=== PATIENT | female | born 1995 | race Caucasian/White ===

== ENCOUNTER 2022-02-01 08:12 | Outpatient (CLI) | payer BC, SELFPAY ==
--- NOTE | 2022-02-01 08:15 | CRLHL7_ITS ---
For Patients: As a result of the Cures Act, medical imaging exams and procedure reports are released immediately into your electronic medical record. You may view this report before your referring provider. If you have questions, please contact your health care provider. 3rd TRIMESTER TWIN GROWTH INDICATION: Third trimester scan, evaluate growth in a twin gestation. COMPARISON: 12/18/2021 TECHNIQUE: Real-time grayscale imaging of the twins was performed. FINDINGS: Sonographic imaging demonstrates a living twin intrauterine gestation. Twin A demonstrates a regular cardiac rate of 144 beats per minute. Twin A has a right breech position. The placenta lies anterior. Amniotic fluid volume appears normal and the largest fluid pocket measures 4.1 cm. The estimated weight is 1400 gm which lies at the 72nd percentile. BPD 78th percentile. HC 79th percentile. AC 85th percentile. FL 21st percentile. The HC/AC ratio measures 1.08 range (0.98-1.20). Twin B demonstrates a regular cardiac rate of 144 beats per minute. Twin B has a left vertex position. The placenta lies anterior. Amniotic fluid volume appears normal and the largest fluid pocket measures 3.5 cm. The estimated weight is 1228 gm which lies at the 32nd percentile. BPD 16th percentile. HC 33rd percentile. AC 46th percentile. FL 21st percentile. The HC/AC ratio measures 1.09 range (1.01-1.21). IMPRESSION: TWIN A: Sonographic gestational age 29 weeks 5 days and sonographic due date 04/14/2022. Sonographic age is 8 days ahead of the clinical age. Estimated weight 72nd percentile. Abdominal circumference 85th percentile. TWIN B: Sonographic gestational age 28 weeks 3 days and sonographic due date of 04/23/2022. Sonographic age is 1 day behind the clinical age. Estimated weight 32nd percentile. Abdominal circumference 46th percentile. Dictated by Jason Segura MD @ 02/01/2022 9:26:12 AM (Electronically Signed)
== END 2022-02-01 08:13 | disposition home or self-care (01) ==
LOC: US 08:13
PROVIDERS: Visit Provider Obstetrics & Gynecology
DX: O30.043 Twin pregnancy, dichorionic/diamniotic, third trimester (principal); Z3A.28 28 weeks gestation of pregnancy
CPT/HCPCS: 76816

== ENCOUNTER 2022-02-01 13:02 | Outpatient (CLI) | payer BC, SELFPAY ==
--- OUTSIDE RECORDS SUMMARY | 2022-02-01 08:04 | XMS_ITS | Encounter Summary ---
:1995 Author Organization [facility] Address [address] [address] Care Team Providers Name Role Phone Randy Zoie Rabia OSUNA, MACEY Primary Care Provider [phone] Reason for Visit Reason Comments LAB RESULTS Encounter Details Date Type Department Care Team Description 09/01/2015 Telephone [facility] Jp Lorenz MD LAB RESULTS Endocrinology Clinic [address] [place] [address], [address] [place] [address] [place] [address] [phone] (Wo rk) Social History Tobacco Use Types Packs/Day Years Used Date Smoking Tobacco: Former Smokeless Tobacco: Former Qu it: 05/27/2011 Alcohol Use Standard Drinks/Week Comments No 0 (1 standard drink = 0.6 oz pure alcoho l) Sex Assigned at Date Recorded Not on file documented as of this encounter Nursing Notes Lakshmi Mckeon, WILD - 09/01/2015 11:39 AM CDT Return call to pt with lab results (pt had not viewed online results yet). Lakshmi Mckeon RN 09/01/2015, 11:39 AM Brianna Saavedra - 09/01/2015 11:09 AM CDT What test are you calling about: Lab tests Who ordered it: Dr. Burgess Where was the test done: [facility] When did you have it done: 08/25/15 If a prescription is needed, would you like it filled at our clinic pharmacy? [Derrick Barge Operator/Appt Center: Was the pharmacy entered into the Preferred Pharmacy field? No] Is it okay to leave detailed message on your voicemail? yes [Derrick Barge Operator/Appt Center: If this call is after 3 p.m., communicate to patient: If we are not able to get back to you by the end of the day and your symptoms worsen please contact the Careline at [phone] OR at .] [Derrick Barge Operator: Inform patient that if they are active with online patient services they can receive their results online (only available for 12 years and younger and 18 years and older)] Is there anything else I can help you with today? Brianna Mckay 09/01/2015, 11:11 AM documented in this encounter Plan of Treatment Not on filedocumented as of this encounter Visit Diagnoses Not on filedocumented in this encounter Care Teams Bicycle Fitter Relationship Specialty Start Date End Date Zoie Padilla, AND TAXI INSTRUCTOR BUS TROLLEY, CONSTRUCTION AND MAINTENANCE INSPECTOR PCP - General Nurse Practitioner 01/04/15 01/23/[address] [place] [address] documented as of this encounter
--- OUTSIDE RECORDS SUMMARY | 2022-02-01 08:04 | XMS_ITS | Encounter Summary ---
:1995 Author Organization [facility] Address [address] [facility] [address] Care Team Providers Name Role Phone Kike Xavier MD Unavailable Reason for Visit Reason Comments Ultrasound L2-Di/Di Twins Encounter Details Date Type Department Care Team Description 11/22/2021 Office Visit [facility] Januszsanamelany Gilma anthony [facility] [address] [place], [place] [id number] Dichorionic diamniotic Maternal Ector Sherman MD [address] [place] [address] twin in Medicine Center [facility] (Primary Dx) [address] [facility] [address] [place] [address] Social History Tobacco Use Types Packs/Day Years Used Date Never Assessed Sex Assigned at Date Recorded Not on file COVID-19 Exposure Response Date Recorded In the last 10 days, have you been in contact with No / Unsu re 11/22/2021 9:29 AM CDT someone who was confirmed or suspected to have Coronavirus/COVID-19? documented as of this encounter Progress Notes Ector Sherman MD - 11/22/2021 10:45 AM CDT Please see full imaging report from ViewPoint program under imaging tab. Ector Sherman MD Maternal Medicine documented in this encounter Plan of Treatment Not on filedocumented as of this encounter Visit Diagnoses Diagnosis Dichorionic diamniotic twin in second trimester - Primary Twin , antepartum documented in this encounter Care Teams Pharmacy Technician Trainee Relationship Specialty Start Date End Date Kike Xavier MD Assigned OBGYN Provider 10/28/21 12/22/[address] [place] [address] [address] [place] [address] documented as of this encounter
--- OUTSIDE RECORDS SUMMARY | 2022-02-01 08:04 | XMS_ITS | Encounter Summary ---
:1995 [facility] Address [address] [place] [address] Care Team Providers Name Role Phone Zoie Padilla APRN, CNP Primary Care Provider Reason for Visit Reason Comments Dental Conversion [facility] to [place] convers ion Encounter Details Date Type Department Care Team Description 11/01/2016 Dental Conversion [facility] [address] [facility] [address] [place], [place] [address] [place], [place] [phone] [address] Social History Tobacco Use Types Packs/Day Years Used Date Smoking Tobacco: Former Smokeless Tobacco: Former Qu it: 05/27/2011 Alcohol Use Standard Drinks/Week Comments No 0 (1 standard drink = 0.6 oz pure alcoho l) Sex Assigned at Date Recorded Not on file documented as of this encounter Miscellaneous Notes Miscellaneous - Interface, In Edr Dental Conversion - 06/03/2014 12:00 AM OPTICAL GLASS INSPECTOR 06/03/2014: Specialty Referral Letter Sent (HRFF): letter mailed ljr 06/03/14 CAL GLASS INSPECTOR documented in this encounter Plan of Treatment Not on filedocumented as of this encounter Visit Diagnoses Not on filedocumented in this encounter Care Teams Sr. Merchandise Planner Relationship Specialty Start Date End Date Zoie Padilla APRN, CNP PCP - General Nurse Practitioner 01/04/15 01/23/[address] [place] [address] documented as of this encounter
--- OUTSIDE RECORDS SUMMARY | 2022-02-01 08:04 | XMS_ITS | Encounter Summary ---
:1995 Author Organization [facility] Address [address] [place] [address] Care Team Providers Name Role Phone Zoie Padilla APRN, HOSPICE HOME HEALTH AIDE Primary Care Provider [phone] Reason for Visit Reason Comments LAB RESULTS Encounter Details Date Type Department Care Team Description 01/07/2015 Telephone [facility] Zoie Padilla APRN, LAB RESULTS [address] [place], [place] [address] [address] [facility] [phone] [place] [address] Social History Tobacco Use Types Packs/Day Years Used Date Smoking Tobacco: Former Smokeless Tobacco: Former Qu it: 05/27/2011 Alcohol Use Standard Drinks/Week Comments No 0 (1 standard drink = 0.6 oz pure alcoho l) Sex Assigned at Date Recorded Not on file documented as of this encounter Nursing Notes Estella Singh CMA - 01/10/2015 10:13 AM CDT Called pt and she states that she called us back before the weekend and someone already told her theinformation and she stated what pharmacy she wanted it sent to. No message or TE was created in regards to this. I apologized to the pt for the mix-up and having to call her back again to relay the same information. The pt would like to start this medication today since she waited over the weekend. She would like to use [facility] pharmacy. Estella Singh CMA Estella Singh CMA - 01/07/2015 1:46 PM CDT LMTCB. Message also released to online pt services. Estella Singh CMA Estella Singh CMA - 01/07/2015 1:44 PM CDT ----- Message from Zoie Padilla APRN, CNP sent at 01/06/2015 11:15 AM CDT ----- Darlin Your labs are back and all are normal except your thyroid stimulating hormone, which shows you do have hypothyroidism. I would like to start you on oral levothyroxine 75 mcg. You will take this daily, in the morning on an empty stomach 1 hour before eating and by itself - do not take with any other medications or vitamins. Recheck your level in 6 weeks. What pharmacy can I send this to for you? Zoie Padilla APRN, CNP 01/06/2015 11:15 AM documented in this encounter Plan of Treatment Not on filedocumented as of this encounter Visit Diagnoses Diagnosis Hypothyroidism, unspecified hypothyroidi sm type (HRC) - Primary documented in this encounter Care Teams Price Analyst Relationship Specialty Start Date End Date Zoie Padilla APRN, CNP PCP - General Nurse Practitioner 01/04/15 01/23/18 [address], [place] [address] documented as of this encounter
--- OUTSIDE RECORDS SUMMARY | 2022-02-01 08:04 | XMS_ITS | Clinical Summary ---
:1995 Author Organization [facility] [place] [address] Care Team Providers Name Role Phone Pcp, No Unavailable Unavailable Listed, Not Primary Care Provider Unavailable Allergies No known active allergies Medications Medication Sig Dispensed Refills Start Date End Date Status vit Take by mouth 0 Act tiny no.124/iron/folic once daily. ( VITAMIN ORAL) Active Problems Problem Noted Date Nexplanon in place 04/07/2021 Myopia 12/10/2005 Goiter, unspecified 10/08/2005 Overview: Ultrasound in 1 year (08/02), and then TS H in [address] Caballero= Goiter, unspecified Overview: endo 2006. rec. testing every 6 months u ntil summer 2007. If still normal, then yearly. abs negative. Resolved Problems Problem Noted Date Resolved Date Scoliosis (and kyphoscoliosis), idiopathic 10/08/2005 11/22/2005 Unspecified constipation 10/08/2005 11/22/2005 Immunizations Name Administration Dates Next Due DTP 09/06/1997 DTP-HIB 08/16/1994, 1993, 1993, 02/24 Hepatitis A (Adult) 10/19/2011 Hepatitis B (Peds) 1993, 1993, 1993 Inactivated Polio Vaccine 09/06/1997 MMR 09/06/1997, 06/04/1994 Oral Polio Vaccine 08/16/1994, 1993, 1993 Td (Age >=7 Years) 08/08/2004 Family History Medical History Relation Name Comments Genetic Other mother asthma~fa ther healthy~brother healthy~PGF DM, CAD (OR in his 5 0's)~PGM MS Relation Name Status Comments Other Social History Tobacco Use Types Packs/Day Years Used Date Never Smoker Smokeless Tobacco: Never Used Alcohol Use Standard Drinks/Week Comments No 0 (1 standard drink = 0.6 oz pure alcoho l) Alcoholic Drinks/day: 0 Sex Assigned at Date Recorded Female 02/23/2021 8:34 AM CDT Obstetrics History Last Filed Vital Signs Vital Sign Reading Time Taken Comments Blood Pressure 122/60 04/07/2021 11:45 AM SOCIAL PROBLEMS SPECIALIST Pulse 56 04/07/2021 11:45 AM SOCIAL PROBLEMS SPECIALIST Temperature 36 ??C (96.8 ??F) 04/07/2021 10:56 AM SOCIAL PROBLEMS SPECIALIST Respiratory Rate 16 04/07/2021 11:45 AM SOCIAL PROBLEMS SPECIALIST Oxygen Saturation 100% 04/07/2021 11:45 AM SOCIAL PROBLEMS SPECIALIST Inhaled Oxygen Concentration - - Weight 92.3 kg (203 lb 6.4 oz) 04/07/2021 9:30 AM SOCIAL PROBLEMS SPECIALIST Height 154.9 cm (5' 1) 04/07/2021 9:30 AM SOCIAL PROBLEMS SPECIALIST Body Mass Index 38.43 04/07/2021 9:30 AM SOCIAL PROBLEMS SPECIALIST Plan of Treatment Health Maintenance Due Date Last Done Comments Tdap 01/17/2004 Hepatitis C screening for age 18-79 2011 Tetanus booster 08/08/2014 08/08/2004 COVID-19 vaccine series (3 - Booster for 02/14/2021 021, 08/09/2020 Moderna series) Influenza for age 9-49 01/25/2022 Depression screening for age 12+ 03/07/2022 03/07/2021 BMI (ht and wt on same day) for age 18+ 03/13/2022 03/13/20 21, 06/01/2020 Pap test for age 21-65 09/12/2024 09/12/2021 Results Not on filefrom Last 3 Months Insurance Payer Benefit Plan / Subscriber ID Effective Dates Phone Addre ss Type Group BLUE CROSS BLUE CROSS OF [id number] 2020-Present [address] [facility] [place] [address] e (Home) [place], [place] [phone] (Work) Advance Directives Latest Code Status on File Code Status Date Activated Date Inactivated Comments Full Code 04/07/2021 9:07 AM 04/07/2021 3:50 PM Code Status Discussion: Not Discussed Care Teams Electric Accounting Machine Operator Relationship Specialty Start Date End Date Listed, Not PCP - General 03/27/[address] [place] [address] Pcp, No 04/02/20 .
--- OUTSIDE RECORDS SUMMARY | 2022-02-01 08:04 | XMS_ITS | Encounter Summary ---
:1995 Author Organization [facility] Address [address] [place] [address] Care Team Providers Name Role Phone Zoie Padilla APRN, CNP Primary Care Provider [phone] Reason for Visit Reason Comments GOITER ref by Dr. Padilla. Recs in E [facility] Consult/Transfer Care (Routine) - Closed Specialty Diagnoses / Procedures Referred By Contact Refer red To Contact Diagnoses Goiter (HRC) Zoie Padilla APRN, CNP [address] [place], [place] [address] Referral ID Status Reason Start Date Expiration Date Visits Requ ested Visits Authorized [id number] Closed 01/04/2015 04/04/2016 1 1 Encounter Details Date Type Department Care Team Description 08/25/2015 [facility], unspecified type (Primary Dx); Endocrinology [facility] [place] [address] [facility], [address] [facility] [address] [place] [address] [place] [address] [phone] Social History Tobacco Use Types Packs/Day Years Used Date Smoking Tobacco: Former Smokeless Tobacco: Former Qu it: 05/27/2011 Alcohol Use Standard Drinks/Week Comments No 0 (1 standard drink = 0.6 oz pure alcoho l) Sex Assigned at Date Recorded Not on file documented as of this encounter Last Filed Vital Signs Vital Sign Reading Time Taken Comments Blood Pressure 110/60 08/25/2015 2:42 PM CDT Pulse 70 08/25/2015 2:42 PM CDT Temperature - - Respiratory Rate 16 08/25/2015 2:42 PM CDT Oxygen Saturation 98% 08/25/2015 2:42 PM CDT Inhaled Oxygen Concentration - - Weight 78.7 kg (173 lb 9.6 oz) 08/25/2015 2:42 PM CDT Height - - Body Mass Index 30.75 01/04/2015 9:47 AM CDT documented in this encounter Patient Instructions Patient InstructionsStLashonda rosado MD - 08/25/2015 3:01 PM CDT Labs ordered today: Orders Placed This Encounter Procedures ??? TSH, SENSITIVE ??? FREE T4 ??? ANTITHYROID PEROXIDASE Imaging/Consults: None Follow-up: To Be Determined based on lab work. Lashonda Burgess MD Department of Endocrinology [facility] documented in this encounter Progress Notes Lashonda Burgess MD - 08/25/2015 2:54 PM CDT [facility] Endocrinology Visit Note Name: Darlin Worthington Seen at the request of Zoie Padilla APRN, CLINICAL SPECIALIST MEDICAL DEVICE for Chief Complaint Patient presents with ??? GOITER ref by Dr. Padilla. Recs in [facility] . HPI: Darlin Worthington is a 20 y.o. female who presents for the evaluation of : #1 Hypothyroidism. Diagnosed in 12/2014. Started on Levo 75mcg. Didn't notice much of a difference. + slept less. Stopped in 02/2015 + weight gain (20lbs over last year). Changes to hair or skin: No Diarrhea/Constipation:No Changes in menses: No changes Changes in vision:No Diplopia/Blurryness:No Dysphagia or Shortness of breath:No Muscle aches or pain:No Tremors:No Difficulty sleeping:No Changes in weight:Yes: 20 lbs weight gain Heat or cold intolerance: + hot all the times History of [place] or Amiodarone use:No Head or neck surgery/radiation:No IV Contrast:No PMH/PSH: Past Medical History Diagnosis Date ??? Thyroid condition ??? Scoliosis mild ??? 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 Surgical hx - neg Family/Social Hx: Family History Problem Relation Age of Onset ??? Hypertension Mother ??? Eczema Brother ??? Asthma Mother ??? Diabetes, Type II Paternal Grandfather ??? Coronary Artery Disease Paternal Grandfather [place] in his 50's ??? Other Paternal Grandmother MS ??? Thyroid Disorder Other paternal aunt History Alcohol Use No Thyroid disease: Yes: mother and father DM2:Yes: mother Autoimmune: DM1, SLE, RA, Vitiligo: No Student - RF --> [employer] and Art History (moving to [place]) MEDICATIONS: Outpatient Prescriptions Prior to Visit Medication Sig Dispense Refill ??? levothyroxine (AKA SYNTHROID) 75 MCG tablet Take 1 Tab by mouth daily. 90 Tab 0 No facility-administered medications prior to visit. ROS ROS: 10 point ROS neg other than the symptoms noted above in the HPI. Physical Exam VS:BP 110/60 mmHg Pulse 70 Resp 16 Wt 173 lb 9.6 oz (78.744 kg) SpO2 98% GENERAL: AXOX3, NAD, well dressed, answering questions appropriately, appears stated age. HEENT: OP clear, anicteric sclerae THYROID: TM X 2, firm, smooth CV: No peripheral edema, warm hands LUNGS: Normal respiratory effort, no audible wheezes EXTREMITIES: no rashes, no lesions NEUROLOGY: CN grossly intact, no tremors SKIN: no rashes, no lesions MUSCULOSKELETAL No digital cyanosis. Normal gait and station. LABS: TFTs: Component Latest Ref Rng 01/04/2015 TSH, SENSITIVE 0.300 - 5.000 uIU/ml 11.255 (H) T4, FREE 0.8 - 2.2 ng/dl 0.8 T3, FREE 2.8 - 5.2 pg/ml 4.4 TG/TPO: All pertinent notes, labs, and images personally reviewed by me. A/P Ms.Gabrielle Leonel Worthington is a 20 y.o. here for the evaluation of : #1 Hypothyroidism. - Differential includes: autoimmune disease (Denny's thyroiditis), treatment for hyperthyroidism, radiation therapy, thyroid surgery, pituitary disorder, , and iodine deficiency. - Persons with Denny's thyroiditis have serum antibodies reacting with TG, TPO. - Standard treatment for hypothyroidism involves daily use of the synthetic thyroid hormone levothyroxine (Levothroid, Synthroid, others). - The dosage of thyroxine should normally be that required to bring the serum TSH level to the low normal range, such as 1-2 uU/ml. - Doseage may need to be adjusted based on body weight, medications, or . To determine the right dosage of levothyroxine initially we will repeat TSH and free T4 after three months. #2 Goiter. - slight goiter on physical exam - will fully replace thyroid and then consider thyroid US. Labs ordered today: Orders Placed This Encounter Procedures ??? TSH, SENSITIVE ??? FREE T4 ??? ANTITHYROID PEROXIDASE Imaging/Consults: None Follow-up: To Be Determined based on lab work. Lashonda Burgess MD Department of Endocrinology [facility] All questions were answered. The patient indicates understanding of the above issues and agrees withthe plan set forth. documented in this encounter Plan of Treatment Not on filedocumented as of this encounter Results ANTITHYROID PEROXIDASE (08/25/2015 3:19 PM CDT) Patholo gist Method Time Signature Thyroperoxidase Ab 2 0 - 8 [facility] IU/ml [facility] Specimen Anatomical Collection Method Collection Time Receive d Time (Source) Location / / Volume Laterality 08/25/2015 3:19 PM 6 3:30 CDT PM CDT Narrative [facility] - 08/29/2015 12:39 PM CDT Performed at [facility], [address] [place] [address] ??[id number] Lashonda Burgess MD LAB_1 Performing Organization Address City/State/ZIP Code Phon e Number [facility] [phone] FREE T4 (08/25/2015 3:19 PM CDT) athologist Signature T4, Free 0.90 0.8 - 2.2 [facility] ng/dl Specimen Anatomical Collection Method Collection Time Receive d Time (Source) Location / / Volume Laterality 08/25/2015 3:19 PM 6 3:30 CDT PM CDT Narrative [facility] - 08/25/2015 4:43 PM C DT Performed at [facility], [address] [place] [address], Director Dr Cesar Fraser Lashonda Burgess MD LAB_1 Performing Organization Address City/[facility] Phon e Number [facility] [phone] TSH, SENSITIVE (08/25/2015 3:19 PM CDT) athologist Signature TSH, Sensitive 3.360 0.300 - [facility] 5.000 LAB[facility]ATOR[facility] uIU/ml Specimen Anatomical Collection Method Collection Time Receive d Time (Source) Location / / Volume Laterality 08/25/2015 3:19 PM 6 3:30 CDT PM CDT Narrative [facility] - 08/25/2015 4:43 PM C DT Performed at [facility], [address] [place] [address], Director Dr Cesar Fraser Lashonda Burgess MD LAB_1 Performing Organization Address [facility] Phon e Number [facility] [phone] documented in this encounter Visit Diagnoses Diagnosis Hypothyroidism, unspecified type (HRC) - Primary Goiter (HRC) Goiter, unspecified documented in this encounter Care Teams Health Policy Nurse Relationship Specialty Start Date End Date Zoie Padilla, TRANSIT MIXER OPERATOR, CLINICAL SPECIALIST MEDICAL DEVICE PCP - General Nurse Practitioner 01/04/15 01/23/18 [address], [place] [address] documented as of this encounter
--- OUTSIDE RECORDS SUMMARY | 2022-02-01 08:04 | XMS_ITS | Encounter Summary ---
:1995 Author Organization [place] Address [address] [place] [address] Care Team Providers Name Role Phone Unavailable Primary Care Provider Unavailable Reason for Referral Diagnostic Imaging Ultrasound (Routine) - Pending Review Specialty Diagnoses / Procedures Referred By Contact Refer red To Contact Diagnoses related condition Jailene Karena Procedures MFM Twins [id number] [place] [address] Referral ID Status Reason Start Date Expiration Date Visits V isits Requested Authorized [id number] Pending 10/09/2021 10/09/2022 1 1 Review onsultation (Routine: Next available opening) - Pending Review Specialty Diagnoses / Procedures Referred By Contact Refer red To Contact Diagnoses related condition Jailene Karena [address] [address] [place] [address] Referral ID Status Reason Start Date Expiration Date Visits V isits Requested Authorized [id number] Pending 10/09/2021 10/09/2022 1 1 Review Encounter Details Date Type Department Care Team Description 10/09/2021 [facility]cribe Orders [facility] condition (Pr [facility] MEDICAL Dx) [place] [address] [address] [place], [place] [address] [address] [place], [place] [phone] (Work) [phone] Social History Tobacco Use Types Packs/Day Years Used Date Never Assessed Sex Assigned at Date Recorded Not on file documented as of this encounter Plan of Treatment Scheduled Referrals Name Type Priority Associated Diagnoses Order [facility] Referral Routine: Next related Expe cted: Referral - available opening condition 10/09/2021 (Approximate), Expires: 04/07/2022 documented as of this encounter Results MFM Twins US Comprehensive (11/22/2021 11:08 AM CDT) Anatomical Region Laterality Modality Ultrasound Specimen (Source) Anatomical Collection Method Collection Time Re ceived Time Location / / Volume Laterality 11/22/2021 9:24 AM CDT Impressions 11/22/2021 1:04 PM CDT IMPRESSION 1. Dichorionic diamniotic twins at 18 we eks 3 days by LMP and 8 week US here for assessment of anatomy. 2. There are separate placentas with a t hick inter-twin membrane consistent with a dichorionic diamniotic twin intrauterine . 3. No anomalies commonly detected by ultrasound or soft markers of aneuploidy were identified in the detailed anatomic survey for either twin within the limits of ultrasound. No soft markers of aneuploidy are identified. 4. Growth parameters and estimated weight were consistent with established dates for both twins, with no significant inter-twin discordance. 5. The amniotic fluid volume appeared no rmal around both twins. 6. On transabdominal imaging the cervix appears long and closed. Narrative 11/22/2021 1:04 PM CDT Comprehensive Pat. Name: DARLIN PURDY Study Santiago e: 11/22/2021 9:24am Pat. NO: [id number] Referring ??MD: JENNY HAMILTON Site: [facility] [employer] Waste Technician: Rica Tobar RD MS : 1995 Age: 26 INDICATION Dichorionic, Diamniotic Twin gestation. Low risk NIPT. Obesity, BMI-37. METHOD Transabdominal ultrasound examination. V iew: Sufficient Twin . Dichorionic-diamniotic. Number of fetuses: 2 DATING ? Date ?Details ?Gest. age ?RAVINDER LMP ?07/16/2021 ? 18 w + 3 d ? 04/22/2022 Prior assessment ? / ? GA: 8 w + 3 d ?18 w + 4 d ? 04/21/2022 U/S Fetus 1 ? 11/22/2021 ? based upon AC, BPD, Femur, HC ?19 w + 0 d ? 04/18/2022 U/S Fetus 2 ?based upon AC, BPD, Femur, HC ?18 w + 6 d ? 04/19/2022 Assigned dating ?Dating performed on 11/22/2021, based on the LMP ?18 w + 3 d ? 04/22/2022 Fetus 1: GENERAL EVALUATION Cardiac activity present. FHR 144 bpm. movements present. Presentation breech, maternal right. Placenta No Previa, > 2 cm from internal os. Anterior, thick dividing membrane. Umbilical cord 3 vessel cord. Amniotic fluid Amount of AF: normal. MVP 6.1 cm. Fetus 2: GENERAL EVALUATION Cardiac activity present. FHR 149 bpm. movements present. Presentation cephalic, maternal left. Placenta Anterior, thick dividing membra ne. Umbilical cord 3 vessel cord. Amniotic fluid Amount of AF: normal. MVP 4.8 cm. Fetus 1: BIOMETRY Main Biometry: BPD ?42.5 ?mm ? 18w 6d ?Hadlock OFD ?54.0 ?mm ? 18w 0d ?Nicolaides HC ?154.0 ?mm ?18w 3d ?Hadlock Cerebellum tr ?19.1 ? mm ?18w 4d ?Nicolaides AC ?137.8 ?mm ?19w 1d ?72% ?Hadlock Femur ?29.9 ? mm ?19w 2d ?Hadlock Humerus ?29.4 ?mm ? 19w 4d ?Rodríguez Weight Calculation: EFW ? 275 ? g ? 83% ?Hadlock EFW (lb,oz) ? 0 lb 10 ? oz EFW by ? Hadlock ([id number]-FL) EFW discordance ? 2.1 ? % Head / Face / Neck Biometry: Crane Oiler ? 7.1 ? mm CM ?5.8 ? mm Nasal bone ? 5.8 ? mm Nuchal fold ? 4.1 ? mm Fetus 2: BIOMETRY Main Biometry: BPD ?41.4 ?mm ? 18w 4d ?Hadlock OFD ?54.2 ?mm ? 18w 0d ?Nicolaides HC ?153.7 ?mm ?18w 2d ?Hadlock Cerebellum tr ?19.9 ? mm ?19w 0d ?Nicolaides AC ?133.5 ?mm ?18w 6d ?61% ?Hadlock Femur ?31.9 ? mm ?19w 6d ?Hadlock Humerus ?28.5 ?mm ? 19w 2d ?Rodríguez Weight Calculation: EFW ? 281 ? g ? 87% ?Hadlock EFW (lb,oz) ? 0 lb 10 ? oz EFW by ? Hadlock ([id number]-RE-FH-FL) EFW discordance ? 2.1 ? % Head / Face / Neck Biometry: Crane Oiler ? 8.0 ? mm CM ?4.4 ? mm Nasal bone ? 5.4 ? mm Nuchal fold ? 3.4 ? mm Fetus 1: ANATOMY The following structures appear normal: Head / Neck ? Cranium. Head size. Head shape. Lateral ventricles. Choroid plexus. Midline falx. Cavum septi pellucidi. Cerebellum. Cisterna magna. ? Parenchyma. Thalami. Vermis. ? Neck. Nuchal fold. Face ? Lips. Profile. Nose. Maxilla. Mandible. Orbits. Lens. Heart / Thorax ?4-chamber view. RVOT view. LVOT view. Situs. Aortic arch view. Bicaval view. Ductal arch view. Superior vena cava. Inferior vena cava. 3-vessel ? view. 6-mfacks-xmxseea view. Cardiac position. Cardiac size. Cardiac rhythm. ? Right lung. Left lung. Diaphragm. Abdomen ? Abdominal wall. Cord insertion. Stomach. Kidneys. Bladder. Liver. Bowel. Genitals. Spine ?Cervical spine. Thoracic spine. Lumbar spine. Sacral spine. Extremities / Skeleton ?Rig ht hand. Left hand. Right foot. Left foot. Gender: male. Fetus 2: ANATOMY The following structures appear normal: Head / Neck ? Cranium. Head size. Head shape. Lateral ventricles. Choroid plexus. Midline falx. Cavum septi pellucidi. Cerebellum. Cisterna magna. ? Parenchyma. Thalami. Vermis. ? Neck. Nuchal fold. Face ? Lips. Profile. Nose. Maxilla. Mandible. Orbits. Lens. Heart / Thorax ?4-chamber view. RVOT view. LVOT view. Situs. Aortic arch view. Bicaval view. Ductal arch view. Superior vena cava. Inferior vena cava. 3-vessel ? view. 2-yiizhc-wlanlub view. Cardiac position. Cardiac size. Cardiac rhythm. ? Right lung. Left lung. Diaphragm. Abdomen ? Abdominal wall. Cord insertion. Stomach. Kidneys. Bladder. Liver. Bowel. Genitals. Spine ?Cervical spine. Thoracic spine. Lumbar spine. Sacral spine. Extremities / Skeleton ?Rig ht hand. Left hand. Right foot. Left foot. Gender: male. MATERNAL STRUCTURES Cervix ?Visualized ? Appearance: Appears Closed ? Approach - Transabdominal: Cervical length 48.2 mm Right Ovary ?Visualized Left Ovary ?Visualized ? Cyst(s) Size 28 mm x 24 mm x 22 mm. Mean 24.7 mm. Vol 7.741 cm?. Simple cyst RECOMMENDATION Thank-you for referring your patient for a comprehensive ultrasound due to dichorionic diamniotic twin . We briefly reviewed the complications of twin pregnancies. We would recommend she take a low dose aspirin to reduce the risk of preeclampsia which she is currently taking. I discussed the findings on today's ultr asound with the patient. I reviewed the limitations of ultrasound both in detecting aneuploidy and structural abnormalities. Ultrasound can routinely detect 80-90% of structura l abnormalities. She had cell free DNA for genetic screening this which was low risk. She is also up to date on Covid-19 vaccinations. Serial ultrasounds for growth ever y 4 weeks are recommended, as well as weekly BPPs at 36 weeks - she plans to have this follow up in [place]. Return to primary provider for continued care. If you have questions regarding today's evaluation or if we can be of further service, please contact the [facility]. Procedure Note Ector Sherman MD - 11/22/2021Form atting of this note might be different from the original. Comprehensive Pat. Name:Nisha PURDY Date: 11/22/2021 9:24am Pat. NO: [id number] MD:AUGUST ANSHUL OROZCO [facility]Rica Tobar RDMS :1995Age:26 INDICATION Dichorionic, Diamniotic Twin gestation. Low risk NIPT. Obesity, BMI-37. METHOD Transabdominal ultrasound examination. V iew: Sufficient Twin . Dichorionic-diamniotic. Number of fetuses: 2 DATING Date Details Gest. age RAVINDER LMP 07/16/2021 18 w + 3 d 04/22/2022 Prior assessment 09/12/2021 GA: 8 w + 3 d 18 w + 4 d 04/21/2022 U/S Fetus 1 11/22/2021 based upon AC, BPD , Femur, HC 19 w + 0 d 04/18/2022 U/S Fetus 2 based upon AC, BPD, Femur, H C 18 w + 6 d 04/19/2022 Assigned dating Dating performed on 10/26, based on the LMP 18 w + 3 d 04/22/2022 Fetus 1: GENERAL EVALUATION Cardiac activity present. FHR 144 bpm. movements present. Presentation breech, maternal right. Placenta No Previa, > 2 cm from internal os. Anterior, thick dividing membrane. Umbilical cord 3 vessel cord. Amniotic fluid Amount of AF: normal. MVP 6.1 cm. Fetus 2: GENERAL EVALUATION Cardiac activity present. FHR 149 bpm. movements present. Presentation cephalic, maternal left. Placenta Anterior, thick dividing membra ne. Umbilical cord 3 vessel cord. Amniotic fluid Amount of AF: normal. MVP 4.8 cm. Fetus 1: BIOMETRY Main Biometry: BPD 42.5 mm 18w 6d Hadlock OFD 54.0 mm 18w 0d Nicolaides HC 154.0 mm 18w 3d Hadlock Cerebellum tr 19.1 mm 18w 4d Nicolaides AC 137.8 mm 19w 1d 72% Hadlock Femur 29.9 mm 19w 2d Hadlock Humerus 29.4 mm 19w 4d Rodríguez Weight Calculation: EFW 275 g 83% Hadlock EFW (lb,oz) 0 lb 10 oz EFW by Hadlock (RDA-[id number]-FL) EFW discordance 2.1 % Head / Face / Neck Biometry: Crane Oiler 7.1 mm CM 5.8 mm Nasal bone 5.8 mm Nuchal fold 4.1 mm Fetus 2: BIOMETRY Main Biometry: BPD 41.4 mm 18w 4d Hadlock OFD 54.2 mm 18w 0d Nicolaides HC 153.7 mm 18w 2d Hadlock Cerebellum tr 19.9 mm 19w 0d Nicolaides AC 133.5 mm 18w 6d 61% Hadlock Femur 31.9 mm 19w 6d Hadlock Humerus 28.5 mm 19w 2d Rodríguez Weight Calculation: EFW 281 g 87% Hadlock EFW (lb,oz) 0 lb 10 oz EFW by Hadlock ([id number]-ZZ-HE-FL) EFW discordance 2.1 % Head / Face / Neck Biometry: Crane Oiler 8.0 mm CM 4.4 mm Nasal bone 5.4 mm Nuchal fold 3.4 mm Fetus 1: ANATOMY The following structures appear normal: Head / Neck Cranium. Head size. Head sha pe. Lateral ventricles. Choroid plexus. Midline falx. Cavum septi pellucidi. Cerebellum. Cisterna magna. Parenchyma. Thalami. Vermis. Neck. Nuchal fold. Face Lips. Profile. Nose. Maxilla. Selin ble. Orbits. Lens. Heart / Thorax 4-chamber view. RVOT view . LVOT view. Situs. Aortic arch view. Bicaval view. Ductal arch view. Superior vena cava. Inferior vena cava. 3-vessel view. 5-biuhoy-eptxrji view. Cardiac po sition. Cardiac size. Cardiac rhythm. Right lung. Left lung. Diaphragm. Abdomen Abdominal wall. Cord insertion. Stomach. Kidneys. Bladder. Liver. Bowel. Genitals. Spine Cervical spine. Thoracic spine. Nicolasa mbar spine. Sacral spine. Extremities / Skeleton Right hand. Left hand. Right foot. Left foot. Gender: male. Fetus 2: ANATOMY The following structures appear normal: Head / Neck Cranium. Head size. Head sha pe. Lateral ventricles. Choroid plexus. Midline falx. Cavum septi pellucidi. Cerebellum. Cisterna magna. Parenchyma. Thalami. Vermis. Neck. Nuchal fold. Face Lips. Profile. Nose. Maxilla. Selin ble. Orbits. Lens. Heart / Thorax 4-chamber view. RVOT view . LVOT view. Situs. Aortic arch view. Bicaval view. Ductal arch view. Superior vena cava. Inferior vena cava. 3-vessel view. 1-qvzxbu-lxqesrd view. Cardiac po sition. Cardiac size. Cardiac rhythm. Right lung. Left lung. Diaphragm. Abdomen Abdominal wall. Cord insertion. Stomach. Kidneys. Bladder. Liver. Bowel. Genitals. Spine Cervical spine. Thoracic spine. Nicolasa mbar spine. Sacral spine. Extremities / Skeleton Right hand. Left hand. Right foot. Left foot. Gender: male. MATERNAL STRUCTURES Cervix Visualized Appearance: Appears Closed Approach - Transabdominal: Cervical chin gt 48.2 mm Right Ovary Visualized Left Ovary Visualized Cyst(s) Size 28 mm x 24 mm x 22 mm. Kaela n 24.7 mm. Vol 7.741 cm?. Simple cyst RECOMMENDATION Thank-you for referring your patient for a comprehensive ultrasound due to dichorionic diamniotic twin . We briefly reviewed the complications of twin pregnancies. We would recommend she take a low dose aspirin to reduce the risk of preeclampsia which she is currently taking. I discussed the findings on today's ultr asound with the patient. I reviewed the limitations of ultrasound both in detecting aneuploidy and structural abnormalities. Ultrasound can routinely detect 80-90% of structura l abnormalities. She had cell free DNA for genetic screening this which was low risk. She is also up to date on Covid-19 vaccinations. Serial ultrasounds for growth ever y 4 weeks are recommended, as well as weekly BPPs at 36 weeks - she plans to have this follow up in [place]. Return to primary provider for continued care. If you have questions regarding today's evaluation or if we can be of further service, please contact the [facility]. IMPRESSION 1. Dichorionic diamniotic twins at 18 we eks 3 days by LMP and 8 week US here for assessment of anatomy. 2. There are separate placentas with a t hick inter-twin membrane consistent with a dichorionic diamniotic twin intrauterine . 3. No anomalies commonly detected by ultrasound or soft markers of aneuploidy were identified in the detailed anatomic survey for either twin within the limits of ultrasound. No soft markers of aneuploidy are identified. 4. Growth parameters and estimated weight were consistent with established dates for both twins, with no significant inter-twin discordance. 5. The amniotic fluid volume appeared no rmal around both twins. 6. On transabdominal imaging the cervix appears long and closed. August Jailene [facility] US ORDERABLES documented in this encounter Visit Diagnoses Diagnosis related condition - Primary Unspecified complication of , u nspecified as to episode of care related condition Unspecified complication of , u nspecified as to episode of care documented in this encounter
--- OUTSIDE RECORDS SUMMARY | 2022-02-01 08:04 | XMS_ITS | Encounter Summary ---
:1995 Author Organization [facility] Address [address] [place] [address] Care Team Providers Name Role Phone Zoie Padilla APRN, CNP Primary Care Provider [phone] Encounter Details Date Type Department Care Team Description 08/29/2015 Orders Only [facility] [address], Hypothyroidism, Endocrinology Clinic MD unspecified type [address] (Primary Dx) [place] [address] [address] [address] [place] [address] (Wo rk) Social History Tobacco Use Types Packs/Day Years Used Date Smoking Tobacco: Former Smokeless Tobacco: Former Qu it: 05/27/2011 Alcohol Use Standard Drinks/Week Comments No 0 (1 standard drink = 0.6 oz pure alcoho l) Sex Assigned at Date Recorded Not on file documented as of this encounter Plan of Treatment Not on filedocumented as of this encounter Visit Diagnoses Diagnosis Hypothyroidism, unspecified type (HRC) - Primary documented in this encounter Care Teams Breaker Off Relationship Specialty Start Date End Date Zoie Padilla APRN, CNP PCP - General Nurse Practitioner 01/04/15 01/23/[address] [place] [address] documented as of this encounter
--- OUTSIDE RECORDS SUMMARY | 2022-02-01 08:04 | XMS_ITS | Clinical Summary ---
:1995 Author Organization [facility] Address [address] [place] [address] Care Team Providers Name Role Phone Unavailable Primary Care Provider Unavailable Encounters Date Type Specialty Care Team Description 11/22/2021 Office Visit Maternal and [facility] Dichorionic Medicine Ector Sherman diamniotic twdevonte Hernandez MD in se cond trimester (Prim holden Dx) 11/22/2021 Hospital Encounter Radiology. Esteban Hamilton related Ector Sherman condition MD David 11/22/2021 Travel from Last 3 Months Social History Tobacco Use Types Packs/Day Years Used Date Never Assessed Estimated Date of Delivery Comments Yes 04/22/2022 Based on last menstr ual period of 07/16/2021 Sex Assigned at Date Recorded Not on file Plan of Treatment Health Maintenance Due Date Last Done Comments ADVANCE CARE PLANNING 1995 ANNUAL REVIEW OF HM ORDERS 1995 PREVENTIVE CARE VISIT 1993 DTAP/TDAP/TD IMMUNIZATION 08/09/2004 08/08/2004, 09/06/1997 , (6 - Tdap) 08/16/1994, Additional history exists HIV SCREENING 01/17/2008 HEPATITIS C SCREENING 2011 PHQ-2 (once per calendar 05/27/2021 year) MATERNAL SCREENING 10/29/2021 OBGCT (OB) 12/31/2021 INFLUENZA VACCINE (#1) 2022 PAP 09/12/2024 09/12/2021 HEPATITIS B IMMUNIZATION Completed 1995, 1995, 1995, Additional history exists IPV IMMUNIZATION Completed 09/06/1997, 09/06/1997, 08/16/1994, Additional history exists COVID-19 Vaccine Completed 08/21/2021, 06/01/2021, 09/14/2020, Additional history exists MENINGITIS IMMUNIZATION Aged Out No longe r eligible based on patient 's age to complete this topic Pneumococcal Vaccine: Aged Out No longer eligible Pediatrics (0 to 5 Years) based on patient's age and At-Risk Patients (6 to to co mplete this topic 64 Years) Procedures Procedure Name Priority Date/Time Associated Comments Diagnosis MFM TWINS US Routine 11/22/2021 11:08 related Result s for this COMPREHENSIVE AM CDT condition procedure are in the results section. from Last 3 Months Results MFM Twins US Comprehensive (11/22/2021 11:08 [...] Study Santiago e: 11/22/2021 9:24am Pat. NO: [id number] Referring ??MD: JENNY HAMILTON Site: [facility] Employer Relations Representative: Rica Tobar RD MS : 1995 Age: 26 INDICATION Dichorionic, Diamniotic Twin gestation. Low risk NIPT. Obesity, BMI-37. METHOD Transabdominal ultrasound examination. V iew: Sufficient Twin . Dichorionic-diamniotic. Number of fetuses: 2 DATING ? Date ?Details ?Gest. age ?RAVINDER LMP ?07/16/2021 ? 18 w + 3 d ? 04/22/2022 Prior assessment ? 4/ ? GA: 8 w + 3 d [...] 10 ? oz EFW by ? Hadlock ([id number]-DX-TB-FL) EFW discordance ? 2.1 ? % Head / Face / Neck Biometry: Hardening Machine Operator ? 7.1 ? mm CM ?5.8 ? [...] 10 ? oz EFW by ? Hadlock (DTQ-IZ-QB-FL) EFW discordance ? 2.1 ? % Head / Face / Neck Biometry: Hardening Machine Operator ? 8.0 ? mm CM ?4.4 ? [...] cava. Inferior vena cava. 3-vessel ? view. 3-dappbd-lfwghwf view. Cardiac position. Cardiac size. Cardiac rhythm. [...] cava. Inferior vena cava. 3-vessel ? view. 2-rkavtl-oyxfcmc view. Cardiac position. Cardiac size. Cardiac rhythm. [...] x 22 mm. Mean 24.7 mm. Vol 7.411 cm?. Simple cyst RECOMMENDATION Thank-you for referring [...] plans to have this follow up in [place]. Return to primary provider for continued care. If you have questions regarding today's evaluation or if we can be of further service, please contact the [facility]. Procedure Note Ector Sherman MD - 11/22/2021Form atting of this note might be different from the original. Comprehensive Pat. Name:Nisha PURDY Date: 11/22/2021 9:24am Pat. NO: [id number] MD:AUGUST ANSHUL OROZCO [facility]Rica Tobar RDMS :1995Age:26 INDICATION Dichorionic, Diamniotic [...] 0 lb 10 oz EFW by Hadlock (IMM-ID-RV-FL) EFW discordance 2.1 % Head / Face / Neck Biometry: Hardening Machine Operator 7.1 mm CM 5.8 mm Nasal bone [...] 0 lb 10 oz EFW by Hadlock (YJO-FE-RW-FL) EFW discordance 2.1 % Head / Face / Neck Biometry: Hardening Machine Operator 8.0 mm CM 4.4 mm Nasal bone [...] vena cava. Inferior vena cava. 3-vessel view. 8-jwwybm-stjoxrz view. Cardiac po sition. Cardiac size. Cardiac [...] vena cava. Inferior vena cava. 3-vessel view. 6-ytcsox-kthuqtq view. Cardiac po sition. Cardiac size. Cardiac rhythm. Right lung. Left lung. Diaphragm. Abdomen Abdominal wall. Cord insertion. Stomach. Kidneys. Bladder. Liver. Bowel. Genitals. Spine Cervical spine. Thoracic spine. Nicolasa mbar spine. Sacral spine. Extremities / Skeleton Right hand. Left hand. Right foot. Left foot. Gender: male. MATERNAL STRUCTURES Cervix Visualized Appearance: Appears Closed Approach - Transabdominal: Cervical chin gth 48.2 mm Right Ovary Visualized Left Ovary [...] plans to have this follow up in [place]. Return to primary provider for continued care. [...] cervix appears long and closed. August Jailene [facility] US ORDERABLES from Last 3 Months Insurance Payer Benefit Plan / Subscriber ID Effective Dates Phone Addre ss Type Group BC[place] [id number] 2020-Present [phone] [address] [address] [place] [address]
--- OUTSIDE RECORDS SUMMARY | 2022-02-01 08:04 | XMS_ITS | Encounter Summary ---
:1995 Author Organization [facility] Address [address] [place] [address] Care Team Providers Name Role Phone Unavailable Primary Care Provider Unavailable Encounter Details Date Type Department Care Team Description 10/17/2021 Travel Social History Tobacco Use Types Packs/Day Years Used Date Never Assessed Sex Assigned at Date Recorded Not on file COVID-19 Exposure Response Date Recorded In the last 10 days, have you been in contact with No / Unsu re 10/17/2021 10:54 AM CDT someone who was confirmed or suspected to have Coronavirus/COVID-19? documented as of this encounter Plan of Treatment Not on filedocumented as of this encounter Visit Diagnoses Not on filedocumented in this encounter
--- OUTSIDE RECORDS SUMMARY | 2022-02-01 08:04 | XMS_ITS | Encounter Summary ---
:1995 Author Organization [facility] Address [address] [place] [address] Care Team Providers Name Role Phone Zoie Padilla APRN, CNP Primary Care Provider [phone] Reason for Referral Consult/Transfer Care (Routine) - Closed Specialty Diagnoses / Procedures Referred By Contact Refer red To Contact Diagnoses Goiter (HRC) Zoie Padilla APRN, CNP [address] [place], [place] [address] Referral ID Status Reason Start Date Expiration Date Visits Requ ested Visits Authorized [id number] Closed 01/04/2015 04/04/2016 1 1 Scheduling Instructions Your provider has recommended an appoint ment with [facility]. You may call [phone] to schedule your a ppointment. If you prefer, a tray line worker will contact you within the next 3 business d ays to assist you in setting up this appointment. Reason for Visit Reason Comments THYROID pt saw specialist at [facility] and was found to have enlarged thyroid FATIGUE sxs started last fall WEIGHT GAIN , POSSIBLE Encounter Details Date Type Department Care Team Description 01/04/2015 Office Visit [facility] Zoie Padilla Fa tigue (Primary Dx); Practice [facility] Goiter; [address] [facility] [address] [place] [id number] Social History Tobacco Use Types Packs/Day Years Used Date Smoking Tobacco: Former Smokeless Tobacco: Former Qu it: 05/27/2011 Alcohol Use Standard Drinks/Week Comments No 0 (1 standard drink = 0.6 oz pure alcoho l) Sex Assigned at Date Recorded Not on file documented as of this encounter Last Filed Vital Signs Vital Sign Reading Time Taken Comments Blood Pressure 101/64 01/04/2015 9:47 AM CDT Pulse 64 01/04/2015 9:47 AM CDT Temperature - - Respiratory Rate 16 01/04/2015 9:47 AM CDT Oxygen Saturation - - Inhaled Oxygen Concentration - - Weight 74.4 kg (164 lb) 01/04/2015 9:47 AM CDT Height 160 cm (5' 3) 01/04/2015 9:47 AM CDT Body Mass Index 29.05 01/04/2015 9:47 AM CDT documented in this encounter Patient Instructions Patient InstructionsZoie Padilla APRN, [employer] - 01/04/2015 9:55 AM CDT Images from the original note were not included. Labs today, most will be back later this afternoon otherwise tomorrow. If results are very abnormal I will have you consult with endocrinology to start treatment. Hypothyroidism: After Your Visit Your Care Instructions You have hypothyroidism, which means that your body is not making enough thyroid hormone. This hormone helps your body use energy. If your thyroid level is low, you may feel tired, be constipated, havean increase in your blood pressure, or have dry skin or memory problems. You may also get cold easily, even when it is warm. Women with low thyroid levels may have heavy menstrual periods. A blood test to find your thyroid-stimulating hormone (TSH) level is used to check for hypothyroidism. A high TSH level may mean that you have low thyroid. When your body is not making enough thyroid hormone, TSH levels rise in an effort to make the body produce more. The treatment for hypothyroidism is to take thyroid hormone pills. You should start to feel better in 1 to 2 weeks. But it can take several months to see changes in the TSH level. You will need regularvisits with your doctor to make sure you have the right dose of medicine. Most people need treatment for the rest of their lives. You will need to see your doctor regularly to have blood tests and to make sure you are doing well. Follow-up care is a carreon part of your treatment and safety. Be sure to make and go to all appointments, and call your doctor if you are having problems. It???s also a good idea to know your test resultsand keep a list of the medicines you take. How can you care for yourself at home? ?? Take your thyroid hormone medicine exactly as prescribed. Call your doctor if you think you are having a problem with your medicine. Most people do not have side effects if they take the right amount of medicine regularly. ?? Take the medicine 30 minutes before breakfast, and do not take it with calcium, vitamins, or iron. ?? Do not take extra doses of your thyroid medicine. It will not help you get better any faster, andit may cause side effects. ?? If you forget to take a dose, do NOT take a double dose of medicine. Take your usual dose the next day. ?? Tell your doctor about all prescription, herbal, or eqig-[id number]-[id number] products you take. ?? Take care of yourself. Eat a healthy diet, get enough sleep, and get regular exercise. When should you call for help? Call 911 anytime you think you may need emergency care. For example, call if: ?? You passed out (lost consciousness). ?? You have severe trouble breathing. ?? You have a very slow heartbeat (less than 60 beats a minute). ?? You have a low body temperature (95??F or below). Call your doctor now or seek immediate medical care if: ?? You feel tired, sluggish, or weak. ?? You have trouble remembering things or concentrating. ?? You do not begin to feel better 2 weeks after starting your medicine. Watch closely for changes in your health, and be sure to contact your doctor if you have any problems. Where can you learn more? Go to [employer] system and enter N862 in the search box. Current as of: April 09, 2014 Content Version: 10.4 ?? 6080-4581 [employer]. Goiter: After Your Visit Your Care Instructions A goiter is an enlarged thyroid gland. It can cause swelling in your neck. Your thyroid is found in the front of your neck. It makes a hormone that controls how your body usesenergy. Goiters are caused by different things. Some are caused by high or low levels of thyroid hormone. Others are caused by too little iodine in the diet, or a growth or disease in the thyroid. In the [place], most goiters are caused by long-term autoimmune thyroiditis. This is also called Denny's thyroiditis. It happens when the body's immune system damages the thyroid. You may take thyroid hormone to reduce the size of your goiter. Or you may need surgery or radioactive iodine treatment. Some people don't need any treatment. They only need to watch for changes in thegoiter. Follow-up care is a carreon part of your treatment and safety. Be sure to make and go to all appointments, and call your doctor if you are having problems. It's also a good idea to know your test results and keep a list of the medicines you take. How can you care for yourself at home? ?? Be safe with medicines. Take your medicines exactly as prescribed. Call your doctor if you think you are having a problem with your medicine. You will get more details on the specific medicines yourdoctor prescribes. When should you call for help? Call 911 anytime you think you may need emergency care. For example, call if: ?? You have trouble breathing. Watch closely for changes in your health, and be sure to contact your doctor if: ?? Your eyes turn red and bulge. ?? You have trouble swallowing. ?? You feel very tired or weak. ?? You lose weight but are eating the same or more than usual. Where can you learn more? Go to [employer] and enter G387 in the search box. Current as of: April 09, 2014 Content Version: 10.4 ?? 4952-5132 [employer], [email or web address]. documented in this encounter Progress Notes Zoie Padilla APRN, CNP - 01/04/2015 9:49 AM CDT SUBJECTIVE: Darlin Worthington is a 19 y.o. old female who presents to clinic requesting thyroid testing. Pt has history of goiter and enlarged thyroid diagnosed at age 7, she has not been following up on this; last time it was checked was about 4 years ago. She has fatigue that started last fall, almost 1 year ago, dry skin and weight gain. Pt reports she had gained about 25# in a 2 month periods. She exercises and watches what she eats including eliminating almost all extra sugar from her diet. LMP was 2 weeks ago, pt reports she does not have unprotected intercourse and has the implanon in her arm. Complete Review of Systems is negative, unless noted in HPI OBJECTIVE: General: BP 101/64 mmHg Pulse 64 Resp 16 Ht 5' 3 (1.6 m) Wt 164 lb (74.39 kg) BMI 29.06 kg/m2 LMP 12/21/2014 She is well developed, well nourished, well groomed, without obvious deformities. Neck: visible enlargement of thyroid, no nodules or cysts palpated. ASSESSMENT: ICD-9-CM 1. Fatigue 780.79 TSH, SENSITIVE FREE T4 T3, FREE, SERUM ANTITHYROID PEROXIDASE VITAMIN D 25-HYDROXY, TOTAL (V77.99) HEMOGRAM/PLTS IRON PROFILE (IRON,TIBC,%SAT.(CALC)) FERRITIN 2. Goiter 240.9 TSH, SENSITIVE FREE T4 T3, FREE, SERUM ANTITHYROID PEROXIDASE ENDOCRINOLOGY CONSULT-ADULTS 3. Possible V72.40 TEST (URINE) PLAN: Lab evaluation Endocrinology consult if thyroid is abnormal for initiation of treatment and treatment options. F/U PRN. Pt verbalized understanding of and agreement with this plan. Zoie Padilla APRN, MACEY 01/04/2015 9:58 AM documented in this encounter Plan of Treatment Scheduled Referrals Name Type Priority Associated Diagnoses [facility] Referral Routine Goiter Ordered: 01/04 CONSULT-ADULTS documented as of this encounter Results FERRITIN (01/04/2015 9:59 AM CDT) P athologist Signature Ferritin 39 10 - 120 [facility] ng/ml Specimen Anatomical Collection Method Collection Time Receive d Time (Source) Location / / Volume Laterality 01/04/2015 9:59 AM 5 CDT 10:01 AM CDT Narrative [facility] - 01/04/2015 4:29 PM C DT Performed at [facility], [address] [place] [phone] Zoie Padilla APRN, CNP LAB_1 Performing Organization Address [facility]/ZIP Code Phon e Number [facility] [phone] IRON PROFILE (IRON,TIBC,%SAT.(CALC)) (01/04/2015 9:59 AM CDT) athologist Signature Iron 60 37 - 170 [facility] mcg/dl [facility] TIBC 318 240 - 430 [facility] mcg/dl [facility] % Saturation, 19 15 - 50 % [facility] calc. [facility] Specimen Anatomical Collection Method Collection Time Receive d Time (Source) Location / / Volume Laterality 01/04/2015 9:59 AM 5 CDT 10:01 AM CDT Narrative [facility] - 01/04/2015 4:29 PM C DT Performed at [facility], [address] [place] [address] ??[phone] Zoie Padilla APRN, MACEY LAB_1 Performing Organization Address [facility] Phon e Number [facility] [phone] HEMOGRAM/PLTS (01/04/2015 9:59 AM CDT) athologist Signature WBC 8.2 4.0 - 11.0 [facility] k/ul RBC 4.16 4.0 - 5.2 [facility] M/ul Hemoglobin 13.0 12.0 - 16.0 [facility] g/dl HCT 37.2 36.0 - 46.0 [facility] % MCV 89.4 80 - 100 fl [facility] MCH 31.3 26 - 34 pg [facility] MCHC 34.9 32 - 36 [facility] g/dl RDW 12.2 11.5 - 14.5 [facility] % Platelets 187 150 - 450 [facility] k/ul Specimen Anatomical Collection Method Collection Time Receive d Time (Source) Location / / Volume Laterality 01/04/2015 9:59 AM 5 CDT 10:01 AM CDT Narrative [facility] - 01/04/2015 3:12 PM C DT Performed at [facility], [address] [place] [address] ??[phone] Zoie Padilla APRN, CNP LAB_1 Performing Organization Address City/[facility] Phon e Number [facility] [phone] VITAMIN D 25-HYDROXY, TOTAL (V77.99) (01/04/2015 9:59 AM CDT) athologist Signature Vitamin 40.5 30.0 - [facility] D,25-OH, Tot 80.0 ng/mL [facility]IES Comment: Deficiency: ??< 20 ng/mL Insufficiency: ??20-29 ng/mL Optimum Level: ??30-80 ng/mL Possible Toxicity: > 80 ng/mL Specimen Anatomical Collection Method Collection Time Receive d Time (Source) Location / / Volume Laterality 01/04/2015 9:59 AM 5 CDT 10:01 AM CDT Narrative [facility] - 01/04/2015 7:40 PM C DT Performed at [facility] , [address] [place] [phone] Zoie Padilla APRN, [employer] LAB_1 Performing Organization Address City/State/ZIP Code Phon e Number [facility] [phone] TEST (URINE) (01/04/2015 9:59 AM CDT) [email or web address] [email or web address] Method Time Signature HCG, Urine Negative [facility] Negative = <25 mIU/ml LABORATO RADHA If is suspected, suggest repeat in 48-72 hours or confirm results with a quantitative hCG test. Specimen Anatomical Collection Method Collection Time Receive d Time (Source) Location / / Volume Laterality Urine specimen 01/04/2015 9:59 AM 015 (specimen) CDT 10:01 AM CDT Narrative [facility] - 01/04/2015 10:32 AM CDT Performed at [facility], [address] [place] [id number] Zoie Padilla APRN, [employer] LAB_1 Performing Organization Address City/State/ZIP Code Phon e Number [facility] [phone] Antithyroid Peroxidase (01/04/2015 9:59 AM CDT) [email or web address] [email or web address] Method Time Signature Thyroperoxidase Ab 2 0 - 8 [facility] IU/ml [facility] Specimen Anatomical Collection Method Collection Time Receive d Time (Source) Location / / Volume Laterality 01/04/2015 9:59 AM 5 CDT 10:01 AM CDT Narrative [facility] - 01/06/2015 10:47 AM CDT Performed at [facility], [address] [place] [address] ??[phone] Zoie Padilla APRN, CNP LAB_1 Performing Organization Address City/[facility]/ZIP Code Phon e Number [facility] [phone] T3, FREE, SERUM (01/04/2015 9:59 AM CDT) P athologist Signature T3,Free 4.4 2.8 - 5.2 [facility] pg/ml Specimen Anatomical Collection Method Collection Time Receive d Time (Source) Location / / Volume Laterality 01/04/2015 9:59 AM 5 CDT 10:01 AM CDT Narrative [facility] - 01/04/2015 4:29 PM C DT Performed at [facility], [address] [place] [address] ??[phone] Zoie Padilla APRN, CNP LAB_1 Performing Organization Address [facility] Code Phon e Number [facility] [phone] FREE T4 (01/04/2015 9:59 AM CDT) P athologist Signature T4, Free 0.8 0.8 - 2.2 [facility] ng/dl Specimen Anatomical Collection Method Collection Time Receive d Time (Source) Location / / Volume Laterality 01/04/2015 9:59 AM 5 CDT 10:01 AM CDT Narrative [facility] - 01/04/2015 4:29 PM C DT Performed at [facility], [address] [place] [address] ??[phone] Zoie Padilla APRN, CNP LAB_1 Performing Organization Address City/[facility]/ZIP Code Phon e Number [facility] [phone] (ABNORMAL) TSH, SENSITIVE (01/04/2015 9:59 AM CDT) Patholo gist Method Time Signature TSH, Sensitive 11.255 0.300 - [facility] (H) 5.000 [facility] uIU/ml Specimen Anatomical Collection Method Collection Time Receive d Time (Source) Location / / Volume Laterality 01/04/2015 9:59 AM 5 CDT 10:01 AM CDT Narrative [facility] - 01/04/2015 4:29 PM C DT Performed at [facility], [address] [place] [address] ??[phone] Zoie Padilla APRN, CNP LAB_1 Performing Organization Address City/State/ZIP Code Phon e Number [facility] [phone] documented in this encounter Visit Diagnoses Diagnosis Fatigue - Primary Other malaise and fatigue Goiter (HRC) Goiter, unspecified Possible examination or test, unconfirmed Fatigue Other malaise and fatigue Goiter (HRC) Goiter, unspecified Possible examination or test, unconfirmed documented in this encounter Care Teams Carpet Renovator Relationship Specialty Start Date End Date Zoie Padilla APRN, CNP PCP - General Nurse Practitioner 01/04/15 01/23/[address] [place] [address] documented as of this encounter
--- OUTSIDE RECORDS SUMMARY | 2022-02-01 08:04 | XMS_ITS | Clinical Summary ---
:1995 Author Organization [facility] Address [address] [place] [address] Care Team Providers Name Role Phone Maliha Delacruz PA-C Primary Care Provider Source Comments You are receiving this document as you are listed as the primary care provider,follow-up provider, or the patient has been referred to you for consultation.This is in compliance with the Medicare and Medicaid EHR Incentive Program,which states Providers who transition their patient to another setting of careor provider of care or refers their patient to another provider of care shouldprovide summarycare record for each transition of care or referral. [facility] Allergies No known active allergies Medications No known medications Active Problems Problem Noted Date Hypothyroidism 08/25/2015 Goiter 03/16/2013 Overview: Endocrine 2006. Normal follow-up US for 2 years, normal TSH, negative antibodies. Repeat US and TSH yearly? Immunizations Name Administration Dates Next Due DTP 09/06/1997 DTP-Hib (Tetramune) 08/16/1994, 1993, 1993, 1993 HepA Ped/Adol (1-18 yrs) 10/19/2011 HepB, Unspecified Formulation 1993, 1993, 1992 MMR 09/06/1997, 06/04/1994 Polio, Unspecified Formulation 09/06/1997, 08/16/1994, 05/22, 1993 Td 08/08/2004 Family History Medical History Relation Name Comments Asthma Mother Hypertension Mother Eczema Brother Thyroid Disorder Other paternal aunt Coronary Artery Disease Paternal Grandfather [place] in his 50's Diabetes, Type II Paternal Grandfather Other Paternal Grandmother MS Relation Name Status Comments Mother Brother Other Paternal Grandfather Paternal Grandmother Social History Tobacco Use Types Packs/Day Years Used Date Smoking Tobacco: Former Smokeless Tobacco: Former Qu it: 05/27/2011 Alcohol Use Standard Drinks/Week Comments No 0 (1 standard drink = 0.6 oz pure alcoho l) Sex Assigned at Date Recorded Not on file Last Filed Vital Signs Vital Sign Reading Time Taken Comments Blood Pressure 126/82 01/24/2018 9:43 AM CDT Pulse 78 01/24/2018 9:43 AM CDT Temperature 36.6 ??C (97.9 ??F) 02/25/2013 10:56 AM CDT Respiratory Rate 18 01/24/2018 9:43 AM CDT Oxygen Saturation 98% 08/25/2015 2:42 PM CDT Inhaled Oxygen Concentration - - Weight 68.9 kg (152 lb) 01/24/2018 9:43 AM CDT Height 157.5 cm (5' 2) 01/24/2018 9:43 AM CDT Body Mass Index 27.8 01/24/2018 9:43 AM CDT Plan of Treatment Health Maintenance Due Date Last Done Comments Hep C Screening (Preventive 1993 Services) COVID-19 Vaccine (#1) 1993 DTaP/Tdap/Td (6 - Tdap) 08/09/2004 08/08/2004, 09/06/1997, 08/16/1994, Additional history exists HIV Screening (Preventive 2009 Services) Adult Preventive Visit 2011 HepA (2 of 2 - Risk 2-dose 04/20/2012 10/19/2011, 2 series) Cervical Cancer Screening 02/26/2013 02/25/2013, 02/25/2013 Due Influenza (#1) 2022 Zoster/Shingles (1 of 2) 2043 HepB Completed 1993, 1993, 1993 Hib Completed 08/16/1994, 1993, 1993, Additional history exists IPV (Polio) Completed 09/06/1997, 08/16/1994, 1993, Additional history exists HPV Vaccine Aged Out No longer eligib le based on patient 's age to complete this topic MCV4 Aged Out No longer eligib le based on patient 's age to complete this topic Pneumococcal Aged Out No longer eligib le based on patient 's age to complete this topic Insurance Payer Benefit Plan / Subscriber ID Effective Phone Address T ype Group Dates [employer] [id number] Effective P reventive DENTAL PLAN [place] DENTAL for all dates [place] [id number] 2017-Pre [address] [id number] [place] [address] Ander Personal/Family Self 1995 [id number] (Home) [facility] [phone] [place], [place] (Work) [id number] Ander Personal/Family Self 1995 [id number] (Home) [place] [address] Care Teams Compliance Program Manager Relationship Specialty Start Date End Date Maliha Delacruz PA-C PCP - General Physician German Tutor 01/24/18 [address] [place] [address]
--- OUTSIDE RECORDS SUMMARY | 2022-02-01 08:04 | XMS_ITS | Encounter Summary ---
:1995 Author Organization [facility] Address [address] [place] [address]. [place] [address] Care Team Providers Name Role Phone Unavailable Primary Care Provider Unavailable Encounter Details Date Type Department Care Team Description 09/14/2021 Medical Correspondence [facility] Scan, MATERNAL Health Info Mgmt Non-Provider MEDICINE [facility] Srvcs PROVIDER SERVICE [address] [place] [address] [place] [address] [facility] [phone] [facility] Social History Tobacco Use Types Packs/Day Years Used Date Never Assessed Sex Assigned at Date Recorded Not on file documented as of this encounter Plan of Treatment Not on filedocumented as of this encounter Visit Diagnoses Not on filedocumented in this encounter
--- OUTSIDE RECORDS SUMMARY | 2022-02-01 08:04 | XMS_ITS | Encounter Summary ---
:1995 Author Organization [facility] Address [address] [place] [address] Care Team Providers Name Role Phone Unavailable Primary Care Provider Unavailable Reason for Visit Reason Comments Ultrasound 1st tri complete-twins, conf irm chorionicity Encounter Details Date Type Department Care Team Description 10/11/2021 PRE VISIT [facility] Shayy Barajas, RN Ultra sound (1st tri Maternal Medicine comp lete-twins, confirm [facility] [place] chorionicity) [address] [facility] [address] [place] [address] Social History Tobacco Use Types Packs/Day Years Used Date Never Assessed Sex Assigned at Date Recorded Not on file documented as of this encounter Plan of Treatment Not on filedocumented as of this encounter Visit Diagnoses Not on filedocumented in this encounter
--- OUTSIDE RECORDS SUMMARY | 2022-02-01 08:04 | XMS_ITS | Encounter Summary ---
:1995 Author Organization [place] Address [address] [facility] [place] [address] Care Team Providers Name Role Phone Kike Xavier MD Unavailable Reason for Referral Diagnostic Imaging Ultrasound (Routine) - Pending Review Specialty Diagnoses / Procedures Referred By Contact Refer red To Contact Diagnoses related condition JaileneAugust Procedures [place] [address] [place] [address] Referral ID Status Reason Start Date Expiration Date Visits V isits Requested Authorized [id number] Pending 10/09/2021 10/09/2022 1 1 Review Reason for Visit Diagnostic Imaging Ultrasound (Routine) - Pending Review Specialty Diagnoses / Procedures Referred By Contact Refer red To Contact Diagnoses related condition Joseaugust Procedures [place] [address] [place] [address] Referral ID Status Reason Start Date Expiration Date Visits V isits Requested Authorized [id number] Pending 10/09/2021 10/09/2022 1 1 Review Encounter Details Date Type Department Care Team Description 11/22/2021 Hospital Encounter [facility] Rabia Flower [place] [address] [place] [id number] related Maternal Ector Sherman MD [address] [place], [place] [address] condition Medicine Center [place] [address] [facility] [address] [place] [address] Social History Tobacco Use Types [...] Not on filedocumented as of this encounter Procedures Procedure Name Priority Date/Time Associated Comments Diagnosis MFM TWINS US Routine 11/22/2021 11:08 related Result s for this COMPREHENSIVE AM CDT condition procedure are in the results section. documented in this encounter Results MFM Twins US Comprehensive [...] Study Santiago e: 11/22/2021 9:24am Pat. NO: [id number] Referring ??: JENNY HAMILTON Site: [facility] Associate Quality Engineer: Rica Tobar RD MS : 1995 Age: [...] 10 ? oz EFW by ? Hadlock ([id number]) EFW discordance ? 2.1 ? % Head / Face / Neck Biometry: Top Dyeing Machine Loader ? 7.1 ? mm CM ?5.8 ? [...] 10 ? oz EFW by ? Hadlock ([id number]) EFW discordance ? 2.1 ? % Head / Face / Neck Biometry: Top Dyeing Machine Loader ? 8.0 ? mm CM ?4.4 ? [...] cava. Inferior vena cava. 3-vessel ? view. 1-ehosod-boheybx view. Cardiac position. Cardiac size. Cardiac rhythm. [...] cava. Inferior vena cava. 3-vessel ? view. 1-hwvqrx-cirvesd view. Cardiac position. Cardiac size. Cardiac rhythm. [...] to have this follow up in [place]. Return to primary provider for continued care. If you have questions regarding today's evaluation or if we can be of further service, please contact the Maternal- Medicine Center. Procedure Note Ector Sherman MD - 11/22/2021Form atting of this note might be different from the original. Comprehensive Pat. Name:Nisha PURDY Date: 11/22/2021 9:24am Pat. NO: [id number] MD:KARENA OROZCO [facility]Rica Tobar RDMS :1995Age:26 INDICATION Dichorionic, Diamniotic Twin [...] 0 lb 10 oz EFW by Hadlock ([id number]) EFW discordance 2.1 % Head / Face / Neck Biometry: Top Dyeing Machine Loader 7.1 mm CM 5.8 mm Nasal bone [...] 0 lb 10 oz EFW by Hadlock ([id number]) EFW discordance 2.1 % Head / Face / Neck Biometry: Top Dyeing Machine Loader 8.0 mm CM 4.4 mm Nasal bone [...] vena cava. Inferior vena cava. 3-vessel view. 0-okvucw-jxoisbe view. Cardiac po sition. Cardiac size. Cardiac [...] vena cava. Inferior vena cava. 3-vessel view. 8-encyra-xihuqis view. Cardiac po sition. Cardiac size. Cardiac [...] to have this follow up in [place]. Return to primary provider for continued care. [...] cervix appears long and closed. August Jailene [facility] US ORDERABLES documented in this encounter Visit Diagnoses Diagnosis related condition Unspecified complication of , u nspecified as to episode of care documented in this encounter Care Teams Acoustic Sensor Operator Relationship Specialty Start Date End Date Kike Xavier MD Assigned OBGYN Provider 10/28/21 12/22/21 [address] [facility] [address] [place] [address] documented as of this encounter
--- OUTSIDE RECORDS SUMMARY | 2022-02-01 08:04 | XMS_ITS | Encounter Summary ---
:1995 Author Organization [place] Address [facility] [place] [address] Care Team Providers Name Role Phone Unavailable Primary Care Provider Unavailable Reason for Referral Diagnostic Imaging Ultrasound (Routine) - Pending Review Specialty Diagnoses / Procedures Referred By Contact Refer red To Contact Diagnoses related condition, antepartum Fitzloff, August Procedures MFM Twins US OB Complete [address] [place] [address] [place] [address] Referral ID Status Reason Start Date Expiration Date Visits V isits Requested Authorized [id number] Pending 09/19/2021 09/19/2022 1 1 Review Reason for Visit Diagnostic Imaging Ultrasound (Routine) - Pending Review Specialty Diagnoses / Procedures Referred By Contact Refer red To Contact Diagnoses related condition, antepartum Fitzl, August Procedures [facility] OB Complete [address] [place] [address] [place] [address] Referral ID Status Reason Start Date Expiration Date Visits V isits Requested Authorized [id number] Pending 09/19/2021 09/19/2022 1 1 Review Encounter Details Date Type Department Care Team Description 10/17/2021 Hospital Encounter [facility] Rabia Flower [address] [address] [place] [id number] related Maternal Kike Xavier MD [address] [facility] [address] [place], [place] [address] condition, Medicine Center antepartum [place] [address] [facility] [address] [place] [address] Social History Tobacco Use Types [...] encounter Procedures Procedure Name Priority Date/Time Associated Diagnosis Comme nts MFM TWINS US OB Routine 10/17/2021 11:38 AM related Results for this COMPLETE 1ST TRI CDT condition, procedure a re in antepartum the results section. documented in this encounter Results MFM Twins US OB Complete 1st Tri (10/17/2021 11:38 AM CDT) Anatomical Region Laterality Modality Ultrasound Specimen (Source) Anatomical Collection Method Collection Time Re ceived Time Location / / Volume Laterality 10/17/2021 11:14 AM CDT Impressions 10/17/2021 11:48 AM CDT IMPRESSION Dichorionic, diamniotic twin gestation c onsistent with LMP dating. Normal first trimester anatomy for both twins. Narrative 10/17/2021 11:48 AM CDT 1st Trim Pat. Name: DARLIN PURDY Study Santiago e: 10/17/2021 11:14am Pat. NO: [id number] Referring ??MD: JENNY HAMILTON Site: [facility] Assembly Leader: Katelyn tidwell : 1995 Age: 26 INDICATION Twin gestation. Confirm chorionicity. METHOD Transabdominal ultrasound examination. V iew: Sufficient Twin . Number of fetuses: 2 DATING ? Date ?Details ?Gest. age ?RAVINDER LMP ?07/16/2021 ? 13 w + 2 d ? 04/22/2022 Prior assessment ? 4/ ? GA: 8 w + 3 d ?13 w + 3 d ? 04/21/2022 U/S Fetus 1 ? 10/17/2021 ? based upon CRL ?13 w + 3 d ? 04/21/2022 U/S Fetus 2 ?based upon CRL ? 14 w + 1 d ? 04/16/2022 Assigned dating ?Dating performed on 10/17/2021, based on the LMP ?13 w + 2 d ? 04/22/2022 Fetus 1: GENERAL EVALUATION Cardiac activity present. Placenta anterior, thick dividing membra ne. Cord vessels normal insertion. Amniotic fluid normal amount. Fetus 2: GENERAL EVALUATION Cardiac activity present. Placenta anterior, thick dividing membra ne. Cord vessels normal insertion. Amniotic fluid normal amount. Fetus 1: BIOMETRY FHR ?148 ? bpm CRL ? 73.7 ? mm ? 13w 3d ? Hadlock Fetus 2: BIOMETRY FHR ?154 ? bpm CRL ? 80.9 ? mm ? 14w 1d ? Hadlock Fetus 1: ANATOMY The following structures appear normal: Cranium. Face. Neck. Abdominal wall. Sto mach. Bladder. Arms. Legs. Fetus 2: ANATOMY The following structures appear normal: Cranium. Face. Neck. Abdominal wall. Sto mach. Bladder. Arms. Legs. MATERNAL STRUCTURES Cervix ?Visualized ? Appearance: Appears Closed Right Ovary ?Visualized Left Ovary ?Visualized ? Cyst(s) Size 24 mm x 28 mm x 28 mm. Mean 26.7 mm. Vol 9.852 cm?. Simple cyst RECOMMENDATION We discussed the findings on today's [facility] with the patient. The patient is scheduled to return to [facility] at 18-20 weeks for a comprehensive ultrasound. After that ultrasound we recommend john y ou assess growth every 4 weeks, begin weekly testing (NST/MVP or BPP) at 36 weeks and plan delivery at 38 weeks. Return to primary provider for co ntinued care. Thank-you for the opportunity to partici alejandra in the care of this patient. If you have questions regarding today's evaluation or if we can be of further service, please contact the Maternal- Medicine Center. anomalies may be present but not detected Procedure Note Kkie Xavier MD - 10/17/2021Forma tting of this note might be different from the original. 1st Trim Pat. Name:MAURILIO PURDYtudmalcolm Date: 10/17/2021 11:14am Pat. NO: [id number] MD:KARENA ANSHUL OROZCO [facility]Katelyn Shelby RDMS :1995Age:26 INDICATION Twin gestation. Confirm chorionicity. METHOD Transabdominal ultrasound examination. V iew: Sufficient Twin . Number of fetuses: 2 DATING Date Details Gest. age RAVINDER LMP 07/16/2021 13 w + 2 d 04/22/2022 Prior assessment 09/12/2021 GA: 8 w + 3 d 13 w + 3 d 04/21/2022 U/S Fetus 1 10/17/2021 based upon CRL 13 w + 3 d 04/21/2022 U/S Fetus 2 based upon CRL 14 w + 1 d 1 06/16/2021 Assigned dating Dating performed on 09/25, based on the LMP 13 w + 2 d 04/22/2022 Fetus 1: GENERAL EVALUATION Cardiac activity present. Placenta anterior, thick dividing membra ne. Cord vessels normal insertion. Amniotic fluid normal amount. Fetus 2: GENERAL EVALUATION Cardiac activity present. Placenta anterior, thick dividing membra ne. Cord vessels normal insertion. Amniotic fluid normal amount. Fetus 1: BIOMETRY FHR 148 bpm CRL 73.7 mm 13w 3d Hadlock Fetus 2: BIOMETRY FHR 154 bpm CRL 80.9 mm 14w 1d Hadlock Fetus 1: ANATOMY The following structures appear normal: Cranium. Face. Neck. Abdominal wall. Sto mach. Bladder. Arms. Legs. Fetus 2: ANATOMY The following structures appear normal: Cranium. Face. Neck. Abdominal wall. Sto mach. Bladder. Arms. Legs. MATERNAL STRUCTURES Cervix Visualized Appearance: Appears Closed Right Ovary Visualized Left Ovary Visualized Cyst(s) Size 24 mm x 28 mm x 28 mm. Kaela n 26.7 mm. Vol 9.852 cm?. Simple cyst RECOMMENDATION We discussed the findings on today's vinnie rasound with the patient. The patient is scheduled to return to [facility] at 18-20 weeks for a comprehensive ultrasound. After that ultrasound we recommend john y ou assess growth every 4 weeks, begin weekly testing (NST/MVP or BPP) at 36 weeks and plan delivery at 38 weeks. Return to primary provider for co ntinued care. Thank-you for the opportunity to partici alejandra in the care of this patient. If you have questions regarding today's evaluation or if we can be of further service, please contact the Maternal- Medicine Center. anomalies may be present but not detected IMPRESSION Dichorionic, diamniotic twin gestation c onsistent with LMP dating. Normal first trimester anatomy for both twins. August Jailene [facility] US ORDERABLES documented in this encounter Visit Diagnoses Diagnosis related condition, antepartum documented in this encounter
--- OUTSIDE RECORDS SUMMARY | 2022-02-01 08:04 | XMS_ITS | Encounter Summary ---
:1995 Author Organization [place] Address [address] [place] [address] Care Team Providers Name Role Phone Zoie Padilla APRN, CNP Primary Care Provider [phone] Encounter Details Date Type Department Care Team Description 01/04/2015 Orders Only [facility] Fatigue; [address] [facility] [place]; [place], [place] [address] Possible [phone] Social History Tobacco Use Types Packs/Day Years Used Date Smoking Tobacco: Former Smokeless Tobacco: Former Qu it: 05/27/2011 Alcohol Use Standard Drinks/Week Comments No 0 (1 standard drink = 0.6 oz pure alcoho l) Sex Assigned at Date Recorded Not on file documented as of this encounter Progress Notes Zoie Padilla APRN, CNP - 01/06/2015 11:15 AM CDT Quick Note: Darlin Your labs are back and all are normal except your thyroid stimulating hormone, which shows you do have hypothyroidism. I would like to start you on oral levothyroxine 75 mcg. You will take this daily, in the morning bibi empty stomach 1 hour before eating and by itself - do not take with any other medications or vitamins. Recheck your level in 6 weeks. What pharmacy can I send this to for you? Zioe Padilla APRN, CNP 01/06/2015 11:15 AM documented in this encounter Plan of Treatment Not on filedocumented as of this encounter Procedures Procedure Name Priority Date/Time Associated Comments Diagnosis VITAMIN D 25-HYDROXY, Routine 01/04/2015 9:59 AM Fatigue Results for this TOTAL CDT procedure are i n the results section. T3, FREE Routine 01/04/2015 9:59 AM Fatigue Results for this CDT Goiter procedure are i n the results section. TSH, SENSITIVE Routine 01/04/2015 9:59 AM Fatigue Results for this CDT Goiter procedure are i n the results section. COMPLETE BLOOD Routine 01/04/2015 9:59 AM Fatigue Results for this COUNT-NO DIFF CDT procedure are in the results section. FREE T4 Routine 01/04/2015 9:59 AM Fatigue Results for this CDT Goiter procedure are i n the results section. ANTITHYROID Routine 01/04/2015 9:59 AM Fatigue Results for this PEROXIDASE CDT Goiter procedure are i n the results section. FERRITIN Routine 01/04/2015 9:59 AM Fatigue Results f or this CDT procedure are i n the results section. TEST Routine 01/04/2015 9:59 AM Possible R esults for this (URINE) CDT procedure are i n the results section. IRON PROFILE Routine 01/04/2015 9:59 AM Fatigue Results f or this (IRON,TIBC,%SAT.(CALC CDT proced ure are in )) the results section. documented in this encounter Results FERRITIN (01/04/2015 9:59 AM CDT) athologist Signature Ferritin 39 10 - 120 [facility] ng/ml Specimen Anatomical Collection Method Collection Time Receive d Time (Source) Location / / Volume Laterality 01/04/2015 9:59 AM 5 CDT 10:01 AM CDT Narrative [facility] - 01/04/2015 4:29 PM C DT Performed at [facility], [address] [place] [id number] Zoie Padilla APRN, SEMI DRIVER LAB_1 Performing Organization Address City/State/ZIP Code Phon e Number [facility] [phone] IRON PROFILE (IRON,TIBC,%SAT.(CALC)) (01/04/2015 9:59 AM CDT) [...] 01/04/2015 4:29 PM C DT Performed at [facility], [address] [place] [address] ??[phone] Zoie Padilla APRN, MACEY LAB_1 Performing Organization Address [facility] Phon e Number [facility] [phone] HEMOGRAM/PLTS (01/04/2015 9:59 AM CDT) athologist Signature [...] 01/04/2015 3:12 PM C DT Performed at [facility], [address] [place] [address] ??[phone] Zoie Padilla APRN, MACEY LAB_1 Performing Organization Address City/[facility] Phon e Number [facility] [phone] VITAMIN D 25-HYDROXY, TOTAL (V77.99) (01/04/2015 9:59 AM CDT) athologist Signature Vitamin 40.5 30.0 - [facility] D,25-OH, Tot 80.0 ng/mL LABORATORIES Comment: Deficiency: ??< 20 ng/mL Insufficiency: ??20-29 ng/mL Optimum Level: ??30-80 ng/mL Possible Toxicity: > 80 ng/mL Specimen Anatomical Collection Method Collection Time Receive d Time (Source) Location / / Volume Laterality 01/04/2015 9:59 AM 5 CDT 10:01 AM CDT Narrative [facility] - 01/04/2015 7:40 PM C DT Performed at [facility] , [address] [place] [address] Zoie Padilla APRN, CNP LAB_1 Performing Organization Address City/[facility]/ZIP Code Phon e Number [facility] [phone] TEST (URINE) (01/04/2015 9:59 AM CDT) [facility] Method Time Signature HCG, Urine Negative [facility] Negative = <25 mIU/ml LABORATO RADHA If is suspected, suggest repeat in 48-72 hours or confirm results with a quantitative hCG test. Specimen Anatomical Collection Method Collection Time Receive d Time (Source) Location / / Volume Laterality Urine specimen 01/04/2015 9:59 AM 015 (specimen) CDT 10:01 AM CDT Narrative [facility] - 01/04/2015 10:32 AM CDT Performed at [facility], [address] [place] [address] Zoie Padilla APRN, CNP LAB_1 Performing Organization Address City/[facility] Code Phon e Number [facility] [phone] Antithyroid Peroxidase (01/04/2015 9:59 AM CDT) [facility] Method Time Signature Thyroperoxidase Ab 2 0 - 8 [facility] IU/ml [facility] Specimen Anatomical Collection Method Collection Time Receive d Time (Source) Location / / Volume Laterality 01/04/2015 9:59 AM 5 CDT 10:01 AM CDT Narrative [facility] - 01/06/2015 10:47 AM CDT Performed at [facility], [address] [place] [address] ??[phone] Zoie Padilla APRN, CNP LAB_1 Performing Organization Address City/[facility]/ZIP Code Phon e Number [facility] [phone] T3, FREE, SERUM (01/04/2015 9:59 AM CDT) P athologist Signature T3,Free 4.4 2.8 - 5.2 [facility] pg/ml Specimen Anatomical Collection Method Collection Time Receive d Time (Source) Location / / Volume Laterality 01/04/2015 9:59 AM 5 CDT 10:01 AM CDT Narrative [facility] - 01/04/2015 4:29 PM C DT Performed at [facility], [address] [place] [address] ??[phone] Zoie Padilla APRN, CNP LAB_1 Performing Organization Address City/[facility] Code Phon e Number [facility] [phone] FREE T4 (01/04/2015 9:59 AM CDT) P athologist Signature T4, Free 0.8 0.8 - 2.2 [facility] ng/dl Specimen Anatomical Collection Method Collection Time Receive d Time (Source) Location / / Volume Laterality 01/04/2015 9:59 AM 5 CDT 10:01 AM CDT Narrative [facility] - 01/04/2015 4:29 PM C DT Performed at [facility], [address] [place] [address] ??[phone] Zoie Padilla APRN, CNP LAB_1 Performing Organization Address [facility]/ZIP Code Phon e Number [facility] [phone] (ABNORMAL) TSH, SENSITIVE (01/04/2015 9:59 AM CDT) [facility] gist Method Time Signature TSH, Sensitive 11.255 0.300 - [facility] (H) 5.000 [facility] uIU/ml Specimen Anatomical Collection Method Collection Time Receive d Time (Source) Location / / Volume Laterality 01/04/2015 9:59 AM 5 CDT 10:01 AM CDT Narrative [facility] - 01/04/2015 4:29 PM C DT Performed at [facility], [address] [place] [address] ??[phone] Zioe Padilla APRN, CNP LAB_1 Performing Organization Address City/[facility]/ZIP Code Phon e Number [facility] [phone] documented in this encounter Visit Diagnoses Diagnosis Fatigue Other malaise and fatigue Goiter (HRC) Goiter, unspecified Possible examination or test, unconfirmed documented in this encounter Care Teams Systems Requirements Planner Relationship Specialty Start Date End Date Zoie Padilla, RESEARCH PROGRAM MANAGER, SEMI DRIVER PCP - General Nurse Practitioner 01/04/15 01/23/18 [address] [place] [address] documented as of this encounter
--- OUTSIDE RECORDS SUMMARY | 2022-02-01 08:04 | XMS_ITS | Encounter Summary ---
:1995 [facility] Address [address] [place] [address] Care Team Providers Name Role Phone Maliha Delacruz PA-C Primary Care Provider Encounter Details Date Type Department Care Team Description 01/24/2018 Consent for [facility] Maliha Delacruz NEX BANNER CONSENT Procedure/Treatmen Practice [facility] [address] [facility] [address] [place] [address] [phone] Social History Tobacco Use Types Packs/Day Years [...] on filedocumented in this encounter Care Teams Bow Maker Relationship Specialty Start Date End Date Maliha Delacruz PA-C PCP - General Physician Director Of Sales And Marketing 01/24/18 [address] [place] [address] documented as of this encounter
--- OUTSIDE RECORDS SUMMARY | 2022-02-01 08:04 | XMS_ITS | Encounter Summary ---
:1995 Author Organization [place] Address [facility] [place] [address] Care Team Providers Name Role Phone Kike Xavier MD Unavailable Encounter Details Date Type Department Care Team Description 11/22/2021 Travel Social History Tobacco Use Types Packs/Day [...] on filedocumented in this encounter Care Teams Piler Relationship Specialty Start Date End Date Kike Xavier MD Assigned OBGYN Provider 10/28/21 12/22/[address] [facility] [address] [place], [place] [address] documented as of this encounter
--- OUTSIDE RECORDS SUMMARY | 2022-02-01 08:04 | XMS_ITS | Encounter Summary ---
:1995 Author Organization [place] Address [address] [facility] [place] [address] Care Team Providers Name Role Phone Unavailable Primary Care Provider Unavailable Reason for Visit Reason Comments Ultrasound 1st tri complete-twins, conf irm chorionicity Encounter Details Date Type Department Care Team Description 10/17/2021 Office Visit [facility] Gilma Dent [facility] [address] [place], [place] [id number] Dichorionic diamniotic Maternal Kike Xavier MD [address] [place], [place] [address] twin in Medicine Center [facility] (Primary Dx) [address] [facility] [address] [place] [address] Social History Tobacco Use Types Packs/Day Years Used Date Never Assessed Sex Assigned at Date Recorded Not on file COVID-19 Exposure Response Date Recorded In the last 10 days, have you been in contact with No / Unsu re 10/17/2021 10:54 AM CDT someone who was confirmed or suspected to have Coronavirus/COVID-19? documented as of this encounter Progress Notes Kike Xavier MD - 10/17/2021 11:30 AM CDT Please see Imaging tab under Chart Review for details of today's US at the [facility]. 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
--- OUTSIDE RECORDS SUMMARY | 2022-02-01 08:04 | XMS_ITS | Encounter Summary ---
:1995 [facility] Address [address] [place] [address] Care Team Providers Name Role Phone Unassigned, Provider Primary Care Provider Unavailable Reason for Visit Reason Onset Date Comments FOLLOW-UP,LAB 03/11/2013 Encounter Details Date Type Department Care Team Description 03/11/2013 Telephone Internal Medicine Christa Matute MD FOLLOW-UP,LAB [address] [phone] (Wo rk) Social History Tobacco Use Types Packs/Day Years Used Date Smoking Tobacco: Former Smokeless Tobacco: Former Qu it: 05/27/2011 Alcohol Use Standard Drinks/Week Comments No 0 (1 standard drink = 0.6 oz pure alcoho l) Sex Assigned at Date Recorded Not on file documented as of this encounter Nursing Notes Devin Abreu RN - 03/11/2013 11:42 AM CDT Pt called/message left with normal pap smear result. Devin Abreu RN 03/11/2013, 11:42 AM Devin Abreu RN - 03/11/2013 11:40 AM CDT Message copied by DEVIN ABREU on SatMar 11, 2013 11:40 AM ------ Message from: CHRISTA MATUTE Created: SatMar 06, 2013 5:13 PM Please call the patient and let her know that her pap result is normal. It looks like she isn't checking online services. Thank you, Christa Matute MD 03/06/2013, 5:12 PM ------ documented in this encounter Plan of Treatment Not on filedocumented as of this encounter Visit Diagnoses Not on filedocumented in this encounter Care Teams Interior Surface Insulation Worker Relationship Specialty Start Date End Date Unassigned, Provider PCP - General Unknown Physician 02/25/13 01/03/[address] [place] [id number] documented as of this encounter
--- OUTSIDE RECORDS SUMMARY | 2022-02-01 08:04 | XMS_ITS | Encounter Summary ---
:1995 Author [facility] Address [address], [place] [address] Care Team Providers Name Role Phone Maliha Delacruz PA-C Primary Care Provider Reason for Visit Reason Comments Nexplanon Insertion Encounter Details Date Type Department Care Team Description 01/24/2018 Office Visit [facility] Maliha Delacruz, [facility] [place] planning, Practice JONH subdermal contraceptive [address] [facility] [address] [facility] checking/reinsertion/re [place], [place] moval ( Primary Dx) [id number] [phone] Social History Tobacco Use Types Packs/Day Years [...] Pulse 78 01/24/2018 9:43 AM CDT Temperature - - Respiratory Rate 18 01/24/2018 9:43 AM CDT Oxygen Saturation - - Inhaled Oxygen Concentration - - Weight 68.9 kg (152 lb) 01/24/2018 9:43 AM CDT Height 157.5 cm (5' 2) 01/24/2018 9:43 AM CDT Body Mass Index 27.8 01/24/2018 9:43 AM CDT documented in this encounter Progress Notes Maliha Delacruz PA-C - 01/24/2018 12:22 PM CDT Darlin Worthington is a 23 y.o. female who presents for removal and reinsertion of the Nexplanon contraceptive olegario. She has been counseled regarding the risks, benefits and alternatives to Nexplanon.She has no contradictions to Nexplanon. Her questions have been answered. She wishes to proceed withthe removal/reinsertion today. Pt has an active Nexplanon. The inner side of the left upper arm was painted with betadine and infiltrated with 4 ml of lidocaine 1% with epi. A skin incision was made at the distal end parallel to the olegraio. The olegario was then grasped with a forcep and easily removed. The Nexplanon olegario was inserted according to the manufacturers instructions without complications. The olegario was palpable under the skin after the insertion. Steri strip and pressure dressing applied. Pt tolerated procedure with minimal discomfort. Darlin Worthington given post-insertion instructions. She understands that her menstrual periods are expected to become irregular and unpredictable throughout the time she is using the Nexplanon. Sheunderstands that the device must be removed at the end of three years and may be removed sooner if she wishes. She was instructed to call the clinic if signs of infection or with any other concerns. Maliha Delacruz PA-C 01/24/2018, 12:22 PM documented in this encounter Plan of Treatment Not on filedocumented as of this encounter Visit Diagnoses Diagnosis Family planning, subdermal contraceptive checking/reinsertion/removal - Primary Surveillance of previously prescribed im plantable subdermal contraceptive documented in this encounter Administered Medications Inactive Administered Medications - up to 3 most recent administrations Medication Order MAR Action Action Date Dose Rate Site etonogestrel (NEXPLANON) Given 01/24/2018 10:15 AM CDT 68 mg Left Arm implant 68 mg 68 mg, Subcutaneous, ONCE, On Sat01/24/18 at 1245, For 1 dose documented in this encounter Care Teams Shredder Tender Relationship Specialty Start Date End Date Maliha Delacruz PA-C PCP - General Physician Molder 01/24/18 [address] [place] [address] documented as of this encounter
--- OUTSIDE RECORDS SUMMARY | 2022-02-01 08:04 | XMS_ITS | Encounter Summary ---
:1995 Author Organization [facility] Address [address] [place] [address] Care Team Providers Name Role Phone Unavailable Primary Care Provider Unavailable Reason for Referral Diagnostic Imaging Ultrasound (Routine) - Pending Review Specialty Diagnoses / Procedures Referred By Contact Refer red To Contact Diagnoses related condition, antepartum JaileneAugust Procedures MFM Twins US OB Complete [address] [address] [place] [address] Referral ID Status Reason Start Date Expiration Date Visits V isits Requested Authorized [id number] Pending 09/19/2021 09/19/2022 1 1 Review onsultation (Routine: Next available opening) - Pending Review Specialty Diagnoses / Procedures Referred By Contact Refer red To Contact Diagnoses related condition, antepartum Jailene, August [address] [address] [place] [address] Referral ID Status Reason Start Date Expiration Date Visits V isits Requested Authorized [id number] Pending 09/19/2021 09/19/2022 1 1 Review Encounter Details Date Type Department Care Team Description 09/19/2021 [facility] condition, Medicine Center MEDICAL antepartum (Primary [address] [address] [address]) [address] [place], [place] [address] [address] [place], [place] [phone] (Work) [phone] Social History Tobacco Use Types Packs/Day Years Used Date Never Assessed Sex Assigned at Date Recorded Not on file documented as of this encounter Plan of Treatment Scheduled Referrals Name Type Priority Associated Diagnoses Order [facility] Referral Routine: Next related Expe cted: Referral - available opening condition, 09/19/2021 antepartum (Approximate), Expires: 03/18/2022 documented as of this encounter Results MFM Twins US OB [...] 11:48 AM CDT 1st Trim Pat. Name: JOSE RAFAEL PURDYELLE Study Santiago e: 10/17/2021 11:14am Pat. NO: [id number] Referring ??MD: JENNY HAMILTON Site: [facility] Salesperson: Katelyn tidwell RDMS : 1995 Age: 26 INDICATION Twin gestation. Confirm chorionicity. METHOD Transabdominal ultrasound examination. V iew: Sufficient Twin . Number of fetuses: 2 DATING ? Date ?Details ?Gest. age ?RAVINDER LMP ?07/16/2021 ? 13 w + 2 d ? 04/22/2022 Prior assessment ? / [...] RECOMMENDATION We [facility] the [facility]. The patient is scheduled to return to [facility] at 18-20 weeks for a comprehensive ultrasound. [...] be present but not detected Procedure Note Kike Xavier MD - 10/17/2021Forma tting of this note might be different from the original. 1st Trim Pat. Name:Nisha PURDY Date: 10/17/2021 11:14am Pat. NO: [id number] MD:AUGUST ANSHUL OROZCO [place]Katelyn Shelby RDMS :1995Age:26 INDICATION Twin gestation. Confirm [...] RECOMMENDATION We [facility]. The patient is scheduled to return to [facility] at 18-20 weeks for a comprehensive ultrasound. [...] trimester anatomy for both twins. August Jailene [facility] US ORDERABLES documented in this encounter Visit Diagnoses Diagnosis related condition, antepartum - Primary related condition, antepartum documented in this encounter
--- OUTSIDE RECORDS SUMMARY | 2022-02-01 08:05 | XMS_ITS | Encounter Summary ---
:1995 Author Organization [employer] Address [address] [place] [address] Care Team Providers Name Role Phone Unassigned, Provider Primary Care Provider Unavailable Reason for Visit Reason Onset Date Comments FOLLOW-UP,LAB 03/02/2013 Encounter Details Date Type Department Care Team Description 03/02/2013 Telephone Internal Medicine Christa Matute MD FOLLOW-UP,LAB [address] [phone] (Wo rk) Social History Tobacco Use Types Packs/Day Years Used Date Smoking Tobacco: Former Smokeless Tobacco: Former Qu it: 05/27/2011 Alcohol Use Standard Drinks/Week Comments No 0 (1 standard drink = 0.6 oz pure alcoho l) Sex Assigned at Date Recorded Not on file documented as of this encounter Nursing Notes Devin Abreu RN - 03/02/2013 12:34 PM CDT Call to Pt to inform her about her negative lab results and to inquire about her symptoms, which aregone. Pt verbalized understanding. Devin Abreu RN 03/02/2013, 12:49 PM Devin Abreu RN - 03/02/2013 9:40 AM CDT Message copied by DEVIN ABREU on SatMar 02, 2013 9:40 AM ------ Message from: CHRISTA MATUTE Created: Mon Mar 02, 2013 8:50 AM I checked online patient services, and the patient hasn't viewed any of her results. Please call her and let her know that the urine bacteria is susceptible to the Bactrim, so her symptoms should be gone by now. Also please let her know about the negative chlamydia and gonorrhea tests and negative test. The pap smear is not resulted yet. Thank you. 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
--- OUTSIDE RECORDS SUMMARY | 2022-02-01 08:05 | XMS_ITS | Encounter Summary ---
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
--- OUTSIDE RECORDS SUMMARY | 2022-02-01 08:05 | XMS_ITS | Encounter Summary ---
:1995 [address] [facility] Address [address], [place] [address] Care Team Providers Name Role Phone Unassigned, Provider Primary Care Provider Unavailable Reason for Visit Reason Comments URINARY PROBLEM urgency, hematuria and burni ng with urination since yesterday(took Azo last night) Establish Care Encounter Details Date Type Department Care Team Description 02/25/2013 Office Visit Internal Medicine Christa Matute, Preventative health care (Pr imary Dx); [address] Dysuria; [place] [address] [address] UTI (lower urinary tract inf ection) [phone] [place] [address] Social History Tobacco Use Types Packs/Day Years Used Date Smoking Tobacco: Former Smokeless Tobacco: Former Qu it: 05/27/2011 Alcohol Use Standard Drinks/Week Comments No 0 (1 standard drink = 0.6 oz pure alcoho l) Sex Assigned at Date Recorded Not on file documented as of this encounter Last Filed Vital Signs Vital Sign Reading Time Taken Comments Blood Pressure 98/53 02/25/2013 10:56 AM CDT Pulse 64 02/25/2013 10:56 AM CDT Temperature 36.6 ??C (97.9 ??F) 02/25/2013 10:56 AM CDT Respiratory Rate 14 02/25/2013 10:56 AM CDT Oxygen Saturation 99% 02/25/2013 10:56 AM CDT Inhaled Oxygen Concentration - - Weight 59.9 kg (132 lb) 02/25/2013 10:56 AM CDT Height - - Body Mass Index 23.76 10/14/2012 9:02 AM CDT documented in this encounter Patient Instructions Patient InstructionsChrista Matute MD - 02/25/2013 11:42 AM CDT Follow up in 1-2 months for thyroid testing and vaccines; sooner if you have any new concerns It was a pleasure meeting you today. Please let me know if I can be of further assistance in your healthcare. GENERAL EXERCISE RECOMMENDATIONS ?? 150 minutes per week of moderate-intensity exercise (generally 30 minutes 5 times/week) OR 60 minutes per week of vigorous-intensity exercise (generally 15 minutes 4 times/week) ?? Muscle strengthening exercises that target all large muscle groups on at least 2 days per week ?? Individual exercise session can be as brief as 10 minutes and still count BENEFITS ?? Helps lose weight and maintain a healthy weight ?? Improves mood - specifically helpful in treating depression/anxiety/stress - increases energy level ?? Improves sleep - specifically helps sleep onset (fall asleep) and maintenance (stay asleep) ?? Exercise prevents problems like coronary artery disease (changes leading to heart attacks) and diabetes, improves cholesterol (raises good and lowers bad cholesterol) and high blood pressure and prevents osteoporosis (thin bones that increase risk of fractures) Tips for healthy eating 1. Eat more plants ?? Include vegetables and fruit with every meal 2. Eat fewer animal products ?? Reduce meat (especially red meat) and dairy 3. Choose healthy fats ?? Add olive oil, nuts, avocado, seafood, canola and other liquid vegetable oils ?? Reduce butter/margarine 4. Choose whole grains and smaller portions of them ?? Change from simple grains to whole grains 5. Choose healthy proteins ?? Have beans and fish as a protein source 6. Cook at home ?? Don???t eat out as much ?? Avoid fast foods, packaged foods 7. Avoid liquid calories ?? No pop ?? No juice ?? No sports drinks 8. Eat foods in their natural state ?? The less processing the better 9. Enjoy your meals ?? Eat a variety of foods that are healthy, pretty on the plate, and leave you feeling full longer Calcium in Food Dairy products (milk, yogurt, cheese, etc) are very high in calcium and are the best choice to meet your daily needs. For most people it is best to choose no- fat or low-fat dairy products to get the calcium without the saturated fat. Daily recommendations vary with age. See below for recommendations. Calcium may also be found in qcxk-pwi-hmbflsu medications (e.g., antacids) and in calcium-fortified foods. The Nutrition Facts label indicates the amount of calcium per serving as a percent of 1,000 mg. If you add zero to the percentage on the label, you will know the amount of calcium per serving in mg. For example, one cup of skim milk has Calcium 30%, and that is 300 mg. Recommended calcium intake for all ages ?? 500 mg for ages 1 to 3 ?? 800 mg for ages 4 to 8 ?? 1,300 mg for ages 9 to 18 ?? 1,000 mg for ages 19 to 50 (including and lactating women) ?? 1,200 mg for ages 51 and older ?? Do not consume more than 2500 mg total (food and supplements) Nutrition content information is from [employer] and reprinted with permission of [employer] [facility], [place], [place]. documented in this encounter Progress Notes Jazmyn Oneil RN - 03/11/2013 11:51 AM CDT Quick Note: Phone message left with normal pap result. Christa Matute MD - 03/06/2013 5:13 PM CDT Quick Note: Please call the patient and let her know that her pap result is normal. It looks like she isn't checking online services. Thank you, Christa Matute MD 03/06/2013, 5:12 PM Jazmyn Oneil RN - 03/02/2013 1:27 PM CDT Quick Note: Pt called with results Christa Matute MD - 03/02/2013 8:50 AM CDT Quick Note: I checked online patient services, and the [...] you. Christa Matute MD 03/02/2013, 8:49 AM Christa Matute MD - 02/25/2013 1:54 PM CDT [facility] [address] [place] [address] Main: RE: Darlin Purdy : 1995 Date of Service: 02/25/2013 History : Darlin Purdy is a 18 yr old female is in for routine health maintenance, to establish care, and to be evaluated for a UTI. Current concerns: Yesterday she noticed burning pain with urination, bloody urine, and urgency. She last had these symptoms at the age of 11, when she was diagnosed with a bladder infection. She has recently become sexually active with a man, she wouldn't really call him her boyfriend. They have not used barrier contraception. She has never had a pap smear. She is due for thyroid testing, but she has a fear of needles, so she would prefer to wait until hernext visit for lab testing and vaccines. Menses were regular until 4 months ago, when they stopped. She attributes this to her Implanon. Sexual activity: currently with one person. Contraception: Implanon. Safety: She wears a seatbelt, does not drink and drive. Calculated 10 year Cardiac risk: n/a Present dietary habits: does not pay much attention to dietary recommendations; she says she eats what she can afford, which is Ramen noodles and macaroni Present exercise habits: exercises vigorously 3-5 times a week; her boxer roommate recommends workouts I have asked the patient and reviewed the following histories: Family, Medical, Social and Surgical See EPIC history section for details. Past Medical History Diagnosis Date ??? Thyroid condition ??? Scoliosis mild ??? Skin rash thought to be allergic but allergen not identified; saw a uat tester Past Surgical History Procedure Laterality Date ??? Surgical hx - neg Family History Problem Relation Age of Onset ??? Hypertension Mother ??? Eczema Brother History Social History ??? Marital Status: Single Spouse Name: N/A Number of Children: N/A ??? Years of Education: N/A Social History Main Topics ??? Smoking status: Former Smoker ??? Smokeless tobacco: Former User Quit date: 05/27/2011 ??? Alcohol Use: No ??? Drug Use: No ??? Sexually Active: Yes -- Male partner(s) Control/ Protection: Implant Other Topics Concern ??? 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 Lives with roommates. Current Outpatient Prescriptions Medication Sig ??? etonogestrel (IMPLANON) 68 MG injection Inject 68 mg subcutaneously once. ??? sulfamethoxazole-trimethoprim (BACTRIM DS) 800-160 MG tablet Take 1 Tab by mouth two times a dayfor 3 days. Review of systems includes: A comprehensive 12-point ROS was negative except for items noted in HPI. Objective: BP 98/53 Pulse 64 Temp(Src) 97.9 ??F (36.6 ??C) (Oral) Resp 14 Wt 132 lb (59.875 kg) SpO2 99% Estimated body mass index is 23.74 kg/(m^2) as calculated from the following: Height as of 10/14/12: 5' 2.5 (1.588 m). Weight as of this encounter: 132 lb (59.875 kg). General: HEENT: Eyes: no lesions of lids, mattering or redness Head: normocephalic Mouth and throat: without erythema or lesions of the mucosa Nose: without septal or mucosal abnormalities Ears: normal Neck: without adenopathy or masses. Slight thyromegaly without asymmetry or nodules. Lungs: clear to auscultation, no wheezes or rales Breasts: Exam deferred until next visit. CV: regular rate and rhythm, normal S1 and S2 without murmur or click Abd: soft, non-tender, no masses, no hepatomegaly or splenomegaly. Bowel sounds present. : Female normal vagina and external genitalia, moderate amount of creamy white discharge in the vault, normal cervical appearance without lesions, uterus of normal size, non tender, no palpable masses, no adnexal tenderness and GC/Chlamydia and wet prep swabs obtained; pap smear obtained MS: normal muscle tone & symmetry good pedal pulses. No pedal edema Skin: tattoos on chest and right arm; no rash Data: Last UA w/microscopic results: Lab Results Component Value Date/Time UCOL Yellow 02/25/2013 11:00 AM URAP Sl Cloudy 02/25/2013 11:00 AM URBCS 0-3 02/25/2013 11:00 AM UWBC 6-10 02/25/2013 11:00 AM UBACT Many 02/25/2013 11:00 AM UEPI 5-10 02/25/2013 11:00 AM UPT negative Assessment: 1. Preventative health care Patient counseled about STD avoidance, nutrition, safety; PAP TEST, ROUTINE, CHLAMYDIA & GC, WET PREP, VAGINAL; review vaccines (including HPV) and obtain thyroid panel at next visit per patient request; can offer HIV testing, too; breast exam due at next appointment 2. UTI Bactrim DS BID x 3 days Follow-up in 1 month. Christa Matute MD 02/25/2013, 2:09 PM documented in this encounter Plan of Treatment Not on filedocumented as of this encounter Procedures Procedure Name Priority Date/Time Associated Diagnosis Comme nts TEST Routine 02/25/2013 12:26 Dysuria Results f or this (URINE) PM CDT procedure are i n the results section. PAP TEST, ROUTINE Routine 02/25/2013 11:46 Preventative health Results for this AM CDT care procedure are i n the results section. CHLAMYDIA & GC (14 Routine 02/25/2013 11:30 Preventative healt h Results for this YEARS AND OLDER) AM CDT care procedure a re in the results section. VAGINAL WET PREP Waiting 02/25/2013 11:30 Dysuria Results for this AM CDT Preventative health procedur e are in care the results section. URINE CULTURE Routine 02/25/2013 11:00 Results fo r this AM CDT procedure are i n the results section. UA CONDITIONAL UC STAT 02/25/2013 11:00 Dysuria Result s for this AM CDT procedure are i n the results section. UA MICRO STAT 02/25/2013 11:00 Results for this AM CDT procedure are i n the results section. documented in this encounter Results TEST (URINE) (02/25/2013 12:26 PM CDT) Analysis Performed At Patho logist Time Signature HCG, Urine Negative [place] Negative = <20 mIU/ml [facility] Specimen Anatomical Collection Method Collection Time Receive d Time (Source) Location / / Volume Laterality Urine specimen 02/25/2013 12:26 3 1:13 (specimen) PM CDT PM CDT Narrative [facility] - 02/25/2013 1:14 PM CDT Performed at [facility], [address], [place] [address], Director Dr Joselyn Barkley Christa Matute MD LAB_1 Performing Organization Address City/State/ZIP Code Phon e Number [facility] [address] [place] [address] [facility] [phone] PAP TEST, ROUTINE (02/25/2013 11:46 AM CDT) Patholo gist Method Time Signature Cytology (NOTE) [place] Credit Relationship Manager Cytology Report [facility] Patient Name: DARLIN PURDY [facility] Taken: 02/25/2013 Received: 02/27/2013 Reported: 03/06/2013 Physician(s): Christa Matute ?Source of Specimen Pap Test, Routine Cervical/Endocervical: ?Specimen Adequacy ?Satisfactory for evaluation. ??Endocervical component present. Specimen vial contained no brush or broom. ? Final Cytologic Interpretation/Result NEGATIVE FOR INTRAEPITHELIAL LESION OR MALIGNANCY (NILM) ?? Electronically Signed Out By JAH De Leon (ASCP) JAH De Leon (ASCP) ? Pap Smear History Date of Last Menstrual Period: No LMP recorded ?? Microscopic Description Microscopic examination is performed. [facility] Department of Pathology [address] [place] [address] ??[id number] Specimen Anatomical Collection Method Collection Time Receive d Time (Source) Location / / Volume Laterality 02/25/2013 11:46 02/27/2013 9:05 AM CDT AM CDT Christa Matute MD LAB_1 Performing Organization Address City/State/ZIP Code Phon e Number [facility] [address] [place] [address] [facility] [place] [phone] WET PREP, VAGINAL (02/25/2013 11:30 AM CDT) Patholo gist Method Time Signature Clue Cells No Clue Cells NCLUE [facility] Trichomonas No Trichomonas NTRIC [facility] Yeast No Yeast Found YN [facility] Specimen Anatomical Collection Method Collection Time Receive d Time (Source) Location / / Volume Laterality 02/25/2013 11:30 02/25/2013 AM CDT 12:16 PM CDT Narrative [facility] - 02/25/2013 12:24 PM CDT Performed at [facility], [address] [place] [id number], Director Dr Joselyn Barkley Christa Matute MD LAB_1 Performing Organization Address City/[facility]/ZIP Code Phon e Number [facility] [address] [address] [place] [phone] CHLAMYDIA & GC (02/25/2013 11:30 AM CDT) P athologist Signature Source Cervix [facility] Chlamydia Negative NEG [facility] Comment: Test Performed by Mechanical Systems Engineer Mediated Amplification GC (N. gonorrhoeae) Negative NEG [facility] Comment: Test Performed by Mechanical Systems Engineer Mediated Amplification Specimen Anatomical Collection Method Collection Time Receive d Time (Source) Location / / Volume Laterality 02/25/2013 11:30 02/25/2013 AM CDT 12:[address] [facility] - 02/26/2013 5:05 PM CDT Performed at [facility], [address] [place] [address] ??[phone] Christa Matute MD LAB_1 Performing Organization Address City/State/ZIP Code Phon e Number [facility] [address] [place] [address] [facility] [phone] URINE CULTURE (02/25/2013 11:00 AM CDT) Component Value Ref Test Analysis Performed At [facility] gist Range Method Time Signature Specimen Urine Clean Catch [place] Description [facility] Special Inoculated Media [place] Requests Received [facility] Culture > 100,000 col/ml [place] Escherichia coli [facility] Culture > 100,000 col/ml Staphylococcus species, Coagulase Negative Sensitivity [place] NOT performed [facility] Report Status Final 02/27/2013 [facility] Organism > 100,000 col/ml [place] Escherichia coli [facility] Specimen Anatomical Collection Method Collection Time Receive d Time (Source) Location / / Volume Laterality 02/25/2013 11:00 02/25/2013 AM CDT 11:58 AM CDT Narrative [facility] - 02/27/2013 7:34 AM CDT Performed at [facility] , [address] [place] [id number] Organism Antibiotic Method Susceptibility > 100,000 col/ml Ampicillin RH MIKE <=2 escherichia coli Susceptible Predicts Activit y of Amoxicillin SUSCEPTIBLE > 100,000 col/ml Ampicillin/Sulbactam RH MIKE <=2 escherichia coli Susceptible SUSCEPTIBLE > 100,000 col/ml Cefazolin RH MIKE <=4 escherichia coli Susceptible SUSCEPTIBLE > 100,000 col/ml Cefoxitin RH MIKE <=4 escherichia coli Susceptible SUSCEPTIBLE > 100,000 col/ml Ciprofloxacin RH MIKE <=0.25 escherichia coli Susceptible SUSCEPTIBLE > 100,000 col/ml ESBL RH MIKE Negative: SUSCE PTIBLE escherichia coli > 100,000 col/ml Gentamicin RH MIKE <=1 escherichia coli Susceptible SUSCEPTIBLE > 100,000 col/ml Levofloxacin RH MIKE <=0.12 escherichia coli Susceptible SUSCEPTIBLE > 100,000 col/ml Meropenem RH MIKE <=0.25 escherichia coli Susceptible SUSCEPTIBLE > 100,000 col/ml Nitrofurantoin RH MIKE <=16 escherichia coli Susceptible Limited to use i n lower urinary tract in fections. Do not use in patie nts with Creatinine Clearance less than 60 ml/ min. SUSCEPTIBLE > 100,000 col/ml Piper/tazobactam RH MIKE <=4 escherichia coli Susceptible SUSCEPTIBLE > 100,000 col/ml Trimeth/Sulfa RH MIKE <=20 escherichia coli Susceptible SUSCEPTIBLE Christa Matute MD LAB_1 Performing Organization Address [facility]/ZIP [facility] Phon e Number [facility] [address] [place] [address] [facility] UA MICRO (02/25/2013 11:00 AM CDT) P athologist Signature RBC'S 0-3 0 - 3 /hpf [facility] WBC'S 6-10 0 - 5 /hpf [facility] Epith, Squamous 5-10 /hpf [facility] Bact Many [facility] Casts 0 /lpf [facility] Specimen Anatomical Collection Method Collection Time Receive d Time (Source) Location / / Volume Laterality 02/25/2013 11:00 02/25/2013 AM CDT 11:23 AM CDT Narrative [facility] - 02/25/2013 12:00 PM CDT Performed at [facility], [address] [place] [id number], Director Dr Joselyn Barkley Christa Matute MD LAB_1 Performing Organization Address [facility] Phon e Number [address] [address] [place] [phone] (ABNORMAL) UA CONDITIONAL UC (02/25/2013 11:00 AM CDT) Patholo gist Method Time Signature Urine Color Yellow [facility] Urine Clarity Sl Cloudy [facility] Sp Gr 1.025 1.005 - [place] 1.030 [facility] Leuk Negative NEG [facility] Nitr Pos (A) NEG [facility] pH 7.0 4.5 - 8.0 [facility] Prot Negative NEG mg/dl [facility] Gluc Negative NEG [facility] Ket Negative NEG [facility] Urob 0.2 0.2 - 1.0 [place] EU/dl [facility] Bili Negative NEG [facility] Blood Tr (A) NEG [facility] Urine Cult If Urine [place] Cultured [facility] Urine Source Urine Clean [place] Catch [facility] Specimen Anatomical Collection Method Collection Time Receive d Time (Source) Location / / Volume Laterality 02/25/2013 11:00 02/25/2013 AM CDT 11:23 AM CDT Narrative [facility] - 02/25/2013 11:59 AM CDT Performed at [facility], [address] [place] [address], [place] [address], Director Dr Joselyn Barkley Christa Matute MD LAB_1 Performing Organization Address City/State/ZIP Code Phon e Number [facility] [address] [place] [address] [facility] [phone] documented in this encounter Visit Diagnoses Diagnosis Preventative health care - Primary Routine general medical examination at a health care facility Dysuria UTI (lower urinary tract infection) Urinary tract infection, site not specif ied documented in this encounter Care Teams Power Shear Operator Relationship Specialty Start Date End Date Unassigned, Provider PCP - General Unknown Physician 02/25/13 01/03/[address] [place] [address] documented as of this encounter
--- OUTSIDE RECORDS SUMMARY | 2022-02-01 08:05 | XMS_ITS | Encounter Summary ---
:1995 Author Organization [email or web address] Address [address], [place] [address] Care Team Providers Name Role Phone Unavailable Primary Care Provider Unavailable Reason for Visit Reason Comments ITCHING, SKIN Encounter Details Date Type Department Care Team Description 10/14/2012 Office Visit [facility] Gena Myers Prur itic rash (Primary Practice MD Leonel Dx) [address] [place], [place] [address] Social History Tobacco Use Types Packs/Day Years Used Date Smoking Tobacco: Never Assessed Sex Assigned at Date Recorded Not on file documented as of this encounter Last Filed Vital Signs Vital Sign Reading Time Taken Comments Blood Pressure 82/47 10/14/2012 9:05 AM CDT Pulse 61 10/14/2012 9:05 AM CDT Temperature - - Respiratory Rate - - Oxygen Saturation - - Inhaled Oxygen Concentration - - Weight 58.5 kg (129 lb) 10/14/2012 9:02 AM CDT Height 158.8 cm (5' 2.5) 10/14/2012 9:02 AM CDT Body Mass Index 23.22 10/14/2012 9:02 AM CDT documented in this encounter Progress Notes Gena Myers MD - 10/14/2012 9:23 AM CDT Subjective: 17-year-old female comes in with her mother with complaints of very pruritic rash. Thereis been present since mid June. Started on her right knee. Now it has spread throughout her legs. It is very pruritic. She finds herself scratching during the night. Has noted bruising on her legs because of all of the scratching. Does not seem to involve her torso. Her face is not involved. A little bit on her right hand, but not her left. Arms are not involved. Denies any exposure to anything. No known allergies. Initially, we talked about scabies. However, she lives with roommates. They sharetheir clothing as well as their blankets and bedding. No one else has any symptoms similar to hers. No new medications. No travel. Objective:BP 82/47 Pulse 61 Ht 5' 2.5 (1.588 m) Wt 129 lb (58.514 kg) BMI 23.2 kg/m2 She appears well. Evaluation of her leg shows multiple tiny bumps throughout her legs. The bumps are not reddened or scabbed over. Mostly they are just normal skin color. They are quite small, perhaps 5 mm. No secondary infection. She does have bruising throughout her thighs secondary to scratching. Her torso is uninvolved. She has a little bit of scabbing at the base of her thumb on the right hand but her left hand is clear. Her face is also not involved. Assessment: Very pruritic rash. Initially I thought it might be scabies but this story does not really fit. Also, the bumps themselves do not appear inflamed at all. Perhaps just some type of dermatitis. Plan: For now, and going to try a burst of prednisone to see the calm things down. Moisturizer to her legs. Avoid hot baths or showers. Cool compresses if needed. Antihistamines. If symptoms are not improving, she will get back to me. documented in this encounter Plan of Treatment Not on filedocumented as of this encounter Visit Diagnoses Diagnosis Pruritic rash - Primary Prurigo documented in this encounter
--- OUTSIDE RECORDS SUMMARY | 2022-02-01 08:05 | XMS_ITS | Encounter Summary ---
:1995 Author Organization [facility] Address [address] [place] [address] Care Team Providers Name Role Phone Maliha Delacruz PA-C Primary Care Provider Encounter Details Date Type Department Care Team Description 10/18/2012 Outside Hospital External to External, [facility] [place] [address] Social History Tobacco Use Types Packs/Day Years Used Date Smoking Tobacco: Never Assessed Sex Assigned at Date Recorded Not on file documented as of this encounter Progress Notes External, Provider - 10/18/2012 12:00 AM CDT documented in this encounter Plan of Treatment Not on filedocumented as of this encounter Visit Diagnoses Not on filedocumented in this encounter Care Teams Commodity Director Relationship Specialty Start Date End Date Maliha Delacruz PA-C PCP - General Physician Medical Lab Technician 01/24/18 [address] [place] [address] documented as of this encounter
--- OUTSIDE RECORDS SUMMARY | 2022-02-01 08:05 | XMS_ITS | Encounter Summary ---
:1995 Author Organization [facility] Address [address] [place] [address] Care Team Providers Name Role Phone Maliha Delacruz PA-C Primary Care Provider Encounter Details Date Type Department Care Team Description 10/19/2011 Outside Hospital External to External, [facility] [place] [address] Social History Tobacco Use Types Packs/Day Years Used Date Smoking Tobacco: Never Assessed Sex Assigned at Date Recorded Not on file documented as of this encounter Progress Notes External, Provider - 10/19/2011 12:00 AM CDT documented in this encounter Plan of Treatment Not on filedocumented as of this encounter Visit Diagnoses Not on filedocumented in this encounter Care Teams Demand Manager Relationship Specialty Start Date End Date Maliha Delacruz PA-C PCP - General Physician Form Grader 01/24/18 [address] [place] [address] documented as of this encounter
--- OUTSIDE RECORDS SUMMARY | 2022-02-01 08:05 | XMS_ITS | Encounter Summary ---
:1995 [facility] Address [address], [place] [address] Care Team Providers Name Role Phone Unassigned, Provider Primary Care Provider Unavailable Encounter Details Date Type Department Care Team Description 02/25/2013 Orders Only Internal Medicine [facility], [address] [place] [id number] [phone] Social History Tobacco Use Types Packs/Day Years Used Date Smoking Tobacco: Former Smokeless Tobacco: Former Qu it: 05/27/2011 Alcohol Use Standard Drinks/Week Comments No 0 (1 standard drink = 0.6 oz pure alcoho l) Sex Assigned at Date Recorded Not on file documented as of this encounter Procedure Notes [facility], Provider - 02/25/2013 12:00 AM CDTAssociated Order(s): SCANNED ORDER documented in this encounter Plan of Treatment Not on filedocumented as of this encounter Procedures Procedure Name Priority Date/Time Associated Diagnosis Comme nts SCANNED ORDER 02/25/2013 12:00 AM Results for this CDT procedure are i n the results section . documented in this encounter Results SCANNED ORDER (02/25/2013 12:00 AM CDT) Specimen (Source) Anatomical Location Collection Method / Collectio n Time Received Time / Laterality Volume 02/25/2013 Narrative This result has an attachment that is no t available. Transcriptions [facility], Provider - 02/25/2013 1 2:00 AM CDT Provider [facility] DUMMY/OTHER/AR documented in this encounter Visit Diagnoses Not on filedocumented in this encounter Care Teams Gathering Machine Setter Relationship Specialty Start Date End Date Unassigned, Provider PCP - General Unknown Physician 02/25/13 01/03/[address] [place] [address] documented as of this encounter
--- OUTSIDE RECORDS SUMMARY | 2022-02-01 08:05 | XMS_ITS | Encounter Summary ---
:1995 Author Organization [facility] Address [address] [place] [address] Care Team Providers Name Role Phone Unassigned, Provider Primary Care Provider Unavailable Reason for Visit Reason Onset Date Comments FOLLOW-UP,LAB 02/25/2013 Encounter Details Date Type Department Care Team Description 02/25/2013 Telephone Internal Medicine Christa Matute MD FOLLOW-UP,LAB [address] [id number] (Wo rk) Social History Tobacco Use Types Packs/Day Years Used Date Smoking Tobacco: Former Smokeless Tobacco: Former Qu it: 05/27/2011 Alcohol Use Standard Drinks/Week Comments No 0 (1 standard drink = 0.6 oz pure alcoho l) Sex Assigned at Date Recorded Not on file documented as of this encounter Nursing Notes Jazmyn Oneil RN - 02/25/2013 3:05 PM CDT Patient returned call. Informed her that she has an UTI. Advised pt that she has a Rx for Bactrim BID for 3 days. Advised pt if symptoms persist to call our office. Informed pt that the Urine Culture is in process to let us know if the bacteria causing her infection is resistant to Bactrim. Pt verbalized understanding. Jazmyn Oneil RN 02/25/2013, 3:08 PM Jazmyn Oneil RN - 02/25/2013 2:14 PM CDT Message left for pt to return call to the clinic. Jazmyn Oneil RN 02/25/2013, 2:16 PM Christa Matute MD - 02/25/2013 1:34 PM CDT Please call the patient and let her know that she does have a UTI. She should take Bactrim twice daily for 3 days. Call if symptoms persist. Urine culture (to make sure the bacteria causing the infection is not resistant to Bactrim), is in process. Thank you, Christa Matute MD 02/25/2013, 1:35 PM documented in this encounter Plan of Treatment Not on filedocumented as of this encounter Visit Diagnoses Diagnosis UTI (lower urinary tract infection) - Pr imary Urinary tract infection, site not specif ied documented in this encounter Care Teams Plastic Process Technician Relationship Specialty Start Date End Date Unassigned, Provider PCP - General Unknown Physician 02/25/13 01/03/[address] [place] [address] documented as of this encounter
--- OUTSIDE RECORDS SUMMARY | 2022-02-01 08:05 | XMS_ITS | Encounter Summary ---
:1995 Author Organization [facility] Address [address] [place] [address] Care Team Providers Name Role Phone Unassigned, Provider Primary Care Provider Unavailable Encounter Details Date Type Department Care Team Description 02/25/2013 Orders Only [facility] [address] [place] [address] Social History Tobacco Use Types Packs/Day Years [...] on filedocumented in this encounter Care Teams Senior Technical Program Manager Relationship Specialty Start Date End Date Unassigned, Provider PCP - General Unknown Physician 02/25/13 01/03/15 [address] [place] [address] documented as of this encounter
[2022-02-02 17:33] LABS: Rapid Plasma Reagin (RPR) Non Reactive (Non Reactive)
== END 2022-02-01 13:03 | disposition home or self-care (01) ==
PROVIDERS: Visit Provider Obstetrics & Gynecology
DX: O30.043 Twin pregnancy, dichorionic/diamniotic, third trimester (principal); Z3A.28 28 weeks gestation of pregnancy
CPT/HCPCS: 76816; 86592; 86850

== ENCOUNTER 2022-03-01 09:58 | Outpatient (CLI) | payer BC, SELFPAY ==
--- NOTE | 2022-03-01 09:45 | CRLHL7_ITS ---
For Patients: As a result of the Century Cures Act, medical imaging exams and procedure reports are released immediately into your electronic medical record. You may view this report before your referring provider. If you have questions, please contact your health care provider. OB ULTRASOUND ??? TWINS RAVINDER by LMP: 04/22/2022. GA: 32 w, 4 d. TWIN A INDICATION: Di/Di, twins, GDM. CERVIX: Visualized. Measurement: 3.8 cm POSITIONING: Vertex left. AMNIOTIC FLUID: 5.2 cm. BIOPHYSICAL PROFILE: Total score: 8/8. Gross body movements: 2. tone: 2. Respiratory activity: 2. Amniotic fluid: 2. (SDP N: Increase 2 x 1 cm) PLACENTA: Technique: Transabdominal. PLACENTA POSITION: Anterior DOPPLER: heart rate: 142 bpm. Biometry: BPD: 7.8 cm. 31 w, 3 d, 12 percent. HC: 29.6 cm. 32 w, 5 d, 19 percent. AC: 28.2 cm. 32 w, 1 d, 38 percent. FL: 6.1 cm. 31 w, 4 d, 16 percent. FL/AC ratio: 21.6 percent. HC/AC ratio: 1.05. EFW: 1883 g. Weight: 4 lbs, 2 oz. age by this US: 32 w, 0 d. RAVINDER by this US: 04/26/2022. Percentile by RAVINDER: 24 percent. TWIN B RAVINDER by LMP: 04/22/2022. GA: 32 w, 4 d. CERVIX: Visualized. Measurement: 3.8 cm. POSITIONING: Vertex right. AMNIOTIC FLUID: 4.6 cm. BIOPHYSICAL PROFILE: Total score: 8/8. Gross body movements: 2. tone: 2. Respiratory activity: 2. Amniotic fluid: 2. (SDP N: Increase 2 x 1 cm) PLACENTA: Technique: Transabdominal. PLACENTA POSITION: Anterior. DOPPLER: heart rate: 166 bpm. Biometry: BPD: 8.4 cm. 34 w, 0 d, 82 percent. HC: 31.2 cm. 35 w, 0 d, 76 percent. AC: 29.9 cm. 33 w, 6 d, 85 percent. FL: 6.0 cm. 31 w, 3 d, 12 percent. FL/AC ratio: 20.2 percent. HC/AC ratio: 1.04. EFW: 2164 g. Weight: 4 lbs, 12 oz. age by this US: 33 w, 4 d. RAVINDER by this US: 04/15/2022. Percentile by RAVINDER: 64 percent. IMPRESSION: 1. Viable twin dichorionic gestations. 2. BPP: 01/01 for both twins. Chen Bernabe M.D. Diagnostic/Breast Radiologist [email or web address] GURPREET/Dictated by: Chen Bernabe MD @ 03/01/2022 2:32:00 PM (Electronically Signed)
--- OUTSIDE RECORDS SUMMARY | 2022-03-01 10:17 | XMS_ITS | Encounter Summary ---
:1995 Author Organization [facility] Address [address] [place] [address] Care Team Providers Name Role Phone Unavailable Primary Care Provider Unavailable Reason for Referral Diagnostic Imaging Ultrasound (Routine) - Pending Review Specialty Diagnoses / Procedures Referred By Contact Refer red To Contact Diagnoses related condition Jailene Karena Procedures MFM Twins [phone] [place] [address] Referral ID Status Reason Start Date Expiration Date Visits V isits Requested Authorized [id number] Pending 10/09/2021 10/09/2022 1 1 Review onsultation (Routine: Next available opening) - Pending Review Specialty Diagnoses / Procedures Referred By Contact Refer red To Contact Diagnoses related condition Jailene Karena [address] [place] [address] Referral ID Status Reason Start Date Expiration Date Visits V isits Requested Authorized [id number] Pending 10/09/2021 10/09/2022 1 1 Review Encounter Details Date Type Department Care Team Description 10/09/2021 [facility]cribe [facility] condition ([facility] MEDICAL Dx) [address] [place], [place] [address] [address] [place], [place] [phone] (Work) [phone] Social History Tobacco Use Types Packs/Day Years [...] Study Santiago e: 11/22/2021 9:24am Pat. NO: [id number] Referring ??MD: JENNY HAMILTON Site: [facility] Telehealth Director: Rica Tobar RD MS : 1995 Age: [...] 10 ? oz EFW by ? Hadlock ([id number]) EFW discordance ? 2.1 ? % Head / Face / Neck Biometry: Business Records Manager ? 7.1 ? mm CM ?5.8 ? [...] 10 ? oz EFW by ? Hadlock ([id number]) EFW discordance ? 2.1 ? % Head / Face / Neck Biometry: Business Records Manager ? 8.0 ? mm CM ?4.4 ? [...] cava. Inferior vena cava. 3-vessel ? view. 6-bunbdg-bggnsnf view. Cardiac position. Cardiac size. Cardiac rhythm. [...] cava. Inferior vena cava. 3-vessel ? view. 8-qxucly-bkyynud view. Cardiac position. Cardiac size. Cardiac rhythm. [...] plans to have this follow up in [place]. Return to primary provider for continued care. If you have questions regarding today's evaluation or if we can be of further service, please contact the Maternal- Medicine Center. Procedure Note Ector Sherman MD - 11/22/2021Form atting of this note might be different from the original. Comprehensive Pat. Name:Nisha PURDY Date: 11/22/2021 9:24am Pat. NO: [id number] MD:AUGUST ANSHUL OROZCO [facility]Rica Tobar RDMS :1995Age:26 INDICATION Dichorionic, Diamniotic [...] 0 lb 10 oz EFW by Hadlock ([id number]-FL) EFW discordance 2.1 % Head / Face / Neck Biometry: Business Records Manager 7.1 mm CM 5.8 mm Nasal bone [...] 0 lb 10 oz EFW by Hadlock ([id number]) EFW discordance 2.1 % Head / Face / Neck Biometry: Business Records Manager 8.0 mm CM 4.4 mm Nasal bone [...] vena cava. Inferior vena cava. 3-vessel view. 4-fppjgk-qxccctw view. Cardiac po sition. Cardiac size. Cardiac [...] vena cava. Inferior vena cava. 3-vessel view. 1-sknrno-bthlzrk view. Cardiac po sition. Cardiac size. Cardiac [...] plans to have this follow up in [place]. Return to primary provider for continued care. [...] cervix appears long and closed. August Jailene [facility] US ORDERABLES documented in this encounter Visit Diagnoses Diagnosis related condition - Primary Unspecified complication of , u nspecified as to episode of care related condition Unspecified complication of , u nspecified as to episode of care documented in this encounter
--- OUTSIDE RECORDS SUMMARY | 2022-03-01 10:17 | XMS_ITS | Encounter Summary ---
:1995 Author Organization [place] Address [facility] [place] [address] Care Team Providers Name Role Phone Unavailable Primary Care Provider Unavailable Reason for Referral Diagnostic Imaging Ultrasound (Routine) - Pending Review Specialty Diagnoses / Procedures Referred By Contact Refer red To Contact Diagnoses related condition, antepartum Fitzloff, August Procedures MFM Twins US OB Complete [address] [place] [address] [place] [address] Referral ID Status Reason Start Date Expiration Date Visits V isits Requested Authorized [id number] Pending 09/19/2021 09/19/2022 1 1 Review Reason for Visit Diagnostic Imaging Ultrasound (Routine) - Pending Review Specialty Diagnoses / Procedures Referred By Contact Refer red To Contact Diagnoses related condition, antepartum Fitzl, August Procedures [facility] OB Complete [address] [place] [address] [place] [id number] Referral ID Status Reason Start Date Expiration Date Visits V isits Requested Authorized [id number] Pending 09/19/2021 09/19/2022 1 1 Review Encounter Details Date Type Department Care Team Description 10/17/2021 Hospital Encounter [facility] Rabia Flower [address] [address] [place] [id number] related Maternal Kike Xavier MD [address] [facility] [address] [place], [place] [address] condition, Medicine Center antepartum [place] [address] [facility] [address] [place] [address] Social History Tobacco Use Types [...] Study Santiago e: 10/17/2021 11:14am Pat. NO: [id number] Referring ??MD: JENNY HAMILTON Site: [facility] Drum Drier: Katelyn tidwell : 1995 Age: 26 INDICATION [...] RECOMMENDATION We discussed the findings on today's [facility] with the patient. The patient is scheduled to return to [facility] at 18-20 weeks for a comprehensive ultrasound. [...] Name:MAURILIO PURDYtudmalcolm Date: 10/17/2021 11:14am Pat. NO: [id number] MD:KARENA ANSHUL OROZCO [facility]Katelyn Shelby RDMS :1995Age:26 INDICATION Twin gestation. [...] The patient is scheduled to return to [facility] at 18-20 weeks for a comprehensive ultrasound. [...] trimester anatomy for both twins. August Jailene [facility] US ORDERABLES documented in this encounter Visit Diagnoses Diagnosis related condition, antepartum documented in this encounter
--- OUTSIDE RECORDS SUMMARY | 2022-03-01 10:17 | XMS_ITS | Clinical Summary ---
:1995 Author Organization [facility] Address [address] [place] [address] Care Team Providers Name Role Phone Unavailable Primary Care Provider Unavailable Social History Tobacco Use Types Packs/Day Years [...] 2011 PHQ-2 (once per calendar 05/27/2021 year) COVID-19 Vaccine (5 - 10/16/2021 08/21/2021, 06/01/2021, Booster for Moderna series) 09/14/2020, Addition al history exists MATERNAL SCREENING 10/29/2021 OBGCT (OB) 12/31/2021 INFLUENZA VACCINE (#1) 2022 REPEAT ANTIBODY SCREEN (OB) 01/28/2022 PAP 09/12/2024 09/12/2021 HEPATITIS B IMMUNIZATION Completed 1995, 1995, 1995, Additional history exists IPV IMMUNIZATION Completed 09/06/1997, 09/06/1997, 08/16/1994, Additional history exists MENINGITIS IMMUNIZATION Aged Out No longe r eligible based on patient 's age to complete this topic Pneumococcal Vaccine: Aged Out No longer eligible Pediatrics (0 to 5 Years) based on patient's age and At-Risk Patients (6 to to co mplete this topic 64 Years) Insurance Payer Benefit Plan / Subscriber ID Effective Dates Phone Addre ss Type Group BC[place] [id number] 2020-Present [phone] [address] [address] [place] [address] (Home) [place] [address]
--- OUTSIDE RECORDS SUMMARY | 2022-03-01 10:17 | XMS_ITS | Encounter Summary ---
:1995 Author Organization [place] Address [address] [place] [address] Care Team Providers Name Role Phone Unavailable Primary Care Provider Unavailable Reason for Referral Diagnostic Imaging Ultrasound (Routine) - Pending Review Specialty Diagnoses / Procedures Referred By Contact Refer red To Contact Diagnoses related condition, antepartum JaileneAugust Procedures MFM Twins US OB Complete [address] [place] [address] Referral ID Status Reason Start Date Expiration Date Visits V isits Requested Authorized [id number] Pending 09/19/2021 09/19/2022 1 1 Review onsultation (Routine: Next available opening) - Pending Review Specialty Diagnoses / Procedures Referred By Contact Refer red To Contact Diagnoses related condition, antepartum Jailene, August [address] [address] [place] [address] Referral ID Status Reason Start Date Expiration Date Visits V isits Requested Authorized [id number] Pending 09/19/2021 09/19/2022 1 1 Review Encounter Details Date Type Department Care Team Description 09/19/[address] condition, Medicine Center MEDICAL antepartum (Primary [address] [address]) [address] [place], [place] [address] [address] [place], [place] [phone] (Work) [phone] Social History Tobacco Use Types Packs/Day Years [...] Study Santiago e: 10/17/2021 11:14am Pat. NO: [id number] Referring ??MD: JENNY HAMILTON Site: [facility] Coil Assembler: Katelyn tidwell RDMS : 1995 Age: 26 [...] on [facility] with the patient. The patient is scheduled to return to [facility] at 18-20 weeks for a comprehensive ultrasound. [...] Name:Nisha PURDY Date: 10/17/2021 11:14am Pat. NO: [id number] MD:AUGUST ANSHUL OROZCO [facility]Katelyn Shelby RDMS :1995Age:26 INDICATION Twin gestation. Confirm [...] The patient is scheduled to return to [facility] at 18-20 weeks for a comprehensive ultrasound. [...] trimester anatomy for both twins. August Jailene [facility] US ORDERABLES documented in this encounter Visit Diagnoses Diagnosis related condition, antepartum - Primary related condition, antepartum documented in this encounter
--- OUTSIDE RECORDS SUMMARY | 2022-03-01 10:17 | XMS_ITS | Encounter Summary ---
:1995 Author Organization [facility] Address [address] [place] [address]. [place] [address] Care Team Providers Name Role Phone Unavailable Primary Care Provider Unavailable Encounter Details Date Type Department Care Team Description 09/14/2021 Medical Correspondence [facility] Scan, MATERNAL Health Info Mgmt Non-Provider MEDICINE [facility] Srvcs PROVIDER SERVICE [address] [place] [address] [place] [address] [facility] [phone] [facility] Social History Tobacco Use Types Packs/Day Years Used Date Never Assessed Sex Assigned at Date Recorded Not on file documented as of this encounter Plan of Treatment Not on filedocumented as of this encounter Visit Diagnoses Not on filedocumented in this encounter
--- OUTSIDE RECORDS SUMMARY | 2022-03-01 10:17 | XMS_ITS | Encounter Summary ---
:1995 Author Organization [facility] Address [address] [facility] [place] [address] Care Team Providers Name Role Phone Unavailable Primary Care Provider Unavailable Reason for Visit Reason Comments Ultrasound 1st tri complete-twins, conf irm chorionicity Encounter Details Date Type Department Care Team Description 10/17/2021 Office Visit [facility] Gilma Dent [facility] MEDICAL [address] [place], [place] [id number] Dichorionic diamniotic Maternal Kike Xavier MD [address] [place], [place] [address] twin in Medicine Center [facility] (Primary Dx) [address] [facility] [address] [place] [address] Social History Tobacco Use Types [...] for details of today's US at [facility]. 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
--- OUTSIDE RECORDS SUMMARY | 2022-03-01 10:17 | XMS_ITS | Encounter Summary ---
:1995 Author Organization [facility] Address [address], [place] [address] Care Team Providers Name Role Phone Maliha Delacruz PA-C Primary Care Provider Reason for Visit Reason Comments DIABETES,GESTATIONAL Encounter Details Date Type Department Care Team Description 02/16/2022 Telemedicine [facility] [address] Norma Mcleod Gestat ional diabetes mellitus (GDM), antepartum, gestational diabetes method of control unspecified (Primary Dx); Endocrinology DISTRIBUTION LINEMAN, CAN CLOSING MACHINE OPERATOR Obesity, unspecified obesity severity, u nspecified obesity type [address] [facility] [address] [facility]. [place], [place] [address] (Wo rk) Social History Tobacco Use Types Packs/Day Years Used Date Smoking Tobacco: Former Smokeless Tobacco: Former Qu it: 05/27/2011 Alcohol Use Standard Drinks/Week Comments No 0 (1 standard drink = 0.6 oz pure alcoho l) Sex Assigned at Date Recorded Not on file documented as of this encounter Progress Notes Miladys Patiño RN - 02/16/2022 3:00 PM CDT Pre-Visit Planning for Phone/Video Visit: Diabetes Pre-visit planning completed. Reviewed the following: Medications Pharmacy Allergies Last foot & eye exam Tobacco/alcohol use Current Diabetes Medications None Reported Glucose Results: Date Fasting 1-2 hr post Pre-lunch 1-2 hr post Pre-dinner 1-2 hr post HS 02/13 98 123 X 02/12 101 X 140 122 02/11 98 120 114 136 02/10 103 102 129 134 16 96 127 131 X 02/08 92 118 137 142 02/07 96 124 150 X 02/06 92 132 159 128 Norma Mcleod, DISTRIBUTION LINEMAN, CAN CLOSING MACHINE OPERATOR - 02/16/2022 3:00 PM CDT [facility] Adult Endocrinology [facility], [address] [facility], [address] [place] [address], Ph.[phone] February 16, 2022 Darlin Worthington a 27 y.o. female is here for newly diagnosed GDM. She is referred by: Dr. Lawrence at [facility] for possible insulin start. Pt met with IDC educator yesterday and learned insulin technique. Chief Complaint: GDM, started with self care at [facility], referred here when BGs were elevated. Twin . Obesity. History of Present Illness: Gestational Age: Unknown Estimated Date of Delivery: None noted. Pre- weight: BMI 37 G1. Had 1 hour GTT at 195, so started GDM education and care at [place] at 20 weeks. Past medical, surgical, and OB history reviewed in [facility].Pt struggles with Obesity. Past family history reviewed in [facility]. Sister had GDM X2. Mom DM2. 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 Records from [facility] in [place] are reviewed carefully. She is having careful OBGYN follow-up. It appears that she had ultrasound 02/01/2022. Twin a 32% EFW. twin B 72% EFW. Plan for delivery at 38 weeks. Patient is on daily aspirin. Current Diabetes Treatment Regimen: Meal plan. Glucose Monitoring: Patient tests 1 or 2 hours post meal. At work it tends to be 2 hours. Date Fasting 1-2 hr post Pre-lunch 1-2 hr post Pre-dinner 1-2 hr post HS 02/13 98 123 X 9/ 101 X 140 122 /18 98 120 114 136 02/10 103 102 129 134 16 96 127 131 X 02/08 92 118 137 142 02/07 96 124 150 X 02/06 92 132 159 128 She notes that yesterday morning was 88 and this morning was 92. Yesterday after dinner 144 at 1 h and today after lunch 147 at 1 h Vitals: There were no vitals taken for this visit. Estimated body mass index is 27.8 kg/m?? as calculated from the following: Height as of 01/24/18: 5' 2 (1.575 m). Weight as of 01/24/18: 152 lb (68.9 kg). Assessment: Darlin is a 27 y.o. female who was seen today for GDM. Diagnoses and Orders Placed: 1. Gestational diabetes mellitus (GDM), antepartum, gestational diabetes method of control unspecified 2. Obesity, unspecified obesity severity, unspecified obesity type ([facility]) Plan: 1. Reviewed pathophysiology, risks of uncontrolled, and treatment of GDM. Discussed placental changes and increased insulin requirements because of increased hormonal production later in the .Explained that healthy pregnancies cause increased insulin resistance. 2. Patient met with IDC educator to learn about insulin. Was taught to drop 1 type of insulin with avial and a syringe. Was going to watch blood glucose levels for the next week, but patient is willing to start insulin today. 3. Follow up in 1,3 and 5 weeks 4. Begin 15 units of NPH at bedtime each night. We will titrate this upward according to blood glucose patterns over the next few weeks. Patient understands target fastings of 65-94. 5. Continue blood glucose testing carefully fasting and 1-2 hours post meals. If post meals are continuing to spike in the next week, she agrees to start regular insulin prior to the appropriate meal. This was a video visit. 28 minutes spent on phone/video with the patient. Total time for the visit was 32 minutes including qdf-lule-at-face time spent reviewing records, counseling, and coordination of care. Medical History: No Known Allergies Past Medical History: Diagnosis Date Scoliosis mild Skin rash thought to be allergic but allergen not identified; saw a object oriented developer Thyroid condition ([facility]) documented in this encounter Plan of Treatment Not on filedocumented as of this encounter Visit Diagnoses Diagnosis Gestational diabetes mellitus (GDM), ant epartum, gestational diabetes method of control unspecified - Primary Obesity, unspecified obesity severity, u nspecified obesity type ([facility]) documented in this encounter Care Teams Sampling Theory Teacher Relationship Specialty Start Date End Date Maliha Delacruz PA-C PCP - General Physician Wool Hanker 01/24/18 [address] [place] [address] documented as of this encounter
--- OUTSIDE RECORDS SUMMARY | 2022-03-01 10:17 | XMS_ITS | Encounter Summary ---
:1995 Author Organization [facility] Address [facility] [place] [address] Care Team Providers Name Role Phone Kike [...] on filedocumented in this encounter Care Teams Certified Medical Assistant Relationship Specialty Start Date End Date Kike Xavier MD Assigned OBGYN Provider 10/28/21 12/22/[address] [facility] [address] [place], [place] [address] documented as of this encounter
--- OUTSIDE RECORDS SUMMARY | 2022-03-01 10:17 | XMS_ITS | Clinical Summary ---
:1995 Author Organization [facility] [place] [address] Care Team Providers Name Role Phone Pcp, [...] mother asthma~fa ther healthy~brother healthy~PGF DM, CAD ([place] in his 5 0's)~PGM MS Relation Name [...] Comments Blood Pressure 122/60 04/07/2021 11:45 AM OCCUPATIONAL THERAPY DEPARTMENT CHAIR Pulse 56 04/07/2021 11:45 AM OCCUPATIONAL THERAPY DEPARTMENT CHAIR Temperature 36 ??C (96.8 ??F) 04/07/2021 10:56 AM OCCUPATIONAL THERAPY DEPARTMENT CHAIR Respiratory Rate 16 04/07/2021 11:45 AM OCCUPATIONAL THERAPY DEPARTMENT CHAIR Oxygen Saturation 100% 04/07/2021 11:45 AM OCCUPATIONAL THERAPY DEPARTMENT CHAIR Inhaled Oxygen Concentration - - Weight 92.3 kg (203 lb 6.4 oz) 04/07/2021 9:30 AM OCCUPATIONAL THERAPY DEPARTMENT CHAIR Height 154.9 cm (5' 1) 04/07/2021 9:30 AM OCCUPATIONAL THERAPY DEPARTMENT CHAIR Body Mass Index 38.43 04/07/2021 9:30 AM OCCUPATIONAL THERAPY DEPARTMENT CHAIR Plan of Treatment Health Maintenance Due Date [...] Type Group BLUE [employer]OSS BL[employer] OF [id number] 2020-Present [address] [place] [address] e (Home) [place], [place] [phone] (Work) Advance Directives Latest Code Status on File Code Status Date Activated Date Inactivated Comments Full Code 04/07/2021 9:07 AM 04/07/2021 3:50 PM Code Status Discussion: Not Discussed Care Teams Fourth Grade Teacher Relationship Specialty Start Date End Date Listed, Not PCP - General 03/27/21 [place] [address] Pcp, No 04/02/20 .
--- OUTSIDE RECORDS SUMMARY | 2022-03-01 10:17 | XMS_ITS | Clinical Summary ---
:1995 Author Organization [facility] Address [address] [place] [address] Care Team Providers Name Role Phone Maliha [...] for each transition of care or referral. [facility] Allergies No known active allergies Medications Medication Sig Dispensed Refills Start Date End Date Status MV-Min-Fe Take by mouth. 0 Active Fum-FA-DHA ( 1 OR) Blood Glucose 0 12/17/2021 Activ e Monitoring Suppl (ACCU-CHEK GUIDE AR) w/Device KIT ACCU-CHEK GUIDE 4 times a day. 0 12/17/2021 Active test strip ACCU-CHEK SOFTCLIX 4 times a day. 0 12/17/2021 Active lancets aspirin 81 MG Chew and swallow 81 0 Active chewable tablet mg by mouth daily. insulin isophane Inject 15 Units 10 mL 3 02/16/20222022 Active (NOVOLIN N) 100 subcutaneously every UNIT/ML evening. At bedtime injectionIndicatio each night. Will ns: Diabetes titrate upwards PRN Mellitus thru . Indications: Diabetes Mellitus insulin Once daily at bedtime 100 Each 3 02/16/2022 Active syringe-needle 30G to inject insulin as X 5/16 inch 0.5 mL instructed. 30G X 5/16 0.5 ML Insulin Inject 1 Each 100 Each 3 02/19/2022 Activ e Syringe-Needle subcutaneously daily. U-100 (INSULIN SYRINGE 31G X 5/16 INCH O.5 ML) 31G X 5/16 0.5 MLIndications: Gestational diabetes mellitus (GDM), antepartum, gestational diabetes method of control unspecified Active Problems Problem Noted Date Hypothyroidism 08/25/2015 Goiter 03/16/2013 Overview: Endocrine 2006. Normal follow-up US for 2 years, normal TSH, negative antibodies. Repeat US and TSH yearly? Encounters Date Type Specialty Care Team Description 02/19/2022 Telephone Endocrinology Norma Mcleod APRN, Medic ation Refill DIRECTOR OF IT OPERATIONS Question 02/17/2022 Nurse Triage Careline Unknown, Physician Medicatio n Questions; Pharmacy 02/16/2022 Telemedicine Endocrinology Norma Mcleod APRN, Gesta tional diabetes mellitus (GDM), antepartum, gestational diabetes method of control unspecified (Primary Dx); DIRECTOR OF IT OPERATIONS Obesity, unspec ified obesity severity, unspecified obesity type 02/13/2022 Notes/Orders Endocrinology Norma Mcleod APRN, Gesta tional diabetes DIRECTOR OF IT OPERATIONS mellitus (GDM), antepartum, ges tational diabetes method of control unspeci fied (Primary Dx) 02/12/2022 Telephone Endocrinology Nurse, [id number] End APPOINTMEN T REQUEST (Referral GDM) from Last 3 Months Immunizations Name Administration Dates Next Due DTP 09/06/1997 DTP-Hib (Tetramune) 08/16/1994, 1993, 1993, 1993 HepA Ped/Adol (1-18 yrs) 10/19/2011 HepB, Unspecified Formulation 1993, 1993, 1992 MMR 09/06/1997, 06/04/1994 Polio, Unspecified Formulation 09/06/1997, 08/16/1994, 05/22, 1993 Td 08/08/2004 Family History Medical History Relation Name Comments Asthma Mother Hypertension Mother Eczema Brother Thyroid Disorder Other paternal aunt Coronary Artery Disease Paternal Grandfather [place] in his 50's Diabetes, Type II Paternal [...] (Preventive 1993 Services) COVID-19 Vaccine (#1) 1993 HIV Screening (Preventive 2009 Services) Adult Preventive Visit 2011 HepA (2 of 2 - Risk 2-dose 04/20/2012 10/19/2011, 2 series) Cervical Cancer Screening 02/26/2013 02/25/2013, 02/25/2013 Due Influenza (#1) 2022 DTaP/Tdap/Td (7 - Tdap) 02/16/2032 02/15/2022, 08/08/2004, 09/06/1997, Additional history exists Zoster/Shingles (1 of 2) 2043 HepB Completed [...] T ype Group Dates [facility] PREVENT[facility] [id number] Effective for Preventive DENTAL PLAN SI DENTAL all dates Ander Personal/Family Self 1995 [id number] (Home) [facility] [phone] [place], [place] (Work) [id number] Ander Personal/Family Self 1995 [id number] (Home) [place] [address] Ander Personal/Family Self 1995 [id number] (Home) [place] [address] Care Teams Handbag Designer Relationship Specialty Start Date End Date Maliha Delacruz PA-C PCP - General Physician Distance Education Teacher 01/24/18 [address] [place] [address]
--- OUTSIDE RECORDS SUMMARY | 2022-03-01 10:17 | XMS_ITS | Encounter Summary ---
:1995 Author Organization [facility] Address [address] [facility] [place] [address] Care Team Providers Name Role Phone Kike Xavier MD Unavailable Reason for Visit Reason Comments Ultrasound L2-Di/Di Twins Encounter Details Date Type Department Care Team Description 11/22/2021 Office Visit [facility] Januszsanamelany Gilma anthony [facility] EM[facility] [address] [place], [place] [phone] Dichorionic diamniotic Maternal Ector Sherman MD [address] [place] [address] twin in Medicine Center [facility] (Primary Dx) [address] [place] [address] Social History Tobacco Use Types [...] antepartum documented in this encounter Care Teams Beef Skinner Relationship Specialty Start Date End Date Kike Xavier MD Assigned OBGYN Provider 10/28/21 12/22/[address] [place] [address] [address] [place] [address] documented as of this encounter
--- OUTSIDE RECORDS SUMMARY | 2022-03-01 10:17 | XMS_ITS | Encounter Summary ---
:1995 Author Organization [facility] Address [address] [facility] [place] [address] Care Team Providers Name Role Phone Kike Xavier MD Unavailable Reason for Referral Diagnostic Imaging Ultrasound (Routine) - Pending Review Specialty Diagnoses / Procedures Referred By Contact Refer red To Contact Diagnoses related condition JaileneAugust Procedures [address] [place] [id number] Referral ID Status Reason Start Date Expiration Date Visits V isits Requested Authorized [id number] Pending 10/09/2021 10/09/2022 1 1 Review Reason for Visit Diagnostic Imaging Ultrasound (Routine) - Pending Review Specialty Diagnoses / Procedures Referred By Contact Refer red To Contact Diagnoses related condition Joseaugust Procedures [address] [address] [place] [id number] Referral ID Status Reason Start Date Expiration Date Visits V isits Requested Authorized [id number] Pending 10/09/2021 10/09/2022 1 1 Review Encounter Details Date Type Department Care Team Description 11/22/2021 Hospital Encounter [facility] Rabia Flower [address] [place] [id number] related Maternal Ector Sherman MD [address] [place], [place] [address] condition Medicine Center [facility] [address] [facility] [address] [place] [address] Social History Tobacco Use Types [...] Study Santiago e: 11/22/2021 9:24am Pat. NO: [id number] Referring ??: JENNY HAMILTON Site: [facility] Land Appraiser: Rica Tobar RD MS : 1995 Age: [...] 10 ? oz EFW by ? Hadlock ([id number]) EFW discordance ? 2.1 ? % Head / Face / Neck Biometry: Binder Caser ? 7.1 ? mm CM ?5.8 ? [...] 10 ? oz EFW by ? Hadlock ([id number]) EFW discordance ? 2.1 ? % Head / Face / Neck Biometry: Binder Caser ? 8.0 ? mm CM ?4.4 ? [...] cava. Inferior vena cava. 3-vessel ? view. 3-jsfwop-ypsimpt view. Cardiac position. Cardiac size. Cardiac rhythm. [...] cava. Inferior vena cava. 3-vessel ? view. 2-cjlgtr-mepghlt view. Cardiac position. Cardiac size. Cardiac rhythm. [...] plans to have this follow up in [place]. Return to primary provider for continued care. If you have questions regarding today's evaluation or if we can be of further service, please contact the [facility]. Procedure Note Ector Sherman MD - 11/22/2021Form atting of this note might be different from the original. Comprehensive Pat. Name:Nisha PURDY Date: 11/22/2021 9:24am Pat. NO: [id number] MD:KARENA OROZCO [facility] [employer] [facility] [employer]:Rica Tobar RDMS :1995Age:26 INDICATION Dichorionic, Diamniotic Twin [...] 0 lb 10 oz EFW by Hadlock ([id number]) EFW discordance 2.1 % Head / Face / Neck Biometry: Binder Caser 7.1 mm CM 5.8 mm Nasal bone [...] 0 lb 10 oz EFW by Hadlock ([id number]) EFW discordance 2.1 % Head / Face / Neck Biometry: Binder Caser 8.0 mm CM 4.4 mm Nasal bone [...] vena cava. Inferior vena cava. 3-vessel view. 4-oocdvh-mzixden view. Cardiac po sition. Cardiac size. Cardiac [...] vena cava. Inferior vena cava. 3-vessel view. 4-irtytu-okyubnj view. Cardiac po sition. Cardiac size. Cardiac [...] plans to have this follow up in [place]. Return to primary provider for continued care. [...] cervix appears long and closed. August Jailene [facility] US ORDERABLES documented in this encounter Visit Diagnoses Diagnosis related condition Unspecified complication of , u nspecified as to episode of care documented in this encounter Care Teams Exhibition Designer Relationship Specialty Start Date End Date Kike Xavier MD Assigned OBGYN Provider 10/28/21 12/22/21 [address] [address] [place] [address] documented as of this encounter
--- OUTSIDE RECORDS SUMMARY | 2022-03-01 10:17 | XMS_ITS | Encounter Summary ---
:1995 [facility] Address [address], [place] [address] Care Team Providers Name Role Phone Maliha Delacruz PA-C Primary Care Provider Reason for Visit Reason Comments Medication Refill Question Encounter Details Date Type Department Care Team Description 02/19/2022 Telephone [facility] [address] Brittny Mcleod, Medica tion Refill Endocrinology ORNAMENT STITCHER, NAIL TECH Question 3800 [facility] [address] [facility] [place] [phone] (Wo rk) Social History Tobacco Use Types Packs/Day Years Used Date Smoking Tobacco: Former Smokeless Tobacco: Former Qu it: 05/27/2011 Alcohol Use Standard Drinks/Week Comments No 0 (1 standard drink = 0.6 oz pure alcoho l) Sex Assigned at Date Recorded Not on file documented as of this encounter Nursing Notes Tru King RN - 02/19/2022 2:32 PM CDT Renewed medication per medication refill standing order. Requested Prescriptions Signed Prescriptions Disp Refills Insulin Syringe-Needle U-100 (INSULIN SYRINGE 31G X 5/16 INCH O.5 ML) 31G X 5/16 0.5 ML 100 Each 3 Sig: Inject 1 Each subcutaneously daily. Authorizing Provider: BRITTNY MCLEOD Ordering User: TRU OZUNA Bárbara Man F - 02/19/2022 2:11 PM CDT MEDICATION CHANGE REQUEST: Pharmacy stating that insulin syringe-needle 30G X 5/16 inch 0.5 mL 30G X 5/16 0.5 ML is not available. Pharmacy states they have 31g needles. Please send new Rx if appropriate. Thank you. documented in this encounter Plan of Treatment Not on filedocumented as of this encounter Visit Diagnoses Diagnosis Gestational diabetes mellitus (GDM), ant epartum, gestational diabetes method of control unspecified - Primary documented in this encounter Care Teams Wigs Salesperson Relationship Specialty Start Date End Date Maliha Delacruz PA-C PCP - General Physician Welding Pantograph Machine Operator 01/24/18 [address] [place] [address] documented as of this encounter
--- OUTSIDE RECORDS SUMMARY | 2022-03-01 10:17 | XMS_ITS | Encounter Summary ---
:1995 Author Organization [facility] Address [address] [place] [address] Care Team Providers Name Role Phone Maliha Delacruz PA-C Primary Care Provider Reason for Visit Reason Comments Medication Questions Pharmacy Encounter Details Date Type Department Care Team Description 02/17/2022 Nurse Triage Careline Unknown, Medication Questions; [address] [place] [address] [phone] [place], [place] [phone] Social History Tobacco Use Types Packs/Day Years Used Date Smoking Tobacco: Former Smokeless Tobacco: Former Qu it: 05/27/2011 Alcohol Use Standard Drinks/Week Comments No 0 (1 standard drink = 0.6 oz pure alcoho l) Sex Assigned at Date Recorded Not on file documented as of this encounter Nursing Notes Hayder Gomez RN - 02/17/2022 11:53 AM CDT Verified patient identity using three identifiers: Yes Situation/Background (brief explanation of current symptoms/situation): 30 gu was pescribed and now 31 gu is what is avaialble. Pt would like to have a doctor ok this change. Review 911 symptoms: N/A Reviewed with patient pertinent medical history(as it related to the call): Yes gestational diabetes Reviewed with patient pertinent medications (as they relate to call): Yes Reviewed with patient pertinent allergies (as they relate to call): N/A Reason for Disposition [1] Caller has URGENT medicine question about med that PCP or specialist prescribed AND [2] triagerunable to answer question Answer Assessment - Initial Assessment Questions 1. NAME of MEDICATION: What medicine are you calling about? [place] for insulin 2. QUESTION: What is your question? (e.g., medication refill, side effect) 31 gauge is available, prescription is for 30 guage 3. PRESCRIBING HCP: Who prescribed it? Reason: if prescribed by specialist, call should be referred to that group. Endocrine 4. SYMPTOMS: Do you have any symptoms? no 5. SEVERITY: If symptoms are present, ask Are they mild, moderate or severe? na 6. : Is there any chance that you are ? When was your last menstrual period? na Protocols used: Medication Question [id number] Dr. Ariadne Gonzales Paged at 11:59 AM Consulted at 12:02 PM Instructions OK to use 31 gauge needles. Call back to [facility] pharmacist Giovanni with the above information. Pt/caller verbalized understanding of recommendations, denies further questions and is agreeable to plan. Bubba Wilde RN [facility] 12:15 PM 02/17/2022 Jazmyn Manjarrez - 02/17/2022 11:41 AM CDT Verified patient identity using three identifiers: Yes Caller's relationship to patient: Other Pharmacy Do you get your primary care at a [facility] or [facility] clinic: [facility] Do you see a PN specialist for the reason you are calling? No [facility] Select Member: No Are you calling about a positive COVID result: No Pharmacy Pharmacist Calling: Pharmacist needs clarification on prescription. Name of medication: Insulin syringe, 31 gauge needle available at pharmacy, 30 gauge prescribed. Who prescribed the medication (name of provider or location where patient was seen): Norma Mcleod,BURRING MACHINE OPERATOR, BIOLOGY MANAGER Nurse Practitioner Plan: Pharmacist directly transferred to [facility] Nurse. documented in this encounter Plan of Treatment Not on filedocumented as of this encounter Visit Diagnoses Not on filedocumented in this encounter Care Teams Gold Nib Grinder Relationship Specialty Start Date End Date Maliha Delacruz PA-C PCP - General Physician Nuclear Medicine Specialist 01/24/18 [address] [place] [address] documented as of this encounter
--- OUTSIDE RECORDS SUMMARY | 2022-03-01 10:17 | XMS_ITS | Encounter Summary ---
:1995 Author Organization [facility] Address [address] [place] [address] Care Team Providers Name Role Phone Unavailable Primary Care Provider Unavailable Reason for Visit Reason Comments Ultrasound 1st tri complete-twins, conf irm chorionicity Encounter Details Date Type Department Care Team Description 10/11/2021 PRE VISIT [facility] Shayy Barajas, RN Ultra sound (1st tri Maternal Medicine comp lete-twins, confirm Center Ora chorionicity) [address] [facility] [address] [place] [address] Social History Tobacco Use Types Packs/Day Years Used Date Never Assessed Sex Assigned at Date Recorded Not on file documented as of this encounter Plan of Treatment Not on filedocumented as of this encounter Visit Diagnoses Not on filedocumented in this encounter
--- OUTSIDE RECORDS SUMMARY | 2022-03-01 10:17 | XMS_ITS | Encounter Summary ---
:1995 Author Organization [facility] Address [address] [place] [address] Care Team Providers Name Role Phone Unavailable [...]
--- OUTSIDE RECORDS SUMMARY | 2022-03-01 10:17 | XMS_ITS | Encounter Summary ---
:1995 Author Organization [facility] Address [address] [place] [address] Care Team Providers Name Role Phone Maliha Delacruz PA-C Primary Care Provider Reason for Referral Consult/Transfer Care (Routine) - New Request Specialty Diagnoses / Procedures Referred By Contact Refer red To Contact Diagnoses Gestational diabetes mellitus (GDM), antepartum, gestational diabetes method of control unspecified Norma Mcleod APRN, CNP [address] [place], [place] [address] Referral ID Status Reason Start Date Expiration Date Visits V isits Requested Authorized [id number] New Request 02/13/2022 05/15/2023 1 1 Scheduling Instructions Your provider has recommended an appoint ment with [facility]. You may call [phone] to schedule yo ur appointment. We suggest you call your health insurance company about your cove rage and benefits for this appointment. Encounter Details Date Type Department Care Team Description 02/13/2022 Notes/Orders [facility] [address] Mcle[address] Gestat ionnirmal diabetes Endocrinology MACEY OSUNA mellitus (GDM), [address] e[address], [address] gestational diabetes [place], [place] me thod of control [id number] unspecified (Primary [phone] (Wo rk) Dx) Social History Tobacco Use Types Packs/Day Years Used Date Smoking Tobacco: Former Smokeless Tobacco: Former Qu it: 05/27/2011 Alcohol Use Standard Drinks/Week Comments No 0 (1 standard drink = 0.6 oz pure alcoho l) Sex Assigned at Date Recorded Not on file documented as of this encounter Progress Notes Gaye Lucero - 02/13/2022 11:35 AM CDT Norma, Please complete pended IDC referral for Gestational Diabetes education. Thank you, Gaye Lucero 02/13/2022, 11:36 AM documented in this encounter Plan of Treatment Scheduled Referrals Name Type Priority Associated Diagnoses Order S chedule Diabetes Education Referral Routine Gestational diabetes O rdered: 02/13/2022 Visit mellitus (GDM), antepartum, gestational diabetes method of control unspecified documented as of this encounter Visit Diagnoses Diagnosis Gestational diabetes mellitus (GDM), ant epartum, gestational diabetes method of control unspecified - Primary documented in this encounter Care Teams Business Analyst Ecommerce Relationship Specialty Start Date End Date Maliha Delacruz PA-C PCP - General Physician Wrapper Sorter 01/24/18 [address] [place] [address] documented as of this encounter
--- OUTSIDE RECORDS SUMMARY | 2022-03-01 10:18 | XMS_ITS | Encounter Summary ---
:1995 Author Organization [facility] Address [address], [place] [address] Care Team Providers Name Role Phone Unassigned, Provider Primary Care Provider Unavailable Reason for Visit Reason Comments URINARY PROBLEM urgency, hematuria and burni ng with urination since yesterday(took Azo last night) Establish Care Encounter Details Date Type Department Care Team Description 02/25/2013 Office Visit Internal Medicine Christa Matute, Preventative health care (Pr imary Dx); [address] Dysuria; [place] [address] [address] UTI (lower urinary tract inf ection) [phone] [place] [address] Social History Tobacco Use Types Packs/Day Years [...] recommendations. Calcium may also be found in vtwi-smb-niyowit medications (e.g., antacids) and in calcium-fortified foods. [...] supplements) Nutrition content information is from [employer] and reprinted with permission of [employer] [facility], [place], [place]. documented in this encounter Progress Notes [...] Matute MD - 02/25/2013 1:54 PM CDT [facility] [address] [place] [address] Main: RE: Darlin Purdy : 1995 Date [...] allergic but allergen not identified; saw a pot maker Past Surgical History Procedure Laterality Date ??? 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 Lives with roommates. Current Outpatient Prescriptions Medication [...] Patho logist Time Signature HCG, Urine Negative [place] Negative = <20 mIU/ml [facility] Specimen Anatomical Collection Method Collection Time Receive d Time (Source) Location / / Volume Laterality Urine specimen 02/25/2013 12:26 3 1:13 (specimen) PM CDT PM CDT Narrative [facility] - 02/25/2013 1:14 PM CDT Performed at [facility], [address], [place] [address], Director Dr Joselyn Barkley Christa Matute MD LAB_1 Performing Organization Address City/State/ZIP Code Phon e Number [facility] [address] [place] [address] [phone] [facility] PAP TEST, ROUTINE (02/25/2013 11:46 AM CDT) Patholo gist Method Time Signature Cytology (NOTE) [place] Business Process Specialist Cytology Report [facility] Patient Name: [facility] Taken: 02/25/2013 Received: 02/27/2013 Reported: 03/06/2013 Physician(s): [...] ?? Microscopic Description Microscopic examination is performed. [facility] Department of Pathology [address] [place] [address] ??[phone] Specimen Anatomical Collection Method Collection Time Receive d Time (Source) Location / / Volume Laterality 02/25/2013 11:46 02/27/2013 9:05 AM CDT AM CDT Christa Matute MD LAB_1 Performing Organization Address City/State/ZIP Code Phon e Number [facility] [address] [place] [address] [phone] [facility] [place] [phone] WET PREP, VAGINAL (02/25/2013 11:30 AM CDT) Patholo gist Method Time Signature Clue Cells No Clue Cells NCLUE [facility] Trichomonas No Trichomonas NTRIC [facility] Yeast No Yeast Found YN [facility] Specimen Anatomical Collection Method Collection Time Receive d Time (Source) Location / / Volume Laterality 02/25/2013 11:30 02/25/2013 AM CDT 12:16 PM CDT [facility] - 02/25/2013 12:24 PM CDT Performed at [facility], [address] [place] [address], Director Dr Joselyn Barkley Christa Matute MD LAB_1 Performing Organization Address City/[facility]/ZIP Code Phon e Number [facility] [address] [address] [place] [phone] CHLAMYDIA & GC (02/25/2013 11:30 AM CDT) P athologist Signature Source Cervix [facility] Chlamydia Negative NEG [facility] Comment: Test Performed by Nail Sticker Mediated Amplification GC (N. gonorrhoeae) Negative NEG [facility] Comment: Test Performed by Nail Sticker Mediated Amplification Specimen Anatomical Collection Method Collection Time Receive d Time (Source) Location / / Volume Laterality 02/25/2013 11:30 02/25/2013 AM CDT 12:15 PM CDT [facility] - 02/26/2013 5:05 PM CDT Performed at [facility], [address] [place] [address] ??[phone] Christa Matute MD LAB_1 Performing Organization Address City/State/ZIP Code Phon e Number [facility] [address] [place] [address] [phone] [facility] [phone] URINE CULTURE (02/25/2013 11:00 AM CDT) Component Value Ref Test Analysis Performed At [facility] gist Range Method Time Signature Specimen Urine Clean Catch [place] Description [facility] Special Inoculated Media [place] Requests Received [facility] Culture > 100,000 col/ml [place] Escherichia coli [facility] Culture > 100,000 col/ml Staphylococcus species, Coagulase Negative Sensitivity [place] NOT performed [facility] Report Status Final 02/27/2013 [facility] Organism > 100,000 col/ml [place] Escherichia coli [facility] Specimen Anatomical Collection Method Collection Time Receive d Time (Source) Location / / Volume Laterality 02/25/2013 11:00 02/25/2013 AM CDT 11:58 AM CDT Narrative [facility] - 02/27/2013 7:34 AM CDT Performed at [facility] , [address] [place] [address] Organism Antibiotic Method Susceptibility > 100,000 col/ml [...] Christa Matute MD LAB_1 Performing Organization Address [facility]/ZIP Code Phon e Number [facility] [address] [place] [address] [phone] [facility] UA MICRO (02/25/2013 11:00 AM CDT) P athologist Signature RBC'S 0-3 0 - 3 /hpf [facility] WBC'S 6-10 0 - 5 /hpf [facility] Epith, Squamous 5-10 /hpf [facility] Bact Many [facility] Casts 0 /lpf [facility] Specimen Anatomical Collection Method Collection Time Receive d Time (Source) Location / / Volume Laterality 02/25/2013 11:00 02/25/2013 AM CDT 11:23 AM CDT Narrative [facility] - 02/25/2013 12:00 PM CDT Performed at [facility], [address] [place] [address], Director Dr Joselyn Barkley Christa Matute MD LAB_1 Performing Organization Address City/[facility] Phon e Number [address] [address] [place] [phone] (ABNORMAL) UA CONDITIONAL UC (02/25/2013 11:00 AM CDT) Patholo gist Method Time Signature Urine Color Yellow [facility] Urine Clarity Sl Cloudy [facility] Sp Gr 1.025 1.005 - [place] 1.030 [facility] Leuk Negative NEG [facility] Nitr Pos (A) NEG [facility] pH 7.0 4.5 - 8.0 [facility] Prot Negative NEG mg/dl [facility] Gluc Negative NEG [facility] Ket Negative NEG [facility] Urob 0.2 0.2 - 1.0 [place] EU/dl [facility] Bili Negative NEG [facility] Blood Tr (A) NEG [facility] Urine Cult If Urine [place] Cultured [facility] Urine Source Urine Clean [place] Catch [facility] Specimen Anatomical Collection Method Collection Time Receive d Time (Source) Location / / Volume Laterality 02/25/2013 11:00 02/25/2013 AM CDT 11:23 AM CDT Narrative [facility] - 02/25/2013 11:59 AM CDT Performed at [facility], [address] [place] [address], [place] [address], Director Dr Joselyn Barkley Christa Matute MD LAB_1 Performing Organization Address City/State/ZIP Code Phon e Number [facility] [address] [place] [address] [facility] documented in this encounter Visit Diagnoses Diagnosis Preventative health care - Primary Routine general medical examination at a health care facility Dysuria UTI (lower urinary tract infection) Urinary tract infection, site not specif ied documented in this encounter Care Teams Dry Cell Battery Assembler Relationship Specialty Start Date End Date Unassigned, Provider PCP - General Unknown Physician 02/25/13 01/03/[address] [place] [address] documented as of this encounter
--- OUTSIDE RECORDS SUMMARY | 2022-03-01 10:18 | XMS_ITS | Encounter Summary ---
:1995 Author Organization [facility] Address [address] [place] [address] Care Team Providers Name Role Phone Unassigned, Provider Primary Care Provider Unavailable Reason for Visit Reason Onset Date Comments FOLLOW-UP,LAB 02/25/2013 Encounter Details Date Type Department Care Team Description 02/25/2013 Telephone Internal Medicine Christa Matute MD FOLLOW-UP,LAB [address] [phone] (Wo rk) Social History Tobacco Use Types [...] ied documented in this encounter Care Teams Release And Technical Records Clerk Relationship Specialty Start Date End Date Unassigned, Provider PCP - General Unknown Physician 02/25/13 01/03/[address] [place] [address] documented as of this encounter
--- OUTSIDE RECORDS SUMMARY | 2022-03-01 10:18 | XMS_ITS | Encounter Summary ---
:1995 Author Organization [facility] Address [address], [place] [address] Care Team Providers Name Role Phone Maliha Delacruz PA-C Primary Care Provider Reason for Visit Reason Comments Nexplanon Insertion Encounter Details Date Type Department Care Team Description 01/24/2018 Office Visit [facility] Maliha Delacruz, [facility] [place]elton planning, Practice JONH subdermal contraceptive [address] [facility] [address] [facility] checking/reinsertion/re [place], [place] moval ( Primary Dx) [address] [phone] Social History Tobacco Use Types Packs/Day Years [...] at the distal end parallel to the olegario. The olegario was then grasped with a [...] dose documented in this encounter Care Teams Box Spring Maker Relationship Specialty Start Date End Date Maliha Delacruz PA-C PCP - General Physician Webbing Weaver 01/24/18 [address] [place] [address] documented as of this encounter
--- OUTSIDE RECORDS SUMMARY | 2022-03-01 10:18 | XMS_ITS | Encounter Summary ---
:1995 Author Organization [facility] Address [address] [place] [address] Care Team Providers Name Role Phone Maliha Delacruz PA-C Primary Care Provider Encounter Details Date Type Department Care Team Description 10/18/2012 Outside Hospital External to External, [facility] [place] [address] Social History Tobacco Use Types Packs/Day Years Used Date Smoking Tobacco: Never Assessed Sex Assigned at Date Recorded Not on file documented as of this encounter Progress Notes External, Provider - 10/18/2012 12:00 AM CDT documented in this encounter Plan of Treatment Not on filedocumented as of this encounter Visit Diagnoses Not on filedocumented in this encounter Care Teams Child Care Aide Relationship Specialty Start Date End Date Maliha Delacruz PA-C PCP - General Physician Client Relations Representative 01/24/18 [address] [place] [address] documented as of this encounter
--- OUTSIDE RECORDS SUMMARY | 2022-03-01 10:18 | XMS_ITS | Encounter Summary ---
:1995 Author Organization [facility] Address [address] [place] [address] Care Team Providers Name Role Phone Maliha Delacruz PA-C Primary Care Provider Encounter Details Date Type Department Care Team Description 10/19/2011 Outside Hospital External to External, [facility] [place] [address] Social History Tobacco Use Types Packs/Day Years Used Date Smoking Tobacco: Never Assessed Sex Assigned at Date Recorded Not on file documented as of this encounter Progress Notes External, Provider - 10/19/2011 12:00 AM CDT documented in this encounter Plan of Treatment Not on filedocumented as of this encounter Visit Diagnoses Not on filedocumented in this encounter Care Teams Superintendent Ammunition Storage Relationship Specialty Start Date End Date Maliha Delacruz PA-C PCP - General Physician Electron Beam Photo Mask Technician 01/24/18 [address] [place] [address] documented as of this encounter
--- OUTSIDE RECORDS SUMMARY | 2022-03-01 10:18 | XMS_ITS | Encounter Summary ---
:1995 Author Organization [facility] Address [address] [place] [address] Care Team Providers Name Role Phone Zoie Padilla APRN, LINE CREW SUPERVISOR Primary Care Provider [phone] Reason for Visit Reason Comments LAB RESULTS Encounter Details Date Type Department Care Team Description 01/07/2015 Telephone [facility] Zoie Padilla APRN, LAB RESULTS [address] [place], [place] [address] [address] [facility] [phone] [place] [address] Social History Tobacco Use Types [...] the weekend. She would like to use [facility] pharmacy. Estella Singh CMA Estella Singh [...] Primary documented in this encounter Care Teams Airplane Flight Attendant Relationship Specialty Start Date End Date Zoie Padilla APRN, CNP PCP - General Nurse Practitioner 01/04/15 01/23/18 [address] [address] documented as of this encounter
--- OUTSIDE RECORDS SUMMARY | 2022-03-01 10:18 | XMS_ITS | Encounter Summary ---
:1995 Author Organization [facility] Address [address], [place] [address] Care Team Providers Name Role Phone Randy Zoie Rabia OSUNA, MACEY Primary Care Provider [phone] Reason for Visit Reason Comments LAB RESULTS Encounter Details Date Type Department Care Team Description 09/01/2015 Telephone [facility] Jp Lorenz MD LAB RESULTS Endocrinology Clinic [address] [place] [address], [address] [place] [address] [place] [address] [phone] (Wo rk) Social History Tobacco Use Types [...] like it filled at our clinic pharmacy? [Video Game Tester/Appt Center: Was the pharmacy entered into the Preferred Pharmacy field? No] Is it okay to leave detailed message on your voicemail? yes [Video Game Tester/Appt Center: If this call is after 3 p.m., communicate to patient: If we are not able to get back to you by the end of the day and your symptoms worsen please contact the Careline at [phone] OR at .] [Video Game Tester: Inform patient that if they are active [...] on filedocumented in this encounter Care Teams Aircraft Engine Dismantler Relationship Specialty Start Date End Date Zoie Padilla, INFORMATION TECHNOLOGY SECURITY MANAGER, PROVIDER RELATIONS ADVOCATE PCP - General Nurse Practitioner 01/04/15 01/23/[address] [place] [address] documented as of this encounter
--- OUTSIDE RECORDS SUMMARY | 2022-03-01 10:18 | XMS_ITS | Encounter Summary ---
:1995 Author Organization [employer] Address [address] [place] [address] Care Team Providers Name Role Phone Zoie Padilla APRN, CNP Primary Care Provider [phone] Encounter Details Date Type Department Care Team Description 01/04/2015 Orders Only [facility] Fatigue; [address] [facility] Go[address]; [place], [place] [address] Possible [phone] Social History Tobacco Use Types Packs/Day Years [...] 01/04/2015 4:29 PM C DT Performed at [facility], [address] [place] [address] ??[phone] Zoie Padilla APRN, MANAGER OF PHOTOGRAPHY LAB_1 Performing Organization Address City/State/ZIP Code Phon e Number [facility] [phone] IRON PROFILE (IRON,TIBC,%SAT.(CALC)) (01/04/2015 9:59 AM CDT) [...] 01/04/2015 4:29 PM C DT Performed at [facility], [address] [place] [address] ??[phone] Zoie Padilla APRN, MACEY LAB_1 Performing Organization Address [facility] Phon e Number [facility] [phone] HEMOGRAM/PLTS (01/04/2015 9:59 AM CDT) athologist Signature [...] 01/04/2015 3:12 PM C DT Performed at [facility], [address] [place] [address] ??[phone] Zoie Padilla APRN, MACEY LAB_1 Performing Organization Address City/[facility] Phon e Number [facility] [phone] VITAMIN D 25-HYDROXY, TOTAL (V77.99) (01/04/2015 9:59 AM CDT) athologist Signature Vitamin 40.5 30.0 - [facility] D,25-OH, Tot 80.0 ng/mL [facility]ATORIES Comment: Deficiency: ??< 20 ng/mL Insufficiency: ??20-29 ng/mL Optimum Level: ??30-80 ng/mL Possible Toxicity: > 80 ng/mL Specimen Anatomical Collection Method Collection Time Receive d Time (Source) Location / / Volume Laterality 01/04/2015 9:59 AM 5 CDT 10:01 AM CDT Narrative [facility] - 01/04/2015 7:40 PM C DT Performed at [facility] , [address] [place] [address] Zoie Padilla APRN, CNP LAB_1 Performing Organization Address City/[facility]/ZIP Code Phon e Number [facility] [phone] TEST (URINE) (01/04/2015 9:59 AM CDT) [facility] Method Time Signature HCG, Urine Negative [facility] Negative = <25 mIU/ml [facility] If is suspected, suggest repeat in 48-72 hours or confirm results with a quantitative hCG test. Specimen Anatomical Collection Method Collection Time Receive d Time (Source) Location / / Volume Laterality Urine specimen 01/04/2015 9:59 AM 015 (specimen) CDT 10:01 AM CDT Narrative [facility] - 01/04/2015 10:32 AM CDT Performed at [facility], [address] [place] [address] Zoie Padilla APRN, CNP LAB_1 Performing Organization Address City/[facility] Code Phon e Number [facility] [phone] Antithyroid Peroxidase (01/04/2015 9:59 AM CDT) [facility] Method Time Signature Thyroperoxidase Ab 2 0 - 8 [facility] IU/ml [facility] Specimen Anatomical Collection Method Collection Time Receive d Time (Source) Location / / Volume Laterality 01/04/2015 9:59 AM 5 CDT 10:01 AM CDT Narrative [facility] - 01/06/2015 10:47 AM CDT Performed at [facility], [address] [place] [id number] Zoie Padilla APRN, CNP LAB_1 Performing Organization Address City/[facility]/ZIP Code Phon e Number [facility] [phone] T3, FREE, SERUM (01/04/2015 9:59 AM CDT) P athologist Signature T3,Free 4.4 2.8 - 5.2 [facility] pg/ml Specimen Anatomical Collection Method Collection Time Receive d Time (Source) Location / / Volume Laterality 01/04/2015 9:59 AM 5 CDT 10:01 AM CDT Narrative [facility] - 01/04/2015 4:29 PM C DT Performed at [facility], [address] [place] [phone] Zoie Padilla APRN, CNP LAB_1 Performing Organization Address City/[facility] Code Phon e Number [facility] [phone] FREE T4 (01/04/2015 9:59 AM CDT) P athologist Signature T4, Free 0.8 0.8 - 2.2 [facility] ng/dl Specimen Anatomical Collection Method Collection Time Receive d Time (Source) Location / / Volume Laterality 01/04/2015 9:59 AM 5 CDT 10:01 AM CDT Narrative [facility] - 01/04/2015 4:29 PM C DT Performed at [facility], [address] [place] [phone] Zoie Padilla APRN, CNP LAB_1 Performing Organization Address [facility]/ZIP Code Phon e Number [facility] [phone] (ABNORMAL) TSH, SENSITIVE (01/04/2015 9:59 AM CDT) [facility] gist Method Time Signature TSH, Sensitive 11.255 0.300 - [facility] (H) 5.000 [facility] uIU/ml Specimen Anatomical Collection Method Collection Time Receive d Time (Source) Location / / Volume Laterality 01/04/2015 9:59 AM 5 CDT 10:01 AM CDT Narrative [facility] - 01/04/2015 4:29 PM C DT Performed at [facility], [address] [place] [address] ??[phone] Zoie Padilla APRN, CNP LAB_1 Performing Organization Address City/[facility]/ZIP Code Phon e Number [facility] [phone] documented in this encounter Visit Diagnoses Diagnosis Fatigue Other malaise and fatigue Goiter (HR[facility]) Goiter, unspecified Possible examination or test, unconfirmed documented in this encounter Care Teams Clay Caster Relationship Specialty Start Date End Date Zoie Padilla, MORTGAGE CLOSING CLERK, MANAGER OF PHOTOGRAPHY PCP - General Nurse Practitioner 01/04/15 01/23/18 [address] [place] [address] documented as of this encounter
--- OUTSIDE RECORDS SUMMARY | 2022-03-01 10:18 | XMS_ITS | Encounter Summary ---
:1995 Author Organization [facility] Address [address] [place] [address] Care Team Providers Name Role Phone Unassigned, Provider Primary Care Provider Unavailable Encounter Details Date Type Department Care Team Description 02/25/2013 Orders Only [facility] [address] [place] [address] Social History Tobacco Use Types Packs/Day Years [...] on filedocumented in this encounter Care Teams Registered Nurse Obstetrics Relationship Specialty Start Date End Date Unassigned, Provider PCP - General Unknown Physician 02/25/13 01/03/15 [address] [place] [address] documented as of this encounter
--- OUTSIDE RECORDS SUMMARY | 2022-03-01 10:18 | XMS_ITS | Encounter Summary ---
:1995 Author [facility] Address [address], [place] [address] Care Team Providers Name Role Phone Maliha Delacruz PA-C Primary Care Provider Reason for Visit Reason Comments APPOINTMENT REQUEST Referral GDM Encounter Details Date Type Department Care Team Description 02/12/[address] [facility] 3800 Nurse, P3800 End APPOINTMENT REQUEST Endocrinology [address] (Referral GDM) [address] [place] [phone] Social History Tobacco Use Types Packs/Day Years Used Date Smoking Tobacco: Former Smokeless Tobacco: Former Qu it: 05/27/2011 Alcohol Use Standard Drinks/Week Comments No 0 (1 standard drink = 0.6 oz pure alcoho l) Sex Assigned at Date Recorded Not on file documented as of this encounter Nursing Notes Silke Monge - 02/12/2022 4:24 PM CDT Faxed referral rec'd from [facility] for GDM, records sent to scan doc documented in this encounter Plan of Treatment Not on filedocumented as of this encounter Visit Diagnoses Not on filedocumented in this encounter Care Teams Arcade Game Technician Relationship Specialty Start Date End Date Maliha Delacruz PA-C PCP - General Physician Pop Singer 01/24/18 [address] [place], [place] [id number] documented as of this encounter
--- OUTSIDE RECORDS SUMMARY | 2022-03-01 10:18 | XMS_ITS | Encounter Summary ---
:1995 Author Organization [facility] Address [address] [place] [address] Care Team Providers Name Role Phone Zoie Padilla APRN, CNP Primary Care Provider [phone] Reason for Visit Reason Comments GOITER ref by Dr. Padilla. Recs in E PIC Consult/Transfer Care (Routine) - Closed Specialty Diagnoses / Procedures Referred By Contact Refer red To Contact Diagnoses Goiter (HRC) Zoie Padilla APRN, CNP [address] [place], [place] [address] Referral ID Status Reason Start Date Expiration Date Visits Requ ested Visits Authorized [id number] Closed 01/04/2015 04/04/2016 1 1 Encounter Details Date Type Department Care Team Description [facility], unspecified type (Primary Dx); Endocrinology Clinic MD [place] [address] [facility], [address] [facility]3] [address] [place] [address] [place] [address] [phone] Social History Tobacco Use Types Packs/Day Years [...] work. Lashonda Burgess MD Department of Endocrinology [facility] documented in this encounter Progress Notes Lashonda Burgess MD - 08/25/2015 2:54 PM CDT [facility] Endocrinology Visit Note Name: Darlin Worthington Seen at the request of Zoie Padilla APRN, SHOT BLASTER for Chief Complaint Patient presents with ??? GOITER ref by Dr. Padilla. Recs in [facility] . HPI: Darlin Worthington is a 20 [...] + hot all the times History of [place] or Amiodarone use:No Head or neck surgery/radiation:No IV Contrast:No PMH/PSH: Past Medical History Diagnosis Date ??? Thyroid condition ??? Scoliosis mild ??? Skin rash thought to be allergic but allergen not identified; saw a market intelligence consultant Past Surgical History Procedure Laterality Date ??? Surgical hx - neg Family/Social Hx: Family History Problem Relation Age of Onset ??? Hypertension Mother ??? Eczema Brother ??? Asthma Mother ??? Diabetes, Type II Paternal Grandfather ??? Coronary Artery Disease Paternal Grandfather [place] in his 50's ??? Other Paternal Grandmother MS ??? Thyroid Disorder Other paternal aunt History Alcohol Use No Thyroid disease: Yes: mother and father DM2:Yes: mother Autoimmune: DM1, SLE, RA, Vitiligo: No Student - RF --> Hungarian and Art History (moving to [place]) MEDICATIONS: Outpatient Prescriptions Prior to Visit Medication [...] Lashonda Burgess MD Department of Endocrinology [facility] All questions were answered. The patient indicates [...] PM 6 3:30 CDT PM CDT Narrative [facility] - 08/29/2015 12:39 PM CDT Performed at [facility], [address] [place] [address] ??[phone] Lashonda Burgess MD LAB_1 Performing Organization Address City/State/ZIP Code Phon e Number [facility] [phone] FREE T4 (08/25/2015 3:19 PM CDT) athologist Signature T4, Free 0.90 0.8 - 2.2 [facility] ng/dl Specimen Anatomical Collection Method Collection Time Receive d Time (Source) Location / / Volume Laterality 08/25/2015 3:19 PM 6 3:30 CDT PM CDT Narrative [facility] - 08/25/2015 4:43 PM C DT Performed at [facility], [address] [place] [address], Director Dr Cesar Fraser Lashonda Burgess MD LAB_1 Performing Organization Address City/[facility] Phon e Number [facility] [phone] TSH, SENSITIVE (08/25/2015 3:19 PM CDT) athologist Signature TSH, Sensitive 3.360 0.300 - [facility]000 [facility] uIU/ml Specimen Anatomical Collection Method Collection Time Receive d Time (Source) Location / / Volume Laterality 08/25/2015 3:19 PM 6 3:30 CDT PM CDT Narrative [facility] - 08/25/2015 4:43 PM C DT Performed at [facility], [address] [place] [address], Director Dr Cesar Fraser Lashonda Burgess MD LAB_1 Performing Organization Address [facility] Phon e Number [facility] [phone] documented in this encounter Visit Diagnoses Diagnosis Hypothyroidism, unspecified type (HRC) - Primary Goiter (HRC) Goiter, unspecified documented in this encounter Care Teams Correctional Counselor Relationship Specialty Start Date End Date Zoie Padilla, COLOR SPECIALIST, SHOT BLASTER PCP - General Nurse Practitioner 01/04/15 01/23/18 [address], [place] [address] documented as of this encounter
--- OUTSIDE RECORDS SUMMARY | 2022-03-01 10:18 | XMS_ITS | Encounter Summary ---
:1995 Author Organization [facility] Address [address], [place] [address] Care Team Providers Name Role Phone Unavailable Primary Care Provider Unavailable Reason for Visit Reason Comments ITCHING, SKIN Encounter Details Date Type Department Care Team Description 10/14/2012 Office Visit [facility] Gena Myers Prur itic rash (Primary Practice MD Leonel Dx) [address] [facility] [address] [place] [address] [phone] Social History Tobacco Use Types Packs/Day Years [...]
--- OUTSIDE RECORDS SUMMARY | 2022-03-01 10:18 | XMS_ITS | Encounter Summary ---
:1995 Author Organization [email or web address] Address [address] [place] [address] Care Team Providers Name Role Phone Unassigned, Provider Primary Care Provider Unavailable Reason for Visit Reason Onset Date Comments FOLLOW-UP,LAB 03/02/2013 Encounter Details Date Type Department Care Team Description 03/02/2013 Telephone Internal Medicine Christa Matute MD FOLLOW-UP,LAB [address] [phone] (Wo rk) Social History Tobacco Use Types [...] ------ Message from: CHRISTA MATUTE Created: SatMar 02, 2013 8:50 AM I checked online [...] on filedocumented in this encounter Care Teams Herb Digger Relationship Specialty Start Date End Date Unassigned, Provider PCP - General Unknown Physician 02/25/13 01/03/[address] [place] [address] documented as of this encounter
--- OUTSIDE RECORDS SUMMARY | 2022-03-01 10:18 | XMS_ITS | Encounter Summary ---
:1995 Author [facility] Address [address], [place] [address] Care Team Providers Name Role Phone Unassigned, Provider Primary Care Provider Unavailable Encounter Details Date Type Department Care Team Description 02/25/2013 Orders Only Internal Medicine [facility], [address] Provider [place] [id number] [phone] Social History Tobacco Use Types Packs/Day Years Used Date Smoking Tobacco: Former Smokeless Tobacco: Former Qu it: 05/27/2011 Alcohol Use Standard Drinks/Week Comments No 0 (1 standard drink = 0.6 oz pure alcoho l) Sex Assigned at Date Recorded Not on file documented as of this encounter Procedure Notes [facility], Provider - 02/25/2013 12:00 AM CDTAssociated [...] attachment that is no t available. Transcriptions [facility], Provider - 02/25/2013 1 2:00 AM CDT Provider [facility] DUMMY/OTHER/AR documented in this encounter Visit Diagnoses Not on filedocumented in this encounter Care Teams Switchboard Manager Relationship Specialty Start Date End Date Unassigned, Provider PCP - General Unknown Physician 02/25/13 01/03/[address] [place] [address] documented as of this encounter
--- OUTSIDE RECORDS SUMMARY | 2022-03-01 10:18 | XMS_ITS | Encounter Summary ---
:1995 Author [facility] Address [address] [place] [address] Care Team Providers Name Role Phone Maliha Delacruz PA-C Primary Care Provider Encounter Details Date Type Department Care Team Description 01/24/2018 Consent for [facility] Maliha Delacruz NEX [facility] CONSENT Procedure/Treatmen Practice JON[facility] [address] [facility] [address] [place] [address] [phone] Social History Tobacco Use Types Packs/Day Years [...] on filedocumented in this encounter Care Teams Environmental Research Scientist Relationship Specialty Start Date End Date Maliha Delacruz PA-C PCP - General Physician Bobbin Drier 01/24/18 [address] [place] [address] documented as of this encounter
--- OUTSIDE RECORDS SUMMARY | 2022-03-01 10:18 | XMS_ITS | Encounter Summary ---
:1995 Author Organization [facility] Address [address] [place] [address] Care Team Providers Name Role Phone Unassigned, Provider Primary Care Provider Unavailable Reason for Visit Reason Onset Date Comments FOLLOW-UP,LAB 03/11/2013 Encounter Details Date Type Department Care Team Description 03/11/2013 Telephone Internal Medicine Christa Matute MD FOLLOW-UP,LAB [address] [phone] (Wo rk) Social History Tobacco Use Types [...] on filedocumented in this encounter Care Teams Spiral Tube Winder Relationship Specialty Start Date End Date Unassigned, Provider PCP - General Unknown Physician 02/25/13 01/03/[address] [place] [address] documented as of this encounter
--- OUTSIDE RECORDS SUMMARY | 2022-03-01 10:18 | XMS_ITS | Encounter Summary ---
:1995 Author Organization [facility] Address [address] [place] [address] Care Team Providers Name Role Phone Zoie Padilla APRN, CNP Primary Care Provider [phone] Encounter Details Date Type Department Care Team Description 08/29/2015 Orders Only [facility] [address] Lashonda Burgess, Hypothyroidism, Endocrinology Clinic MD unspecified type [address] (Primary Dx) [place] [address] [place] [address] [place] [address] (Wo rk) Social History Tobacco Use Types [...] Primary documented in this encounter Care Teams Director Of Search Engine Optimization Relationship Specialty Start Date End Date Zoie Padilla APRN, CNP PCP - General Nurse Practitioner 01/04/15 01/23/[address] [place] [address] documented as of this encounter
--- OUTSIDE RECORDS SUMMARY | 2022-03-01 10:18 | XMS_ITS | Encounter Summary ---
:1995 Author Organization [facility] Address [address] [place] [address] Care Team Providers Name Role Phone Zoie Padilla APRN, CNP Primary Care Provider [phone] Reason for Referral Consult/Transfer Care (Routine) - Closed Specialty Diagnoses / Procedures Referred By Contact Refer red To Contact Diagnoses Goiter (HRC) Zoie Padilla APRN, CNP [address] [place], [place] [address] Referral ID Status Reason Start Date Expiration Date Visits Requ ested Visits Authorized [id number] Closed 01/04/2015 04/04/2016 1 1 Scheduling Instructions Your provider has recommended an appoint ment with [facility]. You may call [phone] to schedule your a ppointment. If you prefer, a promotion producer will contact you within the next 3 business d ays to assist you in setting up this appointment. Reason for Visit Reason Comments THYROID pt saw specialist at [facility] and was found to have enlarged thyroid FATIGUE sxs started last fall WEIGHT GAIN , POSSIBLE Encounter Details Date Type Department Care Team Description 01/04/2015 Office Visit [facility] Zoie Padilla Fa tigue (Primary Dx); Practice [facility] Goiter; [address] [facility] [address] [place] [phone] Social History Tobacco Use Types Packs/Day Years [...] encounter Patient Instructions Patient InstructionsZoie Padilla APRN, MANUFACTURING PROJECT MANAGER - 01/04/2015 9:55 AM CDT Images from [...] your doctor about all prescription, herbal, or mkzp-det-exfjbda products you take. ?? Take care of [...] Where can you learn more? Go to batterii/Neventum and enter N862 in the search box. Current as of: April 09, 2014 Content Version: 10.4 ?? [phone] [employer]. Goiter: After Your Visit Your Care [...] Where can you learn more? Go to batterii/Neventum and enter G387 in the search box. Current as of: April 09, 2014 Content Version: 10.4 ?? [phone] [employer]. documented in this encounter Progress Notes Zoie [...] Name Type Priority Associated Diagnoses [facility] Referral Routine Goiter Ordered: [...] 01/04/2015 4:29 PM C DT Performed at [facility], [address] [place] [address] ??[phone] Zoie Padilla APRN, CNP LAB_1 Performing Organization Address [facility]/ZIP Code Phon e Number [facility] [phone] IRON PROFILE (IRON,TIBC,%SAT.(CALC)) (01/04/2015 9:59 AM CDT) [...] 01/04/2015 4:29 PM C DT Performed at [facility], [address] [place] [address] ??[phone] Zoie Padilla APRN, MACEY LAB_1 Performing Organization Address [facility] Phon e Number [facility] [phone] HEMOGRAM/PLTS (01/04/2015 9:59 AM CDT) athologist Signature [...] 01/04/2015 3:12 PM C DT Performed at [facility], [address] [place] [address] ??[phone] Zoie Padilla APRN, CNP LAB_1 Performing Organization Address City/[facility] Phon e Number [facility] [phone] VITAMIN D 25-HYDROXY, TOTAL (V77.99) (01/04/2015 9:59 [...] 01/04/2015 7:40 PM C DT Performed at [facility] , [address] [place] [phone] Zoie Padilla APRN, MANUFACTURING PROJECT MANAGER LAB_1 Performing Organization Address City/State/ZIP Code Phon e Number [facility] [phone] TEST (URINE) (01/04/2015 9:59 AM CDT) [facility] Method Time Signature HCG, Urine Negative [facility] [...] - 01/04/2015 10:32 AM CDT Performed at [facility], [address] [place] [address] Zoie Padilla APRN, MANUFACTURING PROJECT MANAGER LAB_1 Performing Organization Address City/State/ZIP Code Phon e Number [facility] [phone] Antithyroid Peroxidase (01/04/2015 9:59 AM CDT) [facility] Method Time Signature Thyroperoxidase Ab 2 0 - 8 [facility] IU/ml [facility] Specimen Anatomical Collection Method Collection Time Receive d Time (Source) Location / / Volume Laterality 01/04/2015 9:59 AM 5 CDT 10:01 AM CDT Narrative [facility] - 01/06/2015 10:47 AM CDT Performed at [facility], [address] [place] [address] ??[phone] Zoie Padilla APRN, CNP LAB_1 Performing Organization Address City/[facility]/ZIP Code Phon e Number [facility] [phone] T3, FREE, SERUM (01/04/2015 9:59 AM CDT) P athologist Signature T3,Free 4.4 2.8 - 5.2 [facility] pg/ml Specimen Anatomical Collection Method Collection Time Receive d Time (Source) Location / / Volume Laterality 01/04/2015 9:59 AM 5 CDT 10:01 AM CDT Narrative [facility] - 01/04/2015 4:29 PM C DT Performed at [facility], [address] [place] [address] ??[phone] Zoie Padilla APRN, CNP LAB_1 Performing Organization Address [facility] Code Phon e Number [facility] [phone] FREE T4 (01/04/2015 9:59 AM CDT) P athologist Signature T4, Free 0.8 0.8 - 2.2 [facility] ng/dl Specimen Anatomical Collection Method Collection Time Receive d Time (Source) Location / / Volume Laterality 01/04/2015 9:59 AM 5 CDT 10:01 AM CDT Narrative [facility] - 01/04/2015 4:29 PM C DT Performed at [facility], [address] [place] [address] ??[phone] Zoie Padilla APRN, CNP LAB_1 Performing Organization Address City/[facility]/ZIP Code Phon e Number [facility] [phone] (ABNORMAL) TSH, SENSITIVE (01/04/2015 9:59 AM CDT) Patholo gist Method Time Signature TSH, Sensitive 11.255 0.300 - [facility] (H) 5.000 [facility] uIU/ml Specimen Anatomical Collection Method Collection Time Receive d Time (Source) Location / / Volume Laterality 01/04/2015 9:59 AM 5 CDT 10:01 AM CDT Narrative [facility] - 01/04/2015 4:29 PM C DT Performed at [facility], [address] [place] [address] ??[phone] Zoie Padilla APRN, CNP LAB_1 Performing Organization Address City/State/ZIP Code Phon e Number [facility] [phone] documented in this encounter Visit Diagnoses Diagnosis Fatigue - Primary Other malaise and fatigue Goiter (HRC) Goiter, unspecified Possible examination or test, unconfirmed Fatigue Other malaise and fatigue Goiter (HRC) Goiter, unspecified Possible examination or test, unconfirmed documented in this encounter Care Teams Web Page Developer Relationship Specialty Start Date End Date Zoie Padilla APRN, CNP PCP - General Nurse Practitioner 01/04/15 01/23/[address] [place] [address] documented as of this encounter
--- OUTSIDE RECORDS SUMMARY | 2022-03-01 10:18 | XMS_ITS | Encounter Summary ---
:1995 Author Organization [facility] Address [address] [address] Care Team Providers Name Role Phone Unassigned, Provider Primary Care Provider Unavailable Encounter Details Date Type Department Care Team Description 02/25/2013 Orders Only [facility] MD Mihir Security Contact Bill [address] [place] [address] Mailstop [id number] [phone] (Wo rk) Social History Tobacco Use Types [...] on filedocumented in this encounter Care Teams Drying Machine Operator Relationship Specialty Start Date End Date Unassigned, Provider PCP - General Unknown Physician 02/25/13 01/03/[address] [place] [address] documented as of this encounter
--- OUTSIDE RECORDS SUMMARY | 2022-03-01 10:18 | XMS_ITS | Encounter Summary ---
:[address] [facility] Address [address] [place] [address] Care Team Providers Name Role Phone Zoie Padilla APRN, CNP Primary Care Provider Reason for Visit Reason Comments Dental Conversion [facility] to [place] convers ion Encounter Details Date Type Department Care Team Description 11/01/2016 Dental Conversion [place] [facility] Trevor Burger [facility] [address] [facility] [address] [place], [place] [address] [place], [place] [phone] Social History Tobacco Use Types Packs/Day Years Used Date Smoking Tobacco: Former Smokeless Tobacco: Former Qu it: 05/27/2011 Alcohol Use Standard Drinks/Week Comments No 0 (1 standard drink = 0.6 oz pure alcoho l) Sex Assigned at Date Recorded Not on file documented as of this encounter Miscellaneous Notes Miscellaneous - Interface, In Edr Dental Conversion - 06/03/2014 12:00 AM APPAREL MANAGER 06/03/2014: Specialty Referral Letter Sent (HRFF): letter mailed ljr 06/03/14 REL MANAGER documented in this encounter Plan of Treatment Not on filedocumented as of this encounter Visit Diagnoses Not on filedocumented in this encounter Care Teams Internet Marketing Analyst Relationship Specialty Start Date End Date Zoie Padilla APRN, CNP PCP - General Nurse Practitioner 01/04/15 01/23/[address] [place] [address] documented as of this encounter
== END 2022-03-01 09:59 | disposition home or self-care (01) ==
LOC: US 09:59
PROVIDERS: Visit Provider Obstetrics & Gynecology
DX: O24.419 Gestational diabetes mellitus in pregnancy, unspecified control (principal); O30.043 Twin pregnancy, dichorionic/diamniotic, third trimester; Z3A.32 32 weeks gestation of pregnancy
CPT/HCPCS: 76816; 76819

== ENCOUNTER 2022-03-07 09:20 | Outpatient (CLI) | payer BC, SELFPAY ==
--- NOTE | 2022-03-07 09:15 | CRLHL7_ITS ---
For Patients: As a result of the Century Cures Act, medical imaging exams and procedure reports are released immediately into your electronic medical record. You may view this report before your referring provider. If you have questions, please contact your health care provider. INDICATION: DI-DI TWINS, GDM COMPARISON: 03/01/2022 TECHNIQUE: Real time zepeda scale imaging of the twin gestation was performed. Without non-stress testing. FINDINGS: Sonographic imaging demonstrates a twin living intrauterine gestation. TWIN A: Fetus demonstrates a regular cardiac rate of 146 beats per minute. Fetus has a maternal left vertex position. The amniotic fluid volume appears normal and there is a single deepest pocket measurement of 4.9 cm. The fetus was active and demonstrated normal breathing movements. There was normal flexion and extension of the trunk and extremities. TWIN B: Fetus demonstrates a regular cardiac rate of 161 beats per minute. Fetus has a maternal right vertex position. The amniotic fluid volume appears normal and there is a single deepest pocket measurement of 161 cm. The fetus was active and demonstrated normal breathing movements. There was normal flexion and extension of the trunk and extremities. IMPRESSION: TWIN A: Normal biophysical profile score of 8 out of 8. TWIN B: Normal biophysical profile score of 8 out of 8. Dictated by Jason Segura MD @ 03/07/2022 10:45:31 AM (Electronically Signed)
--- OUTSIDE RECORDS SUMMARY | 2022-03-07 09:22 | XMS_ITS | Clinical Summary ---
:1995 Author Organization [facility] [place] [address] Care Team Providers Name Role Phone Pcp, [...] mother asthma~fa ther healthy~brother healthy~PGF DM, CAD (RI in his 5 0's)~PGM MS Relation Name [...] Comments Blood Pressure 122/60 04/07/2021 11:45 AM NOZZLE CEMENT SPRAYER HELPER Pulse 56 04/07/2021 11:45 AM NOZZLE CEMENT SPRAYER HELPER Temperature 36 ??C (96.8 ??F) 04/07/2021 10:56 AM NOZZLE CEMENT SPRAYER HELPER Respiratory Rate 16 04/07/2021 11:45 AM NOZZLE CEMENT SPRAYER HELPER Oxygen Saturation 100% 04/07/2021 11:45 AM NOZZLE CEMENT SPRAYER HELPER Inhaled Oxygen Concentration - - Weight 92.3 kg (203 lb 6.4 oz) 04/07/2021 9:30 AM NOZZLE CEMENT SPRAYER HELPER Height 154.9 cm (5' 1) 04/07/2021 9:30 AM NOZZLE CEMENT SPRAYER HELPER Body Mass Index 38.43 04/07/2021 9:30 AM NOZZLE CEMENT SPRAYER HELPER Plan of Treatment Health Maintenance Due Date Last Done Comments Tdap 01/17/2004 Hepatitis C screening for age 18-79 2011 Tetanus booster 08/08/2014 08/08/2004 COVID-19 vaccine series (3 - Booster for 11/09/2020 021, 08/09/2020 Moderna series) Influenza for age 9-49 01/25/2022 Depression screening for age 12+ 03/07/2022 03/07/2021 BMI (ht and wt on same day) for age 18+ 03/13/2022 03/13/20 21, 06/01/2020 Pap test for age 21-65 09/12/2024 09/12/2021 Results Not on filefrom Last 3 Months Insurance Payer Benefit Plan / Subscriber ID Effective Dates Phone Addre ss Type Group BLUE CROSS BLUE CROSS OF [id number] 2020-Present [address] [facility] [phone] e (Home) [place], [place] [phone] (Work) Advance Directives Latest Code Status on File Code Status Date Activated Date Inactivated Comments Full Code 04/07/2021 9:07 AM 04/07/2021 3:50 PM Code Status Discussion: Not Discussed Care Teams Electrical Hardware Engineer Relationship Specialty Start Date End Date Listed, Not PCP - General 03/27/[address] [place] [address] Pcp, No 04/02/20 .
--- OUTSIDE RECORDS SUMMARY | 2022-03-07 09:23 | XMS_ITS | Encounter Summary ---
:1995 Author Organization [facility] Address [address] [place] [address] Care Team Providers Name Role Phone Zoie Padilla APRN, LEARNING DISABILITIES TEACHER Primary Care Provider [phone] Reason for Visit Reason Comments LAB RESULTS Encounter Details Date Type Department Care Team Description 01/07/2015 Telephone [facility] Zioe Padilla APRN, LAB RESULTS [address] [place], [place] [address] [address] [facility] [phone] [place] [address] Social History Tobacco Use Types [...] the weekend. She would like to use [facility] pharmacy. Estella Singh CMA Estella Singh CMA [...] Primary documented in this encounter Care Teams Event Marketing Intern Relationship Specialty Start Date End Date Zoie Padilla APRN, CNP PCP - General Nurse Practitioner 01/04/15 01/23/18 [address], [place] [address] documented as of this encounter
--- OUTSIDE RECORDS SUMMARY | 2022-03-07 09:23 | XMS_ITS | Encounter Summary ---
:1995 Author Organization [facility] Address [address], [place] [address] Care Team Providers Name Role Phone Maliha Delacruz PA-C Primary Care Provider Reason for Visit Reason Comments APPOINTMENT REQUEST Referral GDM Encounter Details Date Type Department Care Team Description 02/12/2022 Telephone [facility] 3800 Nurse, P3800 End APPOINTMENT REQUEST Endocrinology [address] (Referral GDM) [address] [place] [place] [id number] Social History Tobacco Use Types Packs/Day Years Used Date Smoking Tobacco: Former Smokeless Tobacco: Former Qu it: 05/27/2011 Alcohol Use Standard Drinks/Week Comments No 0 (1 standard drink = 0.6 oz pure alcoho l) Sex Assigned at Date Recorded Not on file documented as of this encounter Nursing Notes Silke Monge - 02/12/2022 4:24 PM CDT Faxed referral rec'd from [facility] for GDM, records sent to scan doc documented in this encounter Plan of Treatment Not on filedocumented as of this encounter Visit Diagnoses Not on filedocumented in this encounter Care Teams Materials Supervisor Relationship Specialty Start Date End Date Maliha Delacruz PA-C PCP - General Physician Marketing Manager 01/24/18 [address] [place], [place] [address] documented as of this encounter
--- OUTSIDE RECORDS SUMMARY | 2022-03-07 09:23 | XMS_ITS | Encounter Summary ---
:1995 Author [facility] Address [address] [place] [address] Care Team Providers Name Role Phone Zoie Padilla APRN, CNP Primary Care Provider [phone] Reason for Visit Reason Comments Dental Conversion Legacy EDR to [place] convers ion Encounter Details Date Type Department Care Team Description 11/01/2016 Dental Conversion [facility] Trevor Burger [facility] [address] [facility] [address] [place], [place] [address] [place], [place] [phone] [address] Social History Tobacco Use Types Packs/Day Years Used Date Smoking Tobacco: Former Smokeless Tobacco: Former Qu it: 05/27/2011 Alcohol Use Standard Drinks/Week Comments No 0 (1 standard drink = 0.6 oz pure alcoho l) Sex Assigned at Date Recorded Not on file documented as of this encounter Miscellaneous Notes Miscellaneous - Interface, In Edr Dental Conversion - 06/03/2014 12:00 AM GILL BOX FIXER 06/03/2014: Specialty Referral Letter Sent (HRFF): letter mailed ljr 06/03/14 BOX FIXER documented in this encounter Plan of Treatment Not on filedocumented as of this encounter Visit Diagnoses Not on filedocumented in this encounter Care Teams Professional Nurse Relationship Specialty Start Date End Date Zoie Padilla APRN, CNP PCP - General Nurse Practitioner 01/04/15 01/23/[address] [place] [address] documented as of this encounter
--- OUTSIDE RECORDS SUMMARY | 2022-03-07 09:23 | XMS_ITS | Encounter Summary ---
:1995 Author Organization [facility] Address [address] [facility] [place] [address] Care Team Providers Name Role Phone Kike Xavier MD Unavailable Reason for Visit Reason Comments Ultrasound L2-Di/Di Twins Encounter Details Date Type Department Care Team Description 11/22/2021 Office Visit [facility] Gilma Dent [facility] [address] [place] [address] Dichorionic diamniotic Maternal Ector Sherman MD [address] [place] [address] twin in Medicine Center [facility] (Primary Dx) [address] [facility] [address] [place] [address] Social History Tobacco Use Types [...] antepartum documented in this encounter Care Teams Access Service Representative Relationship Specialty Start Date End Date Kike Xavier MD Assigned OBGYN Provider 10/28/21 12/22/[address] [address] documented as of this encounter
--- OUTSIDE RECORDS SUMMARY | 2022-03-07 09:23 | XMS_ITS | Encounter Summary ---
:1995 Author Organization [facility] Address [address] [place] [address]. [place] [address] Care Team Providers Name Role Phone Unavailable Primary Care Provider Unavailable Encounter Details Date Type Department Care Team Description 09/14/[address] [facility] Scan, MATERNAL Health Info Mgmt Non-Provider MEDICINE BIPIN VICTOR [facility] Srvcs PROVIDER SERVICE [address] [place] [address] [place] [address] [facility] [phone] [facility] Social History Tobacco Use Types Packs/Day Years Used Date Smoking Tobacco: Never Assessed Sex Assigned at Date Recorded Not on file documented as of this encounter Plan of Treatment Not on filedocumented as of this encounter Visit Diagnoses Not on filedocumented in this encounter
--- OUTSIDE RECORDS SUMMARY | 2022-03-07 09:23 | XMS_ITS | Encounter Summary ---
:1995 Author Organization [facility] Address [address] [place] [address] Care Team Providers Name Role Phone Zoie Padilla APRN, CNP Primary Care Provider [phone] Encounter Details Date Type Department Care Team Description 08/29/2015 Orders Only [facility] [address] Lashonda Burgess, Hypothyroidism, Endocrinology Clinic MD unspecified type [address] (Primary Dx) [place] [address] [place] [address] [place] [address] (Wo rk) Social History Tobacco Use Types [...] Primary documented in this encounter Care Teams Building Rental Superintendent Relationship Specialty Start Date End Date Zoie Padilla APRN, CNP PCP - General Nurse Practitioner 01/04/15 01/23/[address] [place] [address] documented as of this encounter
--- OUTSIDE RECORDS SUMMARY | 2022-03-07 09:23 | XMS_ITS | Encounter Summary ---
:1995 Author Organization [facility] Address [address], [place] [address] Care Team Providers Name Role Phone Maliha Delacruz PA-C Primary Care Provider Reason for Visit Reason Comments Nexplanon Insertion Encounter Details Date Type Department Care Team Description 01/24/2018 Office Visit [facility] Maliha Delacruz, [facility] k[place]ton planning, Practice JONH subdermal contraceptive [address] [facility] [address] [facility] checking/reinsertion/re [place], [place] moval ( Primary Dx) [address] [phone] Social History Tobacco Use Types Packs/Day Years [...] dose documented in this encounter Care Teams Nursing Associate Relationship Specialty Start Date End Date Maliha Delacruz PA-C PCP - General Physician Ditcher 01/24/18 [address] [place] [address] documented as of this encounter
--- OUTSIDE RECORDS SUMMARY | 2022-03-07 09:23 | XMS_ITS | Encounter Summary ---
:1995 Author Organization [facility] Address [address] [place] [address] Care Team Providers Name Role Phone Unavailable Primary Care Provider Unavailable Reason for Visit Reason Comments Ultrasound 1st tri complete-twins, conf irm chorionicity Encounter Details Date Type Department Care Team Description 10/11/[address] [facility] Shayy Barajas, WILD Ultra sound (1st tri Maternal Medicine comp lete-twins, confirm Center [place] chorionicity) [address] [facility] [address] [place] [address] Social History Tobacco Use Types Packs/Day Years Used Date Smoking Tobacco: Never Assessed Sex Assigned at Date Recorded Not on file documented as of this encounter Plan of Treatment Not on filedocumented as of this encounter Visit Diagnoses Not on filedocumented in this encounter
--- OUTSIDE RECORDS SUMMARY | 2022-03-07 09:23 | XMS_ITS | Clinical Summary ---
:1995 Author Organization [facility] Address [address] [place] [address] Care Team Providers Name Role Phone Maliha [...] for each transition of care or referral. [facility] Allergies No known active allergies Medications Medication Sig Dispensed Refills Start Date End Date Status MV-Min-Fe Take by mouth. 0 Active Fum-FA-DHA ( 1 OR) Blood Glucose 0 12/17/2021 Activ e Monitoring Suppl (ACCU-CHEK GUIDE MD) w/Device KIT ACCU-CHEK GUIDE 4 times a [...] Endocrinology Norma Mcleod APRN, Medic ation Refill CROWN POUNCER Question 02/17/2022 Nurse Triage Careline Unknown, Physician Medicatio n Questions; Pharmacy 02/16/2022 Telemedicine Endocrinology Norma Mcleod APRN, Gesta tional diabetes mellitus (GDM), antepartum, gestational diabetes method of control unspecified (Primary Dx); CROWN POUNCER Obesity, unspec ified obesity severity, unspecified obesity type 02/13/2022 Notes/Orders Endocrinology Norma Mcleod APRN, Gesta tional diabetes CROWN POUNCER mellitus (GDM), antepartum, ges tational diabetes method [...] paternal aunt Coronary Artery Disease Paternal Grandfather [place] in his 50's Diabetes, Type II Paternal [...] T ype Group Dates [facility] PREVENTIVE [id number] Effective for Preventive DENTAL PLAN SI DENTAL all dates Ander Personal/Family Self 1995 [address] (Home) [facility] [phone] [place], [place] (Work) [address] Ander Personal/Family Self 1995 [address] (Home) [place] [address] Ander Personal/Family Self 1995 [address] (Home) [place] [address] Care Teams Guardian Ad Litem Relationship Specialty Start Date End Date Maliha Delacruz PA-C PCP - General Physician Oracle Obiee Developer 01/24/18 [address] [place] [address]
--- OUTSIDE RECORDS SUMMARY | 2022-03-07 09:23 | XMS_ITS | Clinical Summary ---
:1995 Author Organization [facility] Address [address] [place] [address] Care Team Providers Name Role Phone Unavailable Primary Care Provider Unavailable Social History Tobacco Use Types Packs/Day Years Used Date Smoking Tobacco: Never Assessed Estimated Date of Delivery Comments Yes 04/22/2022 Based on last menstr ual period of 07/16/2021 Sex Assigned at Date Recorded Not on file Plan of Treatment Health Maintenance Due Date Last Done Comments ADVANCE CARE PLANNING 1995 ANNUAL REVIEW OF HM ORDERS 1995 YEARLY PREVENTIVE VISIT 1995 DTAP/TDAP/TD IMMUNIZATION 08/09/2004 08/08/2004, 09/06/1997 [...] Addre ss Type Group BCBS [place] [id number] 2020-Present [phone] [place] [address] [place] [address] (Home) [place] [address]
--- OUTSIDE RECORDS SUMMARY | 2022-03-07 09:23 | XMS_ITS | Encounter Summary ---
:1995 Author [facility] Address [address] [address] Care Team Providers Name Role Phone Maliha Delacruz PA-C Primary Care Provider Reason for Visit Reason Comments Medication Refill Question Encounter Details Date Type Department Care Team Description 02/19/2022 Telephone [facility] 3800 Brittny Mcleod, Medica tion Refill Endocrinology LICENSING ENGINEER, PASTE MAKER Question 38[address] [facility] [address] [facility] [place] [phone] (Wo rk) Social History Tobacco Use Types [...] Primary documented in this encounter Care Teams Senior Water Resources Engineer Relationship Specialty Start Date End Date Maliha Delacruz PA-C PCP - General Physician Footwear Production Machine Operator 01/24/18 [address] [place] [address] documented as of this encounter
--- OUTSIDE RECORDS SUMMARY | 2022-03-07 09:23 | XMS_ITS | Encounter Summary ---
:1995 Author Organization [facility] Address [address] [place] [address] Care Team Providers Name Role Phone Kike [...] on filedocumented in this encounter Care Teams Reliability Technicians Relationship Specialty Start Date End Date Kike Xavier MD Assigned OBGYN Provider 10/28/21 12/22/[address] [address] documented as of this encounter
--- OUTSIDE RECORDS SUMMARY | 2022-03-07 09:23 | XMS_ITS | Encounter Summary ---
:1995 Author Organization [facility] Address [address] [place] [address] Care Team Providers Name Role Phone Zoie Padilla APRN, CNP Primary Care Provider [phone] Reason for Visit Reason Comments GOITER ref by Dr. Padilla. Recs in E [facility]IC Consult/Transfer Care (Routine) - Closed Specialty Diagnoses / Procedures Referred By Contact Refer red To Contact Diagnoses Goiter (HRC) Zoie Padilla APRN, CNP [address] [place], [place] [address] Referral ID Status Reason Start Date Expiration Date Visits Requ ested Visits Authorized [id number] Closed 01/04/2015 04/04/2016 1 1 Encounter Details Date Type Department Care Team Description 08/25/2015 [facility] ypothy[facility], unspecified type (Primary Dx); Endocrinology Clinic MD [place] [address] [facility], [address] [facility] [address] [place] [address] [place] [address] [phone] Social History Tobacco Use Types Packs/Day Years [...] work. Lashonda Burgess MD Department of Endocrinology [facility] documented in this encounter Progress Notes Lashonda Burgess MD - 08/25/2015 2:54 PM CDT Critical access hospital Endocrinology Visit Note Name: Darlin Worthington Seen at the request of Zoie Padilla APRN, DELIVERY RN for Chief Complaint Patient presents with ??? GOITER ref by Dr. Padilla. Recs in [facility] . HPI: Darlin Worthington is a [...] + hot all the times History of [place] or Amiodarone use:No Head or neck surgery/radiation:No IV Contrast:No PMH/PSH: Past Medical History Diagnosis Date ??? Thyroid condition ??? Scoliosis mild ??? Skin rash thought to be allergic but allergen not identified; saw a early childhood assistant Past Surgical History Procedure Laterality Date ??? Surgical hx - neg Family/Social Hx: Family History Problem Relation Age of Onset ??? Hypertension Mother ??? Eczema Brother ??? Asthma Mother ??? Diabetes, Type II Paternal Grandfather ??? Coronary Artery Disease Paternal Grandfather [place] in his 50's ??? Other Paternal Grandmother MS ??? Thyroid Disorder Other paternal aunt History Alcohol Use No Thyroid disease: Yes: mother and father DM2:Yes: mother Autoimmune: DM1, SLE, RA, Vitiligo: No Student - RF --> [employer] and Art History (moving to [place]) MEDICATIONS: Outpatient Prescriptions Prior to Visit Medication [...] Lashonda Burgess MD Department of Endocrinology [facility] All questions were answered. The patient indicates [...] PM 6 3:30 CDT PM CDT Narrative [facility] - 08/29/2015 12:39 PM CDT Performed at [facility], [address] [place] [address] ??[id number] Lashonda Burgess MD LAB_1 Performing Organization Address City/State/ZIP Code Phon e Number [facility] [phone] FREE T4 (08/25/2015 3:19 PM CDT) athologist Signature T4, Free 0.90 0.8 - 2.2 [facility] ng/dl Specimen Anatomical Collection Method Collection Time Receive d Time (Source) Location / / Volume Laterality 08/25/2015 3:19 PM 6 3:30 CDT PM CDT Narrative [facility] - 08/25/2015 4:43 PM C DT Performed at [facility], [address] [place] [address], Director Dr Cesar Fraser Lashonda Burgess MD LAB_1 Performing Organization Address City/[facility] Phon e Number [facility] [phone] TSH, SENSITIVE (08/25/2015 3:19 PM CDT) athologist Signature TSH, Sensitive 3.360 0.300 - [facility] 5.000 [facility] uIU/ml Specimen Anatomical Collection Method Collection Time Receive d Time (Source) Location / / Volume Laterality 08/25/2015 3:19 PM 6 3:30 CDT PM CDT Narrative [facility] - 08/25/2015 4:43 PM C DT Performed at [facility], [address] [place] [address], Director Dr Cesar Fraser Lashonda Burgess MD LAB_1 Performing Organization Address [facility] Phon e Number [facility] [phone] documented in this encounter Visit Diagnoses Diagnosis Hypothyroidism, unspecified type (HRC) - Primary Goiter (HRC) Goiter, unspecified documented in this encounter Care Teams Site Safety Representative Relationship Specialty Start Date End Date Zoie Padilla, PNEUMATIC SYSTEM CONVEYOR OPERATOR, DELIVERY RN PCP - General Nurse Practitioner 01/04/15 01/23/18 [address], [place] [address] documented as of this encounter
--- OUTSIDE RECORDS SUMMARY | 2022-03-07 09:23 | XMS_ITS | Encounter Summary ---
:1995 Author Organization [place] Address [facility] [place] [address] Care Team Providers Name Role Phone Kike Xavier MD Unavailable Reason for Referral Diagnostic Imaging Ultrasound (Routine) - Pending Review Specialty Diagnoses / Procedures Referred By Contact Refer red To Contact Diagnoses related condition Januszaugust Procedures [place] [address] [place] [address] Referral ID Status Reason Start Date Expiration Date Visits V isits Requested Authorized [id number] Pending 10/09/2021 10/09/2022 1 1 Review Reason for Visit Diagnostic Imaging Ultrasound (Routine) - Pending Review Specialty Diagnoses / Procedures Referred By Contact Refer red To Contact Diagnoses related condition Januszaugust Procedures [place] [address] [place] [address] Referral ID Status Reason Start Date Expiration Date Visits V isits Requested Authorized [id number] Pending 10/09/2021 10/09/2022 1 1 Review Encounter Details Date Type Department Care Team Description 11/22/2021 Hospital Encounter [facility] Rabia Hamilton [place] [address] [place] [id number] related Maternal Ector Sherman MD [address] [address] condition Medicine Center Triplett Cody Pastr[address] [facility] [address] [place] [address] Social History Tobacco Use Types [...] Study Santiago e: 11/22/2021 9:24am Pat. NO: [id number] Referring ??MD: JENNY HAMILTON Site: [facility] Consultant: Rica Tobar RD MS : 1995 Age: [...] 10 ? oz EFW by ? Hadlock ([id number]) EFW discordance ? 2.1 ? % Head / Face / Neck Biometry: Explosive Operator Fuse ? 7.1 ? mm CM ?5.8 ? [...] 10 ? oz EFW by ? Hadlock ([id number]) EFW discordance ? 2.1 ? % Head / Face / Neck Biometry: Explosive Operator Fuse ? 8.0 ? mm CM ?4.4 ? [...] cava. Inferior vena cava. 3-vessel ? view. 9-wlznxx-azhnanm view. Cardiac position. Cardiac size. Cardiac rhythm. [...] cava. Inferior vena cava. 3-vessel ? view. 3-puimth-luactne view. Cardiac position. Cardiac size. Cardiac rhythm. [...] plans to have this follow up in [place]. Return to primary provider for continued care. If you have questions regarding today's evaluation or if we can be of further service, please contact the [facility]. Procedure Note Ector Sherman MD - 11/22/2021Form atting of this note might be different from the original. Comprehensive Pat. Name:RAJWINDERBRENDAMary Lou Date: 11/22/2021 9:24am Pat. NO: [id number] MD:KARENA OROZCO [facility]:Rica Tobar RDMS :1995Age:26 INDICATION Dichorionic, Diamniotic Twin [...] 0 lb 10 oz EFW by Hadlock ([id number]-FL) EFW discordance 2.1 % Head / Face / Neck Biometry: Explosive Operator Fuse 7.1 mm CM 5.8 mm Nasal bone [...] 0 lb 10 oz EFW by Hadlock ([id number]) EFW discordance 2.1 % Head / Face / Neck Biometry: Explosive Operator Fuse 8.0 mm CM 4.4 mm Nasal bone [...] vena cava. Inferior vena cava. 3-vessel view. 2-kphakb-qjumlpm view. Cardiac po sition. Cardiac size. Cardiac [...] vena cava. Inferior vena cava. 3-vessel view. 7-jxuekj-tbimkko view. Cardiac po sition. Cardiac size. Cardiac [...] plans to have this follow up in [place]. Return to primary provider for continued care. [...] cervix appears long and closed. August Jailene [facility] ORDERABLES documented in this encounter Visit Diagnoses Diagnosis related condition Unspecified complication of , u nspecified as to episode of care documented in this encounter Care Teams Mold Checker Relationship Specialty Start Date End Date Kike Xavier MD Assigned OBGYN Provider 10/28/21 12/22/21 [address] [place] [address] documented as of this encounter
--- OUTSIDE RECORDS SUMMARY | 2022-03-07 09:23 | XMS_ITS | Encounter Summary ---
:1995 Author Organization [facility] Address [address] [place] [address] Care Team Providers Name Role Phone Maliha Delacruz PA-C Primary Care Provider Encounter Details Date Type Department Care Team Description 01/24/2018 Consent for [facility] Maliha Delacruz [facility] CONSENT Procedure/Treatmen Practice JONH [address] [facility] [address] [place] [address] [phone] Social History Tobacco Use Types Packs/Day Years [...] on filedocumented in this encounter Care Teams Soybean Grower Relationship Specialty Start Date End Date Maliha Delacruz PA-C PCP - General Physician Eligibility Services Representative 01/24/18 [address] [place] [address] documented as of this encounter
--- OUTSIDE RECORDS SUMMARY | 2022-03-07 09:23 | XMS_ITS | Encounter Summary ---
:1995 Author Organization [facility] Address [address] [place] [address] Care Team Providers Name Role Phone Maliha Delacruz PA-C Primary Care Provider Reason for Visit Reason Comments Medication Questions Pharmacy Encounter Details Date Type Department Care Team Description 02/17/2022 Nurse Triage Careline Unknown, Medication Questions; [address] Physician Pharmacy [place], [place] [address] [phone] [place], [place] [phone] Social History Tobacco Use Types Packs/Day Years [...] MEDICATION: What medicine are you calling about? [place] for insulin 2. QUESTION: What is your [...] menstrual period? na Protocols used: Medication Question Eymv-[id number]-MR Dr. Ariadne Gonzales Paged at 11:59 AM Consulted at 12:02 PM Instructions OK to use 31 gauge needles. Call back to [facility] pharmacist Giovanni with the above information. Pt/caller verbalized understanding of recommendations, denies further questions and is agreeable to plan. Bubba Wilde RN [facility] 12:15 PM 02/17/2022 Jazmyn Manjarrez - [...] or location where patient was seen): Norma Mcleod,NEGOTIATIONS DIRECTOR, HEEL SORTER Nurse Practitioner Plan: Pharmacist directly transferred to [facility] Nurse. documented in this encounter Plan of Treatment Not on filedocumented as of this encounter Visit Diagnoses Not on filedocumented in this encounter Care Teams Caramel Cutter Helper Relationship Specialty Start Date End Date Maliha Delacruz PA-C PCP - General Physician Cable Installer Repairer 01/24/18 [address] [place] [address] documented as of this encounter
--- OUTSIDE RECORDS SUMMARY | 2022-03-07 09:23 | XMS_ITS | Encounter Summary ---
:1995 Author Organization [place] Address Formerly [facility] [place] [address] Care Team Providers Name Role Phone Unavailable Primary Care Provider Unavailable Reason for Referral Diagnostic Imaging Ultrasound (Routine) - Pending Review Specialty Diagnoses / Procedures Referred By Contact Refer red To Contact Diagnoses related condition, antepartum Fitzloff, August Procedures MFM Twins US OB Complete [address] [address] [place] [address] Referral ID Status Reason Start Date Expiration Date Visits V isits Requested Authorized [id number] Pending 09/19/2021 09/19/2022 1 1 Review Reason for Visit Diagnostic Imaging Ultrasound (Routine) - Pending Review Specialty Diagnoses / Procedures Referred By Contact Refer red To Contact Diagnoses related condition, antepartum Fitzloff, August Procedures [facility] Twins OB Complete [address] [place] [address] [place] [address] Referral ID Status Reason Start Date Expiration Date Visits V isits Requested Authorized [id number] Pending 09/19/2021 09/19/2022 1 1 Review Encounter Details Date Type Department Care Team Description 10/17/2021 Hospital Encounter [facility] Rabia Flower [address] [address] [place] [id number] related Maternal Kike Xavier MD [address] [place], [place] [address] condition, Medicine Center antepartum [place] [address] [facility] [address] [place] [address] Social History Tobacco Use Types [...] Study Santiago e: 10/17/2021 11:14am Pat. NO: [id number] Referring ??MD: JENNY HAMILTON Site: [facility] Vision Teacher: Katelyn tidwell [facility] : 1995 Age: 26 INDICATION Twin gestation. [...] RECOMMENDATION We discussed the findings on today's [facility] rasound with the patient. The patient is scheduled to return to [facility] at 18-20 weeks for a comprehensive [...] different from the original. 1st Trim Pat. Name:JOSE RAFAEL PURDYKIMBERLEYtjenn Date: 10/17/2021 11:14am Pat. NO: [id number] MD:KARENA OROZCO Site:[facility]:Katelyn Shelby RDMS :1995Age:26 INDICATION Twin gestation. Confirm [...] The patient is scheduled to return to [facility] at 18-20 weeks for a comprehensive [...] first trimester anatomy for both twins. [facility] documented in this encounter Visit Diagnoses Diagnosis related condition, antepartum documented in this encounter
--- OUTSIDE RECORDS SUMMARY | 2022-03-07 09:23 | XMS_ITS | Encounter Summary ---
:1995 Author Organization [place] Address [address] [place] [address] Care Team Providers Name Role Phone Unavailable [...]
--- OUTSIDE RECORDS SUMMARY | 2022-03-07 09:23 | XMS_ITS | Encounter Summary ---
:1995 Author Organization [facility] Address [address] [address] Care Team Providers Name Role Phone Randy Zoie Rabia OSUNA, MACEY Primary Care Provider [phone] Reason for Visit Reason Comments LAB RESULTS Encounter Details Date Type Department Care Team Description 09/01/2015 Telephone [facility] Jp Lorenz MD LAB RESULTS Endocr[facility]ology Clinic [address] [place] [address], [address] [place] [address] [place] [address] [phone] (Wo rk) Social History Tobacco Use Types [...] like it filled at our clinic pharmacy? [Punching Machine Operator/Appt Center: Was the pharmacy entered into the Preferred Pharmacy field? No] Is it okay to leave detailed message on your voicemail? yes [Punching Machine Operator/Appt Center: If this call is after 3 p.m., communicate to patient: If we are not able to get back to you by the end of the day and your symptoms worsen please contact the Careline at [phone] OR at .] [Punching Machine Operator: Inform patient that if they are [...] on filedocumented in this encounter Care Teams Coat Padder Relationship Specialty Start Date End Date Zoie Padilla, SIGN OUT CLERK, ELEMENTARY ESL TEACHER PCP - General Nurse Practitioner 01/04/15 01/23/[address] [place] [address] documented as of this encounter
--- OUTSIDE RECORDS SUMMARY | 2022-03-07 09:23 | XMS_ITS | Encounter Summary ---
:1995 Author Organization [place] Address [address] [place] [address] Care Team Providers Name Role Phone Unavailable Primary Care Provider Unavailable Reason for Referral Diagnostic Imaging Ultrasound (Routine) - Pending Review Specialty Diagnoses / Procedures Referred By Contact Refer red To Contact Diagnoses related condition Jailene Karena Procedures MFM Twins [facility] [address] [place] [address] Referral ID Status Reason Start Date Expiration Date Visits V isits Requested Authorized [id number] Pending 10/09/2021 10/09/2022 1 1 Review onsultation (Routine: Next available opening) - Pending Review Specialty Diagnoses / Procedures Referred By Contact Refer red To Contact Diagnoses related condition Jailene Karena [address] [address] [place] [address] Referral ID Status Reason Start Date Expiration Date Visits V isits Requested Authorized [id number] Pending 10/09/2021 10/09/2022 1 1 Review Encounter Details Date Type Department Care Team Description 10/09/2021 [facility]) [address] [place], [place] [address] [address] [place], [place] [phone] (Work) [phone] Social History Tobacco Use Types Packs/Day Years Used Date Smoking Tobacco: Never Assessed Sex Assigned at Date Recorded Not on file documented as of this encounter Plan of Treatment Scheduled Referrals Name Type Priority Associated Diagnoses Order [facility] Referral Routine: Next related [...] Study Santiago e: 11/22/2021 9:24am Pat. NO: [id number] Referring ??MD: JENNY HAMILTON Site: [facility] Technology Engineer: Rica Tobar RD MS : 1995 [...] 10 ? oz EFW by ? Hadlock ([id number]) EFW discordance ? 2.1 ? % Head / Face / Neck Biometry: Tax Map Technician ? 7.1 ? mm CM ?5.8 ? [...] 10 ? oz EFW by ? Hadlock ([id number]) EFW discordance ? 2.1 ? % Head / Face / Neck Biometry: Tax Map Technician ? 8.0 ? mm CM ?4.4 ? [...] cava. Inferior vena cava. 3-vessel ? view. 2-ctjopl-xhpaepb view. Cardiac position. Cardiac size. Cardiac rhythm. [...] cava. Inferior vena cava. 3-vessel ? view. 8-qhpezv-krrljqz view. Cardiac position. Cardiac size. Cardiac rhythm. [...] plans to have this follow up in [place]. Return to primary provider for continued care. If you have questions regarding today's evaluation or if we can be of further service, please contact the Maternal- Medicine Center. Procedure Note Ector Sherman MD - 11/22/2021Form atting of this note might be different from the original. Comprehensive Pat. Name:Nisha PURDY Date: 11/22/2021 9:24am Pat. NO: [id number] MD:KARENA ANSHUL OROZCO [facility]Rica Tobar RDMS :1995Age:26 INDICATION Dichorionic, Diamniotic Twin [...] 0 lb 10 oz EFW by Hadlock (AHQ-QL-GZ-FL) EFW discordance 2.1 % Head / Face / Neck Biometry: Tax Map Technician 7.1 mm CM 5.8 mm Nasal bone [...] 0 lb 10 oz EFW by Hadlock (KPK-QS-FZ-FL) EFW discordance 2.1 % Head / Face / Neck Biometry: Tax Map Technician 8.0 mm CM 4.4 mm Nasal bone [...] vena cava. Inferior vena cava. 3-vessel view. 3-ngmgaa-vlvpkyq view. Cardiac po sition. Cardiac size. Cardiac [...] vena cava. Inferior vena cava. 3-vessel view. 7-udmlib-aanjxmg view. Cardiac po sition. Cardiac size. Cardiac [...] plans to have this follow up in [place]. Return to primary provider for continued care. [...] closed. August Jailene [facility] US ORDERABLES documented in this encounter Visit Diagnoses Diagnosis related condition - Primary Unspecified complication of , u nspecified as to episode of care related condition Unspecified complication of , u nspecified as to episode of care documented in this encounter
--- OUTSIDE RECORDS SUMMARY | 2022-03-07 09:23 | XMS_ITS | Encounter Summary ---
:1995 Author Organization [place] Address [address] [facility] [place] [address] Care Team Providers Name Role Phone Unavailable Primary Care Provider Unavailable Reason for Visit Reason Comments Ultrasound 1st tri complete-twins, conf irm chorionicity Encounter Details Date Type Department Care Team Description 10/17/2021 Office Visit [facility] Gilma Dent [facility] [address] [facility] [place], [place] [id number] Dichorionic diamniotic Maternal Kike Xavier MD [address] [place], [place] [address] twin in Medicine Center [facility] (Primary Dx) [address] [facility] [address] [place] [address] Social History Tobacco Use Types [...] for details of today's US at the [facility]. 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
--- OUTSIDE RECORDS SUMMARY | 2022-03-07 09:23 | XMS_ITS | Encounter Summary ---
:1995 Author Organization [place] Address [address] [place] [address] Care Team Providers Name Role Phone Unavailable Primary Care Provider Unavailable Reason for Referral Diagnostic Imaging Ultrasound (Routine) - Pending Review Specialty Diagnoses / Procedures Referred By Contact Refer red To Contact Diagnoses related condition, antepartum Jailene, August Procedures MFM Twins US OB Complete [id number] [place] [address] Referral ID Status Reason Start Date Expiration Date Visits V isits Requested Authorized [id number] Pending 09/19/2021 09/19/2022 1 1 Review onsultation (Routine: Next available opening) - Pending Review Specialty Diagnoses / Procedures Referred By Contact Refer red To Contact Diagnoses related condition, antepartum Jailene, August [id number] [place] [address] Referral ID Status Reason Start Date Expiration Date Visits V isits Requested Authorized [id number] Pending 09/19/2021 09/19/2022 1 1 Review Encounter Details Date Type Department Care Team Description 09/19/2021 Transcribe [facility]aternal [facility] condition, Medicine Center MEDICAL antepartum (Primary [address] [address] [address] [place]) [address] [place], [place] [address] [address] [place], [place] [phone] [address] (work) [phone] Social History Tobacco Use Types Packs/Day Years [...] Study Santiago e: 10/17/2021 11:14am Pat. NO: [id number] Referring ??MD: JENNY HAMILTON Site: [facility] Manager Of Creative Services: Katelyn tidwell RDMS : 1995 Age: 26 INDICATION Twin gestation. Confirm chorionicity. METHOD Transabdominal ultrasound examination. V iew: Sufficient Twin . Number of fetuses: 2 DATING ? Date ?Details ?Gest. age ?RAVINDER LMP ?07/16/2021 ? 13 w + 2 d ? 04/22/2022 Prior assessment ? GA: 8 w + 3 d [...] RECOMMENDATION We [facility] the [facility]. The patient is scheduled to return to [facility] at 18-20 weeks for a comprehensive [...] different from the original. 1st Trim Pat. Name:Nihsa PURDY Date: 10/17/2021 11:14am Pat. NO: [id number] MD:AUGUST ANSHUL OROZCO Site:[facility]her:Kaetlyn Shelby RDMS :1995Age:26 INDICATION Twin gestation. Confirm [...] RECOMMENDATION We discussed the findings on today's [facility] rasound with the patient. The patient is scheduled to return to [facility] at 18-20 weeks for a comprehensive [...] trimester anatomy for both twins. August Jailene [facility] US ORDERABLES documented in this encounter Visit Diagnoses Diagnosis related condition, antepartum - Primary related condition, antepartum documented in this encounter
--- OUTSIDE RECORDS SUMMARY | 2022-03-07 09:23 | XMS_ITS | Encounter Summary ---
:1995 Author Organization [facility] Address [address] [place] [address] Care Team Providers Name Role Phone Maliha Delacruz PA-C Primary Care Provider Reason for Referral Consult/Transfer Care (Routine) - New Request Specialty Diagnoses / Procedures Referred By Contact Refer red To Contact Diagnoses Gestational diabetes mellitus (GDM), antepartum, gestational diabetes method of control unspecified Norma Mcleod APRN, CNP [address] [place], [place] [address] Referral ID Status Reason Start Date Expiration Date Visits V isits Requested Authorized [id number] New Request 02/13/2022 05/15/2023 1 1 Scheduling Instructions Your provider has recommended an appoint ment with [facility]. You may call [phone] to schedule yo ur appointment. We suggest you call your health insurance company about your cove rage and benefits for this appointment. Encounter Details Date Type Department Care Team Description 02/13/2022 Notes/Orders [facility] [address] Norma Mcleod Gestat ionnirmal diabetes Endocrinology MACEY OSUNA mellitus (GDM), [address] [facility] [address] [address] e[address], [address] gestational diabetes [place], [place] me thod of control [phone] unspecified (Primary [phone] (Wo rk) Dx) Social History Tobacco Use [...] for Gestational Diabetes education. Thank you, Gaye uLcero 02/13/2022, 11:36 AM documented in this encounter [...] Primary documented in this encounter Care Teams Insurance Claims Analyst Relationship Specialty Start Date End Date Maliha Delacruz PA-C PCP - General Physician Direct Mail Clerk 01/24/18 [address] [place] [address] documented as of this encounter
--- OUTSIDE RECORDS SUMMARY | 2022-03-07 09:23 | XMS_ITS | Encounter Summary ---
:1995 Author Organization [employer] Address [address], [place] [address] Care Team Providers Name Role Phone Maliha Delacruz PA-C Primary Care Provider Reason for Visit Reason Comments DIABETES,GESTATIONAL Encounter Details Date Type Department Care Team Description 02/16/2022 Telemedicine [facility] [address] Norma Mcleod Gestat ional diabetes mellitus (GDM), antepartum, gestational diabetes method of control unspecified (Primary Dx); Endocrinology CORE MEASURES ABSTRACTOR, PURCHASING ASSISTANT Obesity, unspecified obesity severity, u nspecified obesity type [address] [facility] [address] [facility] [place], [place] [address] (Wo rk) Social History Tobacco Use [...] 02/06 92 [phone] Norma Mcleod, CORE MEASURES ABSTRACTOR, PURCHASING ASSISTANT - 02/16/2022 3:00 PM CDT [facility] Adult Endocrinology [facility], [address] [facility], [address] [place] [address], [phone] February 16, 2022 Darlin Worthington a 27 y.o. female is here for newly diagnosed GDM. She is referred by: Dr. Lawrence at [facility] for possible insulin start. Pt met with IDC educator yesterday and learned insulin technique. Chief Complaint: GDM, started with self care at [facility], referred here when BGs were elevated. Twin . Obesity. History of Present Illness: Gestational Age: Unknown Estimated Date of Delivery: None noted. Pre- weight: BMI 37 G1. Had 1 hour GTT at 195, so started GDM education and care at [facility] at 20 weeks. Past medical, surgical, and OB history reviewed in [facility].Pt struggles with Obesity. Past family history reviewed in [facility]. Sister had GDM X2. Mom DM2. 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 Records from [facility] [employer] in [place] are reviewed carefully. She is having careful [...] Obesity, unspecified obesity severity, unspecified obesity type ([facility]) Plan: 1. Reviewed pathophysiology, risks of uncontrolled, [...] for the visit was 32 minutes including cvw-xinw-zi-face time spent reviewing records, counseling, and coordination of care. Medical History: No Known Allergies Past Medical History: Diagnosis Date Scoliosis mild Skin rash thought to be allergic but allergen not identified; saw a gas meter checker Thyroid condition ([facility]) documented in this encounter Plan of Treatment Not on filedocumented as of this encounter Visit Diagnoses Diagnosis Gestational diabetes mellitus (GDM), ant epartum, gestational diabetes method of control unspecified - Primary Obesity, unspecified obesity severity, u nspecified obesity type ([facility]) documented in this encounter Care Teams Apricot Washer Relationship Specialty Start Date End Date Maliha Delacruz PA-C PCP - General Physician Lab Support Service Tech 01/24/18 [address] [place] [address] documented as of this encounter
--- OUTSIDE RECORDS SUMMARY | 2022-03-07 09:24 | XMS_ITS | Encounter Summary ---
:1995 Author [facility] Address [address] [place] [address] Care Team Providers Name Role Phone Unassigned, Provider Primary Care Provider Unavailable Reason for Visit Reason Onset Date Comments FOLLOW-UP,LAB 03/11/2013 Encounter Details Date Type Department Care Team Description 03/11/2013 Telephone Internal Medicine Christa Matute MD FOLLOW-UP,LAB [address] [id number] (Wo rk) Social History Tobacco Use Types [...] on filedocumented in this encounter Care Teams Shock Absorption Floor Layer Relationship Specialty Start Date End Date Unassigned, Provider PCP - General Unknown Physician 02/25/13 01/03/[address] [place] [address] documented as of this encounter
--- OUTSIDE RECORDS SUMMARY | 2022-03-07 09:24 | XMS_ITS | Encounter Summary ---
:1995 Author Organization [facility] Address [address] [place] [address] Care Team Providers Name Role Phone Unassigned, Provider Primary Care Provider Unavailable Encounter Details Date Type Department Care Team Description 02/25/2013 Orders Only [facility] [address] [place] [address] Social History Tobacco Use Types Packs/Day Years [...] on filedocumented in this encounter Care Teams Outdoor Pursuits Instructor Relationship Specialty Start Date End Date Unassigned, Provider PCP - General Unknown Physician 02/25/13 01/03/15 [address] [place] [address] documented as of this encounter
--- OUTSIDE RECORDS SUMMARY | 2022-03-07 09:24 | XMS_ITS | Encounter Summary ---
:1995 Author Organization [facility] Address [address] [address] Care Team Providers Name Role Phone Unavailable Primary Care Provider Unavailable Reason for Visit Reason Comments ITCHING, SKIN Encounter Details Date Type Department Care Team Description 10/14/2012 Office Visit [facility] Gena Myers Prur itic rash (Primary Practice MD [place] D[place]) [address] [facility] [address] [place] [address] [phone] Social History Tobacco Use Types Packs/Day Years [...]
--- OUTSIDE RECORDS SUMMARY | 2022-03-07 09:24 | XMS_ITS | Encounter Summary ---
:1995 Author Organization [facility] Address [address], [place] [address] Care Team Providers Name Role Phone Unassigned, Provider Primary Care Provider Unavailable Encounter Details Date Type Department Care Team Description 02/25/2013 Orders Only [employer] Claims MD Mihir Security Contact Bill [address] [place] [address] Mailstop [id number] [phone] (Wo rk) Social History Tobacco Use Types [...] on filedocumented in this encounter Care Teams Design Director Relationship Specialty Start Date End Date Unassigned, Provider PCP - General Unknown Physician 02/25/13 01/03/[address] [place] [address] documented as of this encounter
--- OUTSIDE RECORDS SUMMARY | 2022-03-07 09:24 | XMS_ITS | Encounter Summary ---
:1995 Author Organization [facility] Address [address] [place] [address] Care Team Providers Name Role Phone Maliha Delacruz PA-C Primary Care Provider Encounter Details Date Type Department Care Team Description 10/18/2012 Outside Hospital External to External, [facility] [place] [address] Social History Tobacco Use Types Packs/Day Years Used Date Smoking Tobacco: Never Assessed Sex Assigned at Date Recorded Not on file documented as of this encounter Progress Notes External, Provider - 10/18/2012 12:00 AM CDT documented in this encounter Plan of Treatment Not on filedocumented as of this encounter Visit Diagnoses Not on filedocumented in this encounter Care Teams Automatic Fabric Cutter Relationship Specialty Start Date End Date Maliha Delacruz PA-C PCP - General Physician Reverberatory Furnace Operator 01/24/18 [address] [place] [address] documented as of this encounter
--- OUTSIDE RECORDS SUMMARY | 2022-03-07 09:24 | XMS_ITS | Encounter Summary ---
:1995 Author [facility] Address [address] [place] [address] Care Team Providers Name Role Phone Unassigned, Provider Primary Care Provider Unavailable Reason for Visit Reason Onset Date Comments FOLLOW-UP,LAB 02/25/2013 Encounter Details Date Type Department Care Team Description 02/25/2013 Telephone Internal Medicine Christa Matute MD FOLLOW-UP,LAB [address] [id number] (Wo rk) Social History Tobacco Use Types [...] ied documented in this encounter Care Teams Account Development Associate Relationship Specialty Start Date End Date Unassigned, Provider PCP - General Unknown Physician 02/25/13 01/03/[address] [place] [address] documented as of this encounter
--- OUTSIDE RECORDS SUMMARY | 2022-03-07 09:24 | XMS_ITS | Encounter Summary ---
:1995 Author Organization [employer] Address [address] [place] [address] Care Team Providers Name Role Phone Zoie Padilla APRN, CNP Primary Care Provider [phone] Encounter Details Date Type Department Care Team Description 01/04/2015 Orders Only [place] [facility] Fatigue; [address] [facility] Goiter; [place], [place] [address] Possible [phone] Social History Tobacco Use Types Packs/Day Years [...] 01/04/2015 4:29 PM C DT Performed at [facility], [address] [place] [address] ??[phone] Zoie Padilla APRN, BRIDGE RIGGER LAB_1 Performing Organization Address City/State/ZIP Code Phon e Number [facility] [phone] IRON PROFILE (IRON,TIBC,%SAT.(CALC)) (01/04/2015 9:59 AM CDT) [...] 01/04/2015 4:29 PM C DT Performed at [facility], [address] [place] [address] ??[id number] Zoie Padilla APRN, MACEY LAB_1 Performing Organization Address [facility] Phon e Number [facility] [phone] HEMOGRAM/PLTS (01/04/2015 9:59 AM CDT) athologist Signature [...] 01/04/2015 3:12 PM C DT Performed at [facility], [address] [place] [address] ??[phone] Zoie Padilla APRN, MACEY LAB_1 Performing Organization Address City/[facility] Phon e Number [facility] [phone] VITAMIN D 25-HYDROXY, TOTAL (V77.99) (01/04/2015 9:59 AM CDT) athologist Signature Vitamin 40.5 30.0 - [facility] D,25-OH, Tot 80.0 ng/mL LABORATORIES Comment: Deficiency: ??< 20 ng/mL Insufficiency: ??20-29 ng/mL Optimum Level: ??30-80 ng/mL Possible Toxicity: > 80 ng/mL Specimen Anatomical Collection Method Collection Time Receive d Time (Source) Location / / Volume Laterality 01/04/2015 9:59 AM 5 CDT 10:01 AM CDT Narrative [facility] - 01/04/2015 7:40 PM C DT Performed at [facility] , [address] [place] [address] Zoie Padilla APRN, CNP LAB_1 Performing Organization Address City/[facility]/ZIP Code Phon e Number [facility] [phone] TEST (URINE) (01/04/2015 9:59 AM CDT) [facility] Method Time Signature HCG, Urine Negative [facility] Negative = <25 mIU/ml LABORATO RADHA If is suspected, suggest repeat in 48-72 hours or confirm results with a quantitative hCG test. Specimen Anatomical Collection Method Collection Time Receive d Time (Source) Location / / Volume Laterality Urine specimen 01/04/2015 9:59 AM 015 (specimen) CDT 10:01 AM CDT Narrative [facility] - 01/04/2015 10:32 AM CDT [facility] [address] [place] [address] Zoie Padilla APRN, CNP LAB_1 Performing Organization Address City/[facility] Code Phon e Number [facility] [phone] Antithyroid Peroxidase (01/04/2015 9:59 AM CDT) [facility] Method Time Signature Thyroperoxidase Ab 2 0 - 8 [facility] IU/ml [facility] Specimen Anatomical Collection Method Collection Time Receive d Time (Source) Location / / Volume Laterality 01/04/2015 9:59 AM 5 CDT 10:01 AM CDT Narrative [facility] - 01/06/2015 10:47 AM CDT Performed at [facility], [address] [place] [address] ??[phone] Zoie Padilla APRN, CNP LAB_1 Performing Organization Address City/[facility]/ZIP Code Phon e Number [facility] [phone] T3, FREE, SERUM (01/04/2015 9:59 AM CDT) P athologist Signature T3,Free 4.4 2.8 - 5.2 [facility] pg/ml Specimen Anatomical Collection Method Collection Time Receive d Time (Source) Location / / Volume Laterality 01/04/2015 9:59 AM 5 CDT 10:01 AM CDT Narrative [facility] - 01/04/2015 4:29 PM C DT Performed at [facility], [address] [place] [address] ??[phone] Zoie Padilla APRN, CNP LAB_1 Performing Organization Address City/[facility] Code Phon e Number [facility] [phone] FREE T4 (01/04/2015 9:59 AM CDT) P athologist Signature T4, Free 0.8 0.8 - 2.2 [facility] ng/dl Specimen Anatomical Collection Method Collection Time Receive d Time (Source) Location / / Volume Laterality 01/04/2015 9:59 AM 5 CDT 10:01 AM CDT Narrative [facility] - 01/04/2015 4:29 PM C DT Performed at [facility], [address] [place] [address] ??[phone] Zoie Padilla APRN, CNP LAB_1 Performing Organization Address [facility]/ZIP Code Phon e Number [facility] [phone] (ABNORMAL) TSH, SENSITIVE (01/04/2015 9:59 AM CDT) [facility] gist Method Time Signature TSH, Sensitive 11.255 0.300 - [facility] (H) 5.000 [facility] uIU/ml Specimen Anatomical Collection Method Collection Time Receive d Time (Source) Location / / Volume Laterality 01/04/2015 9:59 AM 5 CDT 10:01 AM CDT Narrative [facility] - 01/04/2015 4:29 PM C DT Performed at [facility], [address] [place] [address] ??[phone] Zoie Padilla APRN, CNP LAB_1 Performing Organization Address City/[facility]/ZIP Code Phon e Number [facility] [phone] documented in this encounter Visit Diagnoses Diagnosis Fatigue Other malaise and fatigue Goiter (HRC) Goiter, unspecified Possible examination or test, unconfirmed documented in this encounter Care Teams Transcribing Operators Supervisor Relationship Specialty Start Date End Date Zoie Padilla, MANUAL PLATE FILLER, BRIDGE RIGGER PCP - General Nurse Practitioner 01/04/15 01/23/18 [address] [place] [address] documented as of this encounter
--- OUTSIDE RECORDS SUMMARY | 2022-03-07 09:24 | XMS_ITS | Encounter Summary ---
:1995 Author Organization [facility] Address [address], [place] [address] Care Team Providers Name Role Phone Unassigned, Provider Primary Care Provider Unavailable Encounter Details Date Type Department Care Team Description 02/25/2013 Orders Only Internal Medicine [facility], [address] Provider [place] [id number] [phone] Social History Tobacco Use Types Packs/Day Years Used Date Smoking Tobacco: Former Smokeless Tobacco: Former Qu it: 05/27/2011 Alcohol Use Standard Drinks/Week Comments No 0 (1 standard drink = 0.6 oz pure alcoho l) Sex Assigned at Date Recorded Not on file documented as of this encounter Procedure Notes [facility], Provider - 02/25/2013 12:00 AM CDTAssociated Order(s): [...] attachment that is no t available. Transcriptions [facility], Provider - 02/25/2013 1 2:00 AM CDT Provider [facility] DUMMY/OTHER/AR documented in this encounter Visit Diagnoses Not on filedocumented in this encounter Care Teams Process Environmental Technician Relationship Specialty Start Date End Date Unassigned, Provider PCP - General Unknown Physician 02/25/13 01/03/[address] [place] [phone] documented as of this encounter
--- OUTSIDE RECORDS SUMMARY | 2022-03-07 09:24 | XMS_ITS | Encounter Summary ---
:1995 Author Organization [facility] Address [address] [place] [address] Care Team Providers Name Role Phone Maliha Delacruz PA-C Primary Care Provider Encounter Details Date Type Department Care Team Description 10/19/2011 Outside Hospital External to External, [facility] [place] [address] Social History Tobacco Use Types Packs/Day Years Used Date Smoking Tobacco: Never Assessed Sex Assigned at Date Recorded Not on file documented as of this encounter Progress Notes External, Provider - 10/19/2011 12:00 AM CDT documented in this encounter Plan of Treatment Not on filedocumented as of this encounter Visit Diagnoses Not on filedocumented in this encounter Care Teams Fence Builder Relationship Specialty Start Date End Date Maliha Delacruz PA-C PCP - General Physician Tab Cutting Machine Operator 01/24/18 [address] [place] [address] documented as of this encounter
--- OUTSIDE RECORDS SUMMARY | 2022-03-07 09:24 | XMS_ITS | Encounter Summary ---
:1995 Author Organization [facility] Address [address], [place] [address] Care Team Providers Name Role Phone Unassigned, Provider Primary Care Provider Unavailable Reason for Visit Reason Comments URINARY PROBLEM urgency, hematuria and burni ng with urination since yesterday(took Azo last night) Establish Care Encounter Details Date Type Department Care Team Description 02/25/2013 Office Visit Internal Medicine Christa Matute, Preventative health care (Pr imary Dx); [address] Dysuria; [place] [address] [address] UTI (lower urinary tract inf ection) [phone] [place] [address] Social History Tobacco Use Types Packs/Day Years [...] recommendations. Calcium may also be found in oxah-nbv-rzgpfyc medications (e.g., antacids) and in calcium-fortified foods. [...] supplements) Nutrition content information is from [employer] and reprinted with permission of [employer] [facility], [place], [place]. 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 Lives with roommates. Current Outpatient Prescriptions Medication [...] Patho logist Time Signature HCG, Urine Negative [place] Negative = <20 mIU/ml [facility] Specimen Anatomical Collection Method Collection Time Receive d Time (Source) Location / / Volume Laterality Urine specimen 02/25/2013 12:26 3 1:13 (specimen) PM CDT PM CDT Narrative [facility] - 02/25/2013 1:14 PM CDT Performed at [facility], [address], [place] [address], Director Dr Joselyn Barkley Christa Matute MD LAB_1 Performing Organization Address City/State/ZIP Code Phon e Number [facility] [address] [place] [address] [facility] PAP TEST, ROUTINE (02/25/2013 11:46 AM CDT) Patholo gist Method Time Signature Cytology (NOTE) [place] Ironworker Apprentice Cytology Report [facility] Patient Name: D[facility]LIN [facility] Taken: 02/25/2013 Received: 02/27/2013 Reported: 03/06/2013 Physician(s): [...] ?? Microscopic Description Microscopic examination is performed. [facility] Department of Pathology [address] [place] [address] ??[phone] Specimen Anatomical Collection Method Collection Time Receive d Time (Source) Location / / Volume Laterality 02/25/2013 11:46 02/27/2013 9:05 AM CDT AM CDT Christa Matute MD LAB_1 Performing Organization Address City/State/ZIP Code Phon e Number [facility] [address] [place] [address] [facility] [place] [phone] WET PREP, VAGINAL (02/25/2013 11:30 AM CDT) Patholo gist Method Time Signature Clue Cells No Clue Cells [facility] Trichomonas No Trichomonas [facility] Yeast No Yeast Found YN [facility] Specimen Anatomical Collection Method Collection Time Receive d Time (Source) Location / / Volume Laterality 02/25/2013 11:30 02/25/2013 AM CDT 12:16 PM CDT [facility] - 02/25/2013 12:24 PM CDT Performed at [facility], [address] [place] [address], Director Dr Joselyn Barkley Christa Matute MD LAB_1 Performing Organization Address City/[facility]/ZIP Code Phon e Number [facility] AND [address] [address] [place] [phone] CHLAMYDIA & GC (02/25/2013 11:30 AM CDT) P athologist Signature Source Cervix [facility] Chlamydia Negative NEG [facility] Comment: Test Performed by Foley Artist Mediated Amplification GC (N. gonorrhoeae) Negative NEG [facility] Comment: Test Performed by Foley Artist Mediated Amplification Specimen Anatomical Collection Method Collection Time Receive d Time (Source) Location / / Volume Laterality 02/25/2013 11:30 02/25/2013 AM CDT 12:15 PM CDT [facility] - 02/26/2013 5:05 PM CDT Performed at [facility], [address] [place] [address] ??[phone] Christa Matute MD LAB_1 Performing Organization Address City/State/ZIP Code Phon e Number [facility] [address] [place] [address] [facility] [phone] URINE CULTURE (02/25/2013 11:00 AM CDT) Component Value Ref Test Analysis Performed At [facility] gist Range Method Time Signature Specimen Urine Clean Catch [facility] Description [facility] Special Inoculated Media [facility] Requests Received [facility] Culture > 100,000 col/ml [place] Escherichia coli [facility] Culture > 100,000 col/ml Staphylococcus species, Coagulase Negative Sensitivity [place] NOT performed [facility] Report Status Final 02/27/2013 [facility] Organism > 100,000 col/ml [place] Escherichia coli [facility] Specimen Anatomical Collection Method Collection Time Receive d Time (Source) Location / / Volume Laterality 02/25/2013 11:00 02/25/2013 AM CDT 11:58 AM CDT Narrative [facility] - 02/27/2013 7:34 AM CDT Performed at [facility] , [address] [place] [address] Organism Antibiotic Method Susceptibility > 100,000 col/ml [...] Christa Matute MD LAB_1 Performing Organization Address [facility]/ZIP Code Phon e Number [facility] [address] [place] [address] [facility] UA MICRO (02/25/2013 11:00 AM CDT) P athologist Signature RBC'S 0-3 0 - 3 /hpf [facility] WBC'S 6-10 0 - 5 /hpf [facility] Epith, Squamous 5-10 /hpf [facility] Bact Many [facility] Casts 0 /lpf [facility] Specimen Anatomical Collection Method Collection Time Receive d Time (Source) Location / / Volume Laterality 02/25/2013 11:00 02/25/2013 AM CDT 11:23 AM CDT Narrative [facility] - 02/25/2013 12:00 PM CDT Performed at [facility], [address] [place] [address], Director Dr Joselyn Barkley Christa Matute MD LAB_1 Performing Organization Address City/[facility] Phon e Number [address] [address] [place] [phone] (ABNORMAL) UA CONDITIONAL UC (02/25/2013 11:00 AM CDT) Patholo gist Method Time Signature Urine Color Yellow [facility] Urine Clarity Sl Cloudy [facility] Sp Gr 1.025 1.005 - [place] 1.030 [facility] Leuk Negative NEG [facility] Nitr Pos (A) NEG [facility] pH 7.0 4.5 - 8.0 [facility] Prot Negative NEG mg/dl [facility] Gluc Negative NEG [facility] Ket Negative NEG [facility] Urob 0.2 0.2 - 1.0 [place] EU/dl [facility] Bili Negative NEG [facility] Blood Tr (A) NEG [facility] Urine Cult If Urine [place] Cultured [facility] Urine Source Urine Clean [place] Catch [facility] Specimen Anatomical Collection Method Collection Time Receive d Time (Source) Location / / Volume Laterality 02/25/2013 11:00 02/25/2013 AM CDT 11:23 AM CDT Narrative [facility] - 02/25/2013 11:59 AM CDT Performed at [facility], [address] [place] [address], [place] [address], Director Dr Joselyn Barkley Christa Matute MD LAB_1 Performing Organization Address City/State/ZIP Code Phon e Number [facility] [address] [place] [address] [phone] [facility] [phone] documented in this encounter Visit Diagnoses Diagnosis Preventative health care - Primary Routine general medical examination at a health care facility Dysuria UTI (lower urinary tract infection) Urinary tract infection, site not specif ied documented in this encounter Care Teams Warehouse Helper Relationship Specialty Start Date End Date Unassigned, Provider PCP - General Unknown Physician 02/25/13 01/03/[address] [place] [address] documented as of this encounter
--- OUTSIDE RECORDS SUMMARY | 2022-03-07 09:24 | XMS_ITS | Encounter Summary ---
:1995 Author Organization [facility] Address [address] [place] [address] Care Team Providers Name Role Phone Unassigned, Provider Primary Care Provider Unavailable Reason for Visit Reason Onset Date Comments FOLLOW-UP,LAB 03/02/2013 Encounter Details Date Type Department Care Team Description 03/02/2013 Telephone Internal Medicine Christa Matute MD FOLLOW-UP,LAB [address] [phone] (Wo rk) Social History Tobacco Use Types [...] on filedocumented in this encounter Care Teams Biostatistics Teacher Relationship Specialty Start Date End Date Unassigned, Provider PCP - General Unknown Physician 02/25/13 01/03/[address] [place] [address] documented as of this encounter
--- OUTSIDE RECORDS SUMMARY | 2022-03-07 09:24 | XMS_ITS | Encounter Summary ---
:1995 Author Organization Pending sale to [facility] Address [address] [place] [address] Care Team Providers Name Role Phone Zoie Padilla APRN, CNP Primary Care Provider [phone] Reason for Referral Consult/Transfer Care (Routine) - Closed Specialty Diagnoses / Procedures Referred By Contact Refer red To Contact Diagnoses Goiter (HRC) Zoie Padilla APRN, CNP [address] [place], [place] [address] Referral ID Status Reason Start Date Expiration Date Visits Requ ested Visits Authorized [id number] Closed 01/04/2015 04/04/2016 1 1 Scheduling Instructions Your provider has recommended an appoint ment with [facility]. You may call [phone] to schedule your a ppointment. If you prefer, a outpatient scheduler will contact you within the next 3 business d ays to assist you in setting up this appointment. Reason for Visit Reason Comments THYROID pt saw specialist at [facility] and was found to have enlarged thyroid FATIGUE sxs started last fall WEIGHT GAIN , POSSIBLE Encounter Details Date Type Department Care Team Description 01/04/2015 Office Visit [facility] Zoie Padilla Fa tigue (Primary Dx); Practice MACEY OSUNA Goiter; [address] [facility] [address] [place] [address] [phone] Social History Tobacco Use Types Packs/Day Years [...] encounter Patient Instructions Patient InstructionsZoie Padilla APRN, CHASSIS ENGINEER - 01/04/2015 9:55 AM CDT Images from [...] your doctor about all prescription, herbal, or ajdv-ive-jlwcqyj products you take. ?? Take care of [...] Where can you learn more? Go to [employer]/oohilove and enter N862 in the search box. Current as of: April 09, 2014 Content Version: 10.4 ?? [phone] [employer]. Goiter: After Your Visit Your Care [...] Where can you learn more? Go to [employer]/oohilove and enter G387 in the search box. Current as of: April 09, 2014 Content Version: 10.4 ?? [phone] [employer]. documented in this encounter Progress Notes Zoie [...] Name Type Priority Associated Diagnoses [facility] Referral Routine Goiter Ordered: [...] 4:29 PM C DT Performed at [facility], [address] [place] [address] ??[phone] Zoie Padilla APRN, CNP LAB_1 Performing Organization Address [facility]/ZIP Code Phon e Number [facility] [phone] IRON PROFILE (IRON,TIBC,%SAT.(CALC)) (01/04/2015 9:59 AM CDT) [...] 4:29 PM C DT Performed at [facility], [address] [place] [address] ??[phone] Zoie Padilla APRN, MACEY LAB_1 Performing Organization Address [facility] Phon e Number [facility] [phone] HEMOGRAM/PLTS (01/04/2015 9:59 AM CDT) athologist Signature [...] 01/04/2015 3:12 PM C DT Performed at [facility], [address] [place] [address] ??[phone] Zoie Padilla APRN, CNP LAB_1 Performing Organization Address City/[facility] Phon e Number [facility] [phone] VITAMIN D 25-HYDROXY, TOTAL (V77.99) (01/04/2015 9:59 [...] 01/04/2015 7:40 PM C DT Performed at [facility] , [address] [place] [address] Zoie Padilla APRN, CHASSIS ENGINEER LAB_1 Performing Organization Address City/State/ZIP Code Phon e Number [facility] [phone] TEST (URINE) (01/04/2015 9:59 AM CDT) [facility] [employer] Method Time Signature HCG, Urine Negative [facility] [...] - 01/04/2015 10:32 AM CDT Performed at [facility], [address] [place] [address] Zoie Padilla APRN, CHASSIS ENGINEER LAB_1 Performing Organization Address City/State/ZIP Code Phon e Number [facility] [phone] Antithyroid Peroxidase (01/04/2015 9:59 AM CDT) [facility] [employer] Method Time Signature Thyroperoxidase Ab 2 0 - 8 [facility] IU/ml [facility] Specimen Anatomical Collection Method Collection Time Receive d Time (Source) Location / / Volume Laterality 01/04/2015 9:59 AM 5 CDT 10:01 AM CDT Narrative [facility] - 01/06/2015 10:47 AM CDT Performed at [facility], [address] [place] [address] ??[phone] Zoie Padilla APRN, CNP LAB_1 Performing Organization Address City/[facility]/ZIP Code Phon e Number [facility] [phone] T3, FREE, SERUM (01/04/2015 9:59 AM CDT) P athologist Signature T3,Free 4.4 2.8 - 5.2 [facility] pg/ml Specimen Anatomical Collection Method Collection Time Receive d Time (Source) Location / / Volume Laterality 01/04/2015 9:59 AM 5 CDT 10:01 AM CDT Narrative [facility] - 01/04/2015 4:29 PM C DT Performed at [facility], [address] [place] [address] ??[phone] Zoie Padilla APRN, CNP LAB_1 Performing Organization Address [facility] Code Phon e Number [facility] [phone] FREE T4 (01/04/2015 9:59 AM CDT) P athologist Signature T4, Free 0.8 0.8 - 2.2 [facility] ng/dl Specimen Anatomical Collection Method Collection Time Receive d Time (Source) Location / / Volume Laterality 01/04/2015 9:59 AM 5 CDT 10:01 AM CDT Narrative [facility] - 01/04/2015 4:29 PM C DT Performed at [facility], [address] [place] [address] ??[address] Zoie Padilla APRN, CNP LAB_1 Performing Organization Address City/[facility]/ZIP Code Phon e Number [facility] [phone] (ABNORMAL) TSH, SENSITIVE (01/04/2015 9:59 AM CDT) Patholo gist Method Time Signature TSH, Sensitive 11.255 0.300 - [facility] (H) 5.000 [facility] uIU/ml Specimen Anatomical Collection Method Collection Time Receive d Time (Source) Location / / Volume Laterality 01/04/2015 9:59 AM 5 CDT 10:01 AM CDT Narrative [facility] - 01/04/2015 4:29 PM C DT Performed at [facility], [address] [place] [address] ??[phone] Zoie Padilla APRN, CNP LAB_1 Performing Organization Address City/State/ZIP Code Phon e Number [facility] [phone] documented in this encounter Visit Diagnoses Diagnosis Fatigue - Primary Other malaise and fatigue Goiter (HRC) Goiter, unspecified Possible examination or test, unconfirmed Fatigue Other malaise and fatigue Goiter (HRC) Goiter, unspecified Possible examination or test, unconfirmed documented in this encounter Care Teams Traffic Personnel Supervisor Relationship Specialty Start Date End Date Zoie Padilla APRN, CNP PCP - General Nurse Practitioner 01/04/15 01/23/[address] [place] [address] documented as of this encounter
== END 2022-03-07 09:21 | disposition home or self-care (01) ==
LOC: US 09:21
PROVIDERS: Visit Provider Obstetrics & Gynecology
DX: O24.419 Gestational diabetes mellitus in pregnancy, unspecified control (principal); O30.049 Twin pregnancy, dichorionic/diamniotic, unspecified trimester
CPT/HCPCS: 76819

== ENCOUNTER 2022-03-13 15:49 | Outpatient (CLI) | payer BC, SELFPAY ==
[2022-03-13] VITALS (13 sets, daily range): BP systolic 114; BP diastolic 73; PULSE 64–75; RESP 16; TEMP 36.8; O2SAT 99–100
--- OUTSIDE RECORDS SUMMARY | 2022-03-13 15:50 | XMS_ITS | Encounter Summary ---
:1995 Author Organization [facility] Address [address] [facility] [place] [address] Care Team Providers Name Role Phone Kike Xavier MD Unavailable Reason for Visit Reason Comments Ultrasound L2-Di/Di Twins Encounter Details Date Type Department Care Team Description 11/22/2021 Office Visit [facility] Gilma Dent [facility] [address] [place] [address] Dichorionic diamniotic Maternal Ector Sherman MD [address] [place] [address] twin in Medicine Center [facility] (Primary Dx) [address] [facility] [address] [place] [address] Social History Tobacco Use Types [...] antepartum documented in this encounter Care Teams Rn Psychiatric Relationship Specialty Start Date End Date Kike Xavier MD Assigned OBGYN Provider 10/28/21 12/22/[address] [address] documented as of this encounter
--- OUTSIDE RECORDS SUMMARY | 2022-03-13 15:50 | XMS_ITS | Encounter Summary ---
:1995 Author Organization [facility] Address [address] [place] [address] Care Team Providers Name Role Phone Kike [...] on filedocumented in this encounter Care Teams Hospital Medicine Director Relationship Specialty Start Date End Date Kike Xavier MD Assigned OBGYN Provider 10/28/21 12/22/[address] [id number] documented as of this encounter
--- OUTSIDE RECORDS SUMMARY | 2022-03-13 15:50 | XMS_ITS | Clinical Summary ---
:1995 Author Organization [facility] Address [address] [place] [address] Care Team Providers Name Role Phone Unavailable [...] (#1) 2022 REPEAT ANTIBODY SCREEN (OB) 01/28/2022 GROUP B STREP SCREENING 03/25/2022 PAP 09/12/2024 09/12/2021 HEPATITIS B IMMUNIZATION Completed [...] Addre ss Type Group BCBS BCBS OF [place] [id number] 2020-Present [phone] [place] [id number] [place] [address]
--- OUTSIDE RECORDS SUMMARY | 2022-03-13 15:50 | XMS_ITS | Clinical Summary ---
:1995 Author Organization [facility] [place] [address] Care Team Providers Name Role Phone Pcp, [...] mother asthma~fa ther healthy~brother healthy~PGF DM, CAD ([place] in his 5 0's)~PGM MS Relation Name [...] Comments Blood Pressure 122/60 04/07/2021 11:45 AM EPOXY SPECIALIST Pulse 56 04/07/2021 11:45 AM EPOXY SPECIALIST Temperature 36 ??C (96.8 ??F) 04/07/2021 10:56 AM EPOXY SPECIALIST Respiratory Rate 16 04/07/2021 11:45 AM EPOXY SPECIALIST Oxygen Saturation 100% 04/07/2021 11:45 AM EPOXY SPECIALIST Inhaled Oxygen Concentration - - Weight 92.3 kg (203 lb 6.4 oz) 04/07/2021 9:30 AM EPOXY SPECIALIST Height 154.9 cm (5' 1) 04/07/2021 9:30 AM EPOXY SPECIALIST Body Mass Index 38.43 04/07/2021 9:30 AM EPOXY SPECIALIST Plan of Treatment Health Maintenance Due [...] Type Group BLUE CROSS BLUE CROSS OF [id number] 2020-Present [address] [facility] [place] [phone] e (Home) [place], [place] [phone] (Work) Advance Directives Latest Code Status on File Code Status Date Activated Date Inactivated Comments Full Code 04/07/2021 9:07 AM 04/07/2021 3:50 PM Code Status Discussion: Not Discussed Care Teams Railroad Supervisor Of Engines Relationship Specialty Start Date End Date Listed, Not PCP - General 03/27/21 [place] [address] Pcp, No 04/02/20 .
--- OUTSIDE RECORDS SUMMARY | 2022-03-13 15:51 | XMS_ITS | Encounter Summary ---
:1995 Author [facility] Address [address] [place] [address] Care Team Providers Name Role Phone Unassigned, Provider Primary Care Provider Unavailable Reason for Visit Reason Onset Date Comments FOLLOW-UP,LAB 03/02/2013 Encounter Details Date Type Department Care Team Description 03/02/2013 Telephone Internal Medicine Christa Matute MD FOLLOW-UP,LAB [address] [phone] (Wo rk) Social History Tobacco Use Types [...] on filedocumented in this encounter Care Teams Mathematical Scientist Relationship Specialty Start Date End Date Unassigned, Provider PCP - General Unknown Physician 02/25/13 01/03/[address] [place] [address] documented as of this encounter
--- OUTSIDE RECORDS SUMMARY | 2022-03-13 15:51 | XMS_ITS | Encounter Summary ---
:1995 Author Organization [facility] [employer] [facility] Address [address] [place] [address] Care Team Providers Name Role Phone Maliha Delacruz PA-C Primary Care Provider Encounter Details Date Type Department Care Team Description 01/24/2018 Consent for [facility] Maliha Delacruz NEX [facility] CONSENT Procedure/Treatmen Practice JONH [address] [facility] [address] [place] [address] [phone] Social History Tobacco Use Types Packs/Day Years [...] on filedocumented in this encounter Care Teams Acid Leveler Relationship Specialty Start Date End Date Maliha Delacruz PA-C PCP - General Physician Regional Guide 01/24/18 [address] [place] [address] documented as of this encounter
--- OUTSIDE RECORDS SUMMARY | 2022-03-13 15:51 | XMS_ITS | Encounter Summary ---
:1995 Author Organization [facility] Address [address] [address] Care Team Providers Name Role Phone Unassigned, Provider Primary Care Provider Unavailable Encounter Details Date Type Department Care Team Description 02/25/2013 Orders Only [facility] MD Mihir Security Contact Bill [address] [place] [address] Mailstop [id number] [phone] (Wo rk) Social History Tobacco Use Types [...] on filedocumented in this encounter Care Teams Kiln Firer Relationship Specialty Start Date End Date Unassigned, Provider PCP - General Unknown Physician 02/25/13 01/03/[address] [place] [address] documented as of this encounter
--- OUTSIDE RECORDS SUMMARY | 2022-03-13 15:51 | XMS_ITS | Encounter Summary ---
:1995 Author Organization [employer] Address [address] [place] [address] Care Team Providers Name Role Phone Zoie Padilla APRN, CNP Primary Care Provider [phone] Encounter Details Date Type Department Care Team Description 01/04/2015 Orders Only [facility] Fatigue; [address] [facility] Goiter; [place], [place] [address] Possible [phone] Social History Tobacco Use Types Packs/Day Years [...] 01/04/2015 4:29 PM C DT Performed at [facility], [address] [place] [address] ??[phone] Zoie Padilla APRN, CHILD CARE ASSOCIATE TEACHER LAB_1 Performing Organization Address City/State/ZIP Code Phon e Number [facility] [phone] IRON PROFILE (IRON,TIBC,%SAT.(CALC)) (01/04/2015 9:59 AM CDT) [...] 01/04/2015 4:29 PM C DT Performed at [facility], [address] [place] [address] ??[phone] Zoie Padilla APRN, MACEY LAB_1 Performing Organization Address [facility] Phon e Number [facility] [phone] HEMOGRAM/PLTS (01/04/2015 9:59 AM CDT) athologist Signature [...] 01/04/2015 3:12 PM C DT Performed at [facility], [address] [place] [address] ??[address] Zoie Padilla APRN, MACEY LAB_1 Performing Organization Address City/[facility] Phon e Number [facility] [phone] VITAMIN D 25-HYDROXY, TOTAL (V77.99) (01/04/2015 9:59 AM CDT) athologist Signature Vitamin 40.5 30.0 - [facility] D,25-OH, Tot 80.0 ng/mL LABORATORIES Comment: Deficiency: ??< 20 ng/mL Insufficiency: ??20-29 ng/mL Optimum Level: ??30-80 ng/mL Possible Toxicity: > 80 ng/mL Specimen Anatomical Collection Method Collection Time Receive d Time (Source) Location / / Volume Laterality 01/04/2015 9:59 AM 5 CDT 10:01 AM CDT Narrative [facility] - 01/04/2015 7:40 PM C DT Performed at [facility] , [address] [place] [address] Zoie Padilla APRN, CNP LAB_1 Performing Organization Address City/[facility]/ZIP Code Phon e Number [facility] [phone] TEST (URINE) (01/04/2015 9:59 AM CDT) [facility] Method Time Signature HCG, Urine Negative [facility] Negative = <25 mIU/ml LABORATO RADHA If is suspected, suggest repeat in 48-72 hours or confirm results with a quantitative hCG test. Specimen Anatomical Collection Method Collection Time Receive d Time (Source) Location / / Volume Laterality Urine specimen 01/04/2015 9:59 AM 015 (specimen) CDT 10:01 AM CDT Narrative [facility] - 01/04/2015 10:32 AM CDT Performed at [facility], [address] [place] [address] Zoie Padilla APRN, CNP LAB_1 Performing Organization Address City/[email or web address] Code Phon e Number [facility] [phone] Antithyroid Peroxidase (01/04/2015 9:59 AM CDT) [facility] Method Time Signature Thyroperoxidase Ab 2 0 - 8 [facility] IU/ml [facility] Specimen Anatomical Collection Method Collection Time Receive d Time (Source) Location / / Volume Laterality 01/04/2015 9:59 AM 5 CDT 10:01 AM CDT Narrative [facility] - 01/06/2015 10:47 AM CDT Performed at [facility], [address] [place] [address] ??[address] Zoie Padilla APRN, CNP LAB_1 Performing Organization Address City/[facility]/ZIP Code Phon e Number [facility] [phone] T3, FREE, SERUM (01/04/2015 9:59 AM CDT) P athologist Signature T3,Free 4.4 2.8 - 5.2 [facility] pg/ml Specimen Anatomical Collection Method Collection Time Receive d Time (Source) Location / / Volume Laterality 01/04/2015 9:59 AM 5 CDT 10:01 AM CDT Narrative [facility] - 01/04/2015 4:29 PM C DT Performed at [facility], [address] [place] [address] ??[address] Zoie Padilla APRN, CNP LAB_1 Performing Organization Address City/[facility] [[email or web address]] Code Phon e Number [facility] [phone] FREE T4 (01/04/2015 9:59 AM CDT) P athologist Signature T4, Free 0.8 0.8 - 2.2 [facility] ng/dl Specimen Anatomical Collection Method Collection Time Receive d Time (Source) Location / / Volume Laterality 01/04/2015 9:59 AM 5 CDT 10:01 AM CDT Narrative [facility] - 01/04/2015 4:29 PM C DT Performed at [facility], [address] [place] [address] ??[address] Zoie Padilla APRN, CNP LAB_1 Performing Organization Address [facility]/ZIP Code Phon e Number [facility] [phone] (ABNORMAL) TSH, SENSITIVE (01/04/2015 9:59 AM CDT) [facility] gist Method Time Signature TSH, Sensitive 11.255 0.300 - [facility] (H) 5.000 LAB[facility]IES uIU/ml Specimen Anatomical Collection Method Collection Time Receive d Time (Source) Location / / Volume Laterality 01/04/2015 9:59 AM 5 CDT 10:01 AM CDT Narrative [facility] - 01/04/2015 4:29 PM C DT Performed at [facility], [address] [place] [address] ??[address] Zoie Padilla APRN, CNP LAB_1 Performing Organization Address City/[facility]/ZIP Code Phon e Number [facility] [phone] documented in this encounter Visit Diagnoses Diagnosis Fatigue Other malaise and fatigue Goiter (HRC) Goiter, unspecified Possible examination or test, unconfirmed documented in this encounter Care Teams System Integration Engineer Relationship Specialty Start Date End Date Zoie Padilla, COD CLERK, CHILD CARE ASSOCIATE TEACHER PCP - General Nurse Practitioner 01/04/15 01/23/18 [address] [place] [address] documented as of this encounter
--- OUTSIDE RECORDS SUMMARY | 2022-03-13 15:51 | XMS_ITS | Encounter Summary ---
:1995 Author Organization [facility] Address [address], [place] [address] Care Team Providers Name Role Phone Unassigned, Provider Primary Care Provider Unavailable Encounter Details Date Type Department Care Team Description 02/25/2013 Orders Only Internal Medicine [facility], [address] Provider [place] [id number] [phone] Social History Tobacco Use Types Packs/Day Years Used Date Smoking Tobacco: Former Smokeless Tobacco: Former Qu it: 05/27/2011 Alcohol Use Standard Drinks/Week Comments No 0 (1 standard drink = 0.6 oz pure alcoho l) Sex Assigned at Date Recorded Not on file documented as of this encounter Procedure Notes [facility], Provider - 02/25/2013 12:00 AM CDTAssociated [...] attachment that is no t available. Transcriptions [facility], Provider - 02/25/2013 1 2:00 AM CDT Provider [facility] DUMMY/OTHER/AR documented in this encounter Visit Diagnoses Not on filedocumented in this encounter Care Teams Supervisor Underwriting Clerks Relationship Specialty Start Date End Date Unassigned, Provider PCP - General Unknown Physician 02/25/13 01/03/[address] [place] [address] documented as of this encounter
--- OUTSIDE RECORDS SUMMARY | 2022-03-13 15:51 | XMS_ITS | Encounter Summary ---
:1995 Author Organization [facility] Address [address] [place] [address] Care Team Providers Name Role Phone Unassigned, Provider Primary Care Provider Unavailable Reason for Visit Reason Onset Date Comments FOLLOW-UP,LAB 03/11/2013 Encounter Details Date Type Department Care Team Description 03/11/2013 Telephone Internal Medicine Christa Matute MD FOLLOW-UP,LAB [address] [phone] (Wo rk) Social History Tobacco Use Types [...] on filedocumented in this encounter Care Teams Marine Fire Fighter Relationship Specialty Start Date End Date Unassigned, Provider PCP - General Unknown Physician 02/25/13 01/03/[address] [place] [address] documented as of this encounter
--- OUTSIDE RECORDS SUMMARY | 2022-03-13 15:51 | XMS_ITS | Clinical Summary ---
:1995 Author Organization [facility] Address [address] [place] [address] Care Team Providers Name Role Phone Maliha [...] for each transition of care or referral. [facility] Allergies No known active allergies Medications Medication Sig Dispensed Refills Start Date End Date Status MV-Min-Fe Take by mouth. 0 Active Fum-FA-DHA ( 1 OR) Blood Glucose 0 12/17/2021 Activ e Monitoring Suppl (ACCU-CHEK GUIDE MT) w/Device KIT ACCU-CHEK GUIDE 4 times a [...] Endocrinology Norma Mcleod APRN, Medic ation Refill LAUNDRY HOUSEKEEPER Question 02/17/2022 Nurse Triage Careline Unknown, Physician Medicatio n Questions; Pharmacy 02/16/2022 Telemedicine Endocrinology Norma Mcleod APRN, Gesta tional diabetes mellitus (GDM), antepartum, gestational diabetes method of control unspecified (Primary Dx); LAUNDRY HOUSEKEEPER Obesity, unspec ified obesity severity, unspecified obesity type 02/13/2022 Notes/Orders Endocrinology Norma Mcleod APRN, Gesta tional diabetes LAUNDRY HOUSEKEEPER mellitus (GDM), antepartum, ges tational diabetes method [...] paternal aunt Coronary Artery Disease Paternal Grandfather [place] in his 50's Diabetes, Type II Paternal [...] T ype Group Dates [facility] PREVENT[facility] [id number] Effective for Preventive DENTAL PLAN SI DENTAL all dates Ander Personal/Family Self 1995 [id number] (Home) [facility] [phone] [place], [place] (Work[place] [id number] Ander Personal/Family Self 1995 [address] (Home) [place] [address] Ander Personal/Family Self 1995 [address] (Home) [place] [address] Care Teams Wire Winder Relationship Specialty Start Date End Date Maliha Delacruz PA-C PCP - General Physician Surgical Scheduler 01/24/18 [address] [place] [address]
--- OUTSIDE RECORDS SUMMARY | 2022-03-13 15:51 | XMS_ITS | Encounter Summary ---
:1995 Author Organization [facility] Address [address] [place] [address] Care Team Providers Name Role Phone Zoie Padilla APRN, CNP Primary Care Provider [phone] Reason for Visit Reason Comments GOITER ref by Dr. Padilla. Recs in E PIC Consult/Transfer Care (Routine) - Closed Specialty Diagnoses / Procedures Referred By Contact Refer red To Contact Diagnoses Goiter (HRC) Zoie Padilla APRN, CNP [address] [place], [place] [address] Referral ID Status Reason Start Date Expiration Date Visits Requ ested Visits Authorized [id number] Closed 01/04/2015 04/04/2016 1 1 Encounter Details Date Type Department Care Team Description 08/[facility]2015 [facility] ypothy[facility], unspecified type (Primary Dx); Endocrinology Clinic MD [place] [address] [facility], [address] [facility] [address] [place] [address] [place] [address] [phone] Social History Tobacco Use Types Packs/Day Years [...] work. Lashonda Burgess MD Department of Endocrinology [facility] documented in this encounter Progress Notes Lashonda Burgess MD - 08/25/2015 2:54 PM CDT [facility] Endocrinology Visit Note Name: Darlin Worthington Seen at the request of Zoie Padilla APRN, BOOK RETAILER for Chief Complaint Patient presents with ??? GOITER ref by Dr. Padilla. Recs in [facility] . HPI: Darlin Worthington is a 20 [...] + hot all the times History of Driscoll or Amiodarone use:No Head or neck surgery/radiation:No IV Contrast:No PMH/PSH: Past Medical History Diagnosis Date ??? Thyroid condition ??? Scoliosis mild ??? Skin rash thought to be allergic but allergen not identified; saw a certified tower climber Past Surgical History Procedure Laterality Date ??? Surgical hx - neg Family/Social Hx: Family History Problem Relation Age of Onset ??? Hypertension Mother ??? Eczema Brother ??? Asthma Mother ??? Diabetes, Type II Paternal Grandfather ??? Coronary Artery Disease Paternal Grandfather MS in his 50's ??? Other Paternal Grandmother MS ??? Thyroid Disorder Other paternal aunt History Alcohol Use No Thyroid disease: Yes: mother and father DM2:Yes: mother Autoimmune: DM1, SLE, RA, Vitiligo: No Student - RF --> Setswana and Art History (moving to [place]) MEDICATIONS: Outpatient Prescriptions Prior to Visit Medication [...] Lashonda Burgess MD Department of Endocrinology [facility] All questions were answered. The patient indicates [...] PM 6 3:30 CDT PM CDT Narrative [facility] - 08/29/2015 12:39 PM CDT Performed at [facility], [address] [place] [address] ??[phone] Lashonda Burgess MD LAB_1 Performing Organization Address City/State/ZIP Code Phon e Number [facility] [phone] FREE T4 (08/25/2015 3:19 PM CDT) athologist Signature T4, Free 0.90 0.8 - 2.2 [facility] ng/dl Specimen Anatomical Collection Method Collection Time Receive d Time (Source) Location / / Volume Laterality 08/25/2015 3:19 PM 6 3:30 CDT PM CDT Narrative [facility] - 08/25/2015 4:43 PM C DT Performed at [facility], [address] [place] [address], Director Dr Cesar Fraser Lashonda Burgess MD LAB_1 Performing Organization Address City/[facility] Phon e Number [facility] [phone] TSH, SENSITIVE (08/25/2015 3:19 PM CDT) athologist Signature TSH, Sensitive 3.360 0.300 - [facility] uIU/ml Specimen Anatomical Collection Method Collection Time Receive d Time (Source) Location / / Volume Laterality 08/25/2015 3:19 PM 6 3:30 CDT PM CDT Narrative [facility] - 08/25/2015 4:43 PM C DT Performed at [facility], [address] [place] [address], Director Dr Cesar Fraser Lashonda Burgess MD LAB_1 Performing Organization Address [facility] Phon e Number [facility] [phone] documented in this encounter Visit Diagnoses Diagnosis Hypothyroidism, unspecified type (HRC) - Primary Goiter (HRC) Goiter, unspecified documented in this encounter Care Teams Sheep Farm Worker Relationship Specialty Start Date End Date Zoie Padilla, COAL OR ORE CONTROLLER, BOOK RETAILER PCP - General Nurse Practitioner 01/04/15 01/23/18 [address], [place] [address] documented as of this encounter
--- OUTSIDE RECORDS SUMMARY | 2022-03-13 15:51 | XMS_ITS | Encounter Summary ---
:1995 Author Organization [facility] Address [address] [place] [address] Care Team Providers Name Role Phone Zoie Padilla APRN, CNP Primary Care Provider Reason for Referral Consult/Transfer Care (Routine) - Closed Specialty Diagnoses / Procedures Referred By Contact Refer red To Contact Diagnoses Goiter (HRC) Zoie Padilla APRN, CNP [address] [place], [place] [address] Referral ID Status Reason Start Date Expiration Date Visits Requ ested Visits Authorized [id number] Closed 01/04/2015 04/04/2016 1 1 Scheduling Instructions Your provider has recommended an appoint ment with [facility]. You may call [phone] to schedule your a ppointment. If you prefer, a talent program manager will contact you within the next 3 business d ays to assist you in setting up this appointment. Reason for Visit Reason Comments THYROID pt saw specialist at [facility] and was found to have enlarged thyroid FATIGUE sxs started last fall WEIGHT GAIN , POSSIBLE Encounter Details Date Type Department Care Team Description 01/04/2015 Office Visit [facility] Zoie Padilla Fa tigue (Primary Dx); Practice MACEY OSUNA Goiter; [address] [facility] [address] [place] [phone] Social History Tobacco Use Types Packs/Day Years [...] encounter Patient Instructions Patient InstructionsZoie Padilla APRN, ARTS AND CRAFTS INSTRUCTOR - 01/04/2015 9:55 AM CDT Images from [...] your doctor about all prescription, herbal, or ardd-agr-iwaenjx products you take. ?? Take care of [...] Where can you learn more? Go to [employer] and enter N862 in the search box. Current as of: April 09, 2014 Content Version: 10.4 ?? [phone] [employer]. Goiter: After Your Visit Your Care [...] Where can you learn more? Go to [employer] and enter G387 in the search box. Current as of: April 09, 2014 Content Version: 10.4 ?? [phone] [employer]. documented in this encounter Progress Notes Zoie [...] Name Type Priority Associated Diagnoses [facility] Referral Routine Goiter Ordered: 01/04 CONSULT-ADULTS documented as of this encounter Results FERRITIN (01/04/2015 9:59 AM CDT) P athologist Signature Ferritin 39 10 - 120 [facility] ng/ml Specimen Anatomical Collection Method Collection Time Receive d Time (Source) Location / / Volume Laterality 01/04/2015 9:59 AM 5 CDT 10:01 AM CDT Narrative [facility] - 01/04/2015 4:29 PM C DT Performed at [facility], [address] [place] [address] ??[phone] Zoie Padilla APRN, CNP LAB_1 Performing Organization Address [facility]/ZIP Code Phon e Number [facility] [phone] IRON PROFILE (IRON,TIBC,%SAT.(CALC)) (01/04/2015 9:59 AM CDT) [...] 01/04/2015 4:29 PM C DT Performed at [facility], [address] [place] [address] ??[phone] Zoie Padilla APRN, MACEY LAB_1 Performing Organization Address [facility] Phon e Number [facility] [phone] HEMOGRAM/PLTS (01/04/2015 9:59 AM CDT) athologist Signature [...] 01/04/2015 3:12 PM C DT Performed at [facility], [address] [place] [address] ??[phone] Zoie Padilla APRN, CNP LAB_1 Performing Organization Address City/[facility] Phon e Number [facility] [phone] VITAMIN D 25-HYDROXY, TOTAL (V77.99) (01/04/2015 9:59 [...] C DT Performed at [facility] , [address] [place] [address] Zoie Padilla APRN, ARTS AND CRAFTS INSTRUCTOR LAB_1 Performing Organization Address City/State/ZIP Code Phon e Number [facility] [phone] TEST (URINE) (01/04/2015 9:59 AM CDT) [facility] Anagran Method Time Signature HCG, Urine Negative [facility] [...] - 01/04/2015 10:32 AM CDT Performed at [facility], [address] [place] [address] Zoie Padilla APRN, ARTS AND CRAFTS INSTRUCTOR LAB_1 Performing Organization Address City/State/ZIP Code Phon e Number [facility] [phone] Antithyroid Peroxidase (01/04/2015 9:59 AM CDT) [facility] Anagran Method Time Signature Thyroperoxidase Ab 2 0 - 8 [facility] IU/ml [facility] Specimen Anatomical Collection Method Collection Time Receive d Time (Source) Location / / Volume Laterality 01/04/2015 9:59 AM 5 CDT 10:01 AM CDT Narrative [facility] - 01/06/2015 10:47 AM CDT Performed at [facility], [address] [place] [address] ??[phone] Zoie Padilla APRN, CNP LAB_1 Performing Organization Address City/[facility]/ZIP Code Phon e Number [facility] [phone] T3, FREE, SERUM (01/04/2015 9:59 AM CDT) P athologist Signature T3,Free 4.4 2.8 - 5.2 [facility] pg/ml Specimen Anatomical Collection Method Collection Time Receive d Time (Source) Location / / Volume Laterality 01/04/2015 9:59 AM 5 CDT 10:01 AM CDT Narrative [facility] - 01/04/2015 4:29 PM C DT Performed at [facility], [address] [place] [address] ??[phone] Zoie Padilla APRN, CNP LAB_1 Performing Organization Address [facility] Code Phon e Number [facility] [phone] FREE T4 (01/04/2015 9:59 AM CDT) P athologist Signature T4, Free 0.8 0.8 - 2.2 [facility] ng/dl Specimen Anatomical Collection Method Collection Time Receive d Time (Source) Location / / Volume Laterality 01/04/2015 9:59 AM 5 CDT 10:01 AM CDT Narrative [facility] - 01/04/2015 4:29 PM C DT Performed at [facility], [address] [place] [address] ??[phone] Zoie Padilla APRN, CNP LAB_1 Performing Organization Address City/[facility]/ZIP Code Phon e Number [facility] [phone] (ABNORMAL) TSH, SENSITIVE (01/04/2015 9:59 AM CDT) Patholo gist Method Time Signature TSH, Sensitive 11.255 0.300 - [facility] (H) 5.000 [facility] uIU/ml Specimen Anatomical Collection Method Collection Time Receive d Time (Source) Location / / Volume Laterality 01/04/2015 9:59 AM 5 CDT 10:01 AM CDT Narrative [facility] - 01/04/2015 4:29 PM C DT Performed at [facility], [address] [place] [address] ??[phone] Zoie Padilla APRN, CNP LAB_1 Performing Organization Address City/State/ZIP Code Phon e Number [facility] [phone] documented in this encounter Visit Diagnoses Diagnosis Fatigue - Primary Other malaise and fatigue Goiter (HRC) Goiter, unspecified Possible examination or test, unconfirmed Fatigue Other malaise and fatigue Goiter (HRC) Goiter, unspecified Possible examination or test, unconfirmed documented in this encounter Care Teams Layer Out Relationship Specialty Start Date End Date Zoie Padilla APRN, CNP PCP - General Nurse Practitioner 01/04/15 01/23/[address] [place] [address] documented as of this encounter
--- OUTSIDE RECORDS SUMMARY | 2022-03-13 15:51 | XMS_ITS | Encounter Summary ---
:1995 Author [facility] Address [address] [place] [address] Care Team Providers Name Role Phone Maliha Delacruz PA-C Primary Care Provider Reason for Referral Consult/Transfer Care (Routine) - New Request Specialty Diagnoses / Procedures Referred By Contact Refer red To Contact Diagnoses Gestational diabetes mellitus (GDM), antepartum, gestational diabetes method of control unspecified Norma Mcleod APRN, CNP [address] [place], [place] [address] Referral ID Status Reason Start Date Expiration Date Visits V isits Requested Authorized [id number] New Request 02/13/2022 05/15/2023 1 1 Scheduling Instructions Your provider has recommended an appoint ment with [facility]. You may call [phone] to schedule yo ur appointment. We suggest you call your health insurance company about your cove rage and benefits for this appointment. Encounter Details Date Type Department Care Team Description 02/13/2022 Notes/Orders [facility] [address] Gestat ionnirmal diabetes Endocrinology MACEY [facility] mellitus (GDM), [address], [address] gestational diabetes [place], [place] me thod of control [phone] unspecified (Primary [phone] (Wo rk) Dx) Social History Tobacco Use [...] Primary documented in this encounter Care Teams Terrazzo Mechanic Relationship Specialty Start Date End Date Maliha Delacruz PA-C PCP - General Physician Vegetable Harvest Worker 01/24/18 [address] [place] [address] documented as of this encounter
--- OUTSIDE RECORDS SUMMARY | 2022-03-13 15:51 | XMS_ITS | Encounter Summary ---
:1995 [facility] Address [address], [place] [address] Care Team Providers Name Role Phone Maliha Delacruz PA-C Primary Care Provider Reason for Visit Reason Comments APPOINTMENT REQUEST Referral GDM Encounter Details Date Type Department Care Team Description 02/12/2022 Telephone [facility] 38[address] Nurse, P3800 End APPOINTMENT REQUEST Endocrinology [address] (Referral GDM) [address] [place] [place] [phone] Social History Tobacco Use Types Packs/Day Years Used Date Smoking Tobacco: Former Smokeless Tobacco: Former Qu it: 05/27/2011 Alcohol Use Standard Drinks/Week Comments No 0 (1 standard drink = 0.6 oz pure alcoho l) Sex Assigned at Date Recorded Not on file documented as of this encounter Nursing Notes Silke Monge - 02/12/2022 4:24 PM CDT Faxed referral rec'd from [facility] for GDM, records sent to scan doc documented in this encounter Plan of Treatment Not on filedocumented as of this encounter Visit Diagnoses Not on filedocumented in this encounter Care Teams Trailer Driver Relationship Specialty Start Date End Date Maliha Delacruz PA-C PCP - General Physician Ironworker Foreman 01/24/18 [address] [place], [place] [id number] documented as of this encounter
--- OUTSIDE RECORDS SUMMARY | 2022-03-13 15:51 | XMS_ITS | Encounter Summary ---
:1995 Author Organization [facility] Address [address] [place] [address] Care Team Providers Name Role Phone Unavailable Primary Care Provider Unavailable Reason for Visit Reason Comments Ultrasound 1st tri complete-twins, conf irm chorionicity Encounter Details Date Type Department Care Team Description 10/11/2021 PRE VISIT [facility] Shayy Barajas, WILD Ultra sound (1st tri Maternal Medicine comp lete-twins, confirm [facility] chorionicity) [address] [facility] [address] [place] [address] Social History Tobacco Use Types Packs/Day Years Used Date Smoking Tobacco: Never Assessed Sex Assigned at Date Recorded Not on file documented as of this encounter Plan of Treatment Not on filedocumented as of this encounter Visit Diagnoses Not on filedocumented in this encounter
--- OUTSIDE RECORDS SUMMARY | 2022-03-13 15:51 | XMS_ITS | Encounter Summary ---
:1995 Author Organization [facility] Address [address] [place] [address] Care Team Providers Name Role Phone Unavailable Primary Care Provider Unavailable Reason for Referral Diagnostic Imaging Ultrasound (Routine) - Pending Review Specialty Diagnoses / Procedures Referred By Contact Refer red To Contact Diagnoses related condition, antepartum Jailene, August Procedures MFM Twins US OB Complete [address]st [id number] [place] [address] Referral ID Status Reason Start Date Expiration Date Visits V isits Requested Authorized [id number] Pending 09/19/2021 09/19/2022 1 1 Review onsultation (Routine: Next available opening) - Pending Review Specialty Diagnoses / Procedures Referred By Contact Refer red To Contact Diagnoses related condition, antepartum Jailene, August [phone] [place] [address] Referral ID Status Reason Start Date Expiration Date Visits V isits Requested Authorized [id number] Pending 09/19/2021 09/19/2022 1 1 Review Encounter Details Date Type Department Care Team Description 09/19/2021 [facility] condition, Medicine Center MEDICAL antepartum (Primary [address] [address]) [address] [place], [place] [address] [address] [place], [place] [phone] (work) [phone] Social History Tobacco Use Types Packs/Day Years [...] Study Santiago e: 10/17/2021 11:14am Pat. NO: [id number] Referring ??MD: JENNY HAMILTON Site: [facility] Biometric Fingerprinting Technician: Katelyn tiwdell RDMS : 1995 Age: 26 INDICATION Twin [...] RECOMMENDATION We [facility]. The patient is scheduled to return to [facility] at 18-20 weeks for a comprehensive [...] Name:Nisha PURDY Date: 10/17/2021 11:14am Pat. NO: [id number] MD:AUGUST ANSHUL OROZCO [facility]:Katelyn Shelby RDMS :1995Age:26 INDICATION Twin gestation. Confirm [...] RECOMMENDATION We discussed the findings on today's [facility] with the patient. The patient is scheduled to return to [facility] at 18-20 weeks for a comprehensive [...] trimester anatomy for both twins. August Jailene [facility] US ORDERABLES documented in this encounter Visit Diagnoses Diagnosis related condition, antepartum - Primary related condition, antepartum documented in this encounter
--- OUTSIDE RECORDS SUMMARY | 2022-03-13 15:51 | XMS_ITS | Encounter Summary ---
:1995 [facility] Address [address], [place] [address] Care Team Providers Name Role Phone Maliha Delacruz PA-C Primary Care Provider Reason for Visit Reason Comments Medication Refill Question Encounter Details Date Type Department Care Team Description 02/19/2022 Telephone [facility] [address] Brittny Mcleod, Medica tion Refill Endocrinology PEWTER CASTER, BUNDLE TIER Question [address] [facility] [address] [place] [phone] (Wo rk) Social History Tobacco Use Types [...] Primary documented in this encounter Care Teams Drill Press Operator Helper Relationship Specialty Start Date End Date Maliha Delacruz PA-C PCP - General Physician Putty Remover 01/24/18 [address] [place] [address] documented as of this encounter
--- OUTSIDE RECORDS SUMMARY | 2022-03-13 15:51 | XMS_ITS | Encounter Summary ---
:1995 Author Organization [facility] Address Replaced by [facility] [place] [place] [address] Care Team Providers Name Role Phone Kike Xavier MD Unavailable Reason for Referral Diagnostic Imaging Ultrasound (Routine) - Pending Review Specialty Diagnoses / Procedures Referred By Contact Refer red To Contact Diagnoses related condition Januszaugust Procedures [address] [address] [place] [address] Referral ID Status Reason Start Date Expiration Date Visits V isits Requested Authorized [id number] Pending 10/09/2021 10/09/2022 1 1 Review Reason for Visit Diagnostic Imaging Ultrasound (Routine) - Pending Review Specialty Diagnoses / Procedures Referred By Contact Refer red To Contact Diagnoses related condition Januszaugust Procedures [address] [address] [place] [address] Referral ID Status Reason Start Date Expiration Date Visits V isits Requested Authorized [id number] Pending 10/09/2021 10/09/2022 1 1 Review Encounter Details Date Type Department Care Team Description 11/22/2021 Hospital Encounter [facility] Rabia Hamilton [address] [place] [id number] related Maternal Ector Sherman MD [address] [id number] condition Medicine Center [place] Cody Pastrana [facility] [address] [place] [address] Social History Tobacco Use Types [...] Study Santiago e: 11/22/2021 9:24am Pat. NO: [id number] Referring ??MD: JENNY HAMILTON Site: [facility] Eyewear Manufacturing Tech: Rica Tobar RD MS : 1995 Age: [...] 10 ? oz EFW by ? Hadlock ([id number]-KA-[id number]-FL) EFW discordance ? 2.1 ? % Head / Face / Neck Biometry: Angle Furnaceman ? 7.1 ? mm CM ?5.8 ? [...] 10 ? oz EFW by ? Hadlock (YKX-[id number]-FL) EFW discordance ? 2.1 ? % Head / Face / Neck Biometry: Angle Furnaceman ? 8.0 ? mm CM ?4.4 ? [...] cava. Inferior vena cava. 3-vessel ? view. 0-bcmmrl-filcfyi view. Cardiac position. Cardiac size. Cardiac rhythm. [...] cava. Inferior vena cava. 3-vessel ? view. 1-gwfbro-ysdjaoc view. Cardiac position. Cardiac size. Cardiac rhythm. [...] plans to have this follow up in [place]. Return to primary provider for continued care. If you have questions regarding today's evaluation or if we can be of further service, please contact the [facility]. Procedure Note Ector Sherman MD - 11/22/2021Form atting of this note might be different from the original. Comprehensive Pat. Name:RAJWINDERBRENDAMary Lou Date: 11/22/2021 9:24am Pat. NO: [id number] MD:KARENA OROZCO [facility]Rica Tobar RDMS :1995Age:26 INDICATION Dichorionic, Diamniotic Twin [...] 0 lb 10 oz EFW by Hadlock ([id number]-FL) EFW discordance 2.1 % Head / Face / Neck Biometry: Angle Furnaceman 7.1 mm CM 5.8 mm Nasal bone [...] 0 lb 10 oz EFW by Hadlock (NYT-OR-CD-FL) EFW discordance 2.1 % Head / Face / Neck Biometry: Angle Furnaceman 8.0 mm CM 4.4 mm Nasal bone [...] vena cava. Inferior vena cava. 3-vessel view. 8-vjobkh-mbnwqqu view. Cardiac po sition. Cardiac size. Cardiac [...] vena cava. Inferior vena cava. 3-vessel view. 6-vbqkwp-xgrypac view. Cardiac po sition. Cardiac size. Cardiac [...] plans to have this follow up in [place]. Return to primary provider for continued care. [...] care documented in this encounter Care Teams Radio Frequency Engineer Relationship Specialty Start Date End Date Kike Xavier MD Assigned OBGYN Provider 10/28/21 12/22/21 [address] [place] [address] documented as of this encounter
--- OUTSIDE RECORDS SUMMARY | 2022-03-13 15:51 | XMS_ITS | Encounter Summary ---
:1995 Author Organization [place] Address [address] [place] [address] Care Team Providers Name Role Phone Unavailable Primary Care Provider Unavailable Reason for Referral Diagnostic Imaging Ultrasound (Routine) - Pending Review Specialty Diagnoses / Procedures Referred By Contact Refer red To Contact Diagnoses related condition Jailene Karena Procedures MFM Twins [facility] [address] [place] [address] Referral ID Status Reason Start Date Expiration Date Visits V isits Requested Authorized [id number] Pending 10/09/2021 10/09/2022 1 1 Review onsultation (Routine: Next available opening) - Pending Review Specialty Diagnoses / Procedures Referred By Contact Refer red To Contact Diagnoses related condition Jailene Karena [place] [address] [place] [address] Referral ID Status Reason Start Date Expiration Date Visits V isits Requested Authorized [id number] Pending 10/09/2021 10/09/2022 1 1 Review Encounter Details Date Type Department Care Team Description 10/09/2021 Transcribe Orders [facility] condition ([facility] MEDICAL Dx) [place] [address] [place], [place] [address] [address] [place], [place] [phone] (Work) [phone] Social History Tobacco Use Types Packs/Day Years [...] Study Santiago e: 11/22/2021 9:24am Pat. NO: [id number] Referring ??MD: JENNY HAMILTON Site: [facility] Commercial Baking Teacher: Rica Tobar RD MS : 1995 Age: [...] 10 ? oz EFW by ? Hadlock ([id number]) EFW discordance ? 2.1 ? % Head / Face / Neck Biometry: Pc Installation Engineer ? 7.1 ? mm CM ?5.8 ? [...] 10 ? oz EFW by ? Hadlock ([id number]-RK-FL) EFW discordance ? 2.1 ? % Head / Face / Neck Biometry: Pc Installation Engineer ? 8.0 ? mm CM ?4.4 ? [...] cava. Inferior vena cava. 3-vessel ? view. 5-xseabd-etstsiw view. Cardiac position. Cardiac size. Cardiac rhythm. [...] cava. Inferior vena cava. 3-vessel ? view. 1-wukxhj-mefbnks view. Cardiac position. Cardiac size. Cardiac rhythm. [...] plans to have this follow up in [place]. Return to primary provider for continued care. If you have questions regarding today's evaluation or if we can be of further service, please contact the Maternal- Medicine Center. Procedure Note Ector Sherman MD - 11/22/2021Form atting of this note might be different from the original. Comprehensive Pat. Name:Nisha PURDY Date: 11/22/2021 9:24am Pat. NO: [id number] MD:KARENA ANSHUL OROZCO [facility]Rica Tobar RDMS :1995Age:26 INDICATION Dichorionic, Diamniotic [...] 0 lb 10 oz EFW by Hadlock (QHV-XX-XH-FL) EFW discordance 2.1 % Head / Face / Neck Biometry: Pc Installation Engineer 7.1 mm CM 5.8 mm Nasal bone [...] 0 lb 10 oz EFW by Hadlock (EBR-MC-QE-FL) EFW discordance 2.1 % Head / Face / Neck Biometry: Pc Installation Engineer 8.0 mm CM 4.4 mm Nasal bone [...] vena cava. Inferior vena cava. 3-vessel view. 4-bgietq-vrbtxhr view. Cardiac po sition. Cardiac size. Cardiac [...] vena cava. Inferior vena cava. 3-vessel view. 2-ivbqrk-oyidpgm view. Cardiac po sition. Cardiac size. Cardiac [...] plans to have this follow up in [place]. Return to primary provider for continued care. [...] appears long and closed. August Jailene [facility] US ORDERABLES documented in this encounter Visit Diagnoses Diagnosis related condition - Primary Unspecified complication of , u nspecified as to episode of care related condition Unspecified complication of , u nspecified as to episode of care documented in this encounter
--- OUTSIDE RECORDS SUMMARY | 2022-03-13 15:51 | XMS_ITS | Encounter Summary ---
:1995 Author Organization [facility] Address [address] [place] [address] Care Team Providers Name Role Phone Unassigned, Provider Primary Care Provider Unavailable Reason for Visit Reason Onset Date Comments FOLLOW-UP,LAB 02/25/2013 Encounter Details Date Type Department Care Team Description 02/25/2013 Telephone Internal Medicine Christa Matute MD FOLLOW-UP,LAB [address] [id number] (Wo rk) Social History Tobacco Use Types [...] ied documented in this encounter Care Teams Principal Technical Writer Relationship Specialty Start Date End Date Unassigned, Provider PCP - General Unknown Physician 02/25/13 01/03/[address] [place] [address] documented as of this encounter
--- OUTSIDE RECORDS SUMMARY | 2022-03-13 15:51 | XMS_ITS | Encounter Summary ---
:1995 Author Organization [facility] Address [address] [place] [address] Care Team Providers Name Role Phone Zoie Padilla APRN, CNP Primary Care Provider [phone] Encounter Details Date Type Department Care Team Description 08/29/2015 Orders Only [facility] [address], Hypothyroidism, Endocrinology Clinic MD unspecified type [address] (Primary Dx) [place] [address] [address] [address] [place] [address] (Wo rk) Social History Tobacco Use Types [...] Primary documented in this encounter Care Teams Jewelry Setter Relationship Specialty Start Date End Date Zoie Padilla APRN, CNP PCP - General Nurse Practitioner 01/04/15 01/23/[address] [place] [address] documented as of this encounter
--- OUTSIDE RECORDS SUMMARY | 2022-03-13 15:51 | XMS_ITS | Encounter Summary ---
:1995 Author Organization [facility] Address [address] [place] [address] Care Team Providers Name Role Phone Maliha Delacruz PA-C Primary Care Provider Reason for Visit Reason Comments Medication Questions Pharmacy Encounter Details Date Type Department Care Team Description 02/17/2022 Nurse Triage Careline Unknown, Medication Questions; [address] Physician [place], [place] [address] [phone] [facility], [place] [id number] Social History Tobacco Use Types Packs/Day Years [...] MEDICATION: What medicine are you calling about? [place] for insulin 2. QUESTION: What is your [...] menstrual period? na Protocols used: Medication Question [id number] Dr. Ariadne Gonzales Paged at 11:59 AM Consulted at 12:02 PM Instructions OK to use 31 gauge needles. Call back to [facility] pharmacist Giovanni with the above information. Pt/caller verbalized understanding of recommendations, denies further questions and is agreeable to plan. Bubba Wilde RN [facility] 12:15 PM 02/17/2022 Jazmyn Manjarrez - 02/17/2022 [...] or location where patient was seen): Norma Mcleod,WET INSPECTOR OPTICAL GLASS, CATCHER PLUG Nurse Practitioner Plan: Pharmacist directly transferred to [facility] Nurse. documented in this encounter Plan of Treatment Not on filedocumented as of this encounter Visit Diagnoses Not on filedocumented in this encounter Care Teams Soil Expert Relationship Specialty Start Date End Date Maliha Delacruz PA-C PCP - General Physician Veterinary Surgeon 01/24/18 [address] [place] [address] documented as of this encounter
--- OUTSIDE RECORDS SUMMARY | 2022-03-13 15:51 | XMS_ITS | Encounter Summary ---
:1995 Author Organization [facility] Address [address], [place] [address] Care Team Providers Name Role Phone Randy Zoie Rabia OSUNA, MACEY Primary Care Provider [phone] Reason for Visit Reason Comments LAB RESULTS Encounter Details Date Type Department Care Team Description 09/01/2015 Telephone [facility] Jp Lorenz MD LAB RESULTS Endocrinology Clinic [address] [place] [address], [address] [place] [address] [place] [address] [phone] (Wo rk) Social History Tobacco Use Types [...] like it filled at our clinic pharmacy? [Substation Electrician Supervisor/Appt Center: Was the pharmacy entered into the Preferred Pharmacy field? No] Is it okay to leave detailed message on your voicemail? yes [Substation Electrician Supervisor/Appt Center: If this call is after 3 p.m., communicate to patient: If we are not able to get back to you by the end of the day and your symptoms worsen please contact the Careline at [phone] OR at .] [Substation Electrician Supervisor: Inform patient that if they are active [...] on filedocumented in this encounter Care Teams Bleacher Lard Relationship Specialty Start Date End Date Zoie Padilla, HEALTH CARE SPECIALIST, SOUND PERSON PCP - General Nurse Practitioner 01/04/15 01/23/[address] [place] [address] documented as of this encounter
--- OUTSIDE RECORDS SUMMARY | 2022-03-13 15:51 | XMS_ITS | Encounter Summary ---
:1995 Author Organization [facility] Address [address], [place] [address] Care Team Providers Name Role Phone Maliha Delacruz PA-C Primary Care Provider Reason for Visit Reason Comments Nexplanon Insertion Encounter Details Date Type Department Care Team Description 01/24/2018 Office Visit [facility] Maliha Delacruz, [facility] [place] planning, Practice JONH subdermal contraceptive [address] [facility] [address] [facility] checking/reinsertion/re [place], [place] moval ( Primary Dx) [address] [phone] Social History Tobacco Use Types Packs/Day Years [...] dose documented in this encounter Care Teams Business Systems Technician Relationship Specialty Start Date End Date Maliha Delacruz PA-C PCP - General Physician Heavy Equipment Sales Associate 01/24/18 [address] [place] [address] documented as of this encounter
--- OUTSIDE RECORDS SUMMARY | 2022-03-13 15:51 | XMS_ITS | Encounter Summary ---
:1995 Author Organization [facility] Address [address] [place] [address] Care Team Providers Name Role Phone Unavailable [...]
--- OUTSIDE RECORDS SUMMARY | 2022-03-13 15:51 | XMS_ITS | Encounter Summary ---
:1995 Author Organization [facility] Address [address] [place] [address] Care Team Providers Name Role Phone Zoie Padilla APRN, CNP Primary Care Provider [phone] Reason for Visit Reason Comments Dental Conversion Legacy EDR to [place] convers ion Encounter Details Date Type Department Care Team Description 11/01/2016 Dental Conversion [facility] Trevor Burger [facility] DDS [address] [facility] [address] [place], [place] [address] [place], [place] [phone] [address] Social History Tobacco Use Types Packs/Day Years Used Date Smoking Tobacco: Former Smokeless Tobacco: Former Qu it: 05/27/2011 Alcohol Use Standard Drinks/Week Comments No 0 (1 standard drink = 0.6 oz pure alcoho l) Sex Assigned at Date Recorded Not on file documented as of this encounter Miscellaneous Notes Miscellaneous - Interface, In Edr Dental Conversion - 06/03/2014 12:00 AM EMERGENCY CREW SUPERVISOR 06/03/2014: Specialty Referral Letter Sent (HRFF): letter mailed ljr 06/03/14 GENCY CREW SUPERVISOR documented in this encounter Plan of Treatment Not on filedocumented as of this encounter Visit Diagnoses Not on filedocumented in this encounter Care Teams Switch Adjuster Relationship Specialty Start Date End Date Zoie Padilla APRN, CNP PCP - General Nurse Practitioner 01/04/15 01/23/[address] [place] [address] documented as of this encounter
--- OUTSIDE RECORDS SUMMARY | 2022-03-13 15:51 | XMS_ITS | Encounter Summary ---
:1995 Author Organization [place] Address [facility] [place] [address] Care Team Providers Name Role Phone Unavailable Primary Care Provider Unavailable Reason for Referral Diagnostic Imaging Ultrasound (Routine) - Pending Review Specialty Diagnoses / Procedures Referred By Contact Refer red To Contact Diagnoses related condition, antepartum Fitzloff, August Procedures MFM Twins US OB Complete [address] [address] [place] [address] Referral ID Status Reason Start Date Expiration Date Visits V isits Requested Authorized [id number] Pending 09/19/2021 09/19/2022 1 1 Review Reason for Visit Diagnostic Imaging Ultrasound (Routine) - Pending Review Specialty Diagnoses / Procedures Referred By Contact Refer red To Contact Diagnoses related condition, antepartum Fitzloff, August Procedures [facility] Twins OB Complete [address] [place] [address] [place] [address] Referral ID Status Reason Start Date Expiration Date Visits V isits Requested Authorized [id number] Pending 09/19/2021 09/19/2022 1 1 Review Encounter Details Date Type Department Care Team Description 10/17/2021 Hospital Encounter [facility] Rabia Flower [place] [address] [address] [place] [id number] related Maternal Kike Xavier MD [address] [place], [place] [address] condition, Medicine Center antepartum Reed [address] [facility] [address] [place] [address] Social History Tobacco Use Types [...] Study Santiago e: 10/17/2021 11:14am Pat. NO: [id number] Referring ??MD: JENNY HAMILTON Site: [facility] Lab Tech Instructor: Katelyn tidwell [facility] : 1995 Age: 26 INDICATION Twin gestation. [...] RECOMMENDATION We discussed the findings on today's [facility] rasound with the patient. The patient is scheduled to return to [facility] at 18-20 weeks for a [...] RAFAEL PURDYKIMBERLEYtjenn Date: 10/17/2021 11:14am Pat. NO: [id number] MD:KARENA OROZCO Site:[facility]:Katelyn Shelby RDMS :1995Age:26 INDICATION [...] The patient is scheduled to return to [facility] at 18-20 weeks for a [...] first trimester anatomy for both twins. [facility] documented in this encounter Visit Diagnoses Diagnosis related condition, antepartum documented in this encounter
--- OUTSIDE RECORDS SUMMARY | 2022-03-13 15:51 | XMS_ITS | Encounter Summary ---
:1995 Author Organization [facility] Address [address], [place] [address] Care Team Providers Name Role Phone Maliha Delacruz PA-C Primary Care Provider Reason for Visit Reason Comments DIABETES,GESTATIONAL Encounter Details Date Type Department Care Team Description 02/16/2022 Telemedicine [facility] [address] Norma Mcle[address] Gestat ional diabetes mellitus (GDM), antepartum, gestational diabetes method of control unspecified (Primary Dx); Endocrinology WASHING MACHINE LOADER AND PULLER, FUNDRAISING CONSULTANT Obesity, unspecified obesity severity, u nspecified obesity type 3800 [facility] [address] [facility] [place] [employer], [place] [address] (Wo rk) Social History Tobacco Use [...] 02/06 92 132 159 128 Norma Mcleod, WASHING MACHINE LOADER AND PULLER, FUNDRAISING CONSULTANT - 02/16/2022 3:00 PM CDT [facility] Adult Endocrinology [facility], [address] [facility], [address] [place] [address], [phone] February 16, 2022 Darlin Worthington a 27 y.o. female is here for newly diagnosed GDM. She is referred by: Dr. Lawrence at [facility] for possible insulin start. Pt met with IDC educator yesterday and learned insulin technique. Chief Complaint: GDM, started with self care at [facility], referred here when BGs were elevated. Twin . Obesity. History of Present Illness: Gestational Age: Unknown Estimated Date of Delivery: None noted. Pre- weight: BMI 37 G1. Had 1 hour GTT at 195, so started GDM education and care at [place] at 20 weeks. Past medical, surgical, and OB history reviewed in [facility].Pt struggles with Obesity. Past family history reviewed in [facility]. Sister had GDM X2. Mom DM2. 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 Records from [facility] in [place] are reviewed carefully. She is having careful [...] Obesity, unspecified obesity severity, unspecified obesity type ([facility]) Plan: 1. Reviewed pathophysiology, risks of [...] for the visit was 32 minutes including uwz-zzea-ui-face time spent reviewing records, counseling, and coordination of care. Medical History: No Known Allergies Past Medical History: Diagnosis Date Scoliosis mild Skin rash thought to be allergic but allergen not identified; saw a supervisor fleshing Thyroid condition ([facility]) documented in this encounter Plan of Treatment Not on filedocumented as of this encounter Visit Diagnoses Diagnosis Gestational diabetes mellitus (GDM), ant epartum, gestational diabetes method of control unspecified - Primary Obesity, unspecified obesity severity, u nspecified obesity type ([facility]) documented in this encounter Care Teams Furniture Shampooer Relationship Specialty Start Date End Date Maliha Delacruz PA-C PCP - General Physician Oil And Gas Lease Pumper 01/24/18 [address] [place] [address] documented as of this encounter
--- OUTSIDE RECORDS SUMMARY | 2022-03-13 15:51 | XMS_ITS | Encounter Summary ---
:1995 Author Organization [facility] Address [address] [place] [address]. [place] [address] Care Team Providers Name Role Phone Unavailable Primary Care Provider Unavailable Encounter Details Date Type Department Care Team Description 09/14/2021 Medical Correspondence [facility] Scan, MATERNAL Health Info Mgmt Non-Provider MEDICINE BIPIN VICTOR [facility] Srvcs PROVIDER SERVICE [address] [place] [address] [place] [address] [facility] [phone] [facility] Social History Tobacco Use Types Packs/Day Years Used Date Smoking Tobacco: Never Assessed Sex Assigned at Date Recorded Not on file documented as of this encounter Plan of Treatment Not on filedocumented as of this encounter Visit Diagnoses Not on filedocumented in this encounter
--- OUTSIDE RECORDS SUMMARY | 2022-03-13 15:51 | XMS_ITS | Encounter Summary ---
:1995 Author Organization [facility] Address [address] [place] [address] Care Team Providers Name Role Phone Unassigned, Provider Primary Care Provider Unavailable Encounter Details Date Type Department Care Team Description 02/25/2013 [facility] [address] [place] [address] Social History Tobacco Use Types Packs/Day Years [...] on filedocumented in this encounter Care Teams Outside Sales Executive Relationship Specialty Start Date End Date Unassigned, Provider PCP - General Unknown Physician 02/25/13 01/03/15 [address] [place] [address] documented as of this encounter
--- OUTSIDE RECORDS SUMMARY | 2022-03-13 15:51 | XMS_ITS | Encounter Summary ---
:1995 Author Organization [employer] Address [address] [place] [address] Care Team Providers Name Role Phone Zoie Padilla APRN, CROP INSURANCE CLAIMS ADJUSTER Primary Care Provider [phone] Reason for Visit Reason Comments LAB RESULTS Encounter Details Date Type Department Care Team Description 01/07/2015 Telephone [facility] Zoie Padilla APRN, LAB RESULTS [address] [place], [place] [address] [address] [facility] [phone] [place] [address] Social History Tobacco Use Types [...] the weekend. She would like to use [facility] pharmacy. Estella Singh CMA Estella Singh [...] Primary documented in this encounter Care Teams Fine Arts Instructor Relationship Specialty Start Date End Date Zoie Padilla APRN, CNP PCP - General Nurse Practitioner 01/04/15 01/23/18 [address] [address] documented as of this encounter
--- OUTSIDE RECORDS SUMMARY | 2022-03-13 15:51 | XMS_ITS | Encounter Summary ---
:1995 Author Organization [place] Address [address] [facility] [place] [address] Care Team Providers Name Role Phone Unavailable Primary Care Provider Unavailable Reason for Visit Reason Comments Ultrasound 1st tri complete-twins, conf irm chorionicity Encounter Details Date Type Department Care Team Description 10/17/2021 Office Visit [facility] Gilma Dent [facility] [address] [facility] [place], [place] [id number] Dichorionic diamniotic Maternal Kike Xavier MD [address] [place] [address] twin in Medicine Center [facility] (Primary Dx) [address] [facility] [address] [place] [address] Social History Tobacco Use Types [...] for details of today's US at the [facility]. 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
--- OUTSIDE RECORDS SUMMARY | 2022-03-13 15:52 | XMS_ITS | Encounter Summary ---
:1995 Author Organization [facility] Address [address], [place] [address] Care Team Providers Name Role Phone Unavailable Primary Care Provider Unavailable Reason for Visit Reason Comments ITCHING, SKIN Encounter Details Date Type Department Care Team Description 10/14/2012 Office Visit [facility] Gena Myers Prur itic rash (Primary Practice MD Leonel Dx) [address] [facility] [address] [place] [address] [phone] Social History Tobacco Use Types Packs/Day Years [...]
--- OUTSIDE RECORDS SUMMARY | 2022-03-13 15:52 | XMS_ITS | Encounter Summary ---
:1995 Author Organization [facility] Address [address] [place] [address] Care Team Providers Name Role Phone Maliha Delacruz PA-C Primary Care Provider Encounter Details Date Type Department Care Team Description 10/18/2012 Outside Hospital External to External, [facility] [facility] [place] [address] Social History Tobacco Use Types Packs/Day Years Used Date Smoking Tobacco: Never Assessed Sex Assigned at Date Recorded Not on file documented as of this encounter Progress Notes External, Provider - 10/18/2012 12:00 AM CDT documented in this encounter Plan of Treatment Not on filedocumented as of this encounter Visit Diagnoses Not on filedocumented in this encounter Care Teams Office Services Coordinator Relationship Specialty Start Date End Date Maliha Delacruz PA-C PCP - General Physician Brazing Machine Feeder 01/24/18 [address] [place] [address] documented as of this encounter
--- OUTSIDE RECORDS SUMMARY | 2022-03-13 15:52 | XMS_ITS | Encounter Summary ---
:1995 Author Organization [facility] Address [address] [place] [address] Care Team Providers Name Role Phone Maliha Delacruz PA-C Primary Care Provider Encounter Details Date Type Department Care Team Description 10/19/2011 Outside Hospital External to External, [facility] [place] [address] Social History Tobacco Use Types Packs/Day Years Used Date Smoking Tobacco: Never Assessed Sex Assigned at Date Recorded Not on file documented as of this encounter Progress Notes External, Provider - 10/19/2011 12:00 AM CDT documented in this encounter Plan of Treatment Not on filedocumented as of this encounter Visit Diagnoses Not on filedocumented in this encounter Care Teams Delicatessen Store Manager Relationship Specialty Start Date End Date Maliha Delacruz PA-C PCP - General Physician Welder First Class 01/24/18 [address] [place] [address] documented as of this encounter
--- OUTSIDE RECORDS SUMMARY | 2022-03-13 15:52 | XMS_ITS | Encounter Summary ---
:1995 Author Organization [facility] Address [address], [place] [address] Care Team Providers Name Role Phone Unassigned, Provider Primary Care Provider Unavailable Reason for Visit Reason Comments URINARY PROBLEM urgency, hematuria and burni ng with urination since yesterday(took Azo last night) Establish Care Encounter Details Date Type Department Care Team Description 02/25/2013 Office Visit Internal Medicine Christa Matute, Preventative health care (Pr imary Dx); [address] Dysuria; [place] [address] [address] CREST UTI (lower urinary tract inf ection) [phone] [place] [address] Social History Tobacco Use Types Packs/Day Years [...] recommendations. Calcium may also be found in alfk-vcl-ymfeijq medications (e.g., antacids) and in calcium-fortified foods. [...] supplements) Nutrition content information is from The Senior [employer] and reprinted with permission of [facility], [place], [place]. documented in this encounter Progress Notes [...] Matute MD - 02/25/2013 1:54 PM CDT [facility] [address] [place] [address] Main: RE: Darlin Puryd : 1995 Date of Service: 02/25/2013 History [...] allergic but allergen not identified; saw a news camera person Past Surgical History Procedure Laterality Date ??? 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 Lives with roommates. Current Outpatient Prescriptions Medication [...] Patho logist Time Signature HCG, Urine Negative [place] Negative = <20 mIU/ml [facility] Specimen Anatomical Collection Method Collection Time Receive d Time (Source) Location / / Volume Laterality Urine specimen 02/25/2013 12:26 3 1:13 (specimen) PM CDT PM CDT Narrative FORMER[facility] NAMED [facility] - 02/25/2013 1:14 PM CDT Performed at [facility], [address], [place] [address], Director Dr Joselyn Barkley Christa Matute MD LAB_1 Performing Organization Address City/State/ZIP Code Phon e Number [facility] [address] [place] [address] FORMERLY NAMED [facility] PAP TEST, ROUTINE (02/25/2013 11:46 AM CDT) Patholo gist Method Time Signature Cytology (NOTE) [place] Network Operations Specialist Cytology Report [facility] Patient Name: DARLIN PURDY [facility] Taken: 02/25/2013 Received: 02/27/2013 Reported: 03/06/2013 Physician(s): [...] ?? Microscopic Description Microscopic examination is performed. [facility] Department of Pathology [address] [place] [address] ??[id number] Specimen Anatomical Collection Method Collection Time Receive d Time (Source) Location / / Volume Laterality 02/25/2013 11:46 02/27/2013 9:05 AM CDT AM CDT Christa Matute MD LAB_1 Performing Organization Address City/State/ZIP Code Phon e Number [facility] [address] [place] [address] [facility] [place] [phone] WET PREP, VAGINAL (02/25/2013 11:30 AM CDT) Patholo gist Method Time Signature Clue Cells No Clue Cells NCLUE [facility] Trichomonas No Trichomonas NTRIC [facility] Yeast No Yeast Found YN FOR[facility] NAMED [facility] Specimen Anatomical Collection Method Collection Time Receive d Time (Source) Location / / Volume Laterality 02/25/2013 11:30 02/25/2013 AM CDT 12:16 PM CDT [facility] - 02/25/2013 12:24 PM CDT Performed at [facility], [address] [place] [address], Director Dr Joselyn Barkley Christa Matute MD LAB_1 Performing Organization Address City/[facility]/ZIP Code Phon e Number [facility] AND [address] [address] [phone] [place] [phone] CHLAMYDIA & GC (02/25/2013 11:30 AM CDT) P athologist Signature Source Cervix FORMER[facility] NAMED [facility] Chlamydia Negative NEG FORMER[facility] NAMED [facility] Comment: Test Performed by Nurse Emergency Mediated Amplification GC (N. gonorrhoeae) Negative NEG [facility] Comment: Test Performed by Nurse Emergency Mediated Amplification Specimen Anatomical Collection Method Collection Time Receive d Time (Source) Location / / Volume Laterality 02/25/2013 11:30 02/25/2013 AM CDT 12:15 PM CDT [facility] - 02/26/2013 5:05 PM CDT Performed at [facility], [address] [place] [address] ??[id number] Christa Matute MD LAB_1 Performing Organization Address City/State/ZIP Code Phon e Number [facility] [address] [place] [address] [phone] FOR[facility] NAMED [facility] URINE CULTURE (02/25/2013 11:00 AM CDT) Component Value Ref Test Analysis Performed At [facility] gist Range Method Time Signature Specimen Urine Clean Catch [place] Description [facility] Special Inoculated Media [place] Requests Received [facility] Culture > 100,000 col/ml [place] Escherichia coli [facility] Culture > 100,000 col/ml Staphylococcus species, Coagulase Negative Sensitivity [place] NOT performed [facility] Report Status Final 02/27/2013 [facility] NAMED [facility] Organism > 100,000 col/ml [place] Escherichia coli [facility] Specimen Anatomical Collection Method Collection Time Receive d Time (Source) Location / / Volume Laterality 02/25/2013 11:00 02/25/2013 AM CDT 11:58 AM CDT Narrative [facility] NAMED [facility] - 02/27/2013 7:34 AM CDT Performed at [facility] , [address] [place] [address] Organism Antibiotic Method Susceptibility > 100,000 col/ml [...] Christa Matute MD LAB_1 Performing Organization Address [facility]/ZIP Code Phon e Number [facility] [address] [place] [address] FOR[facility] NAMED [facility] [phone] UA MICRO (02/25/2013 11:00 AM CDT) P athologist Signature RBC'S 0-3 0 - 3 /hpf FOR[facility] NAMED [facility] WBC'S 6-10 0 - 5 /hpf FOR[facility] NAMED [facility] Epith, Squamous 5-10 /hpf FOR[facility] NAMED [facility] Bact Many FOR[facility] NAMED [facility] Casts 0 /lpf FOR[facility] NAMED [facility] Specimen Anatomical Collection Method Collection Time Receive d Time (Source) Location / / Volume Laterality 02/25/2013 11:00 02/25/2013 AM CDT 11:23 AM CDT Narrative [facility] NAMED [facility] - 02/25/2013 12:00 PM CDT Performed at [facility], [address] [place] [address], Director Dr Joselyn Barkley Christa Matute MD LAB_1 Performing Organization Address City/[facility] Phon e Number [address] [address] [phone] [place] [phone] (ABNORMAL) UA CONDITIONAL UC (02/25/2013 11:00 AM CDT) Patholo gist Method Time Signature Urine Color Yellow [facility] NAMED [facility] Urine Clarity Sl Cloudy FORMER[facility] NAMED [facility] Sp Gr 1.025 1.005 - [place] 1.030 [facility] Leuk Negative NEG FOR[facility] NAMED [facility] Nitr Pos (A) NEG FOR[facility] NAMED [facility] pH 7.0 4.5 - 8.0 FOR[facility] NAMED [facility] Prot Negative NEG mg/dl FOR[facility] NAMED [facility] Gluc Negative NEG FOR[facility] NAMED [facility] Ket Negative NEG FOR[facility] NAMED [facility] Urob 0.2 0.2 - 1.0 [place] EU/dl [facility] Bili Negative NEG [facility] NAMED [facility] Blood Tr (A) NEG [facility] NAMED [facility] Urine Cult If Urine [place] Cultured [facility] Urine Source Urine Clean [place] Catch [facility] Specimen Anatomical Collection Method Collection Time Receive d Time (Source) Location / / Volume Laterality 02/25/2013 11:00 02/25/2013 AM CDT 11:23 AM CDT Narrative [facility] NAMED [facility] - 02/25/2013 11:59 AM CDT Performed at [facility], [address] [place] [address], [place] [address], Director Dr Joselyn Barkley Christa Matute MD LAB_1 Performing Organization Address City/State/ZIP Code Phon e Number [facility] [address] [place] [address] FORMERLY NAMED [facility] [phone] documented in this encounter Visit Diagnoses Diagnosis Preventative health care - Primary Routine general medical examination at a health care facility Dysuria UTI (lower urinary tract infection) Urinary tract infection, site not specif ied documented in this encounter Care Teams Director Cpg Relationship Specialty Start Date End Date Unassigned, Provider PCP - General Unknown Physician 02/25/13 01/03/[address] [place] [address] documented as of this encounter
--- NOTE | 2022-03-13 19:19 | PC.OBNST ---
NST Note NST Note Start: 03/13/22 16:02 Freq: ONCE Status: Active Protocol: Document 03/13/22 19:16 MMB (Rec: 03/13/22 19:18 MMB [id number]) NST Note 1 Para (# of births) 0 EDC 04/22/22 Gestational Age In Weeks & Days 34 Weeks & 2 Days High Risk Factors Diabetes - Gestational Insulin ,Twins Patient Presented with Complaint(s) of Decreased movement Reactive Yes Appropriate for Gestational Age Yes WILD Costa RN Date 03/13/22 Reactive Yes Appropriate for Gestational Age Yes WILD Hunt RN Date 03/13/22 OB NST charge Yes Complete NST Note via Write Note Yes The provider's electronic signature indicates the NST is reactive/appropriate for gestational age. *Note to provider: If an addendum is required, open the patient's chart and click on the note under the Nurse/Allied Health tab.
== END 2022-03-13 16:55 | disposition home or self-care (01) ==
LOC: OB OUT 15:49 → OB 15:51
PROVIDERS: Visit Provider Obstetrics & Gynecology
DX: O30.049 Twin pregnancy, dichorionic/diamniotic, unspecified trimester (principal)
CPT/HCPCS: 59025; 99213

== ENCOUNTER 2022-03-16 08:20 | Outpatient (CLI) | payer BC, SELFPAY ==
--- NOTE | 2022-03-16 08:15 | CRLHL7_ITS ---
For Patients: As a result of the Century Cures Act, medical imaging exams and procedure reports are released immediately into your electronic medical record. You may view this report before your referring provider. If you have questions, please contact your health care provider. INDICATION: di-di twin gestation COMPARISON: none TECHNIQUE: Real time zepeda scale imaging of the twin gestation was performed. Without non-stress testing. FINDINGS: Sonographic imaging demonstrates a twin living intrauterine gestation. TWIN A: Fetus demonstrates a regular cardiac rate of 157 beats per minute. Fetus has a maternal left vertex. The amniotic fluid volume appears normal and there is a single deepest pocket measurement of 3.2 cm. The fetus was active and demonstrated normal breathing movements. There was normal flexion and extension of the trunk and extremities. TWIN B: Fetus demonstrates a regular cardiac rate of 150 beats per minute. Fetus has a maternal right vertex. The amniotic fluid volume appears normal and there is a single deepest pocket measurement of 5.9 cm. The fetus was active and demonstrated normal breathing movements. There was normal flexion and extension of the trunk and extremities. IMPRESSION: TWIN A: Normal biophysical profile score of 8 out of 8. TWIN B: Normal biophysical profile score of 8 out of 8. Dictated by Jason Segura MD @ 03/16/2022 10:34:16 AM (Electronically Signed)
== END 2022-03-16 08:21 | disposition home or self-care (01) ==
LOC: US 08:20
PROVIDERS: Visit Provider Obstetrics & Gynecology
DX: O30.049 Twin pregnancy, dichorionic/diamniotic, unspecified trimester (principal); O24.419 Gestational diabetes mellitus in pregnancy, unspecified control
CPT/HCPCS: 76819

== ENCOUNTER 2022-03-25 02:28 | Inpatient (IN) | payer BC, SELFPAY ==
[2022-03-25] VITALS (36 sets, daily range): BP systolic 95–138; BP diastolic 58–97; PULSE 60–98; RESP 16–18; TEMP 36.6–36.9; O2SAT 97–99; BMI 45.6
--- OUTSIDE RECORDS SUMMARY | 2022-03-25 01:13 | XMS_ITS | Clinical Summary ---
:1995 Author Organization [place] Address [address] [place] [address] Care Team Providers Name Role Phone Unavailable [...] Addre ss Type Group [employer] [id number] 2020-Present [phone] [id number] [place] [address]
--- OUTSIDE RECORDS SUMMARY | 2022-03-25 01:13 | XMS_ITS | Encounter Summary ---
:1995 Author Organization [place] Address [address] [facility] [place] [address] Care Team Providers Name Role Phone Unavailable Primary Care Provider Unavailable Reason for Visit Reason Comments Ultrasound 1st tri complete-twins, conf irm chorionicity Encounter Details Date Type Department Care Team Description 10/17/2021 Office Visit [facility] Gilma Dent [facility] [address] [facility] [place], [place] [phone] Dichorionic diamniotic Maternal Kike Xavier MD [address] [place], [place] [address] twin in Medicine Center [facility] (Primary Dx) [address] [facility] [address] [place] [address] Social History Tobacco Use Types [...] for details of today's US at the [facility]. 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
--- OUTSIDE RECORDS SUMMARY | 2022-03-25 01:13 | XMS_ITS | Encounter Summary ---
:1995 Author Organization [place] Address [address] [facility] [place] [address] Care Team Providers Name Role Phone Kike Xavier MD Unavailable Reason for Visit Reason Comments Ultrasound L2-Di/Di Twins Encounter Details Date Type Department Care Team Description 11/22/2021 Office Visit [facility] Gilma Dent [facility] [address] [place] [address] Dichorionic diamniotic Maternal Ector Sherman MD [address] [place] [address] twin in Medicine Center [facility] (Primary Dx) [address] [facility] [address] [place] [address] Social History Tobacco Use Types [...] antepartum documented in this encounter Care Teams Animal Care Worker Relationship Specialty Start Date End Date Kike Xavier MD Assigned OBGYN Provider 10/28/21 12/22/[address] [address] documented as of this encounter
--- OUTSIDE RECORDS SUMMARY | 2022-03-25 01:13 | XMS_ITS | Clinical Summary ---
:1995 Author Organization [employer] [place] [address] Care Team Providers Name Role Phone Pcp, [...] Comments Blood Pressure 122/60 04/07/2021 11:45 AM BUSINESS CENTER REPRESENTATIVE Pulse 56 04/07/2021 11:45 AM BUSINESS CENTER REPRESENTATIVE Temperature 36 ??C (96.8 ??F) 04/07/2021 10:56 AM BUSINESS CENTER REPRESENTATIVE Respiratory Rate 16 04/07/2021 11:45 AM BUSINESS CENTER REPRESENTATIVE Oxygen Saturation 100% 04/07/2021 11:45 AM BUSINESS CENTER REPRESENTATIVE Inhaled Oxygen Concentration - - Weight 92.3 kg (203 lb 6.4 oz) 04/07/2021 9:30 AM BUSINESS CENTER REPRESENTATIVE Height 154.9 cm (5' 1) 04/07/2021 9:30 AM BUSINESS CENTER REPRESENTATIVE Body Mass Index 38.43 04/07/2021 9:30 AM BUSINESS CENTER REPRESENTATIVE Plan of Treatment Health Maintenance Due Date [...] Type Group BLUE CROSS BLUE CROSS OF [id number] 2020-Present [address] [place] [address] e (Home) [place], [place] [phone] (Work) Advance Directives Latest Code Status on File Code Status Date Activated Date Inactivated Comments Full Code 04/07/2021 9:07 AM 04/07/2021 3:50 PM Code Status Discussion: Not Discussed Care Teams Pool Finisher Relationship Specialty Start Date End Date Listed, Not PCP - General 03/27/[address] [place] [address] Pcp, No 04/02/20 .
--- OUTSIDE RECORDS SUMMARY | 2022-03-25 01:13 | XMS_ITS | Encounter Summary ---
:1995 Author Organization [place] Address [address] [place] [address] Care Team Providers Name Role Phone Kike [...] on filedocumented in this encounter Care Teams Hospitality Specialist Relationship Specialty Start Date End Date Kike Xavier MD Assigned OBGYN Provider 10/28/21 12/22/[address] [address] documented as of this encounter
--- OUTSIDE RECORDS SUMMARY | 2022-03-25 01:13 | XMS_ITS | Encounter Summary ---
:1995 Author Organization [place] Address [address] [place] [address] Care Team Providers Name Role Phone Unavailable [...]
--- OUTSIDE RECORDS SUMMARY | 2022-03-25 01:13 | XMS_ITS | Encounter Summary ---
:1995 Author Organization [place] Address [facility] [place] [address] Care Team Providers Name Role Phone Kike Xavier MD Unavailable Reason for Referral Diagnostic Imaging Ultrasound (Routine) - Pending Review Specialty Diagnoses / Procedures Referred By Contact Refer red To Contact Diagnoses related condition [facility] Procedures [place] [address] [place] [address] Referral ID Status Reason Start Date Expiration Date Visits V isits Requested Authorized [id number] Pending 10/09/2021 10/09/2022 1 1 Review Reason for Visit Diagnostic Imaging Ultrasound (Routine) - Pending Review Specialty Diagnoses / Procedures Referred By Contact Refer red To Contact Diagnoses related condition [facility] Procedures [place] [address] [place] [address] Referral ID Status Reason Start Date Expiration Date Visits V isits Requested Authorized [id number] Pending 10/09/2021 10/09/2022 1 1 Review Encounter Details Date Type Department Care Team Description 11/22/2021 Hospital Encounter [facility] Rabia [place] [address] [place] [phone] related Maternal Ector Sherman MD [address] [address] condition Medicine Center [place] [facility] [address] [place] [address] Social History Tobacco Use Types [...] Study Santiago e: 11/22/2021 9:24am Pat. NO: [id number] Referring ??MD: JENNY HAMILTON Site: [facility] Per Diem Physical Therapist: Rica Tobar RD MS : 1995 Age: [...] 10 ? oz EFW by ? Hadlock ([id number]) EFW discordance ? 2.1 ? % Head / Face / Neck Biometry: Internship ? 7.1 ? mm CM ?5.8 ? [...] 10 ? oz EFW by ? Hadlock (HEE-IN-FT-FL) EFW discordance ? 2.1 ? % Head / Face / Neck Biometry: Internship ? 8.0 ? mm CM ?4.4 ? [...] cava. Inferior vena cava. 3-vessel ? view. 8-uxtoqn-uzadafx view. Cardiac position. Cardiac size. Cardiac rhythm. [...] cava. Inferior vena cava. 3-vessel ? view. 8-vxzpzb-qibidzv view. Cardiac position. Cardiac size. Cardiac rhythm. [...] plans to have this follow up in [place]. Return to primary provider for continued care. If you have questions regarding today's evaluation or if we can be of further service, please contact the Maternal- Medicine Center. Procedure Note Ector Sherman MD - 11/22/2021Form atting of this note might be different from the original. Comprehensive Pat. Name:RAJWINDERBRENDAMary Lou Date: 11/22/2021 9:24am Pat. NO: [id number] MD:KARENA OROZCO [facility]Rica Tobar RDMS :1995Age:26 INDICATION Dichorionic, Diamniotic [...] 0 lb 10 oz EFW by Hadlock (UMR-RB-KB-FL) EFW discordance 2.1 % Head / Face / Neck Biometry: Internship 7.1 mm CM 5.8 mm Nasal bone [...] 0 lb 10 oz EFW by Hadlock (JJA-[id number]-FL) EFW discordance 2.1 % Head / Face / Neck Biometry: Internship 8.0 mm CM 4.4 mm Nasal bone [...] vena cava. Inferior vena cava. 3-vessel view. 3-kihnwk-pvfdqkn view. Cardiac po sition. Cardiac size. Cardiac [...] vena cava. Inferior vena cava. 3-vessel view. 1-ahcjas-crvhogg view. Cardiac po sition. Cardiac size. Cardiac [...] plans to have this follow up in [place]. Return to primary provider for continued care. [...] cervix appears long and closed. August Jailene [facility] US ORDERABLES documented in this encounter Visit Diagnoses Diagnosis related condition Unspecified complication of , u nspecified as to episode of care documented in this encounter Care Teams Clothing Sales Assistant Relationship Specialty Start Date End Date iKke Xavier MD Assigned OBGYN Provider 10/28/21 12/22/[address] [place] [address] documented as of this encounter
--- OUTSIDE RECORDS SUMMARY | 2022-03-25 01:14 | XMS_ITS | Encounter Summary ---
:1995 Author Organization [place] Address [address] [place] [address]. [place] [address] Care Team Providers Name Role Phone Unavailable Primary Care Provider Unavailable Encounter Details Date Type Department Care Team Description 09/14/2021 Medical Correspondence [facility] Scan, MATERNAL Health Info Mgmt Non-Provider MEDICINE BIPIN [facility] Srvcs PROVIDER SERVICE [address] [place] [address] [place] [address] [facility] [phone] [facility] Social History Tobacco Use Types Packs/Day Years Used Date Smoking Tobacco: Never Assessed Sex Assigned at Date Recorded Not on file documented as of this encounter Plan of Treatment Not on filedocumented as of this encounter Visit Diagnoses Not on filedocumented in this encounter
--- OUTSIDE RECORDS SUMMARY | 2022-03-25 01:14 | XMS_ITS | Encounter Summary ---
:1995 Author Organization [employer] Address [address], [place] [address] Care Team Providers Name Role Phone Maliha Delacruz PA-C Primary Care Provider Reason for Visit Reason Comments DIABETES,GESTATIONAL Encounter Details Date Type Department Care Team Description 02/16/2022 Telemedicine [facility] 38[address] Norma Mcleod Gestat ional diabetes mellitus (GDM), antepartum, gestational diabetes method of control unspecified (Primary Dx); Endocrinology MANAGER CIVIL, PRESS OPERATOR AUTOMATIC Obesity, unspecified obesity severity, u nspecified obesity type 3800 [facility] [address] [facility]. [place], [place] [address] (Wo rk) Social History Tobacco Use [...] 02/06 92 132 159 128 Norma Mcleod, MANAGER CIVIL, PRESS OPERATOR AUTOMATIC - 02/16/2022 3:00 PM CDT [facility] Adult Endocrinology [facility], [address] [facility], [address] [place] [address], Ph.[phone] February 16, 2022 Darlin Worthington a 27 y.o. female is here for newly diagnosed GDM. She is referred by: Dr. Lawrence at [facility] for possible insulin start. Pt met with IDC educator yesterday and learned insulin technique. Chief Complaint: GDM, started with self care at [facility], referred here when BGs were elevated. Twin . Obesity. History of Present Illness: Gestational Age: Unknown Estimated Date of Delivery: None noted. Pre- weight: BMI 37 G1. Had 1 hour GTT at 195, so started GDM education and care at [facility] at 20 weeks. Past medical, surgical, and OB history reviewed in [facility].Pt struggles with Obesity. Past family history reviewed in [facility]. Sister had GDM X2. Mom DM2. 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 Records from [facility] in [place] are reviewed carefully. She is having careful [...] Obesity, unspecified obesity severity, unspecified obesity type ([facility]) Plan: 1. Reviewed pathophysiology, risks of uncontrolled, [...] for the visit was 32 minutes including jbo-cclz-gj-face time spent reviewing records, counseling, and coordination of care. Medical History: No Known Allergies Past Medical History: Diagnosis Date Scoliosis mild Skin rash thought to be allergic but allergen not identified; saw a water jet loom fixer Thyroid condition ([facility]) documented in this encounter Plan of Treatment Not on filedocumented as of this encounter Visit Diagnoses Diagnosis Gestational diabetes mellitus (GDM), ant epartum, gestational diabetes method of control unspecified - Primary Obesity, unspecified obesity severity, u nspecified obesity type ([facility]) documented in this encounter Care Teams Sawmill Hand Relationship Specialty Start Date End Date Maliha Delacruz PA-C PCP - General Physician Collection Specialist 01/24/18 [address] [place] [address] documented as of this encounter
--- OUTSIDE RECORDS SUMMARY | 2022-03-25 01:14 | XMS_ITS | Encounter Summary ---
:1995 Author Organization [employer] Address [address] [place] [address] Care Team Providers Name Role Phone Maliha Delacruz PA-C Primary Care Provider Reason for Visit Reason Comments Medication Questions Pharmacy Encounter Details Date Type Department Care Team Description 02/17/2022 Nurse Triage Careline Unknown, Medication Questions; [address] Physician Pharmacy [place], [place] [address] [phone] [place], [place] [phone] Social History Tobacco Use Types Packs/Day Years [...] MEDICATION: What medicine are you calling about? [place] for insulin 2. QUESTION: What is your [...] menstrual period? na Protocols used: Medication Question [id number] Dr. Ariadne Gonzales Paged at 11:59 AM Consulted at 12:02 PM Instructions OK to use 31 gauge needles. Call back to [facility] pharmacist Giovanni with the above information. Pt/caller verbalized understanding of recommendations, denies further questions and is agreeable to plan. Bubba Wilde RN [facility] 12:15 PM 02/17/2022 Jazmyn Manjarrez - [...] or location where patient was seen): Norma Mcleod,TENNIS INSTRUCTOR, MELTER SUPERVISOR OPEN HEARTH FURNACE Nurse Practitioner Plan: Pharmacist directly transferred to [facility] Nurse. documented in this encounter Plan of Treatment Not on filedocumented as of this encounter Visit Diagnoses Not on filedocumented in this encounter Care Teams Edger Saw Operator Relationship Specialty Start Date End Date Maliha Delacruz PA-C PCP - General Physician Shoe Cobbler 01/24/18 [address] [place] [address] documented as of this encounter
--- OUTSIDE RECORDS SUMMARY | 2022-03-25 01:14 | XMS_ITS | Encounter Summary ---
:1995 Author Organization [facility] Address [address] [place] [address] Care Team Providers Name Role Phone Zoie Padilla APRN, CNP Primary Care Provider [phone] Encounter Details Date Type Department Care Team Description 08/29/2015 Orders Only [facility] [address], Hypothyroidism, Endocrinology Clinic MD unspecified type [address] (Primary Dx) [place] [address] [place] [address] [place] [address] (Wo rk) Social History Tobacco Use Types [...] Primary documented in this encounter Care Teams Completions Manager Relationship Specialty Start Date End Date Zoie Padilla APRN, CNP PCP - General Nurse Practitioner 01/04/15 01/23/[address] [place] [address] documented as of this encounter
--- OUTSIDE RECORDS SUMMARY | 2022-03-25 01:14 | XMS_ITS | Encounter Summary ---
:1995 [facility] Address [address] [place] [address] Care Team Providers Name Role Phone Zoie Padilla APRN, CNP Primary Care Provider [phone] Reason for Visit Reason Comments Dental Conversion Legacy EDR to [place] convers ion Encounter Details Date Type Department Care Team Description 11/01/2016 Dental Conversion [place] [facility] [address] [facility] [address] [place], [place] [address] [place], [place] [phone] [address] Social History Tobacco Use Types Packs/Day Years Used Date Smoking Tobacco: Former Smokeless Tobacco: Former Qu it: 05/27/2011 Alcohol Use Standard Drinks/Week Comments No 0 (1 standard drink = 0.6 oz pure alcoho l) Sex Assigned at Date Recorded Not on file documented as of this encounter Miscellaneous Notes Miscellaneous - Interface, In Edr Dental Conversion - 06/03/2014 12:00 AM COMPUTER NUMERICAL CONTROL PROGRAMMER 06/03/2014: Specialty Referral Letter Sent (HRFF): letter mailed ljr 06/03/14 UTER NUMERICAL CONTROL PROGRAMMER documented in this encounter Plan of Treatment Not on filedocumented as of this encounter Visit Diagnoses Not on filedocumented in this encounter Care Teams Council On Aging Director Relationship Specialty Start Date End Date Zoie Padilla APRN, CNP PCP - General Nurse Practitioner 01/04/15 01/23/[address] [place] [address] documented as of this encounter
--- OUTSIDE RECORDS SUMMARY | 2022-03-25 01:14 | XMS_ITS | Encounter Summary ---
:1995 Author Organization [facility] Address [address], [place] [address] Care Team Providers Name Role Phone Unassigned, Provider Primary Care Provider Unavailable Encounter Details Date Type Department Care Team Description 02/25/2013 Orders Only Internal Medicine [facility], [address] Provider [place] [id number] [phone] Social History Tobacco Use Types Packs/Day Years Used Date Smoking Tobacco: Former Smokeless Tobacco: Former Qu it: 05/27/2011 Alcohol Use Standard Drinks/Week Comments No 0 (1 standard drink = 0.6 oz pure alcoho l) Sex Assigned at Date Recorded Not on file documented as of this encounter Procedure Notes [facility], Provider - 02/25/2013 12:00 AM CDTAssociated Order(s): [...] attachment that is no t available. Transcriptions [facility], Provider - 02/25/2013 1 2:00 AM CDT Provider [facility] DUMMY/OTHER/AR documented in this encounter Visit Diagnoses Not on filedocumented in this encounter Care Teams Radiographer Relationship Specialty Start Date End Date Unassigned, Provider PCP - General Unknown Physician 02/25/13 01/03/[address] [place] [address] documented as of this encounter
--- OUTSIDE RECORDS SUMMARY | 2022-03-25 01:14 | XMS_ITS | Encounter Summary ---
:1995 [facility] Address [address], [place] [address] Care Team Providers Name Role Phone Maliha Delacruz PA-C Primary Care Provider Reason for Visit Reason Comments APPOINTMENT REQUEST Referral GDM Encounter Details Date Type Department Care Team Description 02/12/[address] [facility] 3800 Nurse, [id number] End APPOINTMENT REQUEST Endocrinology [address] (Referral GDM) [address] [place] [phone] Social History Tobacco Use Types Packs/Day Years [...] on filedocumented in this encounter Care Teams Customer Account Executive Relationship Specialty Start Date End Date Maliha Delacruz PA-C PCP - General Physician Harvest Supervisor 01/24/18 [address] [place], [place] [id number] documented as of this encounter
--- OUTSIDE RECORDS SUMMARY | 2022-03-25 01:14 | XMS_ITS | Encounter Summary ---
:1995 Author Organization [facility] Address [address], [place] [address] Care Team Providers Name Role Phone Unassigned, Provider Primary Care Provider Unavailable Reason for Visit Reason Comments URINARY PROBLEM urgency, hematuria and burni ng with urination since yesterday(took Azo last night) Establish Care Encounter Details Date Type Department Care Team Description 02/25/2013 Office Visit Internal Medicine Christa Matute, Preventative health care (Pr imary Dx); [address] Dysuria; [place] [address] [address] UTI (lower urinary tract inf ection) [phone] [place] [address] Social History Tobacco Use Types Packs/Day Years [...] recommendations. Calcium may also be found in afao-rmf-ykzatyb medications (e.g., antacids) and in calcium-fortified foods. [...] supplements) Nutrition content information is from [employer] and reprinted with permission of [employer] [facility], [place], [place]. documented in this encounter Progress Notes [...] Matute MD - 02/25/2013 1:54 PM CDT [facility] [address] [place] [address] Main: RE: Dralin Purdy : 1995 Date of Service: 02/25/2013 [...] allergic but allergen not identified; saw a recovery advocate Past Surgical History Procedure Laterality Date ??? 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 Lives with roommates. Current Outpatient Prescriptions [...] Patho logist Time Signature HCG, Urine Negative [place] Negative = <20 mIU/ml [facility] Specimen Anatomical Collection Method Collection Time Receive d Time (Source) Location / / Volume Laterality Urine specimen 02/25/2013 12:26 3 1:13 (specimen) PM CDT PM CDT Narrative [facility] - 02/25/2013 1:14 PM CDT Performed at [facility], [address], [place] [address], Director Dr Joselyn Barkley Christa Matute MD LAB_1 Performing Organization Address City/State/ZIP Code Phon e Number [facility] [address] [place] [address] [facility] [phone] PAP TEST, ROUTINE (02/25/2013 11:46 AM CDT) Patholo gist Method Time Signature Cytology (NOTE) [place] Hide Sorter Cytology Report [facility] Patient Name: DARLIN PURDY [facility] Taken: 02/25/2013 Received: 02/27/2013 Reported: 03/06/2013 [...] ?? Microscopic Description Microscopic examination is performed. [facility] Department of Pathology [address] [place] [address] ??[phone] Specimen Anatomical Collection Method Collection Time Receive d Time (Source) Location / / Volume Laterality 02/25/2013 11:46 02/27/2013 9:05 AM CDT AM CDT Christa Matute MD LAB_1 Performing Organization Address City/State/ZIP Code Phon e Number [facility] [address] [place] [address] [facility] [place] [phone] WET PREP, VAGINAL (02/25/2013 11:30 AM CDT) Patholo gist Method Time Signature Clue Cells No Clue Cells NCLUE [facility] Trichomonas No Trichomonas NTRIC [facility] Yeast No Yeast Found YN [facility] Specimen Anatomical Collection Method Collection Time Receive d Time (Source) Location / / Volume Laterality 02/25/2013 11:30 02/25/2013 AM CDT 12:16 PM CDT [facility] - 02/25/2013 12:24 PM CDT Performed at [facility], [address] [place] [address], Director Dr Joselyn Barkley Christa Matute MD LAB_1 Performing Organization Address City/[facility]/ZIP Code Phon e Number [facility] [address] [address] [place] [phone] CHLAMYDIA & GC (02/25/2013 11:30 AM CDT) P athologist Signature Source Cervix [facility] Chlamydia Negative NEG [facility] Comment: Test Performed by Analytical Consultant Mediated Amplification GC (N. gonorrhoeae) Negative NEG [facility] Comment: Test Performed by Analytical Consultant Mediated Amplification Specimen Anatomical Collection Method Collection Time Receive d Time (Source) Location / / Volume Laterality 02/25/2013 11:30 02/25/2013 AM CDT 12:15 PM CDT [facility] - 02/26/2013 5:05 PM CDT Performed at [facility], [address] [place] [address] ??[phone] Christa Matute MD LAB_1 Performing Organization Address City/State/ZIP Code Phon e Number [facility] [address] [place] [address] [facility] [phone] URINE CULTURE (02/25/2013 11:00 AM CDT) Component Value Ref Test Analysis Performed At [facility] gist Range Method Time Signature Specimen Urine Clean Catch [place] Description [facility] Special Inoculated Media [place] Requests Received [facility] Culture > 100,000 col/ml [place] Escherichia coli [facility] Culture > 100,000 col/ml Staphylococcus species, Coagulase Negative Sensitivity [place] NOT performed [facility] Report Status Final 02/27/2013 [facility] Organism > 100,000 col/ml [place] Escherichia coli [facility] Specimen Anatomical Collection Method Collection Time Receive d Time (Source) Location / / Volume Laterality 02/25/2013 11:00 02/25/2013 AM CDT 11:58 AM CDT Narrative [facility] - 02/27/2013 7:34 AM CDT Performed at [facility] , [address] [place] [address] Organism Antibiotic Method Susceptibility > 100,000 col/ml [...] Christa Matute MD LAB_1 Performing Organization Address [facility]/ZIP Code Phon e Number [facility] [address] [place] [address] [phone] [facility] UA MICRO (02/25/2013 11:00 AM CDT) P athologist Signature RBC'S 0-3 0 - 3 /hpf [facility] WBC'S 6-10 0 - 5 /hpf [facility] Epith, Squamous 5-10 /hpf [facility] Bact Many [facility] Casts 0 /lpf [facility] Specimen Anatomical Collection Method Collection Time Receive d Time (Source) Location / / Volume Laterality 02/25/2013 11:00 02/25/2013 AM CDT 11:23 AM CDT Narrative [facility] - 02/25/2013 12:00 PM CDT Performed at [facility], [address] [place] [address], Director Dr Joselyn Barkley Christa Matute MD LAB_1 Performing Organization Address City/[facility] Phon e Number [address] [address] [place] [phone] (ABNORMAL) UA CONDITIONAL UC (02/25/2013 11:00 AM CDT) Patholo gist Method Time Signature Urine Color Yellow [facility] Urine Clarity Sl Cloudy [facility] Sp Gr 1.025 1.005 - [place] 1.030 [facility] Leuk Negative NEG [facility] Nitr Pos (A) NEG [facility] pH 7.0 4.5 - 8.0 [facility] Prot Negative NEG mg/dl [facility] Gluc Negative NEG [facility] Ket Negative NEG [facility] Urob 0.2 0.2 - 1.0 [place] EU/dl [facility] Bili Negative NEG [facility] Blood Tr (A) NEG [facility] Urine Cult If Urine [place] Cultured [facility] Urine Source Urine Clean [place] Catch [facility] Specimen Anatomical Collection Method Collection Time Receive d Time (Source) Location / / Volume Laterality 02/25/2013 11:00 02/25/2013 AM CDT 11:23 AM CDT Narrative [facility] - 02/25/2013 11:59 AM CDT Performed at [facility], [address] [place] [address], [place] [address], Director Dr Joselyn Barkley Christa Matute MD LAB_1 Performing Organization Address City/State/ZIP Code Phon e Number [facility] [address] [place] [address] [facility] documented in this encounter Visit Diagnoses Diagnosis Preventative health care - Primary Routine general medical examination at a health care facility Dysuria UTI (lower urinary tract infection) Urinary tract infection, site not specif ied documented in this encounter Care Teams Assembly Department Supervisor Relationship Specialty Start Date End Date Unassigned, Provider PCP - General Unknown Physician 02/25/13 01/03/[address] [place] [address] documented as of this encounter
--- OUTSIDE RECORDS SUMMARY | 2022-03-25 01:14 | XMS_ITS | Encounter Summary ---
:1995 Author Organization [facility] Address [address] [place] [address] Care Team Providers Name Role Phone Maliha Delacruz PA-C Primary Care Provider Encounter Details Date Type Department Care Team Description 10/19/2011 Outside Hospital External to External, [facility] [place] [address] Social History Tobacco Use Types Packs/Day Years Used Date Smoking Tobacco: Never Assessed Sex Assigned at Date Recorded Not on file documented as of this encounter Progress Notes External, Provider - 10/19/2011 12:00 AM CDT documented in this encounter Plan of Treatment Not on filedocumented as of this encounter Visit Diagnoses Not on filedocumented in this encounter Care Teams Secondary School Special Ed Teacher Relationship Specialty Start Date End Date Maliha Delacruz PA-C PCP - General Physician Water Pump Servicer 01/24/18 [address] [place] [address] documented as of this encounter
--- OUTSIDE RECORDS SUMMARY | 2022-03-25 01:14 | XMS_ITS | Clinical Summary ---
:1995 Author Organization [facility] Address [address] [place] [address] Care Team Providers Name Role Phone Maliha [...] for each transition of care or referral. [facility] Allergies No known active allergies Medications Medication Sig Dispensed Refills Start Date End Date Status MV-Min-Fe Take by mouth. 0 Active Fum-FA-DHA ( 1 OR) Blood Glucose 0 12/17/2021 Activ e Monitoring Suppl (ACCU-CHEK GUIDE [place]) w/Device KIT ACCU-CHEK GUIDE 4 times a [...] Endocrinology Norma Mcleod APRN, Medic ation Refill FREIGHT RATE CLERK Question 02/17/2022 Nurse Triage Careline Unknown, Physician Medicatio n Questions; Pharmacy 02/16/2022 Telemedicine Endocrinology Norma Mcleod APRN, Gesta tional diabetes mellitus (GDM), antepartum, gestational diabetes method of control unspecified (Primary Dx); FREIGHT RATE CLERK Obesity, unspec ified obesity severity, unspecified obesity type 02/13/2022 Notes/Orders Endocrinology Norma Mcleod APRN, Gesta tional diabetes FREIGHT RATE CLERK mellitus (GDM), antepartum, ges tational diabetes method [...] paternal aunt Coronary Artery Disease Paternal Grandfather [place] in his 50's Diabetes, Type II Paternal [...] T ype Group Dates [facility]VENT[facility] [id number] Effective for Preventive DENTAL PLAN SI DENTAL all dates Ander Personal/Family Self 1995 [id number] (Home) [place] [phone] [place], [place] (Work) [address] Ander Personal/Family Self [phone] (Home) [place] [address] Ander Personal/Family Self [id number] (Home) [place] [address] Care Teams Cutting Machine Operator Relationship Specialty Start Date End Date Maliha Delacruz PA-C PCP - General Physician Watch Electrician 01/24/18 [address] [place] [address]
--- OUTSIDE RECORDS SUMMARY | 2022-03-25 01:14 | XMS_ITS | Encounter Summary ---
:1995 Author Organization [facility] Address [address], [place] [address] Care Team Providers Name Role Phone Maliha Delacruz PA-C Primary Care Provider Reason for Visit Reason Comments Nexplanon Insertion Encounter Details Date Type Department Care Team Description 01/24/2018 Office Visit [facility] Maliha Delacruz, [facility] [place] planning, Practice JONH subdermal contraceptive [address] [facility] [address] [facility] checking/reinsertion/re [place], [place] moval ( Primary Dx) [address] [phone] Social History Tobacco Use Types Packs/Day Years [...] dose documented in this encounter Care Teams Family Consumer Science Teacher Relationship Specialty Start Date End Date Maliha Delacruz PA-C PCP - General Physician Field Logistics Coordinator 01/24/18 [address] [place] [address] documented as of this encounter
--- OUTSIDE RECORDS SUMMARY | 2022-03-25 01:14 | XMS_ITS | Encounter Summary ---
:1995 Author Organization [employer] Address [address] [place] [address] Care Team Providers Name Role Phone Zoie Padilla APRN, CLEANING ATTENDANT Primary Care Provider [phone] Reason for Visit Reason Comments LAB RESULTS Encounter Details Date Type Department Care Team Description 01/07/2015 Telephone [facility] Zoie Padilla APRN, LAB RESULTS [address] [place], [place] [address] [address] [facility] [phone] [place] [address] Social History Tobacco Use Types [...] the weekend. She would like to use [facility] pharmacy. Estella Singh CMA Estella Sinhg CMA - 01/07/2015 1:46 PM CDT LMTCB. [...] Primary documented in this encounter Care Teams Pediatrician Managing Partner Relationship Specialty Start Date End Date Zoie Padilla APRN, CNP PCP - General Nurse Practitioner 01/04/15 01/23/18 [address], [place] [address] documented as of this encounter
--- OUTSIDE RECORDS SUMMARY | 2022-03-25 01:14 | XMS_ITS | Encounter Summary ---
:1995 Author Organization [facility] Address [address] [place] [address] Care Team Providers Name Role Phone Unassigned, Provider Primary Care Provider Unavailable Encounter Details Date Type Department Care Team Description 02/25/2013 Orders Only [facility] [address] [place] [address] Social History Tobacco Use Types Packs/Day Years [...] on filedocumented in this encounter Care Teams Assignment Clerk Relationship Specialty Start Date End Date Unassigned, Provider PCP - General Unknown Physician 02/25/13 01/03/15 [address] [place] [address] documented as of this encounter
--- OUTSIDE RECORDS SUMMARY | 2022-03-25 01:14 | XMS_ITS | Encounter Summary ---
:1995 Author Organization [facility] Address [address] [place] [address] Care Team Providers Name Role Phone Unavailable Primary Care Provider Unavailable Reason for Visit Reason Comments Ultrasound 1st tri complete-twins, conf irm chorionicity Encounter Details Date Type Department Care Team Description 10/11/2021 PRE VISIT [facility] Shayy Barajas, WILD Ultra sound (1st tri Maternal Medicine comp lete-twins, confirm [facility] [place] chorionicity) [address] [facility] [address] [place] [address] Social History Tobacco Use Types Packs/Day Years Used Date Smoking Tobacco: Never Assessed Sex Assigned at Date Recorded Not on file documented as of this encounter Plan of Treatment Not on filedocumented as of this encounter Visit Diagnoses Not on filedocumented in this encounter
--- OUTSIDE RECORDS SUMMARY | 2022-03-25 01:14 | XMS_ITS | Encounter Summary ---
:1995 Author Organization [facility] Address [address] [place] [address] Care Team Providers Name Role Phone Zoie Padilla APRN, CNP Primary Care Provider [phone] Encounter Details Date Type Department Care Team Description 01/04/2015 Orders Only [facility] Fatigue; [address] [facility] Goiter; [place], [place] [address] Possible [phone] Social History Tobacco Use Types Packs/Day Years [...] 01/04/2015 4:29 PM C DT Performed at [facility], [address] [place] [address] ??[phone] Zoie Padilla APRN, SPOTTER LAB_1 Performing Organization Address City/State/ZIP Code Phon e Number [facility] [phone] IRON PROFILE (IRON,TIBC,%SAT.(CALC)) (01/04/2015 9:59 AM CDT) [...] 01/04/2015 4:29 PM C DT Performed at [facility], [address] [place] [address] ??[phone] Zoie Padilla APRN, MACEY LAB_1 Performing Organization Address [facility] Phon e Number [facility] [phone] HEMOGRAM/PLTS (01/04/2015 9:59 AM CDT) athologist Signature [...] 01/04/2015 3:12 PM C DT Performed at [facility], [address] [place] [address] ??[phone] Zoie Padilla APRN, MACEY LAB_1 Performing Organization Address City/[facility] Phon e Number [facility] [phone] VITAMIN D 25-HYDROXY, TOTAL (V77.99) (01/04/2015 9:59 AM CDT) athologist Signature Vitamin 40.5 30.0 - [facility] D,25-OH, Tot 80.0 ng/mL LABORATORIES Comment: Deficiency: ??< 20 ng/mL Insufficiency: ??20-29 ng/mL Optimum Level: ??30-80 ng/mL Possible Toxicity: > 80 ng/mL Specimen Anatomical Collection Method Collection Time Receive d Time (Source) Location / / Volume Laterality 01/04/2015 9:59 AM 5 CDT 10:01 AM CDT Narrative [facility] - 01/04/2015 7:40 PM C DT Performed at [facility] , [address] [place] [address] Zoie Padilla APRN, CNP LAB_1 Performing Organization Address City/[facility]/ZIP Code Phon e Number [facility] [phone] TEST (URINE) (01/04/2015 9:59 AM CDT) [facility] Method Time Signature HCG, Urine Negative [facility] Negative = <25 mIU/ml LABORATO RADHA If is suspected, suggest repeat in 48-72 hours or confirm results with a quantitative hCG test. Specimen Anatomical Collection Method Collection Time Receive d Time (Source) Location / / Volume Laterality Urine specimen 01/04/2015 9:59 AM 015 (specimen) CDT 10:01 AM CDT Narrative [facility] - 01/04/2015 10:32 AM CDT Performed at [facility], [address] [place] [address] Zoie Padilla APRN, CNP LAB_1 Performing Organization Address City/[facility] [[email or web address]] Code Phon e Number [facility] [phone] Antithyroid Peroxidase (01/04/2015 9:59 AM CDT) [facility] Method Time Signature Thyroperoxidase Ab 2 0 - 8 [facility] IU/ml [facility] Specimen Anatomical Collection Method Collection Time Receive d Time (Source) Location / / Volume Laterality 01/04/2015 9:59 AM 5 CDT 10:01 AM CDT Narrative [facility] - 01/06/2015 10:47 AM CDT Performed at [facility], [address] [place] [address] ??[phone] Zoie Padilla APRN, CNP LAB_1 Performing Organization Address City/[facility]/ZIP Code Phon e Number [facility] [phone] T3, FREE, SERUM (01/04/2015 9:59 AM CDT) P athologist Signature T3,Free 4.4 2.8 - 5.2 [facility] pg/ml Specimen Anatomical Collection Method Collection Time Receive d Time (Source) Location / / Volume Laterality 01/04/2015 9:59 AM 5 CDT 10:01 AM CDT Narrative [facility] - 01/04/2015 4:29 PM C DT Performed at [facility], [address] [place] [address] ??[phone] Zoie Padilla APRN, CNP LAB_1 Performing Organization Address City/[facility] [[email or web address]] Code Phon e Number [facility] [phone] FREE T4 (01/04/2015 9:59 AM CDT) P athologist Signature T4, Free 0.8 0.8 - 2.2 [facility] ng/dl Specimen Anatomical Collection Method Collection Time Receive d Time (Source) Location / / Volume Laterality 01/04/2015 9:59 AM 5 CDT 10:01 AM CDT Narrative [facility] - 01/04/2015 4:29 PM C DT Performed at [facility], [address] [place] [address] ??[phone] Zoie Padilla APRN, CNP LAB_1 Performing Organization Address [facility]/ZIP Code Phon e Number [facility] [phone] (ABNORMAL) TSH, SENSITIVE (01/04/2015 9:59 AM CDT) [facility] gist Method Time Signature TSH, Sensitive 11.255 0.300 - [facility] (H) 5.000 [facility]IES uIU/ml Specimen Anatomical Collection Method Collection Time Receive d Time (Source) Location / / Volume Laterality 01/04/2015 9:59 AM 5 CDT 10:01 AM CDT Narrative [facility] - 01/04/2015 4:29 PM C DT Performed at [facility], [address] [place] [address] ??[phone] Zoie Padilla APRN, CNP LAB_1 Performing Organization Address City/[facility]/ZIP Code Phon e Number [facility] [phone] documented in this encounter Visit Diagnoses Diagnosis Fatigue Other malaise and fatigue Goiter (HRC) Goiter, unspecified Possible examination or test, unconfirmed documented in this encounter Care Teams Bulk Fluids Handler Relationship Specialty Start Date End Date Zoie Padilla, IT APPLICATIONS ANALYST, SPOTTER PCP - General Nurse Practitioner 01/04/15 01/23/18 [address] [place] [address] documented as of this encounter
--- OUTSIDE RECORDS SUMMARY | 2022-03-25 01:14 | XMS_ITS | Encounter Summary ---
:1995 Author Organization [facility] Address [address] [place] [address] Care Team Providers Name Role Phone Unassigned, Provider Primary Care Provider Unavailable Reason for Visit Reason Onset Date Comments FOLLOW-UP,LAB 03/02/2013 Encounter Details Date Type Department Care Team Description 03/02/2013 Telephone Internal Medicine Chrisat Matute MD FOLLOW-UP,LAB [address] [phone] (Wo rk) Social History Tobacco Use Types [...] on filedocumented in this encounter Care Teams Full Stack Software Engineer Relationship Specialty Start Date End Date Unassigned, Provider PCP - General Unknown Physician 02/25/13 01/03/[address] [place] [address] documented as of this encounter
--- OUTSIDE RECORDS SUMMARY | 2022-03-25 01:14 | XMS_ITS | Encounter Summary ---
:1995 Author Organization [facility] Address [address] [place] [address] Care Team Providers Name Role Phone Zoie Padilla APRN, CNP Primary Care Provider [phone] Reason for Visit Reason Comments GOITER ref by Dr. Padilla. Recs in E PIC Consult/Transfer Care (Routine) - Closed Specialty Diagnoses / Procedures Referred By Contact Refer red To Contact Diagnoses Goiter (HRC) Zoie Padilla APRN, CNP [address] [place], [place] [address] Referral ID Status Reason Start Date Expiration Date Visits Requ ested Visits Authorized [id number] Closed 01/04/2015 04/04/2016 1 1 Encounter Details Date Type Department Care Team Description 08/[facility]/2015 [facility] ypothy[facility], unspecified type (Primary Dx); Endocrinology Clinic MD [place] [address] [facility], [address] [facility] [address] [place] [address] [place] [address] [phone] Social History Tobacco Use Types Packs/Day Years [...] Burgess MD Department of Endocrinology [facility] documented in this encounter Progress Notes Lashonda Burgess MD - 08/25/2015 2:54 PM CDT [facility]ology Visit Note Name: Darlin Worthington Seen at the request of Zoie Padilla APRN, VENDOR RELATIONSHIP MANAGER for Chief Complaint Patient presents with ??? GOITER ref by Dr. Padilla. Recs in [facility] . HPI: Darlin Worthington is a [...] + hot all the times History of [place] or Amiodarone use:No Head or neck surgery/radiation:No IV Contrast:No PMH/PSH: Past Medical History Diagnosis Date ??? Thyroid condition ??? Scoliosis mild ??? Skin rash thought to be allergic but allergen not identified; saw a clinical evaluator Past Surgical History Procedure Laterality Date ??? Surgical hx - neg Family/Social Hx: Family History Problem Relation Age of Onset ??? Hypertension Mother ??? Eczema Brother ??? Asthma Mother ??? Diabetes, Type II Paternal Grandfather ??? Coronary Artery Disease Paternal Grandfather [place] in his 50's ??? Other Paternal Grandmother MS ??? 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 The patient indicates [...] PM 6 3:30 CDT PM CDT Narrative [facility] - 08/29/2015 12:39 PM CDT Performed at [facility], [address] [place] [address] ??[phone] Lashonda Burgess MD LAB_1 Performing Organization Address City/State/ZIP Code Phon e Number [facility] [phone] FREE T4 (08/25/2015 3:19 PM CDT) athologist Signature T4, Free 0.90 0.8 - 2.2 [facility] ng/dl Specimen Anatomical Collection Method Collection Time Receive d Time (Source) Location / / Volume Laterality 08/25/2015 3:19 PM 6 3:30 CDT PM CDT Narrative [facility] - 08/25/2015 4:43 PM C DT Performed at [facility], [address] [place] [address], Director Dr Cesar Fraser Lashonda Burgess MD LAB_1 Performing Organization Address City/[facility] Phon e Number [facility] [phone] TSH, SENSITIVE (08/25/2015 3:19 PM CDT) athologist Signature TSH, Sensitive 3.360 0.300 - [facility] 5.000 [facility] uIU/ml Specimen Anatomical Collection Method Collection Time Receive d Time (Source) Location / / Volume Laterality 08/25/2015 3:19 PM 6 3:30 CDT PM CDT Narrative [facility] - 08/25/2015 4:43 PM C DT Performed at [facility], [address] [place] [address], Director Dr Cesar Fraser Lashonda Burgess MD LAB_1 Performing Organization Address [facility] Phon e Number [facility] [phone] documented in this encounter Visit Diagnoses Diagnosis Hypothyroidism, unspecified type (HRC) - Primary Goiter (HRC) Goiter, unspecified documented in this encounter Care Teams Mount Loader Relationship Specialty Start Date End Date Zoie Padilla, AQUEDUCT AND RESERVOIR KEEPER, VENDOR RELATIONSHIP MANAGER PCP - General Nurse Practitioner 01/04/15 01/23/18 [address] [address] documented as of this encounter
--- OUTSIDE RECORDS SUMMARY | 2022-03-25 01:14 | XMS_ITS | Encounter Summary ---
:1995 Author Organization [facility] Address [address] [place] [address] Care Team Providers Name Role Phone Unavailable Primary Care Provider Unavailable Reason for Referral Diagnostic Imaging Ultrasound (Routine) - Pending Review Specialty Diagnoses / Procedures Referred By Contact Refer red To Contact Diagnoses related condition Jailene Karena Procedures MFM Twins [facility] [address] [place] [address] Referral ID Status Reason Start Date Expiration Date Visits V isits Requested Authorized [id number] Pending 10/09/2021 10/09/2022 1 1 Review onsultation (Routine: Next available opening) - Pending Review Specialty Diagnoses / Procedures Referred By Contact Refer red To Contact Diagnoses related condition Jailene Karena [place] [address] [place] [address] Referral ID Status Reason Start Date Expiration Date Visits V isits Requested Authorized [id number] Pending 10/09/2021 10/09/2022 1 1 Review Encounter Details Date Type Department Care Team Description 10/09/2021 Transcribe Orders [facility]aternal [facility] condition ([facility] MEDICAL Dx) [place] [address] [place], [place] [address] [address] [place], [place] [phone] (Work) [phone] Social History Tobacco Use Types Packs/Day Years [...] Study Santiago e: 11/22/2021 9:24am Pat. NO: [id number] Referring ??MD: JENNY HAMILTON Site: [facility] Esthetician Permanent Makeup Artist: Rica Tobar RD MS : 1995 Age: [...] 10 ? oz EFW by ? Hadlock (ORH-BV-TH-FL) EFW discordance ? 2.1 ? % Head / Face / Neck Biometry: Color Technician ? 7.1 ? mm CM ?5.8 [...] 10 ? oz EFW by ? Hadlock (QDL-BZ-UE-FL) EFW discordance ? 2.1 ? % Head / Face / Neck Biometry: Color Technician ? 8.0 ? mm CM ?4.4 [...] cava. Inferior vena cava. 3-vessel ? view. 6-jyzaye-ferhqoc view. Cardiac position. Cardiac size. Cardiac rhythm. [...] cava. Inferior vena cava. 3-vessel ? view. 3-cnfefc-ewtupbe view. Cardiac position. Cardiac size. Cardiac rhythm. [...] plans to have this follow up in [place]. Return to primary provider for continued care. If you have questions regarding today's evaluation or if we can be of further service, please contact the [facility]. Procedure Note Ector Sherman MD - 11/22/2021Form atting of this note might be different from the original. Comprehensive Pat. Name:Nisha PURDY Date: 11/22/2021 9:24am Pat. NO: [id number] MD:KARENA ANSHUL OROZCO [facility]Rica Tobar RDMS :1995Age:26 INDICATION Dichorionic, [...] 0 lb 10 oz EFW by Hadlock (AKL-IC-CY-FL) EFW discordance 2.1 % Head / Face / Neck Biometry: Color Technician 7.1 mm CM 5.8 mm Nasal [...] 0 lb 10 oz EFW by Hadlock (LAR-XF-EI-FL) EFW discordance 2.1 % Head / Face / Neck Biometry: Color Technician 8.0 mm CM 4.4 mm Nasal [...] vena cava. Inferior vena cava. 3-vessel view. 1-izaprm-ekwxvwn view. Cardiac po sition. Cardiac size. Cardiac [...] vena cava. Inferior vena cava. 3-vessel view. 5-oimohf-jmgffdm view. Cardiac po sition. Cardiac size. Cardiac [...] plans to have this follow up in [place]. Return to primary provider for continued care. [...] cervix appears long and closed. August Jailene [facility] US ORDERABLES documented in this encounter Visit Diagnoses Diagnosis related condition - Primary Unspecified complication of , u nspecified as to episode of care related condition Unspecified complication of , u nspecified as to episode of care documented in this encounter
--- OUTSIDE RECORDS SUMMARY | 2022-03-25 01:14 | XMS_ITS | Encounter Summary ---
:1995 [facility] Address [address], [place] [address] Care Team Providers Name Role Phone Maliha Delacruz PA-C Primary Care Provider Reason for Visit Reason Comments Medication Refill Question Encounter Details Date Type Department Care Team Description 02/19/2022 Telephone [facility] [address], Medica tion Refill Endocrinology JUNIOR BOOKKEEPER, AUTOMATIC TELLER MACHINE SERVICER Question [address] [facility] [address] [facility] [place] [phone] (Wo rk) Social History Tobacco Use Types [...] Primary documented in this encounter Care Teams Tour Director Relationship Specialty Start Date End Date Maliha Delacruz PA-C PCP - General Physician Internal Communications Intern 01/24/18 [address] [place] [address] documented as of this encounter
--- OUTSIDE RECORDS SUMMARY | 2022-03-25 01:14 | XMS_ITS | Encounter Summary ---
:1995 Author Organization [facility] Address [address] [place] [address] Care Team Providers Name Role Phone Unavailable Primary Care Provider Unavailable Reason for Referral Diagnostic Imaging Ultrasound (Routine) - Pending Review Specialty Diagnoses / Procedures Referred By Contact Refer red To Contact Diagnoses related condition, antepartum Jailene, August Procedures MFM Twins US OB Complete [address] [place] [phone] [place] [address] Referral ID Status Reason Start Date Expiration Date Visits V isits Requested Authorized [id number] Pending 09/19/2021 09/19/2022 1 1 Review onsultation (Routine: Next available opening) - Pending Review Specialty Diagnoses / Procedures Referred By Contact Refer red To Contact Diagnoses related condition, antepartum Jailene, August [place] [phone] [place] [address] Referral ID Status Reason Start Date Expiration Date Visits V isits Requested Authorized [id number] Pending 09/19/2021 09/19/2022 1 1 Review Encounter Details Date Type Department Care Team Description 09/19/2021 Transcribe [facility] condition, Medicine Center MEDICAL antepartum (Primary [place] [address]) [address] [place], [place] [address] [address] [place], [place] [phone] (work) [phone] Social History Tobacco Use Types Packs/Day Years [...] Study Santiago e: 10/17/2021 11:14am Pat. NO: [id number] Referring ??MD: JENNY HAMILTON Site: [facility] Acoustical Installer: Katelyn tidwell RDMS : 1995 Age: 26 [...] RECOMMENDATION We discussed the findings on today's [facility] rasnemours foundation with the patient. The patient is scheduled to return to [facility] at 18-20 weeks for a comprehensive [...] Name:Nisha PURDY Date: 10/17/2021 11:14am Pat. NO: [id number] MD:AUGUST ANSHUL OROZCO [facility] [place]her:Katelyn Shelby RDMS :1995Age:26 INDICATION Twin gestation. Confirm [...] RECOMMENDATION We discussed the findings on today's [facility] rasound with the patient. The patient is scheduled to return to [facility] at 18-20 weeks for a comprehensive [...] trimester anatomy for both twins. August Jailene [facility] US ORDERABLES documented in this encounter Visit Diagnoses Diagnosis related condition, antepartum - Primary related condition, antepartum documented in this encounter
--- OUTSIDE RECORDS SUMMARY | 2022-03-25 01:14 | XMS_ITS | Encounter Summary ---
:1995 Author Organization [facility] Address [address] [place] [address] Care Team Providers Name Role Phone Maliha Delacruz PA-C Primary Care Provider Encounter Details Date Type Department Care Team Description 10/18/2012 Outside Hospital External to External, [facility] [place] [address] Social History Tobacco Use Types Packs/Day Years Used Date Smoking Tobacco: Never Assessed Sex Assigned at Date Recorded Not on file documented as of this encounter Progress Notes External, Provider - 10/18/2012 12:00 AM CDT documented in this encounter Plan of Treatment Not on filedocumented as of this encounter Visit Diagnoses Not on filedocumented in this encounter Care Teams Horticulture/Floriculture Teacher Relationship Specialty Start Date End Date Maliha Delacruz PA-C PCP - General Physician Physician Practice Coordinator 01/24/18 [address] [place] [address] documented as of this encounter
--- OUTSIDE RECORDS SUMMARY | 2022-03-25 01:14 | XMS_ITS | Encounter Summary ---
:1995 Author Organization [facility] Address [address], [place] [address] Care Team Providers Name Role Phone Unassigned, Provider Primary Care Provider Unavailable Encounter Details Date Type Department Care Team Description 02/25/2013 Orders Only [facility] MD Mihir Security Contact Bill [address] [place] [address] Mailstop [id number] [phone] (Wo rk) Social History Tobacco Use Types [...] on filedocumented in this encounter Care Teams Door Liner Helper Relationship Specialty Start Date End Date Unassigned, Provider PCP - General Unknown Physician 02/25/13 01/03/[address] [place] [address] documented as of this encounter
--- OUTSIDE RECORDS SUMMARY | 2022-03-25 01:14 | XMS_ITS | Encounter Summary ---
:1995 Author Organization [facility] Address [address] [place] [address] Care Team Providers Name Role Phone Unassigned, Provider Primary Care Provider Unavailable Reason for Visit Reason Onset Date Comments FOLLOW-UP,LAB 02/25/2013 Encounter Details Date Type Department Care Team Description 02/25/2013 Telephone Internal Medicine Christa Matute MD FOLLOW-UP,LAB [address] [phone] (Wo rk) Social History Tobacco Use Types [...] ied documented in this encounter Care Teams Quantometer Operator Relationship Specialty Start Date End Date Unassigned, Provider PCP - General Unknown Physician 02/25/13 01/03/[address] [place] [address] documented as of this encounter
--- OUTSIDE RECORDS SUMMARY | 2022-03-25 01:14 | XMS_ITS | Encounter Summary ---
:1995 Author Organization [facility] Address [address] [address] Care Team Providers Name Role Phone Unavailable Primary Care Provider Unavailable Reason for Visit Reason Comments ITCHING, SKIN Encounter Details Date Type Department Care Team Description 10/14/2012 Office Visit [facility] Gena Myers Prur itic rash (Primary Practice MD Leonel Dx) [address] [facility] [address] [place] [address] [phone] Social History Tobacco Use Types Packs/Day Years [...]
--- OUTSIDE RECORDS SUMMARY | 2022-03-25 01:14 | XMS_ITS | Encounter Summary ---
:1995 Author Organization [facility] Address [address] [place] [address] Care Team Providers Name Role Phone Maliha Delacruz PA-C Primary Care Provider Reason for Referral Consult/Transfer Care (Routine) - New Request Specialty Diagnoses / Procedures Referred By Contact Refer red To Contact Diagnoses Gestational diabetes mellitus (GDM), antepartum, gestational diabetes method of control unspecified Norma Mcleod APRN, CNP [address] [place], [place] [address] Referral ID Status Reason Start Date Expiration Date Visits V isits Requested Authorized [id number] New Request 02/13/2022 05/15/2023 1 1 Scheduling Instructions Your provider has recommended an appoint ment with [facility]. You may call [phone] to schedule yo ur appointment. We suggest you call your health insurance company about your cove rage and benefits for this appointment. Encounter Details Date Type Department Care Team Description 02/13/2022 Notes/Orders [facility] [address] Gestat ionnirmal diabetes Endocrinology MACEY SOUNA mellitus (GDM), [address], [address] gestational diabetes [place], [place] me thod of control [id number] unspecified (Primary [phone] (Wo rk) Dx) Social History Tobacco Use Types Packs/Day Years Used Date Smoking Tobacco: Former Smokeless Tobacco: Former Qu it: 05/27/2011 Alcohol Use Standard Drinks/Week Comments No 0 (1 standard drink = 0.6 oz pure alcoho l) Sex Assigned at Date Recorded Not on file documented as of this encounter Progress Notes Gyae Lucero - 02/13/2022 11:35 AM CDT Norma, [...] Primary documented in this encounter Care Teams Multimedia Specialist Relationship Specialty Start Date End Date Maliha Delacruz PA-C PCP - General Physician Clinical Research Specialist 01/24/18 [address] [place] [address] documented as of this encounter
--- OUTSIDE RECORDS SUMMARY | 2022-03-25 01:14 | XMS_ITS | Encounter Summary ---
:1995 Author Organization [facility] Address [address] [place] [address] Care Team Providers Name Role Phone Zoie Padilla APRN, CNP Primary Care Provider [phone] Reason for Referral Consult/Transfer Care (Routine) - Closed Specialty Diagnoses / Procedures Referred By Contact Refer red To Contact Diagnoses Goiter (HRC) Zoie Padilla APRN, CNP [address] [place], [place] [address] Referral ID Status Reason Start Date Expiration Date Visits Requ ested Visits Authorized [id number] Closed 01/04/2015 04/04/2016 1 1 Scheduling Instructions Your provider has recommended an appoint ment with [facility]. You may call [phone] to schedule your a ppointment. If you prefer, a head strength and conditioning coach will contact you within the next 3 business d ays to assist you in setting up this appointment. Reason for Visit Reason Comments THYROID pt saw specialist at [facility] and was found to have enlarged thyroid FATIGUE sxs started last fall WEIGHT GAIN , POSSIBLE Encounter Details Date Type Department Care Team Description 01/04/2015 Office Visit [facility] Zoie Padilla Fa tigue (Primary Dx); Practice MACEY OSUNA Goiter; [address] [facility] [address] [place] [id number] Social History Tobacco Use Types Packs/Day Years [...] encounter Patient Instructions Patient InstructionsZoie Padilla APRN, DESIGN TRANSFERRER - 01/04/2015 9:55 AM CDT Images from [...] your doctor about all prescription, herbal, or jbtg-snp-anmrtgg products you take. ?? Take care of [...] Where can you learn more? Go to Jampp/Merchantry and enter N862 in the search box. Current as of: April 09, 2014 Content Version: 10.4 ?? [id number] [employer]. Goiter: After Your Visit Your Care [...] Where can you learn more? Go to [employer]/Merchantry and enter G387 in the search box. Current as of: April 09, 2014 Content Version: 10.4 ?? [id number] [employer]. documented in this encounter Progress Notes Zoie [...] Priority Associated Diagnoses [facility] Referral Routine Goiter Ordered: [...] 01/04/2015 4:29 PM C DT Performed at [facility], [address] [place] [address] ??[phone] Zoie Padilla APRN, CNP LAB_1 Performing Organization Address [facility]/ZIP Code Phon e Number [facility] [phone] IRON PROFILE (IRON,TIBC,%SAT.(CALC)) (01/04/2015 9:59 AM CDT) [...] 01/04/2015 4:29 PM C DT Performed at [facility], [address] [place] [address] ??[phone] Zoie Padilla APRN, MACEY LAB_1 Performing Organization Address [facility] Phon e Number [facility] [phone] HEMOGRAM/PLTS (01/04/2015 9:59 AM CDT) athologist Signature [...] 01/04/2015 3:12 PM C DT Performed at [facility], [address] [place] [address] ??[phone] Zoie Padilla APRN, CNP LAB_1 Performing Organization Address City/[facility] Phon e Number [facility] [phone] VITAMIN D 25-HYDROXY, TOTAL (V77.99) (01/04/2015 9:59 [...] 01/04/2015 7:40 PM C DT Performed at [facility] , [address] [place] [id number] Zoie Padilla APRN, DESIGN TRANSFERRER LAB_1 Performing Organization Address City/State/ZIP Code Phon e Number [facility] [phone] TEST (URINE) (01/04/2015 9:59 AM CDT) [facility] gAuto Method Time Signature HCG, Urine Negative [facility] [...] - 01/04/2015 10:32 AM CDT Performed at [facility], [address] [place] [id number] Zoie Padilla APRN, DESIGN TRANSFERRER LAB_1 Performing Organization Address City/State/ZIP Code Phon e Number [facility] [phone] Antithyroid Peroxidase (01/04/2015 9:59 AM CDT) [facility] gAuto Method Time Signature Thyroperoxidase Ab 2 0 - 8 [facility] IU/ml [facility] Specimen Anatomical Collection Method Collection Time Receive d Time (Source) Location / / Volume Laterality 01/04/2015 9:59 AM 5 CDT 10:01 AM CDT Narrative [facility] - 01/06/2015 10:47 AM CDT Performed at [facility], [address] [place] [address] ??[phone] Zoie Padilla APRN, CNP LAB_1 Performing Organization Address City/[facility]/ZIP Code Phon e Number [facility] [phone] T3, FREE, SERUM (01/04/2015 9:59 AM CDT) P athologist Signature T3,Free 4.4 2.8 - 5.2 [facility] pg/ml Specimen Anatomical Collection Method Collection Time Receive d Time (Source) Location / / Volume Laterality 01/04/2015 9:59 AM 5 CDT 10:01 AM CDT Narrative [facility] - 01/04/2015 4:29 PM C DT Performed at [facility], [address] [place] [address] ??[phone] Zoie Padilla APRN, CNP LAB_1 Performing Organization Address [facility] Code Phon e Number [facility] [phone] FREE T4 (01/04/2015 9:59 AM CDT) P athologist Signature T4, Free 0.8 0.8 - 2.2 [facility] ng/dl Specimen Anatomical Collection Method Collection Time Receive d Time (Source) Location / / Volume Laterality 01/04/2015 9:59 AM 5 CDT 10:01 AM CDT Narrative [facility] - 01/04/2015 4:29 PM C DT Performed at [facility], [address] [place] [address] ??[phone] Zoie Padilla APRN, CNP LAB_1 Performing Organization Address City/[facility]/ZIP Code Phon e Number [facility] [phone] (ABNORMAL) TSH, SENSITIVE (01/04/2015 9:59 AM CDT) Patholo gist Method Time Signature TSH, Sensitive 11.255 0.300 - [facility] (H) 5.000 [facility] uIU/ml Specimen Anatomical Collection Method Collection Time Receive d Time (Source) Location / / Volume Laterality 01/04/2015 9:59 AM 5 CDT 10:01 AM CDT Narrative [facility] - 01/04/2015 4:29 PM C DT Performed at [facility], [address] [place] [address] ??[phone] Zoie Padilla APRN, CNP LAB_1 Performing Organization Address City/State/ZIP Code Phon e Number [facility] [phone] documented in this encounter Visit Diagnoses Diagnosis Fatigue - Primary Other malaise and fatigue Goiter (HRC) Goiter, unspecified Possible examination or test, unconfirmed Fatigue Other malaise and fatigue Goiter (HRC) Goiter, unspecified Possible examination or test, unconfirmed documented in this encounter Care Teams Curriculum Developer Relationship Specialty Start Date End Date Zoie Padilla APRN, CNP PCP - General Nurse Practitioner 01/04/15 01/23/[address] [place] [address] documented as of this encounter
--- OUTSIDE RECORDS SUMMARY | 2022-03-25 01:14 | XMS_ITS | Encounter Summary ---
:1995 Author Organization [facility] Address [address], [place] [address] Care Team Providers Name Role Phone Randy Zoie Rabia OSUNA, MACEY Primary Care Provider [phone] Reason for Visit Reason Comments LAB RESULTS Encounter Details Date Type Department Care Team Description 09/01/2015 Telephone [facility] Jp Lorenz MD LAB RESULTS Endocr[facility]ology Clinic [address] [place] [address], [address] [place] [address] [place] [address] [phone] (Wo rk) Social History Tobacco Use Types [...] like it filled at our clinic pharmacy? [Ged Preparation Teacher/Appt Center: Was the pharmacy entered into the Preferred Pharmacy field? No] Is it okay to leave detailed message on your voicemail? yes [Ged Preparation Teacher/Appt Center: If this call is after 3 p.m., communicate to patient: If we are not able to get back to you by the end of the day and your symptoms worsen please contact the Careline at [phone] OR at .] [Ged Preparation Teacher: Inform patient that if they are active [...] filedocumented in this encounter Care Teams Senior Audit Manager Relationship Specialty Start Date End Date Zoie Padilla, TANK SETTER HELPER, DIRECT CARE PROFESSIONAL PCP - General Nurse Practitioner 01/04/15 01/23/[address] [place] [phone] documented as of this encounter
--- OUTSIDE RECORDS SUMMARY | 2022-03-25 01:14 | XMS_ITS | Encounter Summary ---
:1995 Author Organization [place] Address [facility] [place] [address] Care Team Providers Name Role Phone Unavailable Primary Care Provider Unavailable Reason for Referral Diagnostic Imaging Ultrasound (Routine) - Pending Review Specialty Diagnoses / Procedures Referred By Contact Refer red To Contact Diagnoses related condition, antepartum Fitzloff, August Procedures MFM Twins US OB Complete [address] [address] [place] [address] Referral ID Status Reason Start Date Expiration Date Visits V isits Requested Authorized [id number] Pending 09/19/2021 09/19/2022 1 1 Review Reason for Visit Diagnostic Imaging Ultrasound (Routine) - Pending Review Specialty Diagnoses / Procedures Referred By Contact Refer red To Contact Diagnoses related condition, antepartum Fitzloff, August Procedures [facility] Twins OB Complete [address] [place] [address] [place] [address] Referral ID Status Reason Start Date Expiration Date Visits V isits Requested Authorized [id number] Pending 09/19/2021 09/19/2022 1 1 Review Encounter Details Date Type Department Care Team Description 10/17/2021 Hospital Encounter [facility] Rabia [address] [address] [place] [id number] related Maternal Kike Xavier MD [address] [place], [place] [address] condition, Medicine Center antepartum [place] [address] [facility] [address] [place] [address] Social History Tobacco Use Types [...] Study Santiago e: 10/17/2021 11:14am Pat. NO: [id number] Referring ??MD: JENNY HAMILTON Site: [facility] Library Associate: Katelyn tidwell [facility] : 1995 Age: 26 INDICATION Twin gestation. [...] RECOMMENDATION We discussed the [facility] with the patient. The patient is scheduled to return to [facility] at 18-20 weeks for a comprehensive [...] RAFAEL PURDYKIMBERLEYtjenn Date: 10/17/2021 11:14am Pat. NO: [id number] MD:KARENA OROZCO Site:[facility]idgesSonographer:Katelyn Shelby RDMS :1995Age:26 INDICATION [...] The patient is scheduled to return to [facility] at 18-20 weeks for a comprehensive [...] first trimester anatomy for both twins. [facility] documented in this encounter Visit Diagnoses Diagnosis related condition, antepartum documented in this encounter
--- OUTSIDE RECORDS SUMMARY | 2022-03-25 01:14 | XMS_ITS | Encounter Summary ---
:1995 [facility] Address [address] [place] [address] Care Team Providers Name Role Phone Unassigned, Provider Primary Care Provider Unavailable Reason for Visit Reason Onset Date Comments FOLLOW-UP,LAB 03/11/2013 Encounter Details Date Type Department Care Team Description 03/11/2013 Telephone Internal Medicine Christa Matute MD FOLLOW-UP,LAB [address] [phone] (Wo rk) Social History Tobacco Use Types [...] on filedocumented in this encounter Care Teams Keyboard Instrument Tuner Relationship Specialty Start Date End Date Unassigned, Provider PCP - General Unknown Physician 02/25/13 01/03/[address] [place] [address] documented as of this encounter
--- OUTSIDE RECORDS SUMMARY | 2022-03-25 01:14 | XMS_ITS | Encounter Summary ---
:1995 [facility] Address [address] [place] [address] Care Team Providers Name Role Phone Maliha Delacruz PA-C Primary Care Provider Encounter Details Date Type Department Care Team Description 01/24/2018 Consent for [facility] Maliha Delacruz [facility] CONSENT Procedure/Treatmen Practice [facility] [address] [facility] [place] [address] [place] [address] [phone] Social History Tobacco Use Types Packs/Day Years [...] on filedocumented in this encounter Care Teams Looseleaf Binder Coverer Relationship Specialty Start Date End Date Maliha Delacruz PA-C PCP - General Physician Product Transfer Pumper 01/24/18 [address] [place] [address] documented as of this encounter
[2022-03-25 02:18] LABS: Amnisure Rom* POSITIVE
[2022-03-25] MEDS: LACTATED RINGERS 1000 ML 1,000 ML 125 ML IV ×3 (03:00→07:17)
[2022-03-25 03:08] LABS: Basophils Absolute Auto 0.01 K/uL (0.00-0.30); Basophils Percent Auto 0.1 % (0.0-3.0); Eosinophils Absolute Auto 0.03 K/uL (0.00-0.50); Eosinophils Percent Auto 0.3 % (0.0-7.0); Hematocrit 33.9 % (33.0-51.0); Hemoglobin* 11.6 gm/dL (12.0-16.0); Immature Granulocytes Abs Auto 0.24 K/uL (0.00-0.30); Lymphocytes Percent Auto 11.7 % (20-44); Mean Corpuscular HGB Conc 34 gm/dL (32-36); Mean Corpuscular Hemoglobin 31 pg (26-34); Mean Corpuscular Volume 91 fL (80-100); Monocytes Percent Auto 7.3 % (0.0-11.0); Neutrophils Percent Auto 78.1 % (42.0-72.0); Platelet Count* 128 K/uL (140-440); RDW Coefficient of Variation % 15.1 % (11.5-15.5); Red Blood Count 3.74 m/uL (4.00-5.20); White Blood Count* 9.51 K/uL (4.50-11.00)
--- NOTE | 2022-03-25 03:10 | P.OBHP_ITS ---
OB - H&P: HPI History of Present Illness Chief complaint: Maternity : 1 Para: 0 Narrative: Darlin Palmer is a 27 year old female here for leakage of fluid and scant vaginal bleeding. Patient noted increased vaginal discharge and leaka ge of fluid since 4-5 PM on 03/24. She's was unsure if her amniotic sac had rupture due to the small quantity. However, she decided to come get evaluated due to increased contractions and loss of her mucus plug. Her amniosure was positive and she is have regular contractions Q-1-2 minutes. SVE 06/20/. Patient had a BPP done on 03/22/2022 that showed vertex presentation for both twins. Vaginal delivery was discussed, however, an elective primary was her plan regardless of presentation. She continues to desire a primary . Denies any shortness of breath, chest pain, right upper quadrant pain, headache, vision changes. Normal movements x 2. +worsening edema. PFSH PFSH Medical History (Updated 03/25/22 @ 03:26 by Kya Pedraza MD) Gestational diabetes mellitus Surgical History (Updated 01/12/22 @ 13:40 by Monica Lawrence MD) [place] teeth extracted (~1999) Social History Smoking Status: Never smoker Meds Home Medications and Allergies Home Medications Medication Instructions Recorded Confirmed Type aspirin 81 mg tablet,delayed 81 mg PO QDAY 12/04/21 03/25/22 History release (Adult Low Dose Aspirin) docosahexaenoic acid 200 mg 200 mg PO QDAY 12/04/21 03/25/22 History capsule ( DHA) insulin NPH isoph U-100 human 100 20 unit subcut QHS 03/01/22 03/25/22 History unit/mL subcutaneous suspension (Novolin N NPH U-100 Insulin isophane) Allergies Allergy/AdvReac Type Severity Reaction Status Date / Time No Known Allergies Allergy Unverified 03/22/22 09:31 OB - H&P: Exam Physical Exam: Vital signs: Pulse BP 69 120/70 03/25/22 02:20 03/25/22 02:20 Narrative: Physical exam: General: No acute distress Psych: Alert and oriented x3, full affect HEENT: Normocephalic, atraumatic Neck: No cervical adenopathy, no thyromegaly Heart: Regular rate and rhythm, no murmur rub or gallop Lungs: Clear to auscultation bilaterally Abdomen: Gravid with lower abdominal edema. Light palpable contractions. Soft in between contractions, no tenderness, rebound, or guarding. Skin: No lesions or rashes Lower extremities: 3+ edema bilaterally. Pelvic exam: SVE Assessment and Plan Assessment and plan (1) Anemia affecting : Status: Acute (2) Dichorionic diamniotic twin gestation: Status: Acute (3) Gestational diabetes mellitus: Status: Acute (4) Obesity with body mass index (BMI) of 35.0 to 39.9 without comorbidity: Status: Acute (5) : Status: Acute (6) Gestational thrombocytopenia: Status: Acute Plan 1. Di/Di twin gestation * 10/17/2021 MFM consult:? Confirmed dichorionic, diamniotic twin gestation * Level 2 ultrasound at 18-20 weeks with the MFM:? 11/22/2021:? Normal anatomy. * Growth ultrasounds q.4 weeks starting at 24 weeks. --12/18/2021 Presenting Baby A EFW 67th percentile, vertex. Nonpresenting Baby B EFW 83rd percentile, breech. --02/01/22:? Twin A:? Cephalic, SDP 3.5 cm, EFW 1228 g=32%, with all growth parameters within normal ranges.? Twin B:? Breech, SDP 4.1 cm, EFW 1400 g = 72%, with all growth parameters within normal ranges.? Discordance 12.2%. --03/01/22: A: Vx, EFW: 1883g, 24th percentile. B: Vx, EFW: 2164g, 64th percentile. All growth parameters normal for both babies. Percentage discordance 13%. * Given diabetes, weekly testing at 32 weeks. Plan for delivery at 38 weeks. * 81 mg of aspirin starting at 12 weeks * [id number] on 10/11/2021 negative 2.? Obesity, BMI 37.2, sister GDM x2, mom Type 2 DM and twins * Hemoglobin A1c:? 5.2% * 20 week 1 hour GTT:? 195 3. Gestational diabetes A2 * Referral entered for Diabetes Education and nutrition counseling 12/04/2021 * 01/12/2022:? Fasting blood sugars 86-92, 2 hour postprandials largely 130-140.? Discussed diet. * 02/01/22:? Referred to endocrinology for initiation of insulin, has a scheduled appointment tomorrow 02/16/22.? --Started on insulin NPH 15 units at night * Begin weekly BPP at 32 weeks.? --03/01/22: A: Vertex, 01/01, SDP: 5.2cm. B: Vx, 01/01, SDP: 4.6cm ? --03/22/22: A: Vertex, 01/01, SDP:7cm. B:Vx, 01/01,?SDP:8cm 4.? Rh-negative status * RhoGAM: 02/01/22 5.? Rubella nonimmune status * MMR 6.? Anemia.? Hb 10.4 at 28 weeks.? Begin ferrous sulfate 325 mg daily.? * Repeat Hb 34 weeks. 7. Thrombocytopenia: new diagnosed on admission. Plt 128k 8. Patient stated she had her flu shot this year(2021)kms
[2022-03-25 03:14] LABS: Slide Review Reflex No
[2022-03-25 03:25] LABS: SARS PCR* Negative SARS-CoV-2 (Negative)
[2022-03-25] MEDS: LACTATED RINGERS 1000 ML 1,000 ML 100 ML IV ×2 (03:33→04:02)
[2022-03-25] MEDS: CEFAZOLIN 2 GM INJ IVP (03:43)
[2022-03-25] MEDS: KETOROLAC 30 MG/ML inj IVP ×4 (04:28→23:32)
--- NOTE | 2022-03-25 04:44 | PM.OBPRCCS ---
Procedure Pre-op/Post-op diagnoses: Pre-Op/Post-Op Diagnoses Operation Date: 03/25/22 03:30 <No data on this case meets the specified criteria> Procedure Done: Global Procedure Details: Procedures Operation Date: 03/25/22 03:30 Actual Procedure Side Surgeon p Section Twins Kya Pedraza MD Estimated blood loss (mL): 600 Disposition: PACU Anesthesia type: Spinal Narrative: DELIVERY BY SECTION Date of Service: 03/25/2022 Delivery time: Baby A at 0359, Baby B at 0401 Summary: Admitted for ruptured membranes of baby A and regular contractions, primary low-transverse , Pfannenstiel, Closed with sutures, EBL 600 cc, no complications, Findings: Normal uterus, bilateral ovaries and tubes Baby A 8/9, weight pending Baby B 8/9, weight pending Primary Indication: Elective primary for dichorionic-diamniotic twins Procedures: Primary Lower uterine transverse section Specimens Removed: Placentas - sent to pathology Surgeon: Kya Pedraza MD Director Of Business Operations Surgeon: None Report: The patient was consented for section and blood. She understands that the three main categories of risk include bleeding, infection, and damage to surrounding structures. Regarding infection, she understands that we will be delivering appropriate antibiotics, however that the risk of infection following section still is approximately 5%. She understands that though the risk is very low that there is always a risk of damage to the bladder, uterus, ovaries, fallopian tubes, bowels, ureters, or even the fetus(s). She understands that most injuries can be addressed at the time of surgery, however, such an injury may require additional surgeries to fix. Lastly, she understands that a section carries a risk of bleeding, and that while this bleeding can be addressed with multiple medical and surgical modalities, that there is the possibility of needing a blood transfusion. She reports she would accept a blood transfusion understanding the risks of a 1/200,000 risk of Hepatitis and 1/2,000,000 risk of HIV as well as the risk of having an allergic reaction to the blood products. She further understands that this reaction is typically mild, however can be severe including respiratory distress and necessitating ICU-level care. Lastly, she understands that a section does increase risks for future pregnancies and deliveries including, but not limited to, the risk of uterine rupture or placenta accreta. Prophylactic antibiotic, 2g of Ancef was given before patient was taken to OR. After arrival to the operating room patient was placed in the supine position with left lateral tilt after administration of spinal anesthesia. Bedside ultrasound was done to confirm position of the fetuses. Both A and B were in the vertex presentation. SVE done in the OR /-2 Laparotomy A pfannenstiel incision was made through the anterior abdominal wall with #10 scalpel approximately 2 cm above the pubic symphysis. The incision was extended sharply with the #10 scalpel through the subcutaneous tissue to the level of fascia. The fascia was entered sharply with a #10 scalpel (Pfannenstiel) in the midline and extended in semi-elliptical fashion with digits using the Misgav Ladach technique. The rectus muscles were in the midline bluntly with digits. The peritoneum was then entered bluntly. The peritoneal incision was then extended superiorly and inferiorly under direct visualization with care being taken to avoid bladder and bowel. No adhesions were noted. The peritoneal incision was enlarged bluntly by lateral traction from the surgeon's and facilities assistant's hand. Sam retractor was inserted into the abdomen. Delivery A low transverse hysterotomy was made then with #10 scalpel and extended laterally and cephalad with fingers in a low transverse fashion with Manu Vizcaino technique with care being taken to avoid injury to the fetus. The amniotic cavity (membrane) was then entered with spontaneous rupture of membrane for Fetus A, and the amniotic fluid was noted to be clear, fetus A was delivered cephalic. With delivery of the baby A, no extension was noted. Cord was clamp and cut. Baby A was handed off to the pediatric care team at the stand. Attention was then turned to evaluation of fetus B. at this time, it was noted that fetus B had converted to breech presentation. Both feet were grasped and guided down to the hysterotomy until hips presented at hysterotomy. At that time, amniotomy was performed with allis clamps. Copious amount of fluid, at least 1L was surrounding fetus B. The hips were wrapped in a towel for traction. Rotation and sweeping out arms were used to safely delivery arms. Mauriceau Smellie Veit maneuver used to safely delivery head. With delivery of the baby B, no extension was noted. Cord was clamp and cut. Baby B was handed off to the pediatric care team at the stand. The placentas was delivered spontaneously with steady traction on cord and manual separation of placenta from uterine wall. Closure Uterine cavity was cleaned after placental delivery with lap sponge x 2. The hysterotomy was closed in one layer with stitches using 0 vicryl with continuous locking stitches. Hemostasis was achieved as needed with electrocautery. The ovaries/tubes/urine surface were evaluated. They were found to be normal. Fascia was closed with running stitches using 0 Vicryl. Hemostasis was checked for and found to be adequate. The subcutaneous layer was closed with running Vicryl sutures. The skin was closed with monocryl subcuticular sutures . The incision was cleaned and covered with a compression bandage and the procedure considered terminate at this time. Intraoperative Complications: None EBL: 600 cc. Unable to calculate QBL accurately due to copious amount of amniotic fluid Uterotonics: 40 u of pitocin and TXA Patient due for 24 hours of 2g of Ancef due to sterile field contamination. Pubic hair noted in pfannestiel incision. Disposition: The patient tolerated the procedure well. She was recovered in OB PACU for close monitoring in stable condition, with a contracted uterus and normal transvaginal bleeding. The was sent to mother's bedside. OB Delivery Proc Additional Procedures Tubal Ligation at the time of : No Other: No
--- NOTE | 2022-03-25 05:04 | P.NB_ITS ---
Nerve Block Nerve Block Time Seen by Provider: 04:40 Date Seen: 03/25/22 Type of block requested by surgeon for post-operative analgesia: TAP Side: bilateral Time out performed: Yes Verification of patient name: Yes Verification of date of : Yes Site marking: site marked Name of person performing procedure: verona Continuous monitoring Was continuous monitoring of O2 sat, B/P, youth nutritional monitor, recorded every 15 minutes?: Yes Procedure Checklist: sterile prep, needles and gloves Ultrasound guided. Images saved: Yes Medications given in 5ml increments after negative aspiration: Marcaine %: 0.25 mL: 30 Needle gauge: 20 and Exparel mL: 10 Needle gauge: 20 Patient tolerated procedure well: Yes Block Charges Block Charge (with Pro Fee): TAP Bilateral Use of Ultrasound Machine for Block: Yes- US Guidance/pain block
--- NOTE | 2022-03-25 05:04 | W.ANESCHARGE ---
Anesthesia Charges Start Date/Time Anesthesia Start Date: 03/25/22 Anesthesia Start Time: 03:33 Stop Date/Time Anesthesia Stop Date: 03/25/22 Anesthesia Stop Time: 04:53 Summary Emergency: Yes
[2022-03-25 06:21] LABS: Amphetamine Screen Urine Negative (Negative); Barbiturate Screen Urine Negative (Negative); Benzodiazepines Screen Urine Negative (Negative); Cannabinoid Screen Urine Negative (Negative); Cocaine Screen Urine Negative (Negative); Methadone Screen Urine Negative (Negative); Methamphetamines Screen Urine Negative (Negative); Opiate Screen Urine Negative (Negative); Oxycodone Screen Urine Negative (Negative); Phencyclidine Screen Urine Negative (Negative); Tricyclic Antidepressant Urine Negative (Negative)
[2022-03-25] MEDS: CEFAZOLIN 2 GM in 0.9 % SODIUM CHLORIDE Mini-bag 100 ML IVPB ×2 (14:08→22:40)
[2022-03-25] MEDS: CALCIUM CARBONATE 500 MG CHEW PO (17:17)
[2022-03-26] VITALS (8 sets, daily range): BP systolic 103–131; BP diastolic 68–81; PULSE 78–93; RESP 14–18; TEMP 36.6–36.8; O2SAT 98–99
[2022-03-26] MEDS: KETOROLAC 30 MG/ML inj IVP ×2 (05:28→11:27)
[2022-03-26 06:48] LABS: Hemoglobin* 7.3 gm/dL (12.0-16.0)
--- NOTE | 2022-03-26 07:41 | PM.OBPNCS1 ---
OB - PN: A/P Assessment and Plan (1) Anemia affecting : Status: Acute (2) Dichorionic diamniotic twin gestation: Status: Acute (3) Gestational diabetes mellitus: Status: Acute (4) Obesity with body mass index (BMI) of 35.0 to 39.9 without comorbidity: Status: Acute (5) : Status: Acute (6) Gestational thrombocytopenia: Status: Acute Plan day: 1 Plan: routine postop care Comments: , 36 week twins Continue routine PP care. -Would prefer to stay another day, declines early discharge. Likely would need to stay also. Acute anemia -denies any dizziness - consulted Dr. Nicolette Cohen about a blood transfusion, no need at this time as she is asymptomatic -started on BID iron supplement -having a hard time with latch starting last night. -other infant was transferred out and remains in the NICU -Can see prior to discharge and return as needed Gestational diabetes -fasting blood sugar WNL this am Gestational thrombocytopenia noted prior to delivery -platelets added on to labs drawn this am, slightly lower -repeat CBC ordered for AM OB - PN: Subj Subjective Time Seen by Provider: 07:42 Date Seen: 03/26/22 Interval history: Patient is a 27year old, G 1 now P 1002? admitted on 03/25/22 at 36 Weeks, 0 Days gestation for posible SROM.? She had an uncomplicated primary delivery of twins.? She delivered 2 viable male infants.? One baby has been transferred to a higher level NICU for respiratory problems, but she reports he is doing well at this time. She is breast feeding and reports things were going well, but baby is struggling with some latching starting yesterday evening.? the patient has done well.? Vitals have been stable.? She has remained afebrile.? She is voiding without difficulty.? She is passing gas and has not had a bowel movement.? She is ambulating and denies any dizziness.?Her hgb is low this morning, but she reports feeling amazing and better than she has in months. Her pain is well controlled by current medications. Patient comments: no complaints, pain well controlled and incisional pain (Tolerable) infant status: , doing well, NICU (one infant transferred out) and transferred feeding status: exclusively OB - PN: Obj Exam Physical Exam: Vital signs: Temp Pulse Resp BP Pulse Ox O2 Del Method 98.3 F 80 18 103/68 98 03/26/22 05:35 03/26/22 05:35 03/26/22 05:35 03/26/22 05:35 03/26/22 05:35 03/26/22 05:35 Constitutional: Constitutional: no acute distress Routine HEENT Exam: Head: Present normocephalic Routine Neck Exam: Neck: Present full ROM Routine Respiratory Exam: Respiratory: Present CTA bilaterally Routine Cardiovascular Exam: Cardiovascular: Present RRR Routine Abdominal Exam: Abdominal: Present normal bowel sounds and soft Fundus: Present firm (@U) Routine Extremities Exam: Extremities: Present full ROM and pedal edema (+2) Routine Back/Spine/Pelvis Exam: Back/Spine: Present full ROM Routine Skin Exam: Skin: Present wounds (Dressing on, clean/dry/intact) Routine Neurological Exam: Neurological: Present alert and oriented X3 Routine Psychiatric Exam: Psychiatric: Present normal affect and normal thought process Wound Management: Drains: none Examination: Present dressed, clean, dry and intact Urinary Catheter Management: Urethral: Cath placed during this visit: yes, but has since been removed by the nurse Reason for continuing: decision to DC catheter Insertion date: 03/25/22 Removal date: 03/25/22 Removal time: 17:45 OB - PN: Obj Data Labs Labs: Laboratory Results - last 24 hr 03/26/22 06:28 Hgb 7.3 L*
[2022-03-26 08:30] LABS: Platelet Count* 110 K/uL (140-440)
[2022-03-26] MEDS: DOCUSATE SODIUM 100 MG CAPSULE PO (10:40)
[2022-03-26] MEDS: FERROUS SULFATE 325 MG TABLET PO ×2 (10:40→21:16)
[2022-03-26] MEDS: ACETAMINOPHEN 500 MG TABLET 1000 MG PO (18:28)
[2022-03-26] MEDS: IBUPROFEN 600 MG TABLET PO (18:28)
[2022-03-27] MEDS: ACETAMINOPHEN 500 MG TABLET 1000 MG PO (00:31)
[2022-03-27 05:04] VITALS: BP 117/77; PULSE 84; RESP 16
[2022-03-27] MEDS: IBUPROFEN 600 MG TABLET PO (05:06)
[2022-03-27 07:23] LABS: Basophils Absolute Auto 0.01 K/uL (0.00-0.30); Basophils Percent Auto 0.1 % (0.0-3.0); Eosinophils Absolute Auto 0.05 K/uL (0.00-0.50); Eosinophils Percent Auto 0.5 % (0.0-7.0); Hematocrit 23.4 % (33.0-51.0); Immature Granulocytes Abs Auto 0.18 K/uL (0.00-0.30); Mean Corpuscular HGB Conc 34 gm/dL (32-36); Mean Corpuscular Hemoglobin 32 pg (26-34); Mean Corpuscular Volume 95 fL (80-100); Monocytes Percent Auto 6.8 % (0.0-11.0); Neutrophils Percent Auto 78.8 % (42.0-72.0); Platelet Count* 130 K/uL (140-440); RDW Coefficient of Variation % 15.7 % (11.5-15.5); Red Blood Count 2.47 m/uL (4.00-5.20); White Blood Count* 10.09 K/uL (4.50-11.00)
[2022-03-27 07:27] LABS: Hemoglobin* 7.9 gm/dL (12.0-16.0); Slide Review Reflex No
--- NOTE | 2022-03-27 07:31 | P.DS_ITS ---
DS: Providers Provider Date Seen: 03/27/22 Date of admission: 03/25/22 02:28 Primary care physician: Not a Local Provider Admitting Clinician: Kya Pedraza MD Consults: 03/25/22 05:41 Consult to Cottage Attendant [CONS] Routine Comment: Reason for Consult:: Social Service Consult Attending Physician on discharge: Bella Mosley CNM Date of Discharge: 03/27/22 DS: Diagnosis Discharge Diagnosis (1) care and examination immediately after delivery: Status: Acute (2) Status post primary low transverse section: Status: Acute Problem details: Elective primary LTCS for twins, PPROM twin A. Vtx/vtx. 36w0d. (3) Anemia due to acute blood loss: Status: Acute Problem details: Iron supplement ordered. (4) Gestational thrombocytopenia: Status: Acute (5) Dichorionic diamniotic twin gestation: Status: Acute (6) Lactating mother: Status: Acute (7) Obesity with body mass index (BMI) of 35.0 to 39.9 without comorbidity: Status: Acute (8) Gestational diabetes mellitus: Status: Acute Exam Const: Vital Signs, click to edit/add: Vital Signs - 24 hr 03/26/22 08:33 03/26/22 15:41 03/26/22 21:23 Temperature 97.8 F 98.2 F Pulse Rate [Pulse Oximeter] 80 92 93 Respiratory Rate 18 18 16 Blood Pressure [Le ft Arm] 113/73 131/81 108/69 Pulse Oximetry 99 98 98 Oxygen Delivery Me thod Room Air Room Air Room Air 03/26/22 23:34 03/27/22 05:04 Temperature 98.3 F Pulse Rate [Pulse Oximeter] 88 84 Respiratory Rate 16 16 Blood Pressure [Le ft Arm] 115/79 117/77 Pulse Oximetry 98 Oxygen Delivery Me thod Room Air Documenting provider has reviewed patient's vital signs: yes Common normals: no apparent distress, oriented x3, healthy appearing and alert HENMT: Common normals: normocephalic Head and scalp: normocephalic Eye: Common normals: PERRL Pupil: PERRL Neck & C-Spine: Common normals: full ROM and supple Chest: Common normals: inspection of chest normal Resp: Common normals: normal respiratory effort and clear to auscultation bilaterally Auscultation: clear to auscultation bilaterally Cardio: Common normals: regular rate and regular rhythm Rate: regular rate Rhythm: regular rhythm GI: Common normals: soft to palpation Inspection: incision (Abdominal lower transverse: well approximated, glue visible) Inspection of incision: healing well and other (clean, dry, and intact) Palpation: soft : OB/external & speculum: Yes perineal/vaginal laceration Uterus: U/U Lochia: small Back & Pelvis: Common normals: thoracic and lumbar spine normal to inspection Extremity: Common normals: normal to inspection and full ROM Neuro: Common normals: oriented x3 Sensorium/orientation: alert Speech: speech normal Psych: Common normals: mental status grossly normal, thought process normal, speech normal and activity/motor behavior normal Speech: normal speech Thought process: normal thought process Skin: Common normals: no rashes or lesions noted General skin exam: no rashes or lesions noted DS: Data Data Completed and Pending Labs on day of discharge: Labs from last 24 hours 03/27/22 03/26/22 07:10 06:28 WBC 10.09 RBC 2.47 L Hgb 7.9 L* Hct 23.4 L MCV 95 MCH 32 MCHC 34 RDW Coeff of Jack 15.7 H Plt Count 130 L 110 L Neut % (Auto) 78.8 H Lymph % (Auto) 12.0 L [place] % (Auto) 6.8 Eos % (Auto) 0.5 Baso % (Auto) 0.1 Neut # (Auto) 8.00 H Lymph # (Auto) 1.20 [place] # (Auto) 0.70 Eos # (Auto) 0.05 Baso # (Auto) 0.01 Abs Immat Gran (auto) 0.18 OB - DS: Summary Hospital Course Hospital Course: The patient is a 27 year old G 1 P 1002 at 36 0/7 weeks gestation that was admitted to the Center on 03/25/22 for spontaneous rupture of membranes. She had an uncomplicated delivery. She delivered two viable male infants. One of the twins was transferred to [facility] for breathing support. She is breast and bottle feeding. She is also pumping. the patient has done well. Hemoglobin yesterday was 7.3, today improved to 7.9. Patient is asymptomatic. The pain is well controlled with current medications.? She has no new complaints.? Urinary output is adequate and she is voiding without difficulty.? Has a good appetite, is tolerating a general diet, is passing flatus, and has had a bowel movement.? Has scant amount of rubra lochia.? She is ambulating well. Peripartum Data Procedures: Procedures Operation Date: 03/25/22 03:30 Actual Procedure Side Surgeon p Section Twins Kya Pedraza MD complications: none [place] Infant A Gender: Male Infant Discharge Plan: Home [place] Infant B Gender: Male Infant Discharge Plan: Transferred to [facility] after . Anticipate discharge home today Status at Discharge Functional status at discharge: independent ambulation Overall status at discharge: patient is progressing back to baseline Time Spent with Patient Time attestation: Total time spent providing and/or coordinating discharge services: Discharge Plan Discharge Disposition: Home, Self-Care Date of Admission: 03/25/22 02:28 Attending Provider on Discharge: Bella Mosley Primary Care Provider: Provider,Not a Local Condition: Stable Anticipated Discharge Date/Time: 03/27/22 09:00 Discharge Medications: New acetaminophen 500 mg Tablet 1,000 mg PO Q6H PRN (Reason: Pain) Qty: 0 0RF docusate sodium 100 mg Capsule 100 mg PO DAILY Qty: 90 0RF ibuprofen 600 mg Tablet 600 mg PO Q6H PRN (Reason: Pain) Qty: 60 0RF oxycodone 5 mg Tablet 5 - 10 mg PO Q4H PRN (Reason: Pain) Qty: 20 0RF Continued DHA 200 mg capsule 200 mg PO QDAY ferrous sulfate 325 mg (65 mg iron) tablet 325 mg PO QDAY Qty: 90 1RF Discontinued aspirin [Adult Low Dose Aspirin] 81 mg tablet,delayed release (DR/EC) 81 mg PO QDAY Novolin N NPH U-100 Insulin 100 unit/mL suspension 20 unit subcut QHS No Action (DME) Test Strips Misc See Rx Instructions .MEDSUPPLY Qty: 100 3RF Rx Instructions: Test blood sugar 4 times daily. (DME) lancets Misc See Rx Instructions .MEDSUPPLY Qty: 100 3RF Rx Instructions: Test blood sugar 4 times daily. (DME) Blood Glucose Meter Misc See Rx Instructions .MEDSUPPLY Qty: 1 0RF Rx Instructions: As directed Discharge Orders: Discharge Order (Routine); Ordered 03/27/22 Ordered By: Bella Mosley Patient Education: OB Over the Counter Medication Information, OB /Breast Feeding Additional Instructions: Discharge instructions were reviewed with the patient including signs and symptoms of infection and home going medications Lifting Restrictions: 20 pounds for 6 weeks No not submerge incision under water X 2 weeks? Nothing vaginally for 6 weeks: no tampons or intercourse Do not drive while taking narcotic pain medication(s) Off Work or School for 8 weeks 2-week visit: incision check, discuss infant feeding concerns, review control options and screen for anxiety/depression. 6-week visit for an annual exam. consultation services are available to all mothers and babies for the first year after delivery.? To make an appointment, please call [phone]. Activity Level: Activity as Tolerated Discharge Diet: Regular Follow Up Appointments: [facility] [Provider Group] (2 weeks and 6 weeks ) Forms: [id number] Info Instructions
[2022-03-27 07:36] VITALS: BP 119/56; PULSE 82; RESP 16; O2SAT 98
[2022-03-27] MEDS: DOCUSATE SODIUM 100 MG CAPSULE PO (08:16)
[2022-03-27] MEDS: FERROUS SULFATE 325 MG TABLET PO (08:16)
[2022-03-27] MEDS: MEASLES,MUMPS,RUBELLA VACC/PF 1 DOSE INJ 1 EACH SUBCUT (08:24)
--- NOTE | 2022-03-27 08:24 | PC.SOCIAL ---
clinical services director referral on pt. due to labor for twins. Tox screen negative on pt. No further social worker aide needs unless meconium returns positive.
== END 2022-03-27 11:00 | disposition home or self-care (01) | DRG 540 ==
LOC: OB OUT 02:30 → OB 02:34
PROVIDERS: Advanced Practice Midwife; Admitting Provider Obstetrics & Gynecology; Visit Provider Obstetrics & Gynecology
PROC: 10D00Z1 Extraction of Products of Conception, Low, Open Approach (ICD-10-PCS; CPT 59514; principal; 2022-03-25 03:15)
DX: O60.14X1 Preterm labor third trimester with preterm delivery third trimester, fetus 1 (principal); O60.14X2 Preterm labor third trimester with preterm delivery third trimester, fetus 2; O30.043 Twin pregnancy, dichorionic/diamniotic, third trimester; O42.013 Preterm premature rupture of membranes, onset of labor within 24 hours of rupture, third trimester; O32.1XX2 Maternal care for breech presentation, fetus 2; O24.424 Gestational diabetes mellitus in childbirth, insulin controlled; O99.02 Anemia complicating childbirth; D64.9 Anemia, unspecified; O99.214 Obesity complicating childbirth; O99.12 Other diseases of the blood and blood-forming organs and certain disorders involving the immune mechanism complicating childbirth; D69.6 Thrombocytopenia, unspecified; Z3A.36 36 weeks gestation of pregnancy; Z37.2 Twins, both liveborn
CPT/HCPCS: 01961; 36415; 64488; 76819; 76942; 80306; 82962; 84112; 85018; 85025; 85049; 86850; 86870; 86880; 86900; 86901; 87081; 87635; 87653; 88307; 99140; A9270; C9290; J0690; J1100; J1885; J2274; J2370; J2405; J2590; J3490; J7120

== ENCOUNTER 2023-03-11 09:59 | Outpatient (CLI) | payer BC, SELFPAY | END 2023-03-11 10:00 | disposition home or self-care (01) | PROVIDERS: PCP Family Medicine; Visit Provider Family Medicine | DX: Z00.00 Encounter for general adult medical examination without abnormal findings (principal); E66.9 Obesity, unspecified; D62 Acute posthemorrhagic anemia; Z13.6 Encounter for screening for cardiovascular disorders | CPT/HCPCS: 80053; 80061; 84439; 84443 ==

== ENCOUNTER 2023-04-03 09:24 | Outpatient (CLI) | payer BC, SELFPAY | END 2023-04-03 09:25 | disposition home or self-care (01) | LOC: NFLDREF 04-05 11:35 | PROVIDERS: PCP Family Medicine; Referring Provider Family Medicine; Visit Provider Family Medicine | DX: E78.1 Pure hyperglyceridemia (principal) | CPT/HCPCS: 80061 ==

== ENCOUNTER 2023-05-13 11:39 | Outpatient (CLI) | payer BC, SELFPAY | END 2023-05-13 11:40 | disposition home or self-care (01) | PROVIDERS: PCP Family Medicine; Visit Provider Family Medicine | DX: E03.9 Hypothyroidism, unspecified (principal) | CPT/HCPCS: 84443 ==

== ENCOUNTER 2023-06-24 09:23 | Outpatient (CLI) | payer BC, SELFPAY ==
--- OUTSIDE RECORDS SUMMARY | 2023-06-24 09:40 | XMS_ITS | Encounter Summary ---
Author Name Unknown [facility] Address [address] [place] [address] Care Team Providers Care Wound/Ostomy Clinical Nurse Specialist Name Role Phone Maliha Delacruz PA-C Primary Care Provider [phone] Encounter Details Date Type Department Care Team Description 01/24/2018 Consent for Procedure/Treatmen t [facility] [address] [place] [address] Maliha Delacruz PA-C [address] [place] [address] NEXPLANON CONSENT Social History Tobacco Use Types Packs/Day Years Used Date Smoking Tobacco: Former Smokeless Tobacco: Former Quit: 05/27/2011 Alcohol Use Standard Drinks/Week Comments No 0 (1 standard drink = 0.6 oz pur e alcohol) Sex and Gender Information Value Date Recorded Sex Assigned at Not on file Gender Identity Not on file Sexual Orientation Not on file documented as of this encounter Plan of Treatment Not on file documented as of this encounter Visit Diagnoses Not on filedocumented in this encounter Care Teams Wound/Ostomy Clinical Nurse Specialist Relationship Specialty Start Date End Date Maliha Delacruz PA-C [address] [place] [address] PCP - General Physician Automatic Fabric Cutter 01/24/18 documented as of this encounter
--- OUTSIDE RECORDS SUMMARY | 2023-06-24 09:40 | XMS_ITS | Encounter Summary ---
Author Name Unknown Organization [facility] Address [address] [place] [address] Care Team Providers Care Motorcycle Mechanic Name Role Phone Maliha Delacruz PA-C Primary Care Provider [phone] Encounter Details Date Type Department Care Team Description 10/19/2011 Outside Hospital External to External, [place] [address] [facility] [place] Social History Tobacco Use Types Packs/Day Years Used Date Smoking Tobacco: Never Assessed Sex and Gender Information Value Date Recorded Sex Assigned at Not on file Gender Identity Not on file Sexual Orientation Not on file documented as of this encounter Progress Notes * External, Provider - 10/19/2011 12:00 AM CDT documented in this encounter Plan of Treatment Not on file documented as of this encounter Visit Diagnoses Not on filedocumented in this encounter Care Teams Motorcycle Mechanic Relationship Specialty Start Date End Date Maliha Delacruz PA-C [address] [place] [address] PCP - General Physician Locker Attendant 01/24/18 documented as of this encounter
--- OUTSIDE RECORDS SUMMARY | 2023-06-24 09:40 | XMS_ITS | Encounter Summary ---
Author Name Unknown Organization [facility] Address [address], [place] [address] Care Team Providers Care Tablet Making Machine Operator Helper Name Role Phone Maliha Delacruz PA-C Primary Care Provider [phone] Reason for Visit * Reason Comments Depo Provera Injection Encounter Details Date Type Department Care Team Description 07/30/2022 10:40 AM X RAY CONTROL EQUIPMENT REPAIRER Office Visit [facility] [address] [place] [phone] Maria Esther Carcamo PA-C [address] [place], [place] [phone] Encounter for management and injection of depo-Provera (Primary Dx) Social History Tobacco Use Types Packs/Day Years Used Date Smoking Tobacco: Former Smokeless Tobacco: Former Quit: 05/27/2011 Alcohol Use Standard Drinks/Week Comments No 0 (1 standard drink = 0.6 oz pur e alcohol) PHQ-2 Answer Date Recorded PHQ-2 Score 0 07/30/2022 Sex and Gender Information Value Date Recorded Sex Assigned at Not on file Gender Identity Not on file Sexual Orientation Not on file documented as of this encounter Last Filed Vital Signs Vital Sign Reading Time Taken Comments Blood Pressure 98/68 07/30/2022 10:53 AM X RAY CONTROL EQUIPMENT REPAIRER Pulse 68 07/30/2022 10:53 AM X RAY CONTROL EQUIPMENT REPAIRER Temperature - - Respiratory Rate - - Oxygen Saturation - - Inhaled Oxygen Concentration - - Weight - - Height - - Body Mass Index - - documented in this encounter Patient Instructions * Attachments The following attachments cannot be sent through Care Everywhere. * Contraceptive Shot (Latvian) documented in this encounter Progress Notes * Maria Esther Carcamo PA-C - 07/30/2022 10:40 AM CST Chief Complaint: Chief Complaint Patient presents with Depo Provera Injection HPI: Darlin Palmer is a 27 y.o. old female who presents to [facility] for depo injection. Initial depo provera injection given 05/14/22 when she was 8 weeks post . Tolerated well without significant side effects. She is here today for depo injection and is on time for scheduled injection. missed vasectomy appointment and plans to undergo vasectomy now in September. She plans to discontinue Depo for control once this is completed. Has no history of hypertension or bleeding/clotting disorder. She is currently spotting but has not had a regular menstrual cycle in the lastmonth. I have reviewed active problem list, medication list, allergies, notes from last encounter. Physical Exam: BP 98/68 (BP Location: Right Arm, BP Cuff Size: Large) Pulse 68 Pt A&O x 3 and appears in no distress. Head: Normocephalic and atraumatic. Eyes: EOMI, no conjunctival injection or exudate. Neck: supple without lymphadenopathy, thyromegaly, or nuchal rigidity Heart: RRR without murmurs. No chest wall pain to palpation. Lungs: CTA bilaterally with no use of accessory muscles. Extremities: No cyanosis, clubbing or edema. Skin: No rashes. Diagnosis: ICD-10-CM 1. Encounter for management and injection of depo-Provera Z30.42 Test (Urine) Test (Urine) Assessment/Plan: UCG negative. Depo shot was given today in left deltoid. Discussed medication dosage, usage, goals of therapy, and side effects. Next dose is due between 10/15/2022 and 10/29/2022. Declines STD screening today. Encourage to take daily calcium-vitamin D supplement [id number]. Maria Esther Carcamo PA-C 07/30/2022, 11:45 AM X RAY CONTROL EQUIPMENT REPAIRER documented in this encounter Plan of Treatment Not on file documented as of this encounter Procedures Procedure Name Priority Date/Time Associated Diagnosis Comments TEST (URINE) Routine 07/30/2022 10:56 AM X RAY CONTROL EQUIPMENT REPAIRER Encounter for management and injection of depo-Provera documented in this encounter Results * Test (Urine) (07/30/2022 10:56 AM X RAY CONTROL EQUIPMENT REPAIRER) HCG, Urine Negative Negative 07/30/2022 11:19 AM X RAY CONTROL EQUIPMENT REPAIRER [facility] Urine Non-blood Collection / Unknown 07/30/2022 10:56 AM X RAY CONTROL EQUIPMENT REPAIRER 07/30/2022 10:56 AM X RAY CONTROL EQUIPMENT REPAIRER Maria Esther Carcamo PA-C [facility] [place] [id number] [place] [address], [facility] [phone] documented in this encounter Visit Diagnoses Diagnosis Encounter for management and injection of depo-Provera- Primary documented in this encounter Administered Medications Inactive Administered Medications - up to 3 most recent administrations Medication Order MAR Action Action Date Dose Rate Site medroxyPROGESTERone (DEPO-PROVERA) injection 150 mg 150 mg, Intramuscular, EVERY 90 DAYS, First dose on Sat05/14/22 at 1445, Last dose on Sat02/08/23 at 1445, For 4 doses, If given for contraception other than within 4 days of delivery and last injection date was > 14 weeks ago, then obtain urine vs blood test and consult with prescriber. Wear gloves with administration. Administer by deep I.M. injection in the gluteal or deltoid muscle. Preparation: Single glove, gown; face mask optional Administration: Single glove Given 07/30/2022 11:07 AM X RAY CONTROL EQUIPMENT REPAIRER 150 mg Left Deltoid Given 05/14/2022 2:35 PM X RAY CONTROL EQUIPMENT REPAIRER 150 mg Le ft Deltoid documented in this encounter Care Teams Tablet Making Machine Operator Helper Relationship Specialty Start Date End Date Maliha Delacruz PA-C [address] [place] [address] PCP - General Physician Tailing Hand 01/24/18 documented as of this encounter
--- OUTSIDE RECORDS SUMMARY | 2023-06-24 09:40 | XMS_ITS | Clinical Summary ---
Author Name Unknown Organization [facility] Address [place], [place] [address] Care Team Providers Care Credit Administration Manager Name Role Phone Pcp, No Unavailable Unavailable Listed, Not Primary Care Provider Unavailabl e Allergies No known active allergies Medications Medication Sig Dispensed Refills Start Date End Date Status vit no.124/iron/folic ( VITAMIN ORAL) Take by mouth once daily. 0 Active Active Problems Problem Noted Date Diagnosed Date Nexplanon in place 04/07/2021 Myopia 12/10/2005 Goiter, unspecified 10/08/2005 Overview: Ultrasound in 1 year (08/02), and then TSH in [address] Caballero= Goiter, unspecified Overview: endo 2006. rec. testing every 6 months until summer 2007. If still normal, then yearly. abs negative. Resolved Problems Problem Noted Date Diagnosed Date Resolved Date Scoliosis (and kyphoscoliosis), idiopathic 10/08/2005 11/22/2005 Unspecified constipation 10/08/2005 Immunizations Name Administration Dates Next Due DTP 09/06/1997 DTP-HIB 08/16/1994,1993,1993 ,1993 Hepatitis A (Adult) 10/19/2011 Hepatitis B (Peds) 1993,1993, 993 Inactivated Polio Vaccine 09/06/1997 MMR 09/06/1997,06/04/1994 Oral Polio Vaccine 08/16/1994,1993, 993 Td (Age >=7 Years) 08/08/2004 Family History Medical History Relation Name Comments Genetic Other mother asthma~f ather healthy~brother healthy~PGF DM, CAD ([place] in his 50's)~PGM MS Relation Name Status Comments Other Social History Tobacco Use Types Packs/Day Years Used Date Smoking Tobacco: Never Smokeless Tobacco: Never Alcohol Use Standard Drinks/Week Comments No 0 (1 standard drink = 0.6 oz pur e alcohol) Alcoholic Drinks/day: 0 PHQ-2 Answer Date Recorded PHQ-2 TOTAL SCORE 1 03/07/2021 Social Connections Answer Date Recorded Frequency of Communication with Friends and Fami ly Not on file 05/27/2021 Financial Resource Strain Answer Date R ecorded Difficulty of Paying Living Expenses Not on file 05/27/2021 Difficulty of Paying Living Expenses Not on file 05/27/2021 Sex and Gender Information Value Date Recorded Sex Assigned at Female 02/23/2021 8:34 AM CDT Gender Identity Female 02/23/2021 8:34 AM CDT Sexual Orientation Choose not to disclose 2020 8:34 AM CDT Obstetrics History Last Filed Vital Signs Vital Sign Reading Time Taken Comments Blood Pressure 122/60 04/07/2021 11:45 AM LOADING RACK SUPERVISOR Pulse 56 04/07/2021 11:45 AM LOADING RACK SUPERVISOR Temperature 36 ??C (96.8 ??F) 04/07/2021 10:56 AM LOADING RACK SUPERVISOR Respiratory Rate 16 04/07/2021 11:45 AM LOADING RACK SUPERVISOR Oxygen Saturation 100% 04/07/2021 11:45 AM LOADING RACK SUPERVISOR Inhaled Oxygen Concentration - - Weight 92.3 kg (203 lb 6.4 oz) 04/07/2021 9:30 A M LOADING RACK SUPERVISOR Height 154.9 cm (5' 1) 04/07/2021 9:30 AM LOADING RACK SUPERVISOR Body Mass Index 38.43 04/07/2021 9:30 AM LOADING RACK SUPERVISOR Plan of Treatment Health Maintenance Due Date Last Done Comments Tdap 01/17/2004 HIV for age 15-65 01/17/2008 Hepatitis C screening for ag e 18-79 2011 Tetanus booster 08/08/2014 08/08/2004 Depression screening for age 12+ 03/07/2022 03/07/2021 BMI (ht and wt on same day) for age 18+ 03/13/2022 03/13/2021, 06/01/2020 COVID-19 vaccine series ( season) 2023 09/14/2020, 08/09/2020 Influenza for age 9-49 01/25/2023 Pap test for age 21-65 09/12/2024 09/12/2021 Pneumococcal series for age 6-64 Aged Out No longer eligible b ased on patient's age to complete this topic Advance Directives Latest Code Status on File Code Status Date Activated Date Inactivated Comments Full Code 04/07/2021 9:07 AM 04/07/2021 3:50 PM Question Answer Comments Code Status Discussion: Not Discussed Care Teams Credit Administration Manager Relationship Specialty Start Date End Date Listed, [place] [address] PCP - General 03/27/21 Pcp, No . 04/02/20
--- OUTSIDE RECORDS SUMMARY | 2023-06-24 09:40 | XMS_ITS | Clinical Summary ---
Author Name Unknown Organization [facility] Address [address] [place] [address] Care Team Providers Care Project Program Manager Name Role Phone Maliha Delacruz PA-C Primary Care Provider [phone] Source Comments You are receiving this document as you are listed as the primary care provider,follow-up provider, or the patient has been referred to you for consultation.This is in compliance with the Medicare andThe [facility] EHR Incentive Program,which states Providers who transition their patient to another setting of careor provider of care or refers their patient to another provider of care shouldprovide summary care record for each transition of care or referral. [facility] Allergies No known active allergies Medications No known medications Active Problems Problem Noted Date Diagnosed Date Hypothyroidism 08/25/2015 Goiter 03/16/2013 Overview: Endocrine 2006. Normal follow-up US for 2 years, normal TSH, negative antibodies. Repeat US and TSH yearly? Myopia 12/10/2005 Immunizations Name Administration Dates Next Due DTP 09/06/1997 DTP-Hib (Tetramune) 08/16/1994, 4,1993,1992 HepA Adult (19+ yrs) 10/19/2011 HepA Ped/Adol (1-18 yrs) 10/19/2011 HepB Ped/Adol (0-18 yrs) 1993,1993,0 1993 HepB, Unspecified Formulation 1993, 993,1993 IPV (Polio) 09/06/1997, 5,1993,1992 Influenza IIV4 (Quadrivalent ) 0.5mL ([id number]) 03/01/2022 MMR 03/27/2022,09/06/1997,06/04/1994 Moderna Monovalent 12+ 08/21/2021,2021,09/14/2020,2020 OPV, Trivalent (Orimune or tOPV) 08/16/1994,04/27,1993 Polio, Unspecified Formulation 8,08/16/1994,1993,1992 Td 08/08/2004 Tdap 02/15/2022 Family History Medical History Relation Name Comments Asthma Mother Hypertension Mother Eczema Brother Thyroid Disorder Other paternal au nt Coronary Artery Disease Paternal Grandfather [place] in his 50's Diabetes, Type II Paternal Grandfather Other Paternal Grandmother MS Relation Name Status Comments Mother Brother Other Paternal Grandfather Paternal Grandmother Social History Tobacco Use Types Packs/Day Years Used Date Smoking Tobacco: Former Smokeless Tobacco: Former Quit: 05/27/2011 Tobacco Cessation:Counseling Given: Not Answered Alcohol Use Standard Drinks/Week Comments No 0 (1 standard drink = 0.6 oz pur e alcohol) PHQ-2 Answer Date Recorded PHQ-2 Score 0 07/30/2022 Sex and Gender Information Value Date Recorded Sex Assigned at Not on file Gender Identity Not on file Sexual Orientation Not on file Last Filed Vital Signs Vital Sign Reading Time Taken Comments Blood Pressure 98/68 07/30/2022 10:53 AM SPINNING FRAME CHANGER Pulse 68 07/30/2022 10:53 AM SPINNING FRAME CHANGER Temperature 36.6 ??C (97.9 ??F) 02/25/2013 10:56 AM C DT Respiratory Rate 18 01/24/2018 9:43 AM CDT Oxygen Saturation 98% 08/25/2015 2:42 PM CDT Inhaled Oxygen Concentration - - Weight 68.9 kg (152 lb) 01/24/2018 9:43 AM CDT Height 157.5 cm (5' 2) 01/24/2018 9:43 AM CDT Body Mass Index 27.8 01/24/2018 9:43 AM CDT Plan of Treatment Health Maintenance Due Date Last Done Comments Hep C Screening (Preventive Services) 1993 HIV Screening (Preventive Services) 2009 Adult Preventive Visit 2011 HepA (2 of 2 - Risk 2-dose series) 04/20/2012 10/19/2011, 10/19/2011 COVID-19 Vaccine ( season) 2023 08/21/2021, 06/01/2021, 09/14/2020, Additional history exists Influenza (#1) 2023 03/01/2022 Cervical Cancer Screening 09/08/20262021 (Completed), 02/25/2013, 02/25/2013 DTaP/Tdap/Td (7 - Tdap) 02/16/2032 02/16/20, 08/08/2004, 09/06/1997, Additional history exists Zoster/Shingles (1 of 2) 2043 HepB Completed 1993, 06/28, 1993, Additional history exists Hib Completed 08/16/1994, 06/28, 1993, Additional history exists IPV (Polio) Completed 09/06/1997, 08/25, 08/16/1994, Additional history exists HPV Vaccine Aged Out No longer eligi ble based on patient's age to complete this topic MCV4 Aged Out No longer eligi ble based on patient's age to complete this topic Pneumococcal Aged Out No longer eligi ble based on patient's age to complete this topic Care Teams Project Program Manager Relationship Specialty Start Date End Date Maliha Delacruz PA-C [address] [place] [address] PCP - General Physician Assistant Baseball Coach 01/24/18
--- OUTSIDE RECORDS SUMMARY | 2023-06-24 09:40 | XMS_ITS | Clinical Summary ---
Author Name Unknown Organization [facility] Address [address] [place] [address] Care Team Providers Care Window Shade Installer Name Role Phone Unavailable Primary Care Provider Unavailabl e Social History Tobacco Use Types Packs/Day Years Used Date Smoking Tobacco: Never Assessed Adolescent Education Answer Date Record ed Getting School Help Needed Not on file 02/16 Sex and Gender Information Value Date Recorded Sex Assigned at Not on file Gender Identity Not on file Sexual Orientation Not on file Plan of Treatment Health Maintenance Due Date Last Done Comments ADVANCE CARE PLANNING 1993 ANNUAL REVIEW OF HM ORDERS 1993 YEARLY PREVENTIVE VISIT 1993 DTAP/TDAP/TD IMMUNIZATION (6 - Tdap) 08/09/2004 08/08/2004, 09/06/1997, 08/16/1994, Additional history exists HIV SCREENING 01/17/2008 HEPATITIS C SCREENING 2011 COVID-19 Vaccine ( season) 2023 08/21/2021, 06/01/2021, 09/14/2020, Additional history exists INFLUENZA VACCINE (#1) 2023 PHQ-2 (once per calendar year) 2023 PAP 09/12/2024 09/12/2021 HEPATITIS B IMMUNIZATION Completed 994, 1993, 1993, Additional history exists IPV IMMUNIZATION Completed 09/06/1997, , 08/16/1994, Additional history exists HPV IMMUNIZATION Aged Out No longer e ligible based on patient's age to complete this topic MENINGITIS IMMUNIZATION Aged Out No l onger eligible based on patient's age to complete this topic Pneumococcal Vaccine: Pediatrics (0 to 5 Years) and At-Risk Patients (6 to 64 Years) Aged Out No longer eligible based on patient's age to complete this topic RSV MONOCLONAL ANTIBODY Aged Out No l onger eligible based on patient's age to complete this topic
--- OUTSIDE RECORDS SUMMARY | 2023-06-24 09:40 | XMS_ITS | Referral Summary ---
Author Name Unknown Organization [facility] Address [address] [place] [address] Care Team Providers Care Glue Clamp Operator Name Role Phone Unavailable Primary Care Provider Unavailabl e Social History Tobacco Use Types Packs/Day Years Used Date Smoking Tobacco: Never Assessed Adolescent Education Answer Date Record ed Getting School Help Needed Not on file 02/16 Sex and Gender Information Value Date Recorded Sex Assigned at Not on file Gender Identity Not on file Sexual Orientation Not on file Plan of Treatment Not on file
--- OUTSIDE RECORDS SUMMARY | 2023-06-24 09:40 | XMS_ITS | Encounter Summary ---
Author Name Unknown Organization [facility] Address [address] [place] [address] Care Team Providers Care Health Advisor Name Role Phone Maliha Delacruz PA-C Primary Care Provider [phone] Encounter Details Date Type Department Care Team Description 10/18/2012 Outside Hospital External to External, [place] [address] [facility] [place] Social History Tobacco Use Types Packs/Day Years Used Date Smoking Tobacco: Never Assessed Sex and Gender Information Value Date Recorded Sex Assigned at Not on file Gender Identity Not on file Sexual Orientation Not on file documented as of this encounter Progress Notes * External, Provider - 10/18/2012 12:00 AM CDT documented in this encounter Plan of Treatment Not on file documented as of this encounter Visit Diagnoses Not on filedocumented in this encounter Care Teams Health Advisor Relationship Specialty Start Date End Date Maliha Delacruz PA-C [address] [place] [address] PCP - General Physician Cloth Bolt Bander 01/24/18 documented as of this encounter
== END 2023-06-24 09:24 | disposition home or self-care (01) ==
LOC: FRMREF 09:24
PROVIDERS: PCP Family Medicine; Visit Provider Family Medicine
DX: E03.9 Hypothyroidism, unspecified (principal); Z77.011 Contact with and (suspected) exposure to lead
CPT/HCPCS: 83655; 84443

== ENCOUNTER 2024-05-13 10:12 | Outpatient (CLI) | payer BC, SELFPAY | END 2024-05-13 10:13 | disposition home or self-care (01) | LOC: NFLDREF 05-14 05:12 | PROVIDERS: Visit Provider Physician Assistant Medical | DX: N30.01 Acute cystitis with hematuria (principal); B95.7 Other staphylococcus as the cause of diseases classified elsewhere | CPT/HCPCS: 87086; 87186 ==

== ENCOUNTER 2025-01-21 10:56 | Outpatient (CLI) | payer BC, SELFPAY ==
[2025-01-23 06:13] LABS: HPV Source Cervical
[2025-01-28 09:02] LABS: Pap Test Digital Imaging Done
== END 2025-01-21 10:57 | disposition home or self-care (01) ==
PROVIDERS: PCP Family Medicine; Visit Provider Family Medicine
DX: Z00.00 Encounter for general adult medical examination without abnormal findings (principal); E66.9 Obesity, unspecified; Z11.51 Encounter for screening for human papillomavirus (HPV); Z12.4 Encounter for screening for malignant neoplasm of cervix
CPT/HCPCS: 80053; 80061; 87624; 87625; 88141; 88142; 88175